=== PATIENT | male | born 1955 ===

== ENCOUNTER → 2020-07-01 13:41 | Outpatient (REF) | payer MEDICAID, SELFPAY ==
--- NOTE | 2020-07-01 14:00 | CA_ITS ---
Transthoracic Echocardiogram Patient (Last, First, Middle): Juan Carlos Garcia, Gender: Male Date of : 1955 Age: 64 Procedure Date: 07/01/2020 Procedure Type: Transthoracic Echocardiogram Location: OP Height: 172.72 cm Weight: 104.33 kg BSA: 2.17 m2 Heart Rate: bpm BP: 98 / 50 mmHg Workforce Planner: Isa MD: Rachid Guardado MD Symptoms: J44.9 COPD J45.909 UN SPEC ASTHMA I10 HTN Study Quality: Fair ECG Rhythm: Sinus Conclusions: - The left ventricular systolic function is normal. The visually estimated ejection fraction is between 55-60%. - Basal to mid inferolateral wall is not well visualized, but no obvious wall motion abnormality elsewhere. - No obvious valvular pathology seen on this study. Findings Left Ventricle Normal left ventricular cavity size. There is normal left ventricular wall thickness. The left ventricular systolic function is normal. The visually estimated ejection fraction is between 55-60%. Diastolic function is normal for age. Basal to mid inferolateral wall is not well visualized but no obvious wall motion abnormality elsewhere. Right Ventricle Normal right ventricular cavity size and systolic function. Atria The left atrium is normal in size. The right atrium is normal in size. Aortic Valve There is a normal trileaflet aortic valve. There is no aortic valve stenosis. There is no aortic valve regurgitation. Mitral Valve The mitral valve appears normal. There is trace mitral valve regurgitation. There is no mitral valve stenosis. Pulmonic Valve The pulmonic valve was not well visualized. Tricuspid Valve Normal tricuspid valve structure. There is trace tricuspid valve regurgitation. The pulmonary artery systolic pressure is normal. Great Vessels The aortic annulus, sinuses of valsalva, asc aorta, and aortic arch are normal in size. Venous The inferior vena cava is normal in size and collapses greater than 50% with inspiration. Pericardium/Pleural There is no evidence of pericardial effusion. Prior Study Comparison No prior study available for comparison. Recommendations, Care & Conclusions No obvious valvular pathology seen on this study. Recommend contrast in the future to improve endocardial definition. Measurements 2D Linear Measurements RVIDd: 2.79 RVIDd Index: 1.29 IVSd: 0.95 0.6-0.9/0.6-1.0 cm LVIDd: 5.05 3.9-5.3/4.2-5.9 cm LVIDd Index: 2.33 2.4-3.2/2.2-3.1 cm/m2 LVIDs: 3.43 2.0-3.6 cm LVPWd: 1.06 0.7-1.1 cm Ao Root: 3.70 2.1-3.5 cm LA Diam: 3.60 2.7-3.8/3.0-4.0 cm LAIDs Index: 1.66 1.5-2.3 cm/m2 LV Mass: 231.57 67-162/88-224 g LV Mass Index: 106.71 43-95/49-115 g/m2 LVOT Diam: 2.10 3.0+(-)1.3 cm 2D Systolic Function EF 4C: 61.10 >55% EF 2C: 65.30 >55% Mitral Valve MV Pk E: 0.58 MV PK A: 0.48 MV Decel Time: 298.00 E/A: 1.20 E'Lateral: 10.30 E/E' Lat: 5.60 Aortic Valve AoV Pk Hi: 0.91 AoV Mn Hi: 0.60 AoV VTI: 0.16 AoV Pk Grad: 3.00 Aov Mn Grad: 2.00 JOEY Cont.VTI: 3.05 LVOT LVOT Pk Hi: 0.78 LVOT Mn Hi: 0.48 LVOT VTI: 0.14 LVOT Pk Grad: 2.00 LVOT Mn Grad: 1.00 LVOT Diam: 2.10 LVOT Area: 3.46 Diastolic Function MV Pk E: 0.58 MV Pk A: 0.48 E/A: 1.20 E' Laterial: 10.30 E/E' Lat: 5.60 Tricuspid Valve TR Pk Hi: 2.27 TR Pk Grad: 21.00 RA Press: 3.00 RVSP: 24.00 Great Vessels Aorta Ao Root-2D: 3.70 2.0-3.7 cm Ao Asc: 3.50 2.1-3.4 cm Ao Arch: 3.10 Updated in Other Vendor System with Status of Final Savage Blancas MD electronically signed on 07/02/2020 11:22:47 AM with status of Final
== END ==
LOC: HO.CARD 13:41
PROVIDERS: PCP Internal Medicine; Visit Provider Internal Medicine
DX: J44.9 Chronic obstructive pulmonary disease, unspecified (principal); R60.0 Localized edema
CPT/HCPCS: 93306

== ENCOUNTER → 2020-07-29 15:20 | Outpatient (BNVA) | payer MEDICAID, SELFPAY | PROVIDERS: PCP Internal Medicine; Visit Provider Urology | DX: N40.1 Benign prostatic hyperplasia with lower urinary tract symptoms (principal); N13.8 Other obstructive and reflux uropathy; R31.0 Gross hematuria; R97.20 Elevated prostate specific antigen [PSA] | CPT/HCPCS: 99202 ==

== ENCOUNTER → 2021-01-06 09:03 | Outpatient (BNVA) | payer MEDICAID, SELFPAY | PROVIDERS: PCP Internal Medicine; Visit Provider Urology | DX: N40.1 Benign prostatic hyperplasia with lower urinary tract symptoms (principal); N13.8 Other obstructive and reflux uropathy; R31.0 Gross hematuria | CPT/HCPCS: 52000; 99212 ==

== ENCOUNTER 2021-01-26 09:22 | Emergency (ER) | payer MEDICAID, SELFPAY ==
[2021-01-26 09:31] VITALS: BP 153/77; PULSE 90; RESP 16; TEMP 35.5; O2SAT 95; BMI 36.9
--- NOTE | 2021-01-26 10:29 | ED_ITS ---
HPI - Skin/Abscess/Foreign Bdy General Chief complaint: Skin/Abscess/Foreign Body Stated complaint: rash Time Seen by Provider: 01/26/21 10:13 Source: patient Mode of arrival: ambulatory History of Present Illness HPI narrative: 65-year-old male with past medical history anxiety, asthma, depression, presenting to the ED complaining of pruritic rash x1 month. Admits rash started after using topical wart cream. Reports rash is spreading, has used multiple OTC medications without relief. Denies other new exposures, new medications, new detergents/soaps, recent travel, known insect bites, SOB, wheezing, intraoral swelling MD complaint: rash Related Data Previous Rx's Medication Instructions Recorded finasteride 5 mg tablet 5 mg PO DAILY 90 Days #90 tab 01/06/21 tamsulosin 0.4 mg capsule 0.4 mg PO BEDTIME 90 Days #90 cap 01/06/21 cetirizine 10 mg capsule (Zyrtec) 10 mg PO DAILY #14 cap 01/26/21 diphenhydramine HCl 25 mg capsule 25 mg PO Q6H PRN #14 cap 01/26/21 (Benadryl) triamcinolone acetonide 0.05 % 1 appl TOPICAL BID #430 g 01/26/21 topical ointment Allergies Allergy/AdvReac Type Severity Reaction Status Date / Time latex [Latex] Allergy Mild RASH Verified 01/06/21 09:10 Review of Systems Review of Systems: Constitutional: No Fever, No Chills ENT/Mouth: No Ear Pain, No Nasal Congestion, No sore throat, No Rhinorrhea, No Swallowing Difficulty Cardiovascular: No Chest Pain, No SOB Respiratory: No Cough, No Sputum, No Wheezing Gastrointestinal: No Nausea, No Vomiting, No Diarrhea, No Constipation, No Abdominal pain Genitourinary:, No Dysuria, No Flank Pain Musculoskeletal: No joint pain, No Myalgias, No Joint Swelling Skin: No Skin Lesions, + rash Neuro: No Weakness, No Numbness, No Paresthesias Yes all other systems are reviewed and are negative FORMERLY [facility], 1928–1983 Past Medical History Attestation statement: The following information was validated with the patient. Medical History Anxiety Asthma Chronic fatigue Depression Primary osteoarthritis of both knees Surgical History History of surgery Social History Social History Advance Directives: No Physical Exam Vital Signs: Vital Signs: Last Vital Signs Temp 96 F L 01/26/21 09:31 Pulse 90 01/26/21 09:31 Resp 16 01/26/21 09:31 BP 153/77 H 01/26/21 09:31 Pulse Ox 95 01/26/21 09:31 Body Mass Index 36.9 Const: General: cooperative and healthy appearing Orientation/consciousness: patient oriented x3 Limitations: no limitations HENMT: Head: Yes normal to inspection Ears: hearing grossly normal bilaterally General nose exam: Normal external nose present Face and sinus: Yes normal facial exam Eyes: General: appearance normal, both eyes and all related structures EOM: EOMs intact bilaterally Neck: Neck: Yes normal visual inspection and Yes no meningeal signs Resp: Effort & Inspection: normal respiratory effort, not labored, no respiratory distress and no stridor Auscultation: clear to auscultation justin aterally Cardio: Rate: regular rate Heart sounds: S1 normal heart sound present and S2 normal heart sound present Skin: Other: + erythema/dermatitis noted to upper anterior chest wall, lower abdomen, and small patch noted to back. No evidence of cellulitis, not warm, no streaking, no fluctuance/induration. No central clearing. No palm/sole involvement Wounds: no wounds Neuro: General: patient oriented x3 and no meningeal signs Gait exam (Neuro): Normal gait present Extrem: General: Yes normal to inspection MDM - Skin/Abscess/Foreign Bdy MDM Narrative Medical decision making narrative: 65-year-old male with past medical history anxiety, asthma, depression, presenting to the ED complaining of pruritic rash x1 month. Admits rash started after using topical wart cream. On exam vital signs stable, NAD/nontoxic. No respiratory distress, talking in complete sentences. Rash appears to be contact dermatitis/Allergic dermatitis. Noted scratching to areas. No evidence of cellulitis. Plan: Topical steroid, Benadryl, Zyrtec, dermatology follow-up Medical Records Attestation: I reviewed the patient's medical records. Lab Data Attestation: I reviewed the patient's lab results. Discharge Plan Discharge Clinical Impression: Dermatitis Patient Disposition: Home, Self-Care Instructions: Dermatitis (ED) Additional Instructions: You have dermatitis/rash, apply topical triamcinolone to rash only. Do not apply to face, genital area, hands, or feet as potentially can discolored skin Benadryl will also help with itching/allergic symptoms, be aware this will make you drowsy Zyrtec you can take during the day which will help with symptoms this will not make you drowsy Please follow-up with dermatology If your symptoms persist or worsen, rashes spreading, developed difficulty breathing, unbearable itching, area begins to look infected please return to the ED Please avoid itching Tiene dermatitis / erupci?n, aplique triamcinolona t?pica solo en la erupci?n. N o lo aplique en la rosalind, el ?kaitlynn genital, las alex o los pies, ya que potencialmente puede decolorar la piel. Benadryl tambi?n lo ayudar? con los s?ntomas de picaz?n / alergia, tenga en cuenta que esto lo adormecer? Puede nanette Zyrtec ilene el d?a, lo que ayudar? con los s?ntomas y no le taylor? rani?o. Por favor, julianne un seguimiento con dermatolog?a. Si lyudmila s?ntomas persisten o empeoran, las erupciones se extienden, tiene dificultad para respirar, picaz?n insoportable, el ?kaitlynn comienza a verse infectada, regrese al servicio de urgencias Por favor, evite la picaz?n Prescriptions: New triamcinolone acetonide 0.05 % ointment 1 appl topical BID Qty: 430 RF: 0 diphenhydramine HCl [Benadryl] 25 mg capsule 25 mg PO Q6H PRN (Reason: itching) Qty: 14 RF: 0 Zyrtec 10 mg capsule 10 mg PO DAILY Qty: 14 RF: 0 No Action tamsulosin 0.4 mg capsule 0.4 mg PO BEDTIME 90 Days Qty: 90 RF: 1 finasteride 5 mg tablet 5 mg PO DAILY 90 Days Qty: 90 RF: 1 Referrals: Rachel Jiang PA [Physician Heat And [employer] Insulator Helper] - 2 days Martín Tran MD [Physician] - 2 days Kian Joseph MD [Physician] - 2 days Cassie Rosas NP [Nurse Practitioner] - 2 days Danna Magallanes PA-C [Physician [employer] And [employer] Insulator Helper] - 2 days Dejah Corona PA [Physician [employer] And Frost Insulator Helper] - 2 days Interventions: ED Discharge Assessment Last Done: 01/26/21 10:56 Discharge Date/Time: 01/26/21 10:57 Print Language: Arabic
== END 2021-01-26 10:57 | disposition home or self-care (01) ==
PROVIDERS: Emergency Provider Emergency Medicine; PCP Internal Medicine
DX: L30.9 Dermatitis, unspecified (principal); J45.909 Unspecified asthma, uncomplicated
CPT/HCPCS: 99283

== ENCOUNTER 2021-07-02 08:53 | Outpatient (REF) | payer MEDICAID, SELFPAY ==
[2021-07-02 10:08] LABS: Blood Urea Nitrogen 11 mg/dL (9-16); Estimated Glomerular Filt Rate > 60
== END 2021-07-02 08:54 | disposition home or self-care (01) ==
LOC: HO.LAB 08:53
PROVIDERS: PCP Internal Medicine; Visit Provider Urology
DX: Z12.5 Encounter for screening for malignant neoplasm of prostate (principal); R97.20 Elevated prostate specific antigen [PSA]; R31.0 Gross hematuria
CPT/HCPCS: 36415; 82565; 84153; 84520

== ENCOUNTER → 2021-07-08 10:30 | Outpatient (BNVA) | payer MEDICAID, SELFPAY | PROVIDERS: PCP Internal Medicine; Visit Provider Urology | DX: Z13.89 Encounter for screening for other disorder (principal) ==

== ENCOUNTER → 2021-08-11 13:43 | Outpatient (REF) | payer MEDICAID, SELFPAY ==
--- NOTE | 2021-08-11 13:47 | CA_ITS ---
Transthoracic Echocardiogram Patient (Last, First, Middle): Juan Carlos Garcia, Gender: Male Date of : 1955 Age: 65 Procedure Date: 08/11/2021 Procedure Type: Transthoracic Echocardiogram Location: OP Height: 172.72 cm Weight: 113.4 kg BSA: 2.25 m2 Heart Rate: bpm BP: 124 / 78 mmHg Senior Instructional Designer: Referring MD: Rachid Guardado MD Stage Driver: Jhony Moyer MD Symptoms: R60.0 LOCALIZED EDEMA Study Quality: Fair ECG Rhythm: Sinus Conclusions: - 1. Normal LV systolic function with LVEF of 55-60% with grade 1 diastolic dysfunction 2. Normal cardiac valvular Doppler 3. Normal RV systolic pressure 4. No pericardial effusion Findings Left Ventricle The visually estimated ejection fraction is between 55-60%. Spectral Doppler is indicative of an impaired relaxation filling pattern. E/E prime ratio is <8, consistent with normal filling pressures. Evidence suggests grade I (mild) diastolic dysfunction. Right Ventricle Normal right ventricular cavity size and systolic function. Atria The left atrium is normal in size. Interatrial shunt cannot be excluded. The right atrium is normal in size. Aortic Valve The aortic valve structure and function is likely normal. There is no aortic valve stenosis. There is no aortic valve regurgitation. Mitral Valve Likely normal mitral valve structure and function. There is trace mitral valve regurgitation. There is no mitral valve stenosis. Pulmonic Valve The pulmonic valve was not well visualized. Tricuspid Valve Likely normal tricuspid valve structure and function. There is trace tricuspid valve regurgitation. The right ventricular systolic pressure is normal. The right ventricular systolic pressure is 24 mmHg. Normal right atrial pressure. There is no evidence of pulmonary hypertension. Great Vessels All visible segments of the aorta are normal in size. The pulmonary artery was not well visualized. Venous The inferior vena cava is normal in size and collapses greater than 50% with inspiration. Pericardium/Pleural There is no evidence of pericardial effusion. Prior Study Comparison No significant change compared to prior study dated: 07/01/2020. Measurements 2D Linear Measurements IVSd: 0.91 0.6-0.9/0.6-1.0 cm LVIDd: 4.35 3.9-5.3/4.2-5.9 cm LVIDd Index: 1.93 2.4-3.2/2.2-3.1 cm/m2 LVIDs: 2.90 2.0-3.6 cm LVPWd: 0.86 0.7-1.1 cm Ao Root: 3.70 2.1-3.5 cm LA Diam: 3.30 2.7-3.8/3.0-4.0 cm LAIDs Index: 1.47 1.5-2.3 cm/m2 LV Mass: 244.30 67-162/88-224 g LV Mass Index: 108.58 43-95/49-115 g/m2 LVOT Diam: 2.40 3.0+(-)1.3 cm 2D Systolic Function EF 4C: 60.70 >55% EF 2C: 55.00 >55% Mitral Valve MV Pk E: 0.54 MV PK A: 0.63 MV Decel Time: 228.00 E/A: 0.90 E'Lateral: 11.90 E'Medial: 6.64 E/E' Med: 8.10 E/E' Lat: 4.50 PHT: 67.00 MVA PHT: 3.28 Decel Clay: 2.37 Aortic Valve AoV Pk Hi: 1.09 AoV Mn Hi: 0.78 AoV VTI: 0.24 AoV Pk Grad: 5.00 Aov Mn Grad: 3.00 LVOT LVOT Diam: 2.40 LVOT Area: 4.52 Diastolic Function MV Pk E: 0.54 MV Pk A: 0.63 E/A: 0.90 E'Medial: 6.64 E/E' Med: 8.10 E' Laterial: 11.90 E/E' Lat: 4.50 Tricuspid Valve TR Pk Hi: 2.27 TR Pk Grad: 21.00 RA Press: 3.00 RVSP: 24.00 Great Vessels Aorta Ao Root-2D: 3.70 2.0-3.7 cm Ao Asc: 3.30 2.1-3.4 cm Pulmonary Valve PV Pk Hi: 1.63 Peak PV Grad: 11.00 Updated in Other Vendor System with Status of Final Jhony Moyer MD electronically signed on 08/12/2021 1:38:27 PM with status of Final
== END ==
LOC: HO.CARD 13:43
PROVIDERS: PCP Internal Medicine; Visit Provider Internal Medicine
DX: R60.0 Localized edema (principal)
CPT/HCPCS: 93306

== ENCOUNTER 2021-08-27 08:26 | Emergency (ER) | payer MEDICAID, SELFPAY ==
[2021-08-27 08:29] VITALS: BP 149/74; PULSE 79; RESP 18; TEMP 36.5; O2SAT 95; BMI 35.9
--- NOTE | 2021-08-27 09:02 | ED_ITS ---
HPI - Skin/Abscess/Foreign Bdy General Chief complaint: Skin/Abscess/Foreign Body Stated complaint: rash on chest and abd Time Seen by Provider: 08/27/21 09:01 Source: patient Mode of arrival: ambulatory Limitations: no limitations History of Present Illness HPI narrative: 65 y/o male presents to the ER with an itchy rash on his chest and abdomen for almost one year. Patient reports he developed a red itchy rash on the upper part of his chest and his left lower abdomen last November 2020 after he was started on medication for his prostate. He cannot recall the medication's name. He reports the rash has waxed and waned but has overall persisted for almost 1 year now. He has seen his primary care doctor for this and [facility] for [facility]. He has tried prednisone and several [id number] topical agents with no relief. He was referred to Dermatology but missed his appointment because his father and he needed to go to [place]. He has another appointment in January. He is desperate to help the itch. He states the rash on his upper chest is now oozing and crusting yellow. He denies any fever or chills. He states aside from the rash on his chest and abdomen there is a area on the right great toe. No other lesions on the body. MD complaint: rash Onset (ago): month(s) Tetanus up to date: yes Location: chest and R foot Severity: severe Severity scale (1-10): 10 Quality: aching, constant and pruritic Pain Consistency: constant Relieving factors: cold therapy Exacerbating factors: none Context: new medication Associated symptoms: denies other symptoms Treatments prior to arrival: OTC topical medication and Benadryl Related Data Home Medications Medication Instructions Recorded Confirmed aripiprazole 5 mg tablet 5 mg PO QPM 07/08/21 budesonide-formoterol HFA 160 2 puff PO 07/08/21 mcg-4.5 mcg/actuation aerosol inhaler (Symbicort) buspirone 10 mg tablet 10 mg PO 07/08/21 cetirizine 10 mg tablet 10 mg PO QPM 07/08/21 clobetasol 0.05 % topical cream g topical BID 07/08/21 paroxetine HCl 20 mg tablet 20 mg PO QAM 07/08/21 quetiapine 25 mg tablet 25 mg PO BEDTIME PRN insomnia 07/08/21 umeclidinium 62.5 mcg/actuation 1 inh inhalation DAILY 07/08/21 blister powder for inhalation (Incruse Ellipta) Previous Rx's Medication Instructions Recorded cetirizine 10 mg capsule (Zyrtec) 10 mg PO DAILY #14 caps 01/26/21 diphenhydramine HCl 25 mg capsule 25 mg PO Q6H PRN itching #14 caps 01/26/21 (Benadryl) triamcinolone acetonide 0.05 % 1 appl topical BID #430 grams 01/26/21 topical ointment dutasteride 0.5 mg capsule 0.5 mg PO DAILY 90 days #90 caps 07/08/21 tamsulosin 0.4 mg capsule 0.4 mg PO BEDTIME 90 days #90 caps 07/08/21 cephalexin 500 mg capsule 500 mg PO Q6H 7 days #28 caps 08/27/21 mupirocin 2 % topical ointment 1 appl topical TID #22 grams 08/27/21 prednisone 50 mg tablet 50 mg PO DAILY #7 tabs 08/27/21 triamcinolone acetonide 0.5 % 1 appl topical BID #15 grams 08/27/21 topical ointment Allergies Allergy/AdvReac Type Severity Reaction Status Date / Time latex [Latex] Allergy Mild RASH Verified 07/08/21 10:39 Review of Systems Review of Systems: Constitutional: No Fever, No Chills ENT/Mouth: no oral lesions Eyes: No Eye Pain, No Swelling, No Redness Cardiovascular: No Chest Pain, No SOB Respiratory: No Cough, No Sputum Gastrointestinal: No Nausea, No Vomiting, No Diarrhea, No abdominal Pain Genitourinary: No Dysuria, No Urinary Frequency, No Hematuria Musculoskeletal: No joint pain, No Myalgias Skin: No Skin Lesions, + rash Neuro: No Weakness, No Numbness, No Dizziness, No Headache Psych: + Anxiety/Panic, + Depression Heme/Lymph: No Bruising, No Lymphadenopathy PMFSH Past Medical History Medical History Anxiety Asthma Chronic fatigue Depression Primary osteoarthritis of both knees Surgical History History of surgery Social History Social History Advance Directives: No Advance Directives Information Provided: Yes Physical Exam 2 Vital Signs: Vital Signs: Last Vital Signs Temp 97.7 F 08/27/21 08:29 Pulse 79 08/27/21 08:29 Resp 18 08/27/21 08:29 BP 149/74 H 08/27/21 08:29 Pulse Ox 95 08/27/21 08:29 O2 Del Method 08/27/21 08:29 BMI result Body Mass Index 35.9 Appearance: Alert. Oriented X3. No acute distress. Eyes: Pupils equal, round and reactive to light. ENT: Pharynx normal. No oral lesions. Neck: Normal inspection. Neck supple. CVS: Normal heart rate and rhythm. Pulses normal. Respiratory: No respiratory distress. Breath sounds normal. Skin: Skin warm and dry. Normal skin color. Large erythematous pruritic rash on the upper chest and left lower abdomen. Upper chest wall with oozing and slight crusting. Extremities: No lower extremity edema. right great toe with mildly erythematous flat rash Neuro: Oriented X 3. No motor deficit. No sensory deficit. Course Course Course Narrative: 65 yo male with history of BPH presents to the ER with acute on chronic rash on his chest and abdomen for the last 9-10 months. It appears to be consistent with psoriasis wtih superimposed bacterial infection on the chest area. Will give topical mupirocin and keflex as well as steroids for the itch and inflammation. Advised to follow back up with his PCP and dermatology as soon as possible. Critical Care Time Critical Care Time Critical Care Time: No Discharge Plan Discharge Clinical Impression: Psoriasis, Cellulitis Patient Disposition: Home, Self-Care Instructions: Cellulitis (ED), Psoriasis (ED) Additional Instructions: Follow up with a special events coordinator as soon as possible Use the prescribed ointments and take the prescribed medications as directed Recommend continuing Benadryl 50 mg every 8 hours as needed for itching If you develop new or worsening symptoms call 911 or come back to the ER for further evaluation. Prescriptions: New mupirocin 2 % ointment 1 appl topical TID Qty: 22 0RF prednisone 50 mg tablet 50 mg PO DAILY Qty: 7 0RF cephalexin 500 mg capsule 500 mg PO Q6H 7 Days Qty: 28 0RF triamcinolone acetonide 0.5 % ointment 1 appl topical BID Qty: 15 0RF No Action triamcinolone acetonide 0.05 % ointment 1 appl topical BID Qty: 430 0RF diphenhydramine HCl [Benadryl] 25 mg capsule 25 mg PO Q6H PRN (Reason: itching) Qty: 14 0RF Zyrtec 10 mg capsule 10 mg PO DAILY Qty: 14 0RF budesonide-formoterol [Symbicort] 160-4.5 mcg/actuation HFA aerosol inhaler 2 puff PO aripiprazole 5 mg tablet 5 mg PO QPM buspirone 10 mg tablet 10 mg PO paroxetine HCl 20 mg tablet 20 mg PO QAM cetirizine 10 mg tablet 10 mg PO QPM quetiapine 25 mg tablet 25 mg PO BEDTIME PRN (Reason: insomnia) Incruse Ellipta 62.5 mcg/actuation blister with device 1 inh inhalation DAILY clobetasol 0.05 % cream topical BID tamsulosin 0.4 mg capsule 0.4 mg PO BEDTIME 90 Days Qty: 90 1RF dutasteride 0.5 mg capsule 0.5 mg PO DAILY 90 Days Qty: 90 1RF Referrals: Danna Magallanes PARolfC [Physician Stunt Woman] - Interventions: ED Discharge Assessment Last Done: 08/27/21 10:00 Discharge Date/Time: 08/27/21 10:01 Print Language: [place] Korean
== END 2021-08-27 10:01 | disposition home or self-care (01) ==
PROVIDERS: Emergency Provider Student in an Organized Health Care Education/Training Program; PCP Internal Medicine
DX: L40.9 Psoriasis, unspecified (principal); L03.313 Cellulitis of chest wall; J45.909 Unspecified asthma, uncomplicated
CPT/HCPCS: 99283

== ENCOUNTER 2021-09-05 07:25 | Emergency (ER) | payer MEDICAID, SELFPAY ==
[2021-09-05 07:30] VITALS: BP 127/71; PULSE 80; RESP 18; TEMP 36.1; O2SAT 95; BMI 39.1
[2021-09-05 08:23] VITALS: BP 148/85; PULSE 75; RESP 14; O2SAT 95
--- NOTE | 2021-09-05 09:39 | ED_ITS ---
HPI - Male Genitourinary General Chief complaint: Skin/Abscess/Foreign Body Stated complaint: Genital swelling from medication reaction Time Seen by Provider: 09/05/21 08:28 Source: patient Mode of arrival: ambulatory Limitations: language barrier ([place] speaking only) History of Present Illness HPI Narrative: 65-year-old male who presents emergency department for evaluation of swelling, redness and pain up on the head of his penis. The patient states that he has had a rash on his chest and abdomen for approximately 1 year and has seen multiple specialists but has not seen a electromechanical technician at. The patient was here in the emergency department on 08/27/2021 and diagnosed with a chronic dermatitis with possible bacterial superinfection. He was started on Keflex and steroids. The patient states that over the past 2 days he has notice redness, pain and swelling over the head of his penis therefore he stopped the antibiotics and the prednisone. He has not noticed any penile discharge. He denied frequency, urgency or dysuria. He states that he has not been sexually active times months. MD Complaint: other (Penile pain) Onset (ago): day(s) (2) Duration: constant Location: penis Severity: moderate Severity scale (1-10): 6 Quality: aching and burning Relieving factors: none Exacerbating factors: none Context: new medication (Keflex and prednisone) Associated symptoms: Reports denies other symptoms Related Data Sexually active: No Home Medications Medication Instructions Recorded Confirmed aripiprazole 5 mg tablet 5 mg PO QPM 07/08/21 budesonide-formoterol HFA 160 2 puff PO 07/08/21 mcg-4.5 mcg/actuation aerosol inhaler (Symbicort) buspirone 10 mg tablet 10 mg PO 07/08/21 cetirizine 10 mg tablet 10 mg PO QPM 07/08/21 clobetasol 0.05 % topical cream g topical BID 07/08/21 paroxetine HCl 20 mg tablet 20 mg PO QAM 07/08/21 quetiapine 25 mg tablet 25 mg PO BEDTIME PRN insomnia 07/08/21 umeclidinium 62.5 mcg/actuation 1 inh inhalation DAILY 07/08/21 blister powder for inhalation (Incruse Ellipta) Previous Rx's Medication Instructions Recorded cetirizine 10 mg capsule (Zyrtec) 10 mg PO DAILY #14 caps 01/26/21 diphenhydramine HCl 25 mg capsule 25 mg PO Q6H PRN itching #14 caps 01/26/21 (Benadryl) triamcinolone acetonide 0.05 % 1 appl topical BID #430 grams 01/26/21 topical ointment dutasteride 0.5 mg capsule 0.5 mg PO DAILY 90 days #90 caps 07/08/21 tamsulosin 0.4 mg capsule 0.4 mg PO BEDTIME 90 days #90 caps 07/08/21 cephalexin 500 mg capsule 500 mg PO Q6H 7 days #28 caps 08/27/21 mupirocin 2 % topical ointment 1 appl topical TID #22 grams 08/27/21 prednisone 50 mg tablet 50 mg PO DAILY #7 tabs 08/27/21 triamcinolone acetonide 0.5 % 1 appl topical BID #15 grams 08/27/21 topical ointment nystatin 100,000 unit/gram topical 1 appl topical BID #30 grams 09/05/21 cream Allergies Allergy/AdvReac Type Severity Reaction Status Date / Time latex [Latex] Allergy Mild RASH Verified 07/08/21 10:39 Review of Systems Review of Systems: Yes all other systems are reviewed and are negative [facility] Past Medical History [facility] Narrative: Social history: Patient is a former cigarette smoker, he stopped 2 years prior, he states he smoked for many years. He occasionally drinks alcohol. He denies drug use. Medical History Anxiety Asthma Chronic fatigue Depression Primary osteoarthritis of both knees Surgical History History of surgery Social History Social History Advance Directives: No Advance Directives Information Provided: No Physical Exam Vital Signs: Vital Signs: Last Vital Signs Temp 97.0 F 09/05/21 07:30 Pulse 75 09/05/21 08:23 Resp 14 09/05/21 08:23 BP 148/85 H 09/05/21 08:23 Pulse Ox 95 09/05/21 08:23 O2 Del Method 09/05/21 08:23 BMI result Body Mass Index 39.1 Const: General: cooperative and no acute distress Orientation/consciousness: oriented to person and oriented to place Limitations: no limitations HEENT: Head: Yes normal to inspection, Yes normocephalic and Yes atraumatic Ears: external ears normal General nose exam: Normal external nose present Face and sinus: Yes normal facial exam Mouth: Normal oral and palatal mucosa present Throat: Yes posterior oropharynx normal Eyes: General: appearance normal, both eyes and all related structures Pupils: Equal, round and reactive pupils present Neck: Neck: Yes normal visual inspection, Yes no lymphadenopathy, Yes trachea midline and Yes supple Chest: Chest palpation & inspection: normal inspection of the chest and normal palpation of entire chest wall Resp: Effort & Inspection: normal respiratory effort and able to speak in co mplete sentences Auscultation: clear to auscultation bilaterally Cardio: Rate: regular rate Rhythm: regular rhythm Heart sounds: S1 normal heart sound present, S2 normal heart sound present and no murmurs GI: Inspection: Yes normal to inspection Palpation (GI): Soft to palpation, nontender and no guarding Auscultation: normal bowel sounds : Other: Uncircumcised male penis, the patient's foreskin is easily retractable, the bulb of the penis is erythematous and swollen, tender to palpation. The patient's testicles are nontender. Skin overlying the scrotum and penis appear to be normal. Skin: Other: The patient has an erythematous rash which does not cristian to his anterior chest into his lower abdomen, this is chronic. Neuro: General: oriented to person and oriented to place Cranial nerves: Yes CN's II-XII intact bilaterally and Yes Equal, round and reactive pupils present Cognition (Neuro): normal cognition Motor exam (neuro): 5/5 motor strength present throughout Extrem: General: Yes normal to inspection Psych: Appearance: grossly normal Speech and movement: Normal speech and movement present Affect: normal affect Attitude: cooperative Thought process: Normal thought process present Thought content: Normal thought content present Course Course Course Narrative: 65-year-old male who presents emergency department for evaluation swelling, redness and pain in the head of his penis which started after he was taking Keflex and prednisone . The patient has no discharge no urinary symptoms. The patient's findings are consistent with balanitis which I believe is probably fungal. Patient was started on nystatin cream twice a day for 2 weeks. He was given printed and verbal instructions and discharged home. Discharge Plan Discharge Clinical Impression: Balanitis Patient Disposition: Home, Self-Care Instructions: Balanitis (ED) Additional Instructions: Stop taking the antibiotics and the prednisone Apply nystatin twice a day to the head of the penis for 2 weeks Follow-up with your doctor in 2 days. Please return to the emergency department if your symptoms get worse or if you develop any symptoms that are concerning to you. Prescriptions: New nystatin 100,000 unit/gram cream 1 appl topical BID Qty: 30 0RF No Action triamcinolone acetonide 0.05 % ointment 1 appl topical BID Qty: 430 0RF diphenhydramine HCl [Benadryl] 25 mg capsule 25 mg PO Q6H PRN (Reason: itching) Qty: 14 0RF Zyrtec 10 mg capsule 10 mg PO DAILY Qty: 14 0RF mupirocin 2 % ointment 1 appl topical TID Qty: 22 0RF prednisone 50 mg tablet 50 mg PO DAILY Qty: 7 0RF cephalexin 500 mg capsule 500 mg PO Q6H 7 Days Qty: 28 0RF triamcinolone acetonide 0.5 % ointment 1 appl topical BID Qty: 15 0RF budesonide-formoterol [Symbicort] 160-4.5 mcg/actuation HFA aerosol inhaler 2 puff PO aripiprazole 5 mg tablet 5 mg PO QPM buspirone 10 mg tablet 10 mg PO paroxetine HCl 20 mg tablet 20 mg PO QAM cetirizine 10 mg tablet 10 mg PO QPM quetiapine 25 mg tablet 25 mg PO BEDTIME PRN (Reason: insomnia) Incruse Ellipta 62.5 mcg/actuation blister with device 1 inh inhalation DAILY clobetasol 0.05 % cream topical BID tamsulosin 0.4 mg capsule 0.4 mg PO BEDTIME 90 Days Qty: 90 1RF dutasteride 0.5 mg capsule 0.5 mg PO DAILY 90 Days Qty: 90 1RF Interventions: ED Discharge Assessment Last Done: 09/05/21 10:14 Discharge Date/Time: 09/05/21 10:15 Print Language: [place]
== END 2021-09-05 10:15 | disposition home or self-care (01) ==
PROVIDERS: Emergency Provider Emergency Medicine Emergency Medical Services; PCP Internal Medicine
DX: N48.1 Balanitis (principal); Z79.899 Other long term (current) drug therapy
CPT/HCPCS: 99283

== ENCOUNTER 2022-01-08 09:12 | Outpatient (REF) | payer MEDICAID, SELFPAY ==
[2022-01-08 11:22] LABS: Prostate Specific Antigen 4.05 ng/mL (<0.05-4.0)
== END 2022-01-08 09:13 | disposition home or self-care (01) ==
LOC: HO.10HDL 09:12
PROVIDERS: Visit Provider Urology
DX: Z12.5 Encounter for screening for malignant neoplasm of prostate (principal); N40.1 Benign prostatic hyperplasia with lower urinary tract symptoms; N13.8 Other obstructive and reflux uropathy
CPT/HCPCS: 36415; 84153

== ENCOUNTER 2022-01-08 13:57 | Outpatient (AMB) | payer MEDICAID, SELFPAY ==
--- NOTE | 2022-01-08 14:21 | A.OFFVIS_ITS ---
Intake Intake Visit Reasons: PSA Follow Up Intake Note: Patient is present for psa follow up Allergies latex [Latex] Allergy (Mild, Verified 04/27/23 11:13) RASH HPI HPI Comments History of Present Illness Details Juan Carlos is a pleasant male. He is a patient of Dr Diez. He seen for the following urologic issues - lower urinary tract symptoms - weak stream - gross hematuria Telemedicine Evaluation 15 min Consultation DoxTasqe Judi Video attempted Swiss translation by qualified medical doctor md Developed a rash with finasteride Switched to dutasteride and restart tamsulosin 6 month follow-up PSA Lower urinary tract symptoms Initial symptoms include weakness of stream, incomplete bladder emptying, urinary hesitancy Medications finasteride and tamsulosin Cystoscopy - oval-shaped prostate PSA 07/02 4.3, 07/03 3.2, 01/02 4.0 Gross hematuria Single episode Smoking history 40 years pack per day 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 Plan for imaging, cytology, cystoscopy [facility] Medical History Somnolence COPD (chronic obstructive pulmonary disease) Obesity Nicotine dependence, cigarettes, uncomplicated Tubulovillous adenoma of colon Family history of ovarian cancer Obstructive sleep apnea Depression Asthma Anxiety Chronic fatigue Primary osteoarthritis of both knees Surgical History History of cystoscopy History of left inguinal hernia repair History of colonoscopy Social History Patient Tobacco Use Status: Former Tobacco user Tobacco use type: Cigarette Years Smoked: (onset 14yo, 1/2-1ppd x 52yrs, 35PYH) Review of Systems Const All systems reviewed & are unremarkable except as noted in HPI and below Reports no additional complaints Resp Reports no additional complaints GI Reports no additional complaints Reports as per HPI Musc Reports no additional complaints Physical Exam Telemedicine evaluation Appropriate responses Regular breathing rate and rhythm HEENT Head: Yes normal to inspection Ears: hearing grossly normal bilaterally Eyes General: appearance normal, both eyes and all related structures Neck Neck: Yes normal visual inspection Chest Chest palpation & inspection: normal inspection of the chest Resp Effort & Inspection: normal respiratory effort and able to speak in complete sentences Assessment & Plan Assessment & Plan (1) BPH w urinary obs/LUTS: Code(s): N40.1 - Benign prostatic hyperplasia with lower urinary tract symptoms; N13.8 - Other obstructive and reflux uropathy (2) Elevated PSA: Code(s): R97.20 - Elevated prostate specific antigen [PSA] Plan Six-month follow-up Patient Instructions: Imaging studies, laboratory and physical exam results were discussed and reviewed in detail. No major barriers to patient understanding were identified. An opportunity to ask questions regarding the treatment plan was provided. All questions were answered. The patient expressed understanding and agreement with the above treatment plan. The patient is aware they should contact our office by phone for worsening of their current condition or the appearance of new urologic symptoms. Compliance is encouraged with any medications and followup testing that is ordered. It is a privilege to participate in the urologic care of your patient. If you have any questions or concerns regarding treatment for the above conditions, or other urologic issues, please do not hesitate to contact me. The office telephone contact is [phone]. This note is constructed using voice recognition software. While every effort has been made to ensure accuracy floor clerk errors may have been included. Yours sincerely, Dr Jose Cherry MD, [facility] - Urology Providers of Expert, Compassionate Care for the Genitourinary System Telehealth Telehealth Location of provider rendering services: practice address Location of patient: address on file Patient Identification confirmed using: Name, : Yes Telehealth method: voice only Patient verbally consented to treatment: Yes Patient verbally consented to billing insurance company: Yes Patient informed of any privacy concerns related to visit: Yes Coding Level of Care Code Tele Est Pt Level 3 (68662) Diagnoses BPH w urinary obs/LUTS N40.1; N13.8 Elevated PSA R97.20
== END 2022-01-08 16:27 | disposition left against medical advice (07) ==
LOC: HO.HUSH 13:57
PROVIDERS: PCP Internal Medicine; Visit Provider Urology
DX: N40.1 Benign prostatic hyperplasia with lower urinary tract symptoms (principal); N13.8 Other obstructive and reflux uropathy; R97.20 Elevated prostate specific antigen [PSA]
CPT/HCPCS: 99213; 99499

== ENCOUNTER → 2022-04-14 09:54 | Outpatient (BNVA) | payer MEDICAID, SELFPAY | PROVIDERS: PCP Internal Medicine; Referring Provider Internal Medicine; Visit Provider Surgery | DX: Z12.11 Encounter for screening for malignant neoplasm of colon (principal); Z80.41 Family history of malignant neoplasm of ovary | CPT/HCPCS: 99202 ==

== ENCOUNTER 2022-06-11 07:54 | Day surgery (SDC) | payer MEDICAID, SELFPAY ==
--- NOTE | 2022-05-10 12:23 | HO.ANESPROP2 ---
HPI - Anesthesia Eval Consult details Narrative: 66yo M for Colonoscopy PMFSH Active Problems Active Problems: All Active Problems (Updated 04/14/22 @ 11:25 by Haresh Contreras MD) Family history of ovarian cancer (Acute) Colon cancer screening (Acute) Obstructive sleep apnea (Acute) BPH w urinary obs/LUTS (Acute) Gross hematuria (Acute) Elevated PSA (Acute) Past Medical History Medical History (Updated 04/14/22 @ 11:25 by Haresh Contreras MD) Anxiety Asthma Chronic fatigue Colon cancer screening Depression Family history of ovarian cancer Obstructive sleep apnea Primary osteoarthritis of both knees Surgical History Surgical History History of surgery Meds Allergies Allergy/AdvReac Type Severity Reaction Status Date / Time latex [Latex] Allergy Mild RASH Verified 04/14/22 10:25 Home Medications Medication Instructions Recorded Confirmed Last Taken Type aripiprazole 5 mg tablet 5 mg PO QPM 07/08/21 04/14/22 Unknown History budesonide-formoterol HFA 160 2 puff PO 07/08/21 04/14/22 Unknown History mcg-4.5 mcg/actuation aerosol inhaler (Symbicort) buspirone 10 mg tablet 10 mg PO 07/08/21 04/14/22 Unknown History cetirizine 10 mg tablet 10 mg PO QPM 07/08/21 04/14/22 Unknown History paroxetine HCl 20 mg tablet 20 mg PO QAM 07/08/21 04/14/22 Unknown History quetiapine 25 mg tablet 25 mg PO BEDTIME PRN insomnia 07/08/21 04/14/22 Unknown History umeclidinium 62.5 mcg/actuation 1 inh inhalation DAILY 07/08/21 04/14/22 Unknown History blister powder for inhalation (Incruse Ellipta) Exam Exam Date and Time: May 10, 2022 1223 Narrative Narrative: ECHO 2021 Conclusions: - 1.? Normal LV systolic function with LVEF of 55-60% with grade 1 diastolic dysfunction? 2.? Normal cardiac valvular Doppler? 3.? Normal RV systolic pressure? 4.? No pericardial effusion? ? Assessment and Plan Assessment Anesthesia Assessment: Chart Reviewed
--- NOTE | 2022-06-10 11:45 | HO.ANESPROP2 ---
Documented by User: Karina Urbano NP 06/10/22 11:46 HPI - Anesthesia Eval Consult details Narrative: 66yo M for Colonoscopy PMFSH Active Problems Active Problems: All Active Problems (Updated 04/14/22 @ 11:25 by Haresh Contreras MD) Family history of ovarian cancer (Acute) Colon cancer screening (Acute) Obstructive sleep apnea (Acute) BPH w urinary obs/LUTS (Acute) Gross hematuria (Acute) Elevated PSA (Acute) Past Medical History Medical History Anxiety Asthma Chronic fatigue Colon cancer screening Depression Family history of ovarian cancer Obstructive sleep apnea Primary osteoarthritis of both knees Surgical History Surgical History History of surgery Social History Social History Patient Tobacco Use Status: Former Tobacco user Meds Allergies Allergy/AdvReac Type Severity Reaction Status Date / Time latex [Latex] Allergy Mild RASH Verified 04/14/22 10:25 Home Medications Medication Instructions Recorded Confirmed Last Taken Type aripiprazole 5 mg tablet 5 mg PO QPM 07/08/21 06/11/22 Unknown History budesonide-formoterol HFA 160 2 puff inhalation BID 07/08/21 06/11/22 Unknown History mcg-4.5 mcg/actuation aerosol inhaler (Symbicort) buspirone 10 mg tablet 10 mg PO DAILY 07/08/21 06/11/22 Unknown History paroxetine HCl 20 mg tablet 20 mg PO QAM 07/08/21 06/11/22 Unknown History quetiapine 25 mg tablet 25 mg PO BEDTIME PRN insomnia 07/08/21 06/11/22 Unknown History budesonide-formoterol HFA 160 2 puff inhalation BID 06/11/22 06/11/22 Unknown History mcg-4.5 mcg/actuation aerosol inhaler (Symbicort) budesonide-formoterol HFA 80 2 puff inhalation BID 06/11/22 06/11/22 Unknown History mcg-4.5 mcg/actuation aerosol inhaler (Symbicort) Exam Exam Date and Time: June 10, 2022 1145 Narrative Narrative: ECHO 2021 Conclusions: - 1.? Normal LV systolic function with LVEF of 55-60% with grade 1 diastolic dysfunction? 2.? Normal cardiac valvular Doppler? 3.? Normal RV systolic pressure? 4.? No pericardial effusion? ? ? Assessment and Plan Assessment Anesthesia Assessment: Chart Reviewed Documented by User: Elizabeth Goddard MD 06/11/22 10:46 PMFSH Active Problems Active Problems: All Active Problems (Updated 04/14/22 @ 11:25 by Haresh Contreras MD) Family history of ovarian cancer (Acute) Colon cancer screening (Acute) Obstructive sleep apnea - not using CPAP machine BPH w urinary obs/LUTS (Acute) Gross hematuria (Acute) Elevated PSA (Acute) COPD Former smoker Past Medical History Medical History Anxiety Asthma Chronic fatigue Colon cancer screening Depression Family history of ovarian cancer Obstructive sleep apnea Primary osteoarthritis of both knees Family History Family history of problems with anesthesia: No Surgical History Surgical History History of surgery History of Problems with Anesthesia: No Social History Social History Patient Tobacco Use Status: Former Tobacco user Meds Allergies Allergy/AdvReac Type Severity Reaction Status Date / Time latex [Latex] Allergy Mild RASH Verified 04/14/22 10:25 Home Medications Medication Instructions Recorded Confirmed Last Taken Type aripiprazole 5 mg tablet 5 mg PO QPM 07/08/21 06/11/22 Unknown History budesonide-formoterol HFA 160 2 puff inhalation BID 07/08/21 06/11/22 Unknown History mcg-4.5 mcg/actuation aerosol inhaler (Symbicort) buspirone 10 mg tablet 10 mg PO DAILY 07/08/21 06/11/22 Unknown History paroxetine HCl 20 mg tablet 20 mg PO QAM 07/08/21 06/11/22 Unknown History quetiapine 25 mg tablet 25 mg PO BEDTIME PRN insomnia 07/08/21 06/11/22 Unknown History budesonide-formoterol HFA 160 2 puff inhalation BID 06/11/22 06/11/22 Unknown History mcg-4.5 mcg/actuation aerosol inhaler (Symbicort) budesonide-formoterol HFA 80 2 puff inhalation BID 06/11/22 06/11/22 Unknown History mcg-4.5 mcg/actuation aerosol inhaler (Symbicort) Exam Height,Weight and Vital Signs: Height 5 ft 9 in Weight 113.398 kg Vital Signs 08:45 T 97 HR 92 RR 20 BP 119/79 Sats 94%(RA) Airway Mallampati Class: III TM Dist: >3cm Neck ROM: Full Loose/Missing/Broken Teeth: No (Denies broken, loose teeth. Molars extracted ) Heart: RRR Lungs: CTAB. Diminished Assessment and Plan Assessment Anesthesia Assessment: Anesthesia Plan Discussed Final Anesthetic Review Family History of Problems with Anesthesia: No History of Problems with Anesthesia: No NPO: Yes ASA Class: III Final Preanesthetic Review: No Changes in Pt Med Stat, Meds/Allgs Chart Reviewed, Consent Obtained/Reviewed and Anes Risks/Benef Reviewed Patient Risk: Intermediate Procedure Risk: Low Assessment/Block/Sedation in SS: Assess/Block/Sedation-SS Anesthetic Plan Anesthetic Plan: MAC: Disposition: Standard PACU
[2022-06-11] MEDS: Albuterol Sulfate (0.083%) 2.5 MG/3 ML VIAL.NEB INHALE (08:10)
[2022-06-11 08:13] VITALS: PULSE 90; RESP 18; O2SAT 93
[2022-06-11 08:19] VITALS: BP 119/79; PULSE 88; RESP 18
[2022-06-11 08:39] VITALS: BMI 36.9
[2022-06-11 08:45] VITALS: BP 119/79; PULSE 92; RESP 20; TEMP 36.1; O2SAT 94
[2022-06-11] MEDS: Lactated Ringers 1,000 ML 100 ML IVCONT (08:52)
--- NOTE | 2022-06-11 09:07 | P.HPSUR_ITS ---
Pre-Procedural Eval Section A Date of Service: 06/11/22 Section B Chief Complaint: screening Details of Present Illness: had a colonoscopy in 2018, with 2 polyps removed, Relevant Social History: None Present Medications: see Short Stay Collaborative assessment Medical History: Significant History ( BPH, sleep apnea) Allergies: Allergies Allergy/AdvReac Type Severity Reaction Status Date / Time latex [Latex] Allergy Mild RASH Verified 04/14/22 10:25 Review of Systems Sugical H&P ROS: Negative: Constitution, Cardiovascular, Respiratory, Neurological, Psychiatric, Hem-Onc, Allergic/Immunologic, Gastrointestinal, Genitourinary, Musculoskeletal, Integumentary, Endocrine and Eyes/ Ears/Nose/Throat Exam Surgical H&P Exam: Normal: HEENT, Normal: Heart, Normal: Lungs, Normal: Extremities, Normal: Abdomen, Normal: Skin and Normal: Neurological Plan Diagnosis/Plan: Unchanged I have reviewed the history and physical and performed a pertinent physical examination on my patient. No changes have occurred unless specified. Time Spent With Patient Time: Total time managing care of this patient today ____ minutes.
--- NOTE | 2022-06-11 09:47 | W.PM.OPN ---
Operative Note Operative Note Date of Service: 06/11/22 Narrative: Preop diagnosis: Colon cancer screening Postop diagnosis: 1. Polyp on a stalk, about 8 mm in size, at level 95 cm, removed with hot polypectomy snare Procedure: Colonoscopy with polypectomy using hot snare surgeon: Haresh Contreras MD The patient is a 66-year-old male here for repeat colonoscopy . He had 2 polyps in 2018 and had a tree commended to have follow-up colonoscopy in 5 years. he understood the technique of the procedure and was aware of the risks, benefits, and alternatives. The patient was brought to the operating room and placed in left lateral decubitus position under monitored anesthesia care. A surgical time-out was done. A full digital rectal exam was done and this did not reveal any significant anal lesions. The tip of the Olympus colonoscope was gently introduced through the anal orifice advanced with insufflation all the way to the cecum. The cecum was intubated. The cecum was identified by visualization of the ileocecal valve as well as the appendiceal orifice. The cecal mucosa was unremarkable. The scope was gradually withdrawn with careful examination of the entire colonic mucosa being done with scope withdrawal. The patient had adequate bowel prep so it was unlikely that any lesion may have been missed. at level 95 cm, there was note of a polyp on a stalk probably about 8 mm in size. This was removed using hot snare. This was retrieved through suctioning. It appeared that the specimen had broken into multiple pieces when suctioned and recovered in the trap. The rectum was reached and there were no lesions seen. The anal canal was unremarkable. The scope was then withdrawn completely with desufflation The patient tolerated procedure well. There were no immediate complications. Depending on the path report, his next colonoscopy may be in the next [10] years.
[2022-06-11 09:53] VITALS: BP 122/77; PULSE 108; RESP 20; TEMP 36.6; O2SAT 97
[2022-06-11 10:14] VITALS: BP 115/77; PULSE 104; RESP 18; TEMP 36.6; O2SAT 95
== END 2022-06-11 10:50 | disposition home or self-care (01) ==
PROVIDERS: PCP Internal Medicine; Visit Provider Surgery
PROC: 0DJD8ZZ Inspection of Lower Intestinal Tract, Via Natural or Artificial Opening Endoscopic (ICD-10-PCS; CPT 45378; principal; 2022-06-11 09:30)
DX: Z12.11 Encounter for screening for malignant neoplasm of colon (principal); Z86.010 Personal history of colon polyps; D12.3 Benign neoplasm of transverse colon; F32.A Depression, unspecified; F41.1 Generalized anxiety disorder; G47.33 Obstructive sleep apnea (adult) (pediatric); J45.909 Unspecified asthma, uncomplicated; R53.83 Other fatigue; M17.0 Bilateral primary osteoarthritis of knee; Z79.51 Long term (current) use of inhaled steroids; Z79.899 Other long term (current) drug therapy; Z91.040 Latex allergy status
CPT/HCPCS: 45385; 88305; 94640; J2250

== ENCOUNTER → 2022-06-24 12:46 | Outpatient (BNVA) | payer MEDICAID, SELFPAY | PROVIDERS: PCP Internal Medicine; Visit Provider Surgery | DX: D12.6 Benign neoplasm of colon, unspecified (principal); Z98.890 Other specified postprocedural states | CPT/HCPCS: 99212 ==

== ENCOUNTER 2022-11-30 09:57 | Outpatient (AMB) | payer MEDICAID, SELFPAY ==
[2022-11-30 10:06] VITALS: BP 120/78; PULSE 78; O2SAT 93; BMI 36.5
--- NOTE | 2022-11-30 10:06 | MHC.OFFVIS ---
Intake Vital Signs 11/30/22 10:06 Height 5 ft 9 in Weight 247 lb BMI 36.5 BP 120/78 Blood Pressure Location Lt brachial Position Sitting Pulse 78 Pulse Source Pulse Oximeter Pulse Oximetry (%) 93 Oxygen Delivery Method Room Air Intake Visit Reasons: asthma/gloria Intake Note: pt is here as a new patient for asthma and GLORIA. He states he is feeling good. Automotive Engineering Technician Required: Yes Automotive Engineering Technician Name: Valeria Allergies latex [Latex] Allergy (Mild, Verified 11/30/22 10:39) RASH Medication List - Last Reconciled 11/30/22 by Lennox Nayak MD albuterol sulfate mg inhalation TID PRN albuterol sulfate 90 mcg/actuation (Proventil HFA) 2 puffs inhalation Q4-6H PRN aripiprazole 5 mg PO QPM budesonide-formoterol 160-4.5 mcg/actuation (Symbicort) 2 puffs inhalation BID buspirone 10 mg PO DAILY cetirizine (Zyrtec) 10 mg PO DAILY paroxetine HCl 20 mg PO QAM quetiapine 25 mg PO BEDTIME PRN triamcinolone acetonide 0.5% 1 appl topical BID Do you need a note to return to daycare/school/sports/work: No HPI asthma/gloria HPI Details 66 YEARS OLD GENTLEMAN MOSTLY SLOVENIAN-SPEAKING, VERY PLEASANT AND FRIENDLY, IS HERE BEING SEEN FOR PULMONARY EVALUATION AND ALSO FOR TREATMENT OF OBSTRUCTIVE SLEEP APNEA. BACK IN 2010, HE HAD A SLEEP STUDY IN THE SLEEP LAB, FOUND TO HAVE VERY SEVERE OBSTRUCTIVE SLEEP APNEA WITH TOTAL SLEEP TIME RDI OF 68. HE WAS STARTED ON CPAP THERAPY WHICH HE USED FOR A FEW YEARS, AND THEN STOPPED IT. HE STATES BECAUSE HE WAS GOING TO [place] AND ALSO SOME DOCTOR IN [place] HAD TOLD HIM THAT USE OF CPAP MAY HURT HIS LUNGS, SO HE STOPPED USING IT. LATELY HE IS COMPLAINING OF,, EXCESSIVE SNORING AT NIGHT FREQUENT AWAKENINGS WITH SHORTNESS OF BREATH, AND EXCESSIVE DAYTIME SLEEPINESS. EPWORTH SLEEPINESS SCALE IS AT LEAST 12/24. HE STATES THAT HE IS TIRED AND SLEEPY DURING THE WHOLE DAY. HE HAS PUT ON SOME WEIGHT. HE HAS A LONGSTANDING HISTORY OF SMOKING HAD QUIT FOR A FEW YEARS, AND THEN RESTARTED SMOKING AT HALF PACK OF CIGARETTES A DAY. HE DOES HAVE MILD. INTERMITTENT COUGH RELATED TO SMOKING HAS ONLY OCCASIONAL WHEEZING. HE DOES GET SHORT OF BREATH IF HE HAS TO WALK UP HILL OR CLIMBS STAIRS. HE FEELS SOME NONSPECIFIC DISCOMFORT IN THE RIGHT MID CHEST, THERE IS NO HISTORY OF ANY INJURY. DENIES HAVING HAD ANY PNEUMONIA. HE DID HAVE COVID LIKE SYMPTOMS COUPLE YEARS AGO BUT DID NOT HAVE TO BE IN THE HOSPITAL. HE IS UP TO DATE WITH COVID VACCINATION. HE HAS BEEN TREATED FOR ASTHMA/CHRONIC OBSTRUCTIVE PULMONARY DISEASE. CURRENTLY USING SYMBICORT 160-4.52 PUFFS B.I.D., AND ALSO. NEEDS ALBUTEROL ONLY ONCE IN A WHILE HE HAS MILD INTERMITTENT NASAL CONGESTION AND USES IS ZYRTEC 10 MG ONCE A DAY P.R.N. HE DOES HAVE HISTORY OF ANXIETY BEING TREATED WITH PAROXETINE 20 MG DAILY, BUSPIRONE 10 MG DAILY,ARIPIPRAZOLE 5 MG DAILY, AND SEROQUEL 25 MG AT BEDTIME P.R.N.. [facility] IS REVIEWED. [facility] Medical History (Updated 11/30/22 @ 11:13 by Lennox Nayak MD) Somnolence COPD (chronic obstructive pulmonary disease) Obesity Nicotine dependence, cigarettes, uncomplicated Tubulovillous adenoma of colon Family history of ovarian cancer Obstructive sleep apnea Depression Asthma Anxiety Chronic fatigue Primary osteoarthritis of both knees Surgical History History of cystoscopy History of left inguinal hernia repair History of colonoscopy Social History Patient Tobacco Use Status: Current everyday Tobacco user Cigarette Packs Per Day: 12 Cigarettes Per Day: 0.5 Review of Systems Const All systems reviewed & are unremarkable except as noted in HPI and below Eyes Reports no additional complaints ENT Reports nasal congestion (Mild off and on) Card Denies chest pain, Denies syncope, Denies irregular heart rhythm and Denies leg edema Resp Reports as per HPI GI Reports no additional complaints Reports no additional complaints Musc Reports no additional complaints Skin/Breast Reports system reviewed and no additional complaints, except as documented Neuro Reports no additional complaints and Denies syncope Psych Reports anxiety, Reports depression and Reports mood swings Endo Reports no additional complaints Lanre/Lymph Reports no additional complaints Aller/Immun Reports seasonal rhinorrhea (Of and on) Physical Exam Vital Signs: Last Vital Signs Pulse 78 11/30/22 10:06 BP 120/78 11/30/22 10:06 Pulse Ox 93 11/30/22 10:06 Oxygen Delivery Method Room Air 11/30/22 10:06 BMI result Body Mass Index 36.5 Const General: healthy appearing (Except for being overweight), comfortable, no acute distress, alert and awake Orientation/consciousness: patient oriented x3 HEENT Head: Yes normal to inspection General nose exam: No nasal polyps present and No nasal discharge present Face and sinus: Yes sinuses nontender Mouth: oropharynx abnormals (Moderately crowded, Mallampati scale 3) Throat: Yes posterior oropharynx normal Eyes General: appearance normal, both eyes and all related structures Neck Neck: Yes normal visual inspection, Yes no lymphadenopathy, Yes trachea midline, Yes no JVD and Yes other (Neck circumference 19 in) Thyroid: Thyroid normal Chest Chest palpation & inspection: normal inspection of the chest, normal palpation of entire chest wall and no tenderness Resp Other: Percussion note is resonant, breath sounds are distant with prolonged expiratory phase. No pleural rub, wheezes or crepitations. Cardio Palpation: normal PMI Rate: regular rate Rhythm: regular rhythm Heart sounds: no gallops and no murmurs Peripheral pulses: Peripheral pulses 2+ throughout GI Palpation (GI): Soft to palpation, nontender, No hepatosplenomegaly present and no masses Auscultation: normal bowel sounds Back/Spine/Pelvis Thoracic/Lumbar Spine: thoracic and lumbar spine normal to inspection Skin General skin exam: no rashes or lesions noted Neuro General: patient oriented x3 and no focal motor deficits Cranial nerves: Yes CN's II-XII intact bilaterally Extrem General: Yes normal to inspection, Yes no clubbing, cyanosis or edema and Yes no calf tenderness Psych Speech and movement: Normal speech and movement present Assessment & Plan Assessment & Plan (1) Nicotine dependence, cigarettes, uncomplicated: Comment: (onset 14yo, 1/2-1ppd x 52yrs, 35PYH) OF NOTE TO PCP: Patient will be turning 67yo this year - The USPTF recommends all men aged 65-75 who have ever smoked have a one time abdominal ultrasound for AAA screening THIS GENTLEMAN HAS TRY TO QUIT OFF AND ON, BUT RESTARTS SMOKING. CURRENTLY SMOKING ABOUT 12-13 CIGARETTES A DAY. I DID HAVE A GOOD CONVERSATION WITH HIM AND STRESSED THAT HE SHOULD QUIT COMPLETELY. AFTER DISCUSSION, HE SEEMS TO BE WELL MOTIVATED QUIT. HE DOES NOT NEED ANY NICOTINE PATCH OR OTHER SUPPORT AT THIS TIME. Code(s): F17.210 - Nicotine dependence, cigarettes, uncomplicated (2) Obstructive sleep apnea: Comment: HIS SLEEP STUDY IN THE SLEEP LAB 06/15/10 showed severe obstructive sleep apnea ,RDI 68.1) HE HAD BEEN STARTED ON CPAP THERAPY WHICH HE USED FOR 3-4 YEARS, AND THEN HE QUIT USING IT. NOW HE COMES BACK FOR EVALUATION BECAUSE HE IS HAVING SIGNIFICANT SYMPTOMS OF SLEEP APNEA. PLAN : HOME-BASED SLEEP STUDY IS ORDERED, PATIENT SEEMS TO BE MOTIVATED TO USE CPAP IF THE DIAGNOSIS IS CONFIRMED. SLEEP HYGIENE MEASURES EXPLAINED TO HIM. HE SAY IS THAT HE CANNOT SLEEP IN LATERAL POSITION , BECAUSE HIS CHEST FEELS TIGHT WHEN HE IS SLEEPING ON THE RIGHT SIDE, SO HE ENDS UP SLEEPING IN SUPINE POSITION MOST OF THE TIME. I THINK HIS STUDY WILL SHOW THAT HE STILL HAS SEVERE OBSTRUCTIVE SLEEP APNEA DISORDER AND HE WOULD NEED TO GO ON CPAP THERAPY. HE UNDERSTANDS AND WOULD BE WILLING TO GO BACK ON CPAP. Code(s): G47.33 - Obstructive sleep apnea (adult) (pediatric) (3) Obesity: Comment: PATIENT IS GROSSLY OBESE, HAS A ROUND FACE, OBESE NECK, THESE PHYSICAL FEATURES ON TYPICAL OF OBSTRUCTIVE SLEEP APNEA. DISCUSSED WITH HIM ABOUT JOINING A WEIGHT MANAGEMENT PROGRAM, OR START CUTTING DOWN THE CALORIES INTAKE AND WALK ON A DAILY BASIS. Code(s): E66.9 - Obesity, unspecified (4) COPD (chronic obstructive pulmonary disease): Comment: HE HAS LONGSTANDING HISTORY OF COUGH SOME WHEEZING AND SHORTNESS OF BREATH ON EXERTION. HAS BEEN TREATED FOR POSSIBLE BRONCHIAL ASTHMA/COPD. CURRENTLY DOING OKAY WITH THE SYMBICORT AND ALBUTEROL. HAS NOT HAD ANY PULMONARY FUNCTION TEST AT LEAST FOR THE LAST MANY YEARS. SO WE WILL SET UP AN APPOINTMENT FOR PFT, BEFORE HIS NEXT VISIT. TX : FOR THE TIME BEING CONTINUE SYMBICORT 160-4.52 PUFFS B.I.D., IN USE ALBUTEROL HFA 2 PUFFS Q 6 HOURS ONLY P.R.N. * CHEST X-RAY ORDERED FOR BASELINE, ALSO DISCUSSED WITH THE PATIENT ABOUT ANNUAL LUNG SCREENING PROGRAM, HE WILL LET US KNOW BY NEXT VISIT. Code(s): J44.9 - Chronic obstructive pulmonary disease, unspecified Orders: Orders PFT pulmonary function test Today E66.9 - Obesity, unspecified, F17.210 - Nicotine dependence, cigarettes, uncomplicated, J44.9 - Chronic obstructive pulmonary disease, unspecified XR chest 2V Today E66.9 - Obesity, unspecified, F17.210 - Nicotine dependence, cigarettes, uncomplicated, G47.33 - Obstructive sleep apnea (adult) (pediatric), J44.9 - Chronic obstructive pulmonary disease, unspecified RT home sleep study Today E66.9 - Obesity, unspecified, G47.33 - Obstructive sleep apnea (adult) (pediatric), R40.0 - Somnolence Coding Level of Care Code New Pt Level 4 (27059) Diagnoses Nicotine dependence, cigarettes, uncomplicated F17.210 Obstructive sleep apnea G47.33 Obesity E66.9 COPD (chronic obstructive pulmonary disease) J44.9
== END 2022-11-30 10:37 | disposition home or self-care (01) ==
PROVIDERS: PCP Internal Medicine; Visit Provider Internal Medicine
DX: F17.210 Nicotine dependence, cigarettes, uncomplicated (principal); G47.33 Obstructive sleep apnea (adult) (pediatric); E66.9 Obesity, unspecified; J44.9 Chronic obstructive pulmonary disease, unspecified
CPT/HCPCS: 99204

== ENCOUNTER 2022-11-30 09:57 | Outpatient (REF) | payer MEDICAID, SELFPAY ==
--- NOTE | ~2022-11-30 | XR_ITS ---
EXAMINATION: XR CHEST CLINICAL INFORMATION: Nicotine dependence, cigarette COMPARISON: Chest and ribs 11/25/2017. Chest 03/05/2017. TECHNIQUE: 2 views of the chest were obtained. FINDINGS: There is no gross pneumothorax. Lung volumes are low. Heart size within normal limits. No pleural effusion. Mild streaky opacities at the right lung base may represent atelectasis and/or pneumonia. Mild S-shaped thoracolumbar scoliosis. Mild degenerative changes in the thoracic spine. XR/XR chest 2V IMPRESSION: Mild streaky opacities at the right lung base may represent atelectasis and/or pneumonia. Recommend follow-up imaging in 4-6 weeks to confirm resolution and exclude underlying pathology. CT scan should also be considered for further evaluation for this patient with nicotine dependence history.
== END 2022-11-30 09:58 | disposition home or self-care (01) ==
LOC: HO.XRAY 09:57
PROVIDERS: PCP Internal Medicine; Visit Provider Internal Medicine
DX: J44.9 Chronic obstructive pulmonary disease, unspecified (principal); G47.33 Obstructive sleep apnea (adult) (pediatric); F17.210 Nicotine dependence, cigarettes, uncomplicated; E66.9 Obesity, unspecified; Z79.899 Other long term (current) drug therapy
CPT/HCPCS: 71046

== ENCOUNTER 2022-12-17 12:17 | Outpatient (AMB) | payer MEDICAID, SELFPAY ==
--- NOTE | 2022-12-17 07:42 | MHC.OFFVIS ---
Intake Intake Visit Reasons: LDCT SD Allergies latex [Latex] Allergy (Mild, Verified 11/30/22 10:39) RASH HPI LDCT SD HPI Details Initial visit for this 67yo smoker with a 35PYH. Patient has been smoking since age 14 for 52 years at 1/2-1ppd. Currently at 1/2ppd. . Denies marijuana use. Denies second hand smoke exposure. Reports exposure to asbestos and diesel fumes. . Reports known family history of lung cancer. Father. Denies personal history of cancers. Denies chest CT in last year. . Denies recent travel outside the [place]. Denies recent respiratory illness or recent hospitalization for respiratory issues. Reports testing positive for COVID, in 2020 Admits receiving COVID Vaccine. x 3. . Denies fever, chills, new/worsening cough, hemoptysis, hoarseness or dysphagia. Denies significant chest pain, significant dyspnea or unintentional weight loss. Patient Lung Cancer Screening Questionnaire reviewed with patient by provider. . Shared Decision Making Completed. Patient meets criteria. Discussed in detail with patient, the risk vs benefit of LDCT screening. Patient consents to proceed with scan. Discussed smoking cessation. [facility] Medical History (Updated 12/17/22 @ 12:09 by Sue Harp PA-C) Somnolence COPD (chronic obstructive pulmonary disease) Obesity Nicotine dependence, cigarettes, uncomplicated Tubulovillous adenoma of colon Family history of ovarian cancer Obstructive sleep apnea Depression Asthma Anxiety Chronic fatigue Primary osteoarthritis of both knees Surgical History History of cystoscopy History of left inguinal hernia repair History of colonoscopy Social History (Updated 12/17/22 @ 13:04 by Sue Harp PA-C) Patient Tobacco Use Status: Current everyday Tobacco user Tobacco use type: Cigarette Cigarette Packs Per Day: 12 Cigarettes Per Day: 0.5 Years Smoked: (onset 14yo, 1/2-1ppd x 52yrs, 35PYH) Assessment & Plan Assessment & Plan (1) Nicotine dependence, cigarettes, uncomplicated: Comment: (onset 14yo, 1/2-1ppd x 52yrs, 35PYH) Code(s): F17.210 - Nicotine dependence, cigarettes, uncomplicated Plan: - SDM visit completed today in office. - Patient meets criteria for LDCT for lung cancer screening purposes and is asymptomatic. - Smoking cessation counseling offered. Patients can always call [phone]. - Will arrange for a LDCT scan of the chest for screening purposes at [facility]. - Risks, benefits, and alternatives were discussed in detail and the patient agrees to proceed. - Risks discussed include but are not limited to: radiation exposure, anxiety during testing and while awaiting results, false negatives, false positives and possibility of additional intervention such as further imaging or surgical procedures for benign disease. - Benefits are obviously detection of lung cancer at an early stage which can lead to improved outcomes. - Discussed the importance of screening program compliance with adherence to yearly LDCT scan as scheduled - or sooner interval scans for personalized screening regimen. - Discussed follow up plan. Our office will send a letter discussing results and if needed set up phone call and office visit based on CT findings. - Patient educated on results categorization and the management decisions for suspicious findings potentially found on the screening LDCT scan. Any patient with a Lung RADS score of 3 or 4 will be reviewed by a multidisciplinary team at [facility] to form a plan of action in regards to scan findings. - If further work up is warranted for a suspicious lung finding this will be followed by the Lung Cancer Screening program in conjunction with the Thoracic Surgery Department at [facility]. - A copy of the office note and LDCT will be sent to the patient's PCP - as well as documentation on any associated further plans of care. - Incidental findings on LDCT are the PCP's responsibility. These findings are indicated with an S finding on the LDCT Assessment. A note discussing the findings will be sent to the PCP who is then responsible for further management. - All questions answered.? Plan OF NOTE TO PCP: Patient recently turned 67yo - The USPTF recommends all men aged 65-75 who have ever smoked have a one time abdominal ultrasound for AAA screening Coding Level of Care Code Lung Cancer Screening G0296 Diagnoses Nicotine dependence, cigarettes, uncomplicated F17.210
== END 2022-12-17 14:19 | disposition home or self-care (01) ==
PROVIDERS: PCP Internal Medicine; Visit Provider Physician Assistant Medical
DX: F17.210 Nicotine dependence, cigarettes, uncomplicated (principal)
CPT/HCPCS: G0296

== ENCOUNTER 2022-12-17 13:06 | Outpatient (REF) | payer MEDICAID, SELFPAY ==
--- NOTE | ~2022-12-17 | CT_ITS ---
EXAMINATION: CT CHEST LOW-DOSE SCREENING WITHOUT CONTRAST HISTORY: Asymptomatic patient meeting criteria for lung screening. PATIENT PACK-YEAR HISTORY: 44 Current Smoker: Yes If former smoker, years since quitting: COMPARISON: None available. TECHNIQUE: Multidetector volumetric non-contrast CT imaging of the chest was performed using low dose screening CT technique. Axial thin section 0.625 mm reformations in soft tissue and lung windows were obtained. Sagittal and coronal reformations were obtained. Axial MIP images were also created and reviewed. RECONSTRUCTED WIDTH: 1.25 mm x 1.25 mm TOTAL EXAM DLP: 69 mGy-cm CTDIvol: 1.90 L mGy FINDINGS: LUNGS: Mild centrilobular emphysema. 4 mm nodule left lower lobe on image 267. 4 mm left lower lobe pulmonary nodule image 295. No focal consolidation. Central airways are patent. PLEURA: No pleural effusion. LYMPH NODES: No bulky mediastinal, hilar or axillary lymphadenopathy. MEDIASTINUM: Great vessels are of normal caliber. Heart size is normal. No pericardial effusion. CORONARY ARTERY CALCIFICATIONS: Mild. CHEST WALL/BREASTS: Gynecomastia. UPPER ABDOMEN: This study was performed without contrast and with lower than standard dose, reducing the sensitivity for detection of small lesions in the upper abdomen. OSSEOUS STRUCTURES: No destructive bone lesions. CT/CT lung screening IMPRESSION: 4 mm left lower lobe pulmonary nodules. LUNG-RADS CATEGORY ASSESSMENT: 2. Benign appearance or behavior. Nodules with a very low likelihood of becoming a clinically active cancer due to size or lack of growth. Continue annual screening with low-dose CT in 12 months. Probability of malignancy less than 1%. INCIDENTAL FINDINGS (S CATEGORY): Finding: No incidental findings. Significance category: Normal or normal variant. RECOMMENDATION: Low dose lung CT. overall in 1 year. Visual estimate of coronary calcified plaque burden: Mild. However, this exam cannot replace a dedicated cardiac CT calcium score for accurate assessment. LUNG-RADS CATEGORY: 2 -- BENIGN
== END 2022-12-17 13:07 | disposition home or self-care (01) ==
LOC: HO.CT 13:06
PROVIDERS: PCP Internal Medicine; Visit Provider Physician Assistant Medical
DX: Z12.2 Encounter for screening for malignant neoplasm of respiratory organs (principal); F17.210 Nicotine dependence, cigarettes, uncomplicated
CPT/HCPCS: 71271; G0296

== ENCOUNTER 2023-01-07 10:22 | Outpatient (REF) | payer MEDICAID, SELFPAY ==
[2023-01-07 12:45] LABS: Cholesterol 175 mg/dL (<200); HDL Cholesterol 33 mg/dL (>40); LDL Cholesterol Calculated 99 mg/dL (<100); Triglycerides 217 mg/dL (<150)
[2023-01-07 12:51] LABS: Alanine Aminotransferase 18 U/L (0-40); Albumin Level 4.2 g/dL (3.5-5.0); Alkaline Phosphatase 97 U/L (39-117); Anion Gap 15 (12-20); Aspartate Amino Transferase 13 U/L (5-37); Bilirubin Direct 0.2 mg/dL (0.0-0.5); Bilirubin Total 0.6 mg/dL (0.0-1.0); Blood Urea Nitrogen 12 mg/dL (9-16); Carbon Dioxide 31 mmol/L (22-29); Chloride 102 mmol/L (96-108); Estimated Glomerular Filt Rate > 60; Glucose Random 148 mg/dL (60-115); Potassium 4.3 mmol/L (3.3-5.1); Sodium 144 mmol/L (135-145)
[2023-01-07 15:52] LABS: Reflex LDLD? No
== END 2023-01-07 10:23 | disposition home or self-care (01) ==
LOC: HO.HHCL 10:22
PROVIDERS: Visit Provider Internal Medicine
DX: E78.1 Pure hyperglyceridemia (principal)
CPT/HCPCS: 36415; 80048; 80061; 80076

== ENCOUNTER 2023-01-11 12:41 | Outpatient (REF) | payer MEDICAID, SELFPAY ==
--- NOTE | 2023-01-13 07:58 | PFT_ITS ---
FLOWS: 1. FEV1 60% of predicted at 1.97 L. 2. FVC 68% of predicted at 2.92 L. 3. FEV1 to FVC ratio of 0.68. 4. No bronchodilator response. LUNG VOLUMES: Patient was unable to perform lung volumes or diffusion capacity maneuvers. IMPRESSION: Spirometry shows moderate obstructive ventilatory defect and suggest underlying restrictive ventilatory defect. MD RUBEN Barnes/AMBAR / [id number]
== END 2023-01-11 12:42 | disposition home or self-care (01) ==
LOC: HO.RESP 12:41
PROVIDERS: PCP Internal Medicine; Visit Provider Internal Medicine
DX: J44.9 Chronic obstructive pulmonary disease, unspecified (principal); F17.210 Nicotine dependence, cigarettes, uncomplicated
CPT/HCPCS: 94010; 94727; 94729

== ENCOUNTER → 2023-01-13 07:58 | Outpatient (BNV) | payer MEDICAID, SELFPAY | PROVIDERS: PCP Internal Medicine; Visit Provider Internal Medicine Pulmonary Disease | DX: J44.9 Chronic obstructive pulmonary disease, unspecified (principal); F17.210 Nicotine dependence, cigarettes, uncomplicated | CPT/HCPCS: 94060; 94729 ==

== ENCOUNTER 2023-02-10 08:59 | Outpatient (AMB) | payer MEDICAID, SELFPAY ==
[2023-02-10 09:28] VITALS: BP 98/60; PULSE 73; O2SAT 94; BMI 36.8
--- NOTE | 2023-02-10 09:28 | A.OFFVIS_ITS ---
Intake Vital Signs 02/10/23 09:28 Height 5 ft 9 in Weight 249 lb BMI 36.8 BP 98/60 Blood Pressure Location Lt brachial Position Sitting Pulse 73 Pulse Source Pulse Oximeter Pulse Oximetry (%) 94 Oxygen Delivery Method Room Air Intake Visit Reasons: asthma/gloria Intake Note: pt is here for follow up and states he is feeling pretty good, Rehabilitation Assistant Required: Yes Rehabilitation Assistant Name: Morenita Allergies latex [Latex] Allergy (Mild, Verified 02/10/23 09:45) RASH Medication List - Last Reconciled 02/10/23 by Lennox Nayak MD albuterol sulfate mg inhalation TID PRN albuterol sulfate 90 mcg/actuation (Proventil HFA) 2 puffs inhalation Q4-6H PRN aripiprazole 5 mg PO QPM budesonide-formoterol 160-4.5 mcg/actuation (Symbicort) 2 puffs inhalation BID buspirone 10 mg PO DAILY cetirizine (Zyrtec) 10 mg PO DAILY paroxetine HCl 20 mg PO QAM quetiapine 25 mg PO BEDTIME PRN triamcinolone acetonide 0.5% 1 appl topical BID Do you need a note to return to daycare/school/sports/work: No HPI asthma/gloria HPI Details 67 years old gentleman grossly obese, wi th past history of smoking, and history of sleep apnea, is here. For follow-up after 2 months Due to misunderstanding he has had no sleep study yet. He claims that he sleeps better, as he is trying to sleep only in lateral position. Breathing has been under control and stable. He has very little cough or wheezing. He does get short of breath if he walks up hill or climbs stairs. HE STATES THAT HE HAS QUIT SMOKING COMPLETELY. [facility] Medical History Somnolence COPD (chronic obstructive pulmonary disease) Obesity Nicotine dependence, cigarettes, uncomplicated Tubulovillous adenoma of colon Family history of ovarian cancer Obstructive sleep apnea Depression Asthma Anxiety Chronic fatigue Primary osteoarthritis of both knees Surgical History History of cystoscopy History of left inguinal hernia repair History of colonoscopy Social History Patient Tobacco Use Status: Former Tobacco user Tobacco use type: Cigarette Cigarette Packs Per Day: 12 Cigarettes Per Day: 0.5 Years Smoked: (onset 14yo, 1/2-1ppd x 52yrs, 35PYH) Review of Systems Const All systems reviewed & are unremarkable except as noted in HPI and below Eyes Reports no additional complaints ENT Reports nasal congestion (Mild off and on) Card Denies chest pain, Denies syncope, Denies irregular heart rhythm and Denies leg edema Resp Reports as per HPI GI Reports no additional complaints Reports no additional complaints Musc Reports no additional complaints Skin/Breast Reports system reviewed and no additional complaints, except as documented Neuro Reports no additional complaints and Denies syncope Psych Reports anxiety, Reports depression and Reports mood swings Endo Reports no additional complaints Lanre/Lymph Reports no additional complaints Aller/Immun Reports seasonal rhinorrhea (Of and on) Physical Exam Vital Signs: Last Vital Signs Pulse 73 02/10/23 09:28 BP 98/60 02/10/23 09:28 Pulse Ox 94 02/10/23 09:28 Oxygen Delivery Method Room Air 02/10/23 09:28 BMI result Body Mass Index 36.8 Const General: healthy appearing (Except for being overweight), comfortable, no acute distress, alert and awake Orientation/consciousness: patient oriented x3 HEENT Head: Yes normal to inspection General nose exam: No nasal polyps present and No nasal discharge present Face and sinus: Yes sinuses nontender Mouth: oropharynx abnormals (Moderately crowded, Mallampati scale 3) Throat: Yes posterior oropharynx normal Eyes General: appearance normal, both eyes and all related structures Neck Neck: Yes normal visual inspection, Yes no lymphadenopathy, Yes trachea midline, Yes no JVD and Yes other (Neck circumference 19 in) Thyroid: Thyroid normal Chest Chest palpation & inspection: normal inspection of the chest, normal palpation of entire chest wall and no tenderness Resp Other: Percussion note is resonant, breath sounds are distant with prolonged expiratory phase. No pleural rub, wheezes or crepitations. Cardio Palpation: normal PMI Rate: regular rate Rhythm: regular rhythm Heart sounds: no gallops and no murmurs Peripheral pulses: Peripheral pulses 2+ throughout GI Palpation (GI): Soft to palpation, nontender, No hepatosplenomegaly present and no masses Auscultation: normal bowel sounds Back/Spine/Pelvis Thoracic/Lumbar Spine: thoracic and lumbar spine normal to inspection Skin General skin exam: no rashes or lesions noted Neuro General: patient oriented x3 and no focal motor deficits Cranial nerves: Yes CN's II-XII intact bilaterally Extrem General: Yes normal to inspection, Yes no clubbing, cyanosis or edema and Yes no calf tenderness Psych Speech and movement: Normal speech and movement present Results Reviewed Results Reviewed: SPIROMETRY ON 01/11/2023. C/W MODERATE RESTRICTIVE PATTERN. MODERATE DEGREE OF OBSTRUCTIVE AIRWAY DISORDER. PATIENT WAS ON ABLE TO PERFORM MANEUVERS FOR LUNG VOLUMES AND DIFFUSION. LDCT SCAN OF THE CHEST, BENIGN SLEEP STUDY AWAITED Assessment & Plan Assessment & Plan (1) Nicotine dependence, cigarettes, uncomplicated: Comment: (onset 14yo, 1/2-1ppd x 52yrs, 35PYH) , CLAIMS THAT HE HAS QUIT COMPLETELY. Code(s): F17.210 - Nicotine dependence, cigarettes, uncomplicated Plan: as above (2) COPD (chronic obstructive pulmonary disease): Comment: (longstanding hx of cough, wheezing, KRAMER,, Doing okay with Symbicort + Abuterol PRN ) Code(s): J44.9 - Chronic obstructive pulmonary disease, unspecified Plan: Continue Symbicort 160-4.5 2 puffs b.i.d. regularly. And albuterol HFA 2 puffs Q 4-6 hours only p.r.n. (3) Obstructive sleep apnea: Comment: (06/15/10 sleep study showed severe GLORIA, RDI 68.1 - did cpap for 4yrs then stopped -will have new sleep study 01/11/23) Code(s): G47.33 - Obstructive sleep apnea (adult) (pediatric) Plan: Home-based sleep study is still awaited. Being rescheduled. Coding Level of Care Code Est Pt Level 3 (87706) Diagnoses Nicotine dependence, cigarettes, uncomplicated F17.210 COPD (chronic obstructive pulmonary disease) J44.9 Obstructive sleep apnea G47.33
== END 2023-02-10 09:58 | disposition home or self-care (01) ==
PROVIDERS: PCP Internal Medicine; Visit Provider Internal Medicine
DX: G47.33 Obstructive sleep apnea (adult) (pediatric) (principal)
CPT/HCPCS: 95806; 99213

== ENCOUNTER → 2023-02-10 08:59 | Outpatient (BNVA) | payer MEDICAID, SELFPAY | PROVIDERS: PCP Internal Medicine; Visit Provider Internal Medicine ==

== ENCOUNTER → 2023-02-10 10:08 | Outpatient (REF) | payer MEDICAID, SELFPAY | LOC: HO.SL 10:08 | PROVIDERS: PCP Internal Medicine; Visit Provider Internal Medicine | DX: G47.33 Obstructive sleep apnea (adult) (pediatric) (principal); R40.0 Somnolence; E66.9 Obesity, unspecified; J44.9 Chronic obstructive pulmonary disease, unspecified; F17.210 Nicotine dependence, cigarettes, uncomplicated | CPT/HCPCS: 95806; 99212 ==

== ENCOUNTER 2023-04-27 10:26 | Outpatient (AMB) | payer MEDICAID, SELFPAY ==
--- NOTE | 2023-04-27 10:49 | A.OFFVIS_ITS ---
Intake Vital Signs 04/27/23 10:50 Height 5 ft 9 in Weight 248 lb BMI 36.6 BP 102/60 Blood Pressure Location Lt brachial Position Sitting Pulse 88 Pulse Source Pulse Oximeter Pulse Oximetry (%) 95 Oxygen Delivery Method Room Air Intake Visit Reasons: asthma: 2 month f/u Intake Note: pt is here for follow up of asthma and sleep study., some wheeze. Health Education Director Required: Yes Health Education Director Name: jacqui Allergies latex [Latex] Allergy (Mild, Verified 04/27/23 11:13) RASH Medication List - Last Reconciled 04/27/23 by Lennox Nayak MD albuterol sulfate mg inhalation TID PRN albuterol sulfate 90 mcg/actuation (Proventil HFA) 2 puffs inhalation Q4-6H PRN aripiprazole 5 mg PO QPM budesonide-formoterol 160-4.5 mcg/actuation (Symbicort) 2 puffs inhalation BID buspirone 10 mg PO DAILY cetirizine (Zyrtec) 10 mg PO DAILY paroxetine HCl 20 mg PO QAM quetiapine 25 mg PO BEDTIME PRN triamcinolone acetonide 0.5% 1 appl topical BID Do you need a note to return to daycare/school/sports/work: No HPI asthma: 2 month f/u HPI Details 67 YEARS OLD GENTLEMAN WHO IS GROSSLY OB WILLIAM, WITH PAST HISTORY OF OBSTRUCTIVE SLEEP APNEA BUT HE GAVE BACK HIS CPAP MACHINE. HE DID HAVE HOME-BASED SLEEP STUDY WHICH WILL BE DESCRIBED BELOW. STILL SMOKING ABOUT HALF PACK OF CIGARETTES A DAY, HE IS PARTICIPATING IN ANNUAL. LUNG SCREENING PROGRAM HIS BREATHING IS FAIR EXCEPT FOR INTERMITTENT COUGH AND ALSO SHORTNESS OF BREATH ON WALKING UP HILL OR A FEW BLOCKS OUTDOORS. HE DOES USE HIS INHALERS REGULARLY. [facility] Medical History Somnolence COPD (chronic obstructive pulmonary disease) Obesity Nicotine dependence, cigarettes, uncomplicated Tubulovillous adenoma of colon Family history of ovarian cancer Obstructive sleep apnea Depression Asthma Anxiety Chronic fatigue Primary osteoarthritis of both knees Surgical History History of cystoscopy History of left inguinal hernia repair History of colonoscopy Social History Patient Tobacco Use Status: Former Tobacco user Tobacco use type: Cigarette Years Smoked: (onset 14yo, 1/2-1ppd x 52yrs, 35PYH) Review of Systems Const All systems reviewed & are unremarkable except as noted in HPI and below Eyes Reports no additional complaints ENT Reports nasal congestion (Mild off and on) Card Denies chest pain, Denies syncope, Denies irregular heart rhythm and Denies leg edema Resp Reports as per HPI GI Reports no additional complaints Reports no additional complaints Musc Reports no additional complaints Skin/Breast Reports system reviewed and no additional complaints, except as documented Neuro Reports no additional complaints and Denies syncope Psych Reports anxiety, Reports depression and Reports mood swings Endo Reports no additional complaints Lanre/Lymph Reports no additional complaints Aller/Immun Reports seasonal rhinorrhea (Of and on) Physical Exam Vital Signs: Last Vital Signs Pulse 88 04/27/23 10:50 BP 102/60 04/27/23 10:50 Pulse Ox 95 04/27/23 10:50 Oxygen Delivery Method Room Air 04/27/23 10:50 BMI result Body Mass Index 36.6 Const General: healthy appearing (Except for being overweight), comfortable, no acute distress, alert and awake Orientation/consciousness: patient oriented x3 HEENT Head: Yes normal to inspection General nose exam: No nasal polyps present and No nasal discharge present Face and sinus: Yes sinuses nontender Mouth: oropharynx abnormals (Moderately crowded, Mallampati scale 3) Throat: Yes posterior oropharynx normal Eyes General: appearance normal, both eyes and all related structures Neck Neck: Yes normal visual inspection, Yes no lymphadenopathy, Yes trachea midline, Yes no JVD and Yes other (Neck circumference 19 in) Thyroid: Thyroid normal Chest Chest palpation & inspection: normal inspection of the chest, normal palpation of entire chest wall and no tenderness Resp Other: Percussion note is resonant, breath sounds are distant with prolonged expiratory phase. No pleural rub, wheezes or crepitations. Cardio Palpation: normal PMI Rate: regular rate Rhythm: regular rhythm Heart sounds: no gallops and no murmurs Peripheral pulses: Peripheral pulses 2+ throughout GI Palpation (GI): Soft to palpation, nontender, No hepatosplenomegaly present and no masses Auscultation: normal bowel sounds Back/Spine/Pelvis Thoracic/Lumbar Spine: thoracic and lumbar spine normal to inspection Skin General skin exam: no rashes or lesions noted Neuro General: patient oriented x3 and no focal motor deficits Cranial nerves: Yes CN's II-XII intact bilaterally Extrem General: Yes normal to inspection, Yes no clubbing, cyanosis or edema and Yes no calf tenderness Psych Speech and movement: Normal speech and movement present Results Reviewed Results Reviewed: HOME-BASED SLEEP STUDY IS GROSSLY POSITIVE OBSTRUCTIVE SLEEP APNEA. TOTAL SLEEP TIME AHI 49 . SNORING FOR 4% OF THE SLEEP TIME. NOCTURNAL HYPOXEMIA WITH AVERAGE O2 SAT 92% LOWEST O2 SAT 76% AND O2 SAT BELOW 88% FOR 58 MINUTES. Assessment & Plan Assessment & Plan (1) COPD (chronic obstructive pulmonary disease): Comment: COPD sec. to SMOKING .(longstanding hx of cough, wheezing, KRAMER,, Code(s): J44.9 - Chronic obstructive pulmonary disease, unspecified Plan: Continue Symbicort 160-4.5 2 puffs bid and Abuterol PRN ) (2) Nicotine dependence, cigarettes, uncomplicated: Comment: (onset 14yo, 1/2-1ppd x 52yrs, 35PYH) , CLAIMS THAT HE HAS QUIT COMPLETELY. Code(s): F17.210 - Nicotine dependence, cigarettes, uncomplicated Plan: Counseled to quit smoking. He wants. To do on his own I told him that he needs to cut down the number of cigarettes on a gradual basis. (3) Obesity: Comment: He remains grossly obese BMI= 36.6 Code(s): E66.9 - Obesity, unspecified Plan: Given instructions to reduce the calories intake and start walking about 2 miles every day. (4) Obstructive sleep apnea: Comment: (06/15/10 sleep study showed severe GLORIA, RDI 68.1 - did cpap for 4yrs then stopped - The current sleep study shows that he still has rather severe obstructive sleep apnea with total sleep time AHI 49. Also has associated nocturnal hypoxemia with O2 sat below 88% for 58 minutes. Code(s): G47.33 - Obstructive sleep apnea (adult) (pediatric) Plan: Discussed the results of sleep study with him. Advise that he has to go back on using CPAP. Orders are sent to the DME supplier. Once he starts using the CPAP regularly he would need an overnight oximetry recording to check about his nocturnal hypoxemia. Coding Level of Care Code Est Pt Level 4 (27595) Diagnoses COPD (chronic obstructive pulmonary disease) J44.9 Nicotine dependence, cigarettes, uncomplicated F17.210 Obesity E66.9 Obstructive sleep apnea G47.33
[2023-04-27 10:50] VITALS: BP 102/60; PULSE 88; O2SAT 95; BMI 36.6
== END 2023-04-27 11:15 | disposition home or self-care (01) ==
PROVIDERS: PCP Internal Medicine; Visit Provider Internal Medicine
DX: J44.9 Chronic obstructive pulmonary disease, unspecified (principal); F17.210 Nicotine dependence, cigarettes, uncomplicated; E66.9 Obesity, unspecified; G47.33 Obstructive sleep apnea (adult) (pediatric)
CPT/HCPCS: 99214

== ENCOUNTER → 2023-04-27 10:26 | Outpatient (BNVA) | payer MEDICAID, SELFPAY | PROVIDERS: PCP Internal Medicine; Visit Provider Internal Medicine | DX: J44.9 Chronic obstructive pulmonary disease, unspecified (principal); G47.33 Obstructive sleep apnea (adult) (pediatric); E66.9 Obesity, unspecified; F17.210 Nicotine dependence, cigarettes, uncomplicated; Z68.36 Body mass index [BMI] 36.0-36.9, adult | CPT/HCPCS: 99212 ==

== ENCOUNTER 2023-08-25 10:19 | Outpatient (AMB) | payer MEDICAID, SELFPAY ==
[2023-08-25 11:16] VITALS: BP 102/58; PULSE 70; O2SAT 95; BMI 36.3
--- NOTE | 2023-08-25 11:16 | A.OFFVIS_ITS ---
Vital Signs 08/25/23 11:16 Height 5 ft 9 in Weight 246 lb BMI 36.3 BP 102/58 L Blood Pressure Location Lt brachial Position Sitting Pulse 70 Pulse Source Pulse Oximeter Pulse Oximetry (%) 95 Oxygen Delivery Method Room Air Intake Visit Reasons: Obstructive sleep apnea Intake Note: pt is here for follow up and doing well, doing pretty good cpap Centrifugal Chiller Technician Required: Yes Centrifugal Chiller Technician Name: [email or web address] Allergies latex [Latex] Allergy (Mild, Verified 08/25/23 15:25) RASH Medication List - Last Reconciled 08/25/23 by Lennox Nayak MD albuterol sulfate mg inhalation TID PRN albuterol sulfate 90 mcg/actuation (Proventil HFA) 2 puffs inhalation Q4-6H PRN aripiprazole 5 mg PO QPM budesonide-formoterol 160-4.5 mcg/actuation (Symbicort) 2 puffs inhalation BID buspirone 10 mg PO DAILY cetirizine (Zyrtec) 10 mg PO DAILY paroxetine HCl 20 mg PO QAM quetiapine 25 mg PO BEDTIME PRN triamcinolone acetonide 0.5% 1 appl topical BID HPI HPI Obstructive sleep apnea: Details: This 67 years old gentleman is here for follow-up, for his sleep apnea. He uses his CPAP very regularly every night, and sleeps very well. He has no issues with the CPAP device. Breathing is good and he uses his inhalers regularly. Weight has not changed much . [facility] Medical History Somnolence COPD (chronic obstructive pulmonary disease) Obesity Nicotine dependence, cigarettes, uncomplicated Tubulovillous adenoma of colon Family history of ovarian cancer Obstructive sleep apnea Depression Asthma Anxiety Chronic fatigue Primary osteoarthritis of both knees Surgical History History of cystoscopy History of left inguinal hernia repair History of colonoscopy Social History Patient Tobacco Use Status: Former Tobacco user Tobacco use type: Cigarette Cigarette Packs Per Day: 0.5 Cigarettes Per Day: 10 Years Smoked: (onset 14yo, 1/2-1ppd x 52yrs, 35PYH) Review of Systems Const All systems reviewed & are unremarkable except as noted in HPI and below Eyes Reports no additional complaints ENT Reports nasal congestion (Mild off and on) Card Denies chest pain, Denies syncope, Denies irregular heart rhythm and Denies leg edema Resp Reports as per HPI GI Reports no additional complaints Reports no additional complaints Musc Reports no additional complaints Skin/Breast Reports system reviewed and no additional complaints, except as documented Neuro Reports no additional complaints and Denies syncope Psych Reports anxiety, Reports depression and Reports mood swings Endo Reports no additional complaints Lanre/Lymph Reports no additional complaints Aller/Immun Reports seasonal rhinorrhea (Of and on) Physical Exam Vital Signs: Last Vital Signs Pulse 70 08/25/23 11:16 BP 102/58 L 08/25/23 11:16 Pulse Ox 95 08/25/23 11:16 Oxygen Delivery Method Room Air 08/25/23 11:16 BMI result Body Mass Index 36.3 Const General: healthy appearing (Except for being overweight), comfortable, no acute distress, alert and awake Orientation/consciousness: patient oriented x3 HEENT Head: Yes normal to inspection General nose exam: No nasal polyps present and No nasal discharge present Face and sinus: Yes sinuses nontender Mouth: oropharynx abnormals (Moderately crowded, Mallampati scale 3) Throat: Yes posterior oropharynx normal Eyes General: appearance normal, both eyes and all related structures Neck Neck: Yes normal visual inspection, Yes no lymphadenopathy, Yes trachea midline, Yes no JVD and Yes other (Neck circumference 19 in) Thyroid: Thyroid normal Chest Chest palpation & inspection: normal inspection of the chest, normal palpation of entire chest wall and no tenderness Resp Other: Percussion note is resonant, breath sounds are distant with prolonged expiratory phase. No pleural rub, wheezes or crepitations. Cardio Palpation: normal PMI Rate: regular rate Rhythm: regular rhythm Heart sounds: no gallops and no murmurs Peripheral pulses: Peripheral pulses 2+ throughout GI Palpation (GI): Soft to palpation, nontender, No hepatosplenomegaly present and no masses Auscultation: normal bowel sounds Back/Spine/Pelvis Thoracic/Lumbar Spine: thoracic and lumbar spine normal to inspection Skin General skin exam: no rashes or lesions noted Neuro General: patient oriented x3 and no focal motor deficits Cranial nerves: Yes CN's II-XII intact bilaterally Extrem General: Yes normal to inspection, Yes no clubbing, cyanosis or edema and Yes no calf tenderness Psych Speech and movement: Normal speech and movement present Results Reviewed Results Reviewed: Compliance report for the last 30 nights is reviewed. He has used 27/30 nights. Average usage per night is 8 hours 4 minutes. Pressure used mostly 12-14 cm. No significant air leak. Residual AHI 0.7 Assessment & Plan Assessment & Plan (1) COPD (chronic obstructive pulmonary disease): Comment: COPD sec. to SMOKING .(longstanding hx of cough, wheezing, KRAMER,, Currently doing very well with his current meds, except for mild shortness of breath on exertion. Code(s): J44.9 - Chronic obstructive pulmonary disease, unspecified Category: Medical Plan: Continue budesonide 160-4.52 puffs b.i.d. Albuterol HFA 2 puffs Q 6 hours p.r.n., Alternatively may use albuterol solution in the nebulizer t.i.d. p.r.n. (2) Obstructive sleep apnea: Comment: (06/15/10 sleep study showed severe GLORIA, RDI 68.1 - did cpap for 4yrs then stopped - The current sleep study shows that he still has rather severe obstructive sleep apnea with total sleep time AHI 49. Also has associated nocturnal hypoxemia with O2 sat below 88% for 58 minutes. Has been started on CPAP and he is using it very regularly. Sleep is okay, and he does not have daytime sleepiness . Compliance is good. Code(s): G47.33 - Obstructive sleep apnea (adult) (pediatric) Category: Medical Plan: He is advised to continue using CPAP regularly. As he had nocturnal hypoxemia, will get overnight oximetry recording to make sure that hypoxemia has resolved (3) Nicotine dependence, cigarettes, uncomplicated: Comment: (onset 14yo, 1/2-1ppd x 52yrs, 35PYH) , CLAIMS THAT HE HAS QUIT COMPLETELY. Code(s): F17.210 - Nicotine dependence, cigarettes, uncomplicated Category: Medical Plan: Commended for not smoking, stressed that he should not go back to smoking at all. Coding Level of Care Code Est Pt Level 3 (88503) Diagnoses COPD (chronic obstructive pulmonary disease) J44.9 Obstructive sleep apnea G47.33 Nicotine dependence, cigarettes, uncomplicated F17.210
== END 2023-08-25 11:36 | disposition home or self-care (01) ==
PROVIDERS: PCP Internal Medicine; Visit Provider Internal Medicine
DX: J44.9 Chronic obstructive pulmonary disease, unspecified (principal); G47.33 Obstructive sleep apnea (adult) (pediatric); F17.210 Nicotine dependence, cigarettes, uncomplicated
CPT/HCPCS: 99213

== ENCOUNTER → 2023-08-25 10:19 | Outpatient (BNVA) | payer MEDICAID, SELFPAY | PROVIDERS: PCP Internal Medicine; Visit Provider Internal Medicine | DX: G47.33 Obstructive sleep apnea (adult) (pediatric) (principal); J44.9 Chronic obstructive pulmonary disease, unspecified; F17.210 Nicotine dependence, cigarettes, uncomplicated | CPT/HCPCS: 99212 ==

== ENCOUNTER 2023-08-27 02:03 | Emergency (ER) | payer MEDICAID, SELFPAY ==
--- NOTE | 2023-08-27 | ECG_ITS ---
Test Reason : CHEST PAIN Blood Pressure : / mmHG Vent. Rate : 069 BPM Atrial Rate : 069 BPM P-R Int : 150 ms QRS Dur : 088 ms QT Int : 406 ms P-R-T Axes : 052 059 064 degrees QTc Int : 435 ms Normal sinus rhythm with sinus arrhythmia Normal ECG When compared with ECG of 18-APR-2014 13:42, No significant change was found Referred By: Generic ED Physician Electronically Signed By:TRAVIS KOEHLER
--- NOTE | ~2023-08-27 | XR_ITS ---
EXAMINATION: XR CHEST CLINICAL INFORMATION: Cough. Pain. COMPARISON: 11/30/2022 TECHNIQUE: Frontal view of the chest was obtained. FINDINGS: The lung volumes are low. The cardiomediastinal silhouette is stable. There is a faint lateral left lung base opacity. There is also a questionable right lung base opacity. The upper lung boucher are clear. The bony structures and soft tissues are unremarkable. XR/XR chest 1V IMPRESSION: Low lung volumes limits evaluation. There appears to be bibasilar lung opacities. Consider atelectasis and/or infiltrates.
[2023-08-27 02:06] VITALS: BP 134/68; PULSE 64; RESP 18; TEMP 36.8; O2SAT 99; BMI 37.4
[2023-08-27 02:25] VITALS: PULSE 72
[2023-08-27 02:26] LABS: MANUAL DIFF FLAG NO
[2023-08-27 02:28] LABS: Basophils Absolute Auto 0.1 X10*3/uL (0.0-0.2); Basophils Percent Auto 0.5 % (0-2); Eosinophils Absolute Auto 0.1 X10*3/uL (0.0-0.4); Hematocrit 45.2 % (42.0-52.0); Hemoglobin 15.8 g/dl (14.0-18.0); Imm Gran Abs Auto 0.03 X10*3/uL (0.00-0.03); Imm Gran Pct Auto 0.2 % (0.0-0.4); Lymphocytes Absolute Auto 3.3 X10*3/uL (1.2-4.9); Lymphocytes Percent Auto 26.7 % (20-40); Mean Corpuscular Hemoglobin 33.5 pg (27.0-33.0); Mean Corpuscular Volume 95.8 fL (80.0-98.0); Mean Platelet Volume 9.1 fL (9.4-12.4); Monocytes Percent Auto 8.3 % (2-11); Neutrophils Absolute Auto 7.7 x10*3/uL (2.0-8.3); Neutrophils Percent Auto 63.3 % (45-73); Platelet Count 226 X10*3/uL (160-400); Red Blood Count 4.72 X10*6/uL (4.60-5.80); White Blood Count 12.2 X10*3/uL (4.8-10.8)
[2023-08-27 02:42] LABS: Alanine Aminotransferase 18 U/L (0-40); Alkaline Phosphatase 85 U/L (39-117); Anion Gap 14 (12-20); Aspartate Amino Transferase 13 U/L (5-37); Bilirubin Total 0.6 mg/dL (0.0-1.0); Blood Urea Nitrogen 15 mg/dL (9-16); Calcium 8.9 mg/dL (8.4-10.2); Carbon Dioxide 25 mmol/L (22-29); Chloride 106 mmol/L (96-108); Creatinine Clr Calc Pharmacy 80.3; Estimated Glomerular Filt Rate > 60; Glucose Random 172 mg/dL (60-115); Sodium 141 mmol/L (135-145); Total Protein 7.4 g/dL (6.5-8.0)
[2023-08-27 02:49] LABS: Troponin-I High Sensitivity 3.1 ng/L (<3.5-35.0)
[2023-08-27 04:00] VITALS: BP 136/74; PULSE 76; RESP 16; TEMP 36.8; O2SAT 96
--- NOTE | 2023-08-27 04:13 | ED_ITS ---
HPI - Chest Pain General Chief Complaint: Chest Pain Stated Complaint: chest pain/sob Time Seen by Provider: 08/27/23 03:35 Source: patient Mode of arrival: ambulatory Limitations: no limitations History of Present Illness ED Provider: Dr. Vandana Rm HPI narrative: Patient comes to the emergency room complaining of chest pain with deep inspirations started 30 minutes prior to arrival. Patient states that every time head he takes a big breath, the middle of the chest , feels like burning. Patient has significant chest pain, states that as long as he does not 50 breath he feels well. Denies any coughing. Related Data Home Medications ?Medication ?Instructions ?Recorded ?Confirmed aripiprazole 5 mg tablet 5 mg PO QPM 07/08/21 06/11/22 budesonide-formoterol HFA 160 2 puff inhalation BID 07/08/21 06/11/22 mcg-4.5 mcg/actuation aerosol inhaler (Symbicort) buspirone 10 mg tablet 10 mg PO DAILY 07/08/21 06/11/22 paroxetine HCl 20 mg tablet 20 mg PO QAM 07/08/21 06/11/22 quetiapine 25 mg tablet 25 mg PO BEDTIME PRN insomnia 07/08/21 06/11/22 albuterol sulfate 2.5 mg/3 mL mg inhalation TID PRN 11/30/22 (0.083 %) solution for nebulization albuterol sulfate 90 mcg/actuation 2 puff inhalation Q4-6H PRN 11/30/22 aerosol inhaler (Proventil HFA) Previous Rx's ?Medication ?Instructions ?Recorded cetirizine 10 mg capsule (Zyrtec) 10 mg PO DAILY #14 caps 01/26/21 triamcinolone acetonide 0.5 % 1 appl topical BID #15 grams 08/27/21 topical ointment azithromycin 250 mg tablet 250 mg PO DAILY 4 days #4 tabs 08/27/23 doxycycline hyclate 100 mg capsule 100 mg PO BID #14 caps 08/27/23 ibuprofen 600 mg tablet 600 mg PO TID PRN fever or pain 08/27/23 #14 tabs Allergies Allergy/AdvReac Type Severity Reaction Status Date / Time latex [Latex] Allergy Mild RASH Verified 08/27/23 02:07 Review of Systems 2 Review of Systems: Constitutional : No Weight loss, No Fever, No Chills, No Night Sweats, No Fatigue, No Malaise ENT/Mouth : No Hearing loss, No Ear Pain, No Nasal Congestion, No Sinus Pain, No Hoarseness, No sore throat, No Rhinorrhea, No Swallowing Difficulty Eyes: No Eye Pain, No Swelling, No Redness, No Foreign Body, No Discharge, No Vision Changes Cardiovascular : Complaining of chest pain in the middle with deep inspirations, No SOB, No Dyspnea on Exertion, No Orthopnea, No Edema, No Palpitations Respiratory : No Cough, No Sputum, No Wheezing, No Smoke Exposure, No Dyspnea Gastrointestinal : No Nausea, No Vomiting, No Diarrhea, No Constipation, No abdominal Pain, No Hematochezia, No Melena Genitourinary : no irregular bleeding, No Dysuria, No Urinary Frequency, No Hematuria, No Urinary Incontinence, No Urgency, No Flank Pain, No Urinary Flow Changes, No Hesitancy Musculoskeletal : No joint pain, No Myalgias, No Joint Swelling Skin : No Skin Lesions, No rash Neuro : No Weakness, No Numbness, No Paresthesias, No Loss of Consciousness, No Dizziness, No Headache Psych : No Anxiety/Panic, No Depression, No SI/HI/AH/VH, No Social Issues, Heme/Lymph: No Bruising, No Bleeding,No Lymphadenopathy Endocrine : No Polyuria, No Polydipsia, No Temperature Intolerance [facility] Past Medical History Medical History Somnolence COPD (chronic obstructive pulmonary disease) Obesity Nicotine dependence, cigarettes, uncomplicated Tubulovillous adenoma of colon Family history of ovarian cancer Obstructive sleep apnea Depression Asthma Anxiety Chronic fatigue Primary osteoarthritis of both knees Surgical History History of cystoscopy History of left inguinal hernia repair History of colonoscopy Social History Social History Alcohol intake: former Patient Tobacco Use Status: Former Tobacco user Tobacco use type: Cigarette Cigarette Packs Per Day: 0.5 Cigarettes Per Day: 10 Years Smoked: (onset 14yo, 1/2-1ppd x 52yrs, 35PYH) Smoked in Last 30 Days: Yes Use of substances other than those prescribed or required for medical reasons: No Advance Directives: No Advance Directives Information Provided: Yes Do you have a plan to hurt others: No Plan Physical Exam 2 Vital Signs: Vital Signs: Last Vital Signs Temp 97.9 F 08/27/23 06:00 Pulse 90 08/27/23 06:00 Resp 24 H 08/27/23 06:00 BP 120/68 08/27/23 06:00 Pulse Ox 96 08/27/23 06:00 O2 Del Method Room Air 08/27/23 06:00 BMI result Body Mass Index 37.4 Const: Other: Appearance: Alert. Oriented X3. No acute distress. Eyes: Pupils equal, round and reactive to light. ENT: Pharynx normal. Neck: Normal inspection. Neck supple. No lymph nodes noted. No crepitus CVS: Normal heart rate and rhythm. Pulses normal. Normal S1 and S2. Reproducible pain on the chest with palpation Respiratory: No respiratory distress. Breath sounds normal. No Wheezing. No rales Abdomen: Soft and nontender. No rigidity. No distention. Skin: Skin warm and dry. Normal skin color. Normal skin turgor. Extremities: No lower extremity edema. No Lacerations. No Rash Neuro: Oriented X 3. No motor deficit. No sensory deficit. Moving all extremities. No slurred speech. CN 2 through 12 grossly intact Psych: calm, cooperative, normal affect Course Course Course Narrative: -at rest, patient had a chest pain. Palpation, patient has reproducible chest pain, patient likely having musculoskeletal chest pain. Medications Administered Discontinued Medications Generic Name Dose Route Start Last Admin Trade Name Freq PRN Reason Stop Dose Admin Aspirin 325 mg 08/27/23 03:34 08/27/23 04:14 Aspirin Enteric Coated 325 Mg Tablet.Dr PO 08/27/23 03:35 325 mg ONCE ONE Administration Ibuprofen 600 mg 08/27/23 03:34 08/27/23 04:14 Ibuprofen 600 Mg Tablet PO 08/27/23 03:35 600 mg ONCE ONE Administration Medical Decision Making Medical Decision Making MDM Narrative: -my interpretation of EKG: Normal sinus rhythm, heart rate 69, no ST segment depression or elevation, no T-wave inversion, QTC 435 -my interpretation of labs: Normal hematology, normal chemistry, troponin negative -troponin x2 negative -my interpretation of chest x-ray: No infiltrates, no fracture ribs -patient has reproducible chest pain, worse with inspiration, patient likely has pleurisy. -radiology report: Atelectasis versus infiltrate. Patient has no oxygen desaturations, no fever, no tachycardia normal blood pressure no hypotension episodes. -I discussed the above-mentioned with the patient, given the patient's symptoms and elevated white blood cell count we will go ahead and treat the patient as pneumonia, patient agrees with plan. At this time, there is no need for inpatient treatment Differential Diagnosis Differential Diagnoses: The differential diagnosis associated with the presentation includes (ACS, pleurisy, costochondritis, musculoskeletal) Admission/Observation Consideration of admission/observation: Escalation of care including admission/observation considered (Given patient's presentation, observation was considered) Lab Data MDM Lab Attestation statement: I reviewed the patient's lab results. 08/27/23 02:19 08/27/23 02:19 Labs: Lab Results 08/27/23 08/27/23 Range/Units 02:19 04:22 WBC 12.2 H (4.8-10.8) X10*3/uL RBC 4.72 (4.60-5.80) X10*6/uL Hgb 15.8 (14.0-18.0) g/dl Hct 45.2 (42.0-52.0) % MCV 95.8 (80.0-98.0) fL MCH 33.5 H (27.0-33.0) pg MCHC 35.0 (31.0-36.0) g/dl RDW 13.0 (11.0-16.0) % Plt Count 226 (160-400) X10*3/uL MPV 9.1 L (9.4-12.4) fL Immature Gran % (Auto) 0.2 (0.0-0.4) % Neut % (Auto) 63.3 (45-73) % Lymph % (Auto) 26.7 (20-40) % Grand % (Auto) 8.3 (2-11) % Eos % (Auto) 1.0 (0-4) % Baso % (Auto) 0.5 (0-2) % Lymph # (Auto) 3.3 (1.2-4.9) X10*3/uL Grand # (Auto) 1.0 (0.1-1.2) X10*3/uL Eos # (Auto) 0.1 (0.0-0.4) X10*3/uL Baso # (Auto) 0.1 (0.0-0.2) X10*3/uL Abs Immat Gran (auto) 0.03 (0.00-0.03) X10*3/uL Absolute Neuts (auto) 7.7 (2.0-8.3) x10*3/uL Absolute Nucleated RBC 0.000 (0.0-0.012) X10*3/uL Nucleated RBC % (auto) 0.0 (0.0-0.2) /100WBC Sodium 141 (135-145) mmol/L Potassium 4.0 (3.3-5.1) mmol/L Chloride 106 (96-108) mmol/L Carbon Dioxide 25 (22-29) mmol/L Anion Gap 14 (12-20) BUN 15 (9-16) mg/dL Creatinine 1.11 (0.5-1.4) mg/dL Estim Creat Clear Calc 80.3 Estimated GFR > 60 Random Glucose 172 H (60-115) mg/dL Calcium 8.9 D (8.4-10.2) mg/dL Total Bilirubin 0.6 (0.0-1.0) mg/dL AST 13 (5-37) U/L ALT 18 (0-40) U/L Alkaline Phosphatase 85 (39-117) U/L Troponin I High Sens 3.1 2.9 (<3.5-35.0) ng/L Total Protein 7.4 (6.5-8.0) g/dL Albumin 4.0 (3.5-5.0) g/dL Independent Interpretation I performed an independent interpretation of an: Plain X-Ray Radiology Impression Discussion of test interpretation with radiology: I have reviewed the radiologist's reading. Radiologist Impression: FINDINGS: The lung volumes are low. The cardiomediastinal silhouette is stable. There is a faint lateral left lung base opacity. There is also a questionable right lung base opacity. The upper lung boucher are clear. The bony structures and soft tissues are unremarkable. XR/XR chest 1V IMPRESSION: Low lung volumes limits evaluation. There appears to be bibasilar lung opacities. Consider atelectasis and/or infiltrates. Critical Care Time Critical Care Time Critical Care Time: Yes Total Critical Care Time: 45 Attestation: I have personally provided critical care time. Time includes review of lab data, radiology results, discussion with consultants, and monitoring for potential decompensation. Intervention performed as documented. Discharge Plan Discharge Clinical Impression: Pneumonia Patient Disposition: Home, Self-Care Instructions: Community Acquired Pneumonia (ED) Additional Instructions: Please follow-up with your primary care physician tomorrow. If you have any worsening or new symptoms, please return to the emergency room or call 911 Prescriptions: New ibuprofen 600 mg tablet 600 mg PO TID PRN (Reason: fever or pain) Qty: 14 0RF azithromycin 250 mg tablet 250 mg PO DAILY 4 Days Qty: 4 0RF Rx Instructions: start on day 2 of therapy doxycycline hyclate 100 mg capsule 100 mg PO BID Qty: 14 0RF No Action Zyrtec 10 mg capsule 10 mg PO DAILY Qty: 14 0RF triamcinolone acetonide 0.5 % ointment 1 appl topical BID Qty: 15 0RF budesonide-formoterol [Symbicort] 160-4.5 mcg/actuation HFA aerosol inhaler 2 puff inhalation BID aripiprazole 5 mg tablet 5 mg PO QPM buspirone 10 mg tablet 10 mg PO DAILY paroxetine HCl 20 mg tablet 20 mg PO QAM quetiapine 25 mg tablet 25 mg PO BEDTIME PRN (Reason: insomnia) albuterol sulfate 2.5 mg /3 mL (0.083 %) solution for nebulization inhalation TID PRN albuterol sulfate [Proventil HFA] 90 mcg/actuation HFA aerosol inhaler 2 puff inhalation Q4-6H PRN Print Language: [place]
[2023-08-27] MEDS: Aspirin Enteric Coated 325 MG TABLET.DR PO (04:14)
[2023-08-27] MEDS: Ibuprofen 600 MG TABLET PO (04:14)
[2023-08-27 04:46] LABS: Troponin-I High Sensitivity 2.9 ng/L (<3.5-35.0)
[2023-08-27 06:00] VITALS: BP 120/68; PULSE 90; RESP 24; TEMP 36.6; O2SAT 96
[2023-08-27 07:18] VITALS: BP 105/57; PULSE 75; RESP 12; TEMP 36.4; O2SAT 95
[2023-08-27] MEDS: Doxycycline Monohydrate 100 MG CAPSULE PO (07:19)
[2023-08-27] MEDS: Azithromycin 500 MG TABLET PO (07:19)
[2023-08-27 07:23] VITALS: BP 105/57; PULSE 75; RESP 12; TEMP 36.4; O2SAT 95
== END 2023-08-27 07:23 | disposition home or self-care (01) ==
PROVIDERS: Emergency Provider Emergency Medicine; PCP Internal Medicine
DX: J18.9 Pneumonia, unspecified organism (principal); R06.02 Shortness of breath; Z87.891 Personal history of nicotine dependence; Z79.899 Other long term (current) drug therapy
CPT/HCPCS: 36415; 71045; 80053; 84484; 85025; 93005; 99283; 99285

== ENCOUNTER → 2023-08-27 02:03 | Outpatient (BNV) | payer MEDICAID, SELFPAY | PROVIDERS: Emergency Provider Emergency Medicine; PCP Internal Medicine; Visit Provider Internal Medicine | DX: R07.9 Chest pain, unspecified (principal); R06.02 Shortness of breath | CPT/HCPCS: 93010 ==

== ENCOUNTER 2023-09-26 09:02 | Outpatient (REF) | payer MEDICAID, SELFPAY ==
[2023-09-26 11:54] LABS: Cholesterol 144 mg/dL (<200); HDL Cholesterol 33 mg/dL (>40); LDL Cholesterol Calculated 89 mg/dL (<100); Triglycerides 110 mg/dL (<150)
[2023-09-26 12:20] LABS: PSA,Total (Free>4and<10) 7.28 ng/mL (0.00-4.00)
[2023-09-27 10:48] LABS: Free Prostate Spec Ag 0.9 ng/mL; Percent Free Prostate Spec Ag 13 % (calc) (>25)
== END 2023-09-26 09:03 | disposition home or self-care (01) ==
LOC: HO.HHCL 09:02
PROVIDERS: Visit Provider Internal Medicine
DX: R97.20 Elevated prostate specific antigen [PSA] (principal); E78.1 Pure hyperglyceridemia
CPT/HCPCS: 36415; 80061; 84153; 84154

== ENCOUNTER 2023-11-17 10:55 | Outpatient (AMB) | payer MEDICAID, SELFPAY ==
--- NOTE | 2023-11-17 11:55 | A.OFFVIS_ITS ---
Intake Visit Reasons: PSA Follow Up(Elevated PSA)last seen 2021 Intake Note: Patient is Present for Follow Up Elevated PSA Urology Medication: None Antibiotic Allergies:None Blood Thinners:None Last seen in office 2021 PSA-Completed 09/26/23 7.28 Last PSA- 3.20 2021 Special Agent Required: Yes Special Agent Language: Convenience Store Manager Services: Special Agent Present Information Interpreted: clinical only Accompanied by: Self / Same As Patient Allergies latex [Latex] Allergy (Mild, Verified 11/17/23 11:57) RASH HPI Comments Details: Juan Carlos is a pleasant male. He is a patient of Dr Diez. He seen for the following urologic issues - lower urinary tract symptoms - weak stream - gross hematuria Colombian translation by qualified medical geneticist PSA continuing to rise - PCPT over 10% high risk Recommend prostate biopsy He would prefer to double check PSA in 6 months Understands if still elevated we will proceed with biopsy Lower urinary tract symptoms Initial symptoms include weakness of stream, incomplete bladder emptying, urinary hesitancy Medications finasteride and tamsulosin Cystoscopy - oval-shaped prostate PSA 07/02 4.3, 07/03 3.2, 01/02 4.0. 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 Plan for imaging, cytology, cystoscopy [facility] Medical History Somnolence COPD (chronic obstructive pulmonary disease) Obesity Nicotine dependence, cigarettes, uncomplicated Tubulovillous adenoma of colon Family history of ovarian cancer Obstructive sleep apnea Depression Asthma Anxiety Chronic fatigue Primary osteoarthritis of both knees Surgical History History of cystoscopy History of left inguinal hernia repair History of colonoscopy Social History Alcohol intake: former Patient Tobacco Use Status: Former Tobacco user Tobacco use type: Cigarette Cigarette Packs Per Day: 0.5 Cigarettes Per Day: 10 Years Smoked: (onset 14yo, 1/2-1ppd x 52yrs, 35PYH) Review of Systems Const Denies chills and Denies fever(s) Card Reports no additional complaints and Denies syncope Resp Denies cough GI Denies abdominal pain and Denies heartburn Reports as per HPI and Denies change in libido Neuro Denies syncope Psych Denies change in libido Endo Denies change in libido Physical Exam Const General: cooperative, healthy appearing, comfortable and no acute distress Orientation/consciousness: patient oriented x3 HEENT Face and sinus: Yes normal facial exam Mouth: moist mucous membranes Neck Neck: Yes normal visual inspection, Yes full ROM and Yes trachea midline Chest Chest palpation & inspection: normal inspection of the chest Resp Effort & Inspection: normal respiratory effort, able to speak in complete sentences and no respiratory distress GI Inspection: Yes normal to inspection Back/Spine/Pelvis Cervical Spine: normal cervical lordosis Thoracic/Lumbar Spine: thoracic and lumbar spine normal to inspection Skin General skin exam: no rashes or lesions noted Neuro General: patient oriented x3, gait normal, tone normal and moves all extremities Extrem General: Yes normal to inspection and Yes capillary refill normal Assessment & Plan Assessment & Plan (1) BPH w urinary obs/LUTS: Code(s): N40.1 - Benign prostatic hyperplasia with lower urinary tract symptoms; N13.8 - Other obstructive and reflux uropathy Category: Medical (2) Elevated PSA: Code(s): R97.20 - Elevated prostate specific antigen [PSA] Category: Medical Plan Six-month follow-up PSA tele Orders: Orders PSA,Total (Free>4and<10) 6 Months R97.20 - Elevated prostate specific antigen [PSA] Patient Instructions: Imaging studies, laboratory and physical exam results were discussed and reviewed in detail. No major barriers to patient understanding were identified. An opportunity to ask questions regarding the treatment plan was provided. All questions were answered. The patient expressed understanding and agreement with the above treatment plan. The patient is aware they should contact our office by phone for worsening of their current condition or the appearance of new urologic symptoms. Compliance is encouraged with any medications and followup testing that is ordered. It is a privilege to participate in the urologic care of your patient. If you have any questions or concerns regarding treatment for the above conditions, or other urologic issues, please do not hesitate to contact me. The office telephone contact is [phone]. This note is constructed using voice recognition software. While every effort has been made to ensure accuracy butcher or smallgoods maker errors may have been included. Yours sincerely, Dr Jose Cherry MD, [facility] - Urology Providers of Expert, Compassionate Care for the Genitourinary System Coding Level of Care Code Est Pt Level 4 (91762) Diagnoses BPH w urinary obs/LUTS N40.1; N13.8 Elevated PSA R97.20
== END 2023-11-17 12:25 | disposition home or self-care (01) ==
PROVIDERS: PCP Internal Medicine; Visit Provider Urology
DX: N40.1 Benign prostatic hyperplasia with lower urinary tract symptoms (principal); N13.8 Other obstructive and reflux uropathy; R97.20 Elevated prostate specific antigen [PSA]
CPT/HCPCS: 99214

== ENCOUNTER → 2023-11-17 10:55 | Outpatient (BNVA) | payer MEDICAID, SELFPAY | PROVIDERS: PCP Internal Medicine; Visit Provider Urology | DX: N40.1 Benign prostatic hyperplasia with lower urinary tract symptoms (principal); N13.8 Other obstructive and reflux uropathy; R39.12 Poor urinary stream; R97.20 Elevated prostate specific antigen [PSA]; F17.210 Nicotine dependence, cigarettes, uncomplicated | CPT/HCPCS: 99212 ==

== ENCOUNTER 2024-01-03 15:00 | Outpatient (REF) | payer MEDICAID, SELFPAY ==
--- NOTE | ~2024-01-03 | CT_ITS ---
EXAMINATION: CT LOW-DOSE SCREENING CHEST WITHOUT CONTRAST CLINICAL INFORMATION: Nicotine dependence, cigarettes, uncomplicated. The patient is a current smoker with a 53 pack-year history of smoking. COMPARISON: CT chest 12/17/2022. TECHNIQUE: Multidetector volumetric CT imaging of the chest is performed on a Siemens SOMATOM Definition scanner without contrast using low dose technique. Additional 2D coronal and sagittal reformatted images and axial 3D maximum intensity projection (MIP) images are generated on the CT workstation. This CT examination was performed using dose optimization techniques as appropriate, variously including the following: *Automated exposure control *Adjustment of mA and/or kV according to patient size (this includes techniques or standardized protocols for targeted exams where dose is matched to indication/reason for exam; i.e. extremities or head) *Use of iterative reconstruction technique TOTAL EXAM DLP: 111 mGy-cm. CTDIvol: 3.43 mGy. FINDINGS: PULMONARY NODULES: Calcified pleural-based granuloma in the right lower lobe is unchanged (4:250)qq. There are two 4 mm left lower lobe subpleural nodules which are unchanged (4:270 and 4:294 compare prior 5:268 and 295). There are no new, increasing sized or suspicious nodules LUNGS: Lungs bilaterally symmetrically expanded. There is minimal emphysema and bronchial thickening without bronchiectasis.. No effusion or pneumothorax. Central airways patent. MEDIASTINUM: No mediastinal, hilar or axillary adenopathy or free fluid collection. CORONARY ARTERY CALCIFICATION: Present THYROID GLAND: Unremarkable to the extent seen. CARDIOVASCULAR STRUCTURES: Aortic and heart size normal. No pericardial effusion. CHEST WALL/AXILLA: Unremarkable. UPPER ABDOMEN: Included portions of the solid organs in the upper abdomen unremarkable on noncontrast imaging. OSSEOUS STRUCTURES: Degenerative changes are present in the spine. CT/CT lung screening IMPRESSION: Stable pulmonary nodules. No concerning evidence to suggest malignancy ASSESSMENT: 1. Lung-RADS Category 2: Benign appearance or behavior of nodules. N/A 2. Lung-RADS Category S: Negative. There are no clinically significant or potentially clinically significant findings not related to the lungs requiring urgent additional evaluation. RECOMMENDATION: Continued routine annual low-dose CT lung screening in 1 year is recommended. An order for CT CHEST LOW DOSE CANCER SCREENING ([id number]) can be placed. Electronically signed by: Brian Almendarez MD 02/22/2024 09:23 AM APRIL ABURTO
== END 2024-01-03 15:01 | disposition home or self-care (01) ==
LOC: HO.CT 15:00
PROVIDERS: PCP Internal Medicine; Visit Provider Physician Assistant Medical
DX: Z12.2 Encounter for screening for malignant neoplasm of respiratory organs (principal); F17.210 Nicotine dependence, cigarettes, uncomplicated
CPT/HCPCS: 71271

== ENCOUNTER 2024-01-10 14:01 | Outpatient (AMB) | payer MEDICAID, SELFPAY ==
[2024-01-10 14:10] VITALS: BP 108/52; PULSE 61; O2SAT 94; BMI 37.4
--- NOTE | 2024-01-10 14:10 | MHC.OFFVIS ---
Vital Signs 01/10/24 14:10 Height 5 ft 8 in Weight 246 lb BMI 37.4 BP 108/52 L Blood Pressure Location Lt brachial Position Sitting Pulse 61 Pulse Source Pulse Oximeter Pulse Oximetry (%) 94 Oxygen Delivery Method Room Air Intake Visit Reasons: Obstructive sleep apnea Intake Note: pt is here for margie follow up, and using cpap every night, he states he is having back pain right flank x 3 weeks, when he breaths it does not cause pain, only when lying down on the side there is pain. Rf Test Engineer Required: Yes Rf Test Engineer Services: Rf Test Engineer Present Rf Test Engineer Name: Yadirra Allergies latex [Latex] Allergy (Mild, Verified 01/10/24 14:29) RASH Medication List - Last Reconciled 01/10/24 by Lennox Nayak MD albuterol sulfate mg inhalation TID PRN albuterol sulfate 90 mcg/actuation (Proventil HFA) 2 puffs inhalation Q4-6H PRN aripiprazole 5 mg PO QPM budesonide-formoterol 160-4.5 mcg/actuation (Symbicort) 2 puffs inhalation BID buspirone 10 mg PO DAILY cetirizine (Zyrtec) 10 mg PO DAILY ibuprofen 600 mg PO TID PRN paroxetine HCl 20 mg PO QAM quetiapine 25 mg PO BEDTIME PRN triamcinolone acetonide 0.5% 1 appl topical BID Do you need a note to return to daycare/school/sports/work: No HPI HPI Obstructive sleep apnea: Details: This 68 years old very pleasant gentleman who is grossly obese and has history of obstructive sleep apnea, uses CPAP every night otherwise he just can not sleep. He has no issue with the CPAP. Breathing has been stable except for mild intermittent cough. He has some pain in the right thoracic area at night, and wonders if this is due to lungs are the CPAP. Smokes half pack of cigarettes a day . [facility] Medical History Somnolence COPD (chronic obstructive pulmonary disease) Obesity Nicotine dependence, cigarettes, uncomplicated Tubulovillous adenoma of colon Family history of ovarian cancer Obstructive sleep apnea Depression Asthma Anxiety Chronic fatigue Primary osteoarthritis of both knees Surgical History History of cystoscopy History of left inguinal hernia repair History of colonoscopy Social History Alcohol intake: former Patient Tobacco Use Status: Former Tobacco user Tobacco use type: Cigarette Cigarette Packs Per Day: 0.5 Cigarettes Per Day: 10 Years Smoked: (onset 14yo, 1/2-1ppd x 52yrs, 35PYH) Review of Systems Const All systems reviewed & are unremarkable except as noted in HPI and below Eyes Reports no additional complaints ENT Reports nasal congestion (Mild off and on) Card Denies chest pain, Denies syncope, Denies irregular heart rhythm and Denies leg edema Resp Reports as per HPI GI Reports no additional complaints Reports no additional complaints Musc Reports no additional complaints Skin/Breast Reports system reviewed and no additional complaints, except as documented Neuro Reports no additional complaints and Denies syncope Psych Reports anxiety, Reports depression and Reports mood swings Endo Reports no additional complaints Lanre/Lymph Reports no additional complaints Aller/Immun Reports seasonal rhinorrhea (Of and on) Physical Exam Const General: healthy appearing (Except for being overweight), comfortable, no acute distress, alert and awake Orientation/consciousness: patient oriented x3 HEENT Head: Yes normal to inspection General nose exam: No nasal polyps present and No nasal discharge present Face and sinus: Yes sinuses nontender Mouth: oropharynx abnormals (Moderately crowded, Mallampati scale 3) Throat: Yes posterior oropharynx normal Eyes General: appearance normal, both eyes and all related structures Neck Neck: Yes normal visual inspection, Yes no lymphadenopathy, Yes trachea midline, Yes no JVD and Yes other (Neck circumference 19 in) Thyroid: Thyroid normal Chest Chest palpation & inspection: normal inspection of the chest, normal palpation of entire chest wall and no tenderness Resp Other: Percussion note is resonant, breath sounds are distant with prolonged expiratory phase. No pleural rub, wheezes or crepitations. Cardio Palpation: normal PMI Rate: regular rate Rhythm: regular rhythm Heart sounds: no gallops and no murmurs Peripheral pulses: Peripheral pulses 2+ throughout GI Palpation (GI): Soft to palpation, nontender, No hepatosplenomegaly present and no masses Auscultation: normal bowel sounds Back/Spine/Pelvis Thoracic/Lumbar Spine: thoracic and lumbar spine normal to inspection Skin General skin exam: no rashes or lesions noted Neuro General: patient oriented x3 and no focal motor deficits Cranial nerves: Yes CN's II-XII intact bilaterally Extrem General: Yes normal to inspection, Yes no clubbing, cyanosis or edema and Yes no calf tenderness Psych Speech and movement: Normal speech and movement present Results Reviewed Results Reviewed: Compliance report for the last 30 nights is reviewed. He has used 30/30 nights, 100%. Average use per night 7 hours 49 minutes. Pressure used mainly 14-15 cm. No significant air leak. Residual AHI only 0.7 Assessment & Plan Assessment & Plan (1) COPD (chronic obstructive pulmonary disease): Comment: COPD sec. to SMOKING .(longstanding hx of cough, wheezing, KRAMER,, Currently doing very well with his current meds, except for mild shortness of breath on exertion. His back pain is mainly muscular pain has and has nothing to do his COPD or CPAP. Code(s): J44.9 - Chronic obstructive pulmonary disease, unspecified Category: Medical Plan: Continue using Symbicort 160-4.52 puffs b.i.d.. Albuterol HFA 2 puffs Q 6 hours p.r.n. (2) Nicotine dependence, cigarettes, uncomplicated: Comment: (onset 14yo, 1/2-1ppd x 52yrs, 35PYH) , still smoking about half pack of cigarettes a day. Code(s): F17.210 - Nicotine dependence, cigarettes, uncomplicated Category: Medical Plan: Had a good talk with him and I to tell him that he needs to quit smoking. He is going to try to cut it down slowly . As much as possible He is active in the annual lung screening program . (3) Obstructive sleep apnea: Comment: (06/15/10 sleep study showed severe MARGIE, RDI 68.1 - did cpap for 4yrs then stopped - The current sleep study shows that he still has rather severe obstructive sleep apnea with total sleep time AHI 49. Also has associated nocturnal hypoxemia with O2 sat below 88% for 58 minutes. Has been started on CPAP and he is using it very regularly. Sleep is okay, and he does not have daytime sleepiness . In fact he can not sleep without the CPAP mask. Compliance is good. Code(s): G47.33 - Obstructive sleep apnea (adult) (pediatric) Category: Medical Plan: Advised to continue using the CPAP every night at least for 7 hours per night Advised to try to lose weight. (4) Obesity: Comment: He remains grossly obese BMI= 37.4 Needs to lose weight, but it is kind of difficult for. Code(s): E66.9 - Obesity, unspecified Category: Medical Plan: Talked about diet and walking daily but he is not able to walk much due to arthritis. He is going to try to cut down the calories intake. Coding Level of Care Code Est Pt Level 3 (33602) Diagnoses COPD (chronic obstructive pulmonary disease) J44.9 Nicotine dependence, cigarettes, uncomplicated F17.210 Obstructive sleep apnea G47.33 Obesity E66.9
== END 2024-01-10 14:29 | disposition home or self-care (01) ==
LOC: HO.HPS 14:01
PROVIDERS: PCP Internal Medicine; Visit Provider Internal Medicine
DX: J44.9 Chronic obstructive pulmonary disease, unspecified (principal); F17.210 Nicotine dependence, cigarettes, uncomplicated; G47.33 Obstructive sleep apnea (adult) (pediatric); E66.9 Obesity, unspecified
CPT/HCPCS: 99213

== ENCOUNTER → 2024-01-10 14:01 | Outpatient (BNVA) | payer MEDICAID, SELFPAY | PROVIDERS: PCP Internal Medicine; Visit Provider Internal Medicine | DX: J44.9 Chronic obstructive pulmonary disease, unspecified (principal); G47.33 Obstructive sleep apnea (adult) (pediatric); E66.9 Obesity, unspecified; F17.210 Nicotine dependence, cigarettes, uncomplicated; Z68.37 Body mass index [BMI] 37.0-37.9, adult; Z99.89 Dependence on other enabling machines and devices | CPT/HCPCS: 99212 ==

== ENCOUNTER 2024-05-02 09:16 | Outpatient (REF) | payer MEDICAID, SELFPAY ==
[2024-05-02 10:42] LABS: PSA,Total (Free>4and<10) 11.33 ng/mL (0.00-4.00)
== END 2024-05-02 09:17 | disposition home or self-care (01) ==
LOC: HO.LAB 09:16
PROVIDERS: PCP Internal Medicine; Visit Provider Urology
DX: R97.20 Elevated prostate specific antigen [PSA] (principal)
CPT/HCPCS: 36415; 84153

== ENCOUNTER 2024-06-05 09:41 | Outpatient (AMB) | payer MEDICAID, SELFPAY ==
--- NOTE | 2024-06-05 09:41 | A.OFFVIS_ITS ---
Intake Visit Reasons: 6 month/ PSA Intake Note: Patient is present for 6M/PSA Urology Medication:NONE Antibiotic Allergy:NONE Blood Thinner:NONE Vice President Supply Chain Required: Yes Allergies latex [Latex] Allergy (Mild, Verified 06/05/24 09:42) RASH HPI Comments Details: Juan Carlos is a pleasant male. He is a patient of Dr Diez. He seen for the following urologic issues - lower urinary tract symptoms - weak stream - gross hematuria Turkish translation by qualified medical record transcriber PSA continuing to rise - PCPT over 10% high risk Previously Recommend prostate biopsy He had elected to defer for six-month to review PSA Discussion regarding biopsy Will be planned Lower urinary tract symptoms Initial symptoms include weakness of stream, incomplete bladder emptying, urinary hesitancy Medications finasteride and tamsulosin Cystoscopy - oval-shaped prostate PSA 07/02 4.3, 07/03 3.2, 01/02 4.0. 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, cytology, cystoscopy [facility] Medical History Somnolence COPD (chronic obstructive pulmonary disease) Obesity Nicotine dependence, cigarettes, uncomplicated Tubulovillous adenoma of colon Family history of ovarian cancer Obstructive sleep apnea Depression Asthma Anxiety Chronic fatigue Primary osteoarthritis of both knees Surgical History History of cystoscopy History of left inguinal hernia repair History of colonoscopy Social History Alcohol intake: former Patient Tobacco Use Status: Former Tobacco user Tobacco use type: Cigarette Cigarette Packs Per Day: 0.5 Cigarettes Per Day: 10 Years Smoked: (onset 14yo, 1/2-1ppd x 52yrs, 35PYH) Review of Systems Const All systems reviewed & are unremarkable except as noted in HPI and below Reports no additional complaints Resp Reports no additional complaints GI Reports no additional complaints Reports as per HPI Musc Reports no additional complaints Physical Exam Telemedicine evaluation Appropriate responses Regular breathing rate and rhythm HEENT Head: Yes normal to inspection Ears: hearing grossly normal bilaterally Eyes General: appearance normal, both eyes and all related structures Neck Neck: Yes normal visual inspection Chest Chest palpation & inspection: normal inspection of the chest Resp Effort & Inspection: normal respiratory effort and able to speak in complete sentences Telehealth Telehealth Telehealth Platform: [employer] [place] Location of provider rendering services: practice address Location of patient: address on file Patient Identification confirmed using: Name, : Yes Telehealth method: video Patient verbally consented to treatment: Yes Patient verbally consented to billing insurance company: Yes Patient informed of any privacy concerns related to visit: Yes Minutes spent on Phone/Video with Pt.: 15 Assessment & Plan Assessment & Plan (1) Elevated PSA: Code(s): R97.20 - Elevated prostate specific antigen [PSA] Category: Medical (2) BPH w urinary obs/LUTS: Code(s): N40.1 - Benign prostatic hyperplasia with lower urinary tract symptoms; N13.8 - Other obstructive and reflux uropathy Category: Medical Plan Risks and benefits regarding trans rectal ultrasound with prostate biopsy were discussed. Options of continued surveillance, no treatment and biopsy were offered. The risks include but are not limited to, urinary tract infection, sepsis, difficulty urinating, bleeding into the rectum or bladder that requires intervention and transfusion,and failure to diagnose prostate cancer. The patient understands the options and the risks involved. They wish to proceed. Printed information was provided to ensure he remains off anticoagulation for the appropriate length of time. He may require cardiology or PCP clearance. An antibiotic will be administered prior to, and following the procedure Medications: New levofloxacin take 1 tablet day before procedure, 1 tablet day of procedure and 1 tablet day after procedure 500 mg PO daily 3 days 3 tabs 0RF R97.20 - Elevated prostate specific antigen [PSA] Patient Instructions: This note is constructed using voice recognition software. While every effort has been made to ensure accuracy medical transcription radiology errors may have been included. Imaging studies, laboratory and physical exam results were discussed and reviewed in detail. No major barriers to patient understanding were identified. An opportunity to ask questions regarding the treatment plan was provided. All questions were answered. The patient expressed understanding and agreement with the above treatment plan. The patient is aware they should contact our office by phone for worsening of their current condition or the appearance of new urologic symptoms. Compliance is encouraged with any medications and followup testing that is ordered. It is a privilege to participate in the urologic care of your patient. If you have any questions or concerns regarding treatment for the above conditions, or other urologic issues, please do not hesitate to contact me. The office t damon contact is [phone]. Sincerely, Dr Jose Cherry MD, [facility] - Urology Compassionate Specialist Care for the Genitourinary System Coding Level of Care Code Tele Est Pt Level 4 (88935) Diagnoses Elevated PSA R97.20 BPH w urinary obs/LUTS N40.1; N13.8
--- OUTSIDE RECORDS SUMMARY | 2024-06-05 10:57 | XMS_ITS | Clinical Summary ---
Author Organization [facility] Address [address] [place] [address] Care Team Providers Care Experimental Psychologist Name Role Phone Rachid Lee MD Primary Care Provide r Jose Cherry MD Unavailable [phone] Allergies Active Allergy Reactions Criticality Noted Date Comments Latex 12/11/2021 Zoster Vaccine Recombinant, Adjuvanted Swelling,Other 04/30/2021 Medications Proventil HFA 108 (90 Base) MCG/ACT inhaler 2 puffs every 4 (four) hours if needed. 05/22/19 23 Active ARIPiprazole (Abilify) 5 MG tablet Take 5 mg by mouth at bedtime. 09/08/19 23 Active busPIRone (Buspar) 10 MG tablet TAKE 1 TABLET BY MOUTH TWICE DAILY IN THE MORNING AND IN THE EVENING 09/08/19 23 Active PARoxetine (Paxil) 20 MG tablet Take 20 mg by mouth in the morning. 09/08/19 23 Active QUEtiapine (SEROquel) 25 MG tablet TAKE 1 TABLET BY MOUTH AT BEDTIME NEEDED FOR SLEEP AND AGITATION 09/08/19 23 Active albuterol (2.5 MG/3ML) 0.083% nebulizer solution INHALE 1 AMPULE USING A NEBULIZER THREE TIMES DAILY NEEDED 180 mL 3 05/10/19 24 Active cetirizine (ZyrTEC) 10 MG tabletIndicatio ns:Seasonal allergies TAKE 1 TABLET BY MOUTH EVERY EVENING 90 tablet 1 11/17/19 24 Active hydrocortisone (Proctosol HC) 2.5 % rectal creamIndication s:Grade I hemorrhoids Insert into the rectum 2 times daily. 28 g 1 01/26/20 24 Active budesonide-form oterol (Symbicort) 160-4.5 MCG/ACT inhalerIndicati ons:Moderate persistent asthma without complication INHALE 2 PUFFS BY MOUTH TWICE DAILY IN THE MORNING AND IN THE EVENING RINSE MOUTH AFTER USING. 10.2 g 6 04/17/19 25 Active ibuprofen 800 MG tabletIndicatio ns:Acute left-sided low back pain without sciatica Take 1 tablet (800 mg) by mouth every 12 (twelve) hours if needed for mild pain. 30 tablet 05/30/19 25 Active tiZANidine (Zanaflex) 2 MG tabletIndicatio ns:Acute left-sided low back pain without sciatica Take 1 tablet (2 mg) by mouth every 8 (eight) hours if needed for muscle spasms. 30 tablet 05/30/19 25 Active ibuprofen 800 MG tabletIndicatio ns:Acute left-sided low back pain without sciatica Take 1 tablet (800 mg) by mouth every 12 (twelve) hours if needed for mild pain. 30 tablet 01/21/20 23 025 Discontinued(Re order (will not trigger notification to Pharmacy)) tiZANidine (Zanaflex) 2 MG tabletIndicatio ns:Acute left-sided low back pain without sciatica Take 1 tablet (2 mg) by mouth every 8 (eight) hours if needed for muscle spasms. 30 tablet 01/21/20 23 025 Discontinued(Re order (will not trigger notification to Pharmacy)) Active Problems Problem Noted Date Diagnosed Date Grade I hemorrhoids 01/26/2024 Assessment & Plan (01/26/2024 1:34 PM EST): Intermittent Sit baths, proctosol cream PRN Acute left-sided low back pain without sciatica 01/20/2023 Assessment & Plan (05/29/2024 12:01 PM EDT): Pt with intermittent low back pain On exam evidence of muscle spasm Plan: NSAIDS, Muscle relaxant No red flags Follow up if no improvement Assessment & Plan (01/20/2023 11:37 AM EST): Pt with c/o new onset of left sided low back pain s/p fall from a chair landed on his back intensity 08/21 On exam evidence of muscle spasm Plan: NSAIDS, Muscle relaxant No red flags Follow up if no improvement Squamous cell skin cancer 01/20/2023 Assessment & Plan (01/26/2024 1:21 PM EST): Evaluated by Dr. Guzman for lesion of skin on shoulder Pathology showed: Squamous Cell Skin CA left shoulder Pt was referred to Dr. Joseph. Last seen 09/2023 Assessment & Plan (09/22/2023 1:09 PM EDT): Evaluated by Dr. Guzman for lesion of skin on shoulder Pathology showed: Squamous Cell Skin CA left shoulder Pt was referred to Dr. Joseph. Pt tells me he was seen today records requested Assessment & Plan (07/21/2023 11:18 AM EDT): Evaluated by Dr. Guzman for lesion of skin on shoulder Pathology showed: Squamous Cell Skin CA left shoulder Pt was referred to Dr. Joseph. Pt tells me he was called by someone in thai so he did not understand. Today we contacted the office of Dr. Joseph, they give him an appointment for August 18 9; 15 AM. He is walking out of the office with the appointment in his hands . He promised not to miss it. Assessment & Plan (01/20/2023 11:47 AM EST): Will refer to Dr Hernandez Hx of hematuria 10/05/2022 Assessment & Plan (10/05/2022 9:27 AM EDT): Pt here for a f/u Pt reported an incident in which his pajamas were stained with blood, he did not noticed until the day after, he is convinced it came thorough his penis although cant confirm Exam was unremarkable Urine dipstick showed trace blood only will send for U/A Initial work up included a U/A, Urine Cytology: negative PSA was elevated Pt was seen by Urology 01/06/2021 Cystoscopy was negative they recommended 6 month f/u with repeat PSA he was last seen by Urology 07/07/2021 Elevated PSA 10/05/2022 Assessment & Plan (05/29/2024 11:56 AM EDT): Hx of PSA elevated 4.3 Repeat PSA 05/02/2024 higher at 11.33 from 7 Pt evaluated by Urology , last seen 11/17/2023. He recommended Biopsy. Pt opted for 6 month follow up with repeat PSA at that time. Contacted [facility] reporting that pt is aware and has an appt 06/05/[address] Cherry to discuss next steps and that they are aware of PSA increasing. Assessment & Plan (01/26/2024 1:19 PM EST): Hx of PSA elevated 4.3 Repeat PSA 09/2023 elevated at 7 Pt evaluated by Urology , last seen 11/17/2023. He recommended Biopsy. Pt opted for 6 month follow up with repeat PSA at that time. 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 Dr Navneet reno/josefa 3 to 5 years Assessment & Plan (01/26/2024 1:22 PM EST): PSA 09/2023 elevated 7 under the care of Urology Colonoscopy: 06/11/2022 showed tubulovillous adenoma negative for high-grade dysplasia Dr Navneet valerio 3 to 5 years Assessment & Plan (09/22/2023 1:03 PM EDT): PSA ordered Colonoscopy: 06/11/2022 showed tubulovillous adenoma negative for high-grade dysplasia Dr Navneet valerio 3 to 5 years Assessment & Plan (10/05/2022 9:59 AM EDT): Colonoscopy: 06/11/2022 showed tubulovillous adenoma negative for high-grade dysplasia Dr Navneet valerio 3 to 5 years Smoker 10/05/2022 Assessment & Plan (09/22/2023 1:09 PM EDT): > 30 pack years Low dose cancer screen CT 12/17/2022 IMPRESSION: 4 mm left lower lobe pulmonary nodules. Assessment & Plan (01/20/2023 11:31 AM EST): > 30 pack years Low dose cancer screen CT 12/17/2022 IMPRESSION: 4 mm left lower lobe pulmonary nodules. Assessment & Plan (10/05/2022 10:16 AM EDT): > 30 pack years Needs Low dose cancer screen CT Severe obesity 09/16/2022 Assessment & Plan (05/29/2024 12:03 PM EDT): pt continues to decline to see our hairspring cutter or go to the comprehensive weight management program Patient has been counseled and educated about diet and exercise. Personal goal of weight loss discussed Assessment & Plan (09/22/2023 1:06 PM EDT): Managed to loose weight since our last visit pt continues to decline to see our hairspring cutter or go to the comprehensive weight management program Patient has been counseled and educated about diet and exercise. Personal goal of weight loss discussed Assessment & Plan (10/05/2022 10:04 AM EDT): Discussed need to loose weight , information about the comprehensive weight management program given to patient in the past. pt declines to see our hairspring cutter or go to the comprehensive weight management program Patient has been counseled and educated about diet and exercise. 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 02/26/2021 Chronic anxiety 02/26/2021 Moderate persistent asthma with acute exacerbati on 12/26/2014 Assessment & Plan (05/29/2024 11:59 AM EDT): Patient here for a f/u Currently on Symbicort 160 mg/4.5 2 puffs BID and Pro-Air and Incruse Ellipta added once a day Under the care of Dr Nayak last seen 01/10/2024. Short prednisone taper, continue inhalers F/u if worsening or no improvement or productive cough or fever presents Assessment & Plan (01/26/2024 1:36 PM EST): Patient here for a f/u c/o wheezing Exam indicative of mild exaerbation Currently on Symbicort 160 mg/4.5 2 puffs BID and Pro-Air and Incruse Ellipta added once a day Under the care of Dr Nayak last seen 01/10/2024. Short prednisone taper, continue inhalers F/u if worsening or no improvement or productive cough or fever presents Assessment & Plan (09/22/2023 9:36 AM EDT): Patient here for a f/u No recent exacerbations Being followed by our [facility] Asthma Pharmacy Team Currently on Symbicort 160 mg/4.5 2 puffs BID and Pro-Air and Incruse Ellipta added once a day Under the care of Dr Nayak last seen 08/2023 Pt up to date on his Covid-19 vaccines Today he tells me he is using his Cpap machine. Assessment & Plan (07/21/2023 11:10 AM EDT): Patient here for a f/u No recent exacerbations Being followed by our [facility] Asthma Pharmacy Team Currently on Symbicort 160 mg/4.5 2 puffs BID and Pro-Air and Incruse Ellipta added once a day Under the care of Dr Nayak last seen 04/27/2023 Pt up to date on his Covid-19 vaccines He was seen by Dr Nayak 11/30/2022 He ordered a home based sleep study Today he tells me he is trying to get the Cpap machine. Assessment & Plan (01/20/2023 11:29 AM EST): Patient here for a f/u No recent exacerbations Being followed by our [facility] Asthma Pharmacy Team Currently on Symbicort 160 mg/4.5 2 puffs BID and Pro-Air and Incruse Ellipta added once a day Under the care of Dr Nayak last seen 11/2022 Pt up to date on his Covid-19 vaccines Previous visit he was referred back to Pulmonology. He was seen by Dr Nayak 11/30/2022 He ordered a home based sleep study Assessment & Plan (10/05/2022 9:26 AM EDT): Patient here for a f/u No recent exacerbations Being followed by our [facility] Asthma Pharmacy Team Currently on Symbicort 160 mg/4.5 2 puffs BID and Pro-Air and Incruse Ellipta added once a day Used to be under the care of Dr Nayak last seen in February 2016 Pt up to date on his Covid-19 vaccines Primary hypertriglyceridemia 10/18/2011 Assessment & Plan (01/26/2024 1:20 PM EST): Pt here for a f/u Most recent lipid profile from: Lab Results Component Value Date TRIG 110 09/26/2023 TRIG 217 (H) 01/07/2023 CHOL 144 09/26/2023 CHOL 175 01/07/2023 LDLCHOLCAL 89 09/26/2023 LDLCHOLCAL 99 01/07/2023 HDL 33 (L) 09/26/2023 HDL 33 (L) 01/07/2023 currently controlled with diet alone advised to try to adhere to a low cholesterol diet, counseled and educated about diet and exercise Repeat Lipid profile Assessment & Plan (09/22/2023 1:04 PM EDT): Pt here for a f/u Most recent lipid profile from: 01/07/2023 Component Ref Range & Units Triglycerides <150 mg/dL 217 High Comment: Desirable Triglyceride: less than 150 mg/dLBorderline High Triglyceride 150-199 mg/dLHigh Triglyceride: 200-499 mg/dLVery High Triglyceride: greater than or equal to 5OO mg/dL Cholesterol <200 mg/dL 175 Comment: Desirable Cholesterol: less than 200 mg/dLBorderline High Cholesterol: 200-239 mg/dLHigh Cholesterol: greater than 239 mg/dL LDL Cholesterol Calculated <100 mg/dL 99 Comment: Desirable LDL: less than 100 mg/dLNear Optimal/Above Optimal LDL: 110- 129 mg/dLBorderline High LDL: 130-159 mg/dLHigh LDL: 160-189 mg/dLVery High LDL: greater than or equal to 190 mg/dL HDL Cholesterol >40 mg/dL 33 Low Comment: Desirable HDL: greater than 40 mg/dL Note: This HDL assay may give artificially low results in patients with liver disease. [facility] Specimen Collected: 01/07/23 10:27 Last Resulted: 01/07/23 15:52 currently controlled with diet alone advised to try to adhere to a low cholesterol diet, counseled and educated about diet and exercise Repeat Lipid profile Assessment & Plan (01/20/2023 11:30 AM EST): Pt here for a f/u Most recent lipid profile from: Component Ref Range & Units 13 d ago Triglycerides <150 mg/dL 217??High?? Comment: Desirable Triglyceride: ? less than 150 mg/dLBorderline High Triglyceride ??150-199 mg/dLHigh Triglyceride: ?200-499 mg/dLVery High Triglyceride: ? greater than or equal to ?5OO mg/dL Cholesterol <200 mg/dL 175 Comment: Desirable Cholesterol: ?less than 200 mg/dLBorderline High Cholesterol: ??200-239 mg/dLHigh Cholesterol: ? greater than 239 mg/dL LDL Cholesterol Calculated <100 mg/dL 99 Comment: Desirable LDL: ? less than 100 mg/dLNear Optimal/Above Optimal LDL: ??110-129 mg/dLBorderline High LDL: ? 130-159 mg/dLHigh LDL: ?160-189 mg/dLVery High LDL: ? greater than or equal to ? 190 mg/dL HDL Cholesterol >40 mg/dL 33??Low?? Comment: Desirable HDL: ??greater than 40 mg/dL ?Note: This HDL assay may give artificially ?low results in patients with liver disease. [facility] Specimen Collected: 01/07/23 10:27 Last Resulted: 01/07/23 15:52 currently controlled with diet alone advised to try to adhere to a low cholesterol diet, counseled and educated about diet and exercise Assessment & Plan (10/05/2022 9:26 AM EDT): Pt here for a f/u Most recent lipid profile from: 04/17/2019 shows a total cholesterol of: 168 triglycerides of: 147 HDL of: 39 and LDL of: 100 Lipid profile ordered currently controlled with diet alone advised to try to adhere to a low cholesterol diet, counseled and educated about diet and exercise Obstructive sleep apnea syndrome 10/18/2011 Assessment & Plan (09/22/2023 9:36 AM EDT): Most recent Sleep stydy done by Pulmonology showed: sleep study shows that he still has rather severe obstructive sleep apnea with total sleep time AHI 49. Also has associated nocturnal hypoxemia with O2 sat below 88% for [address] Nayak recommended to go back to use his Cpap machine, reports using it regularly Last seen 08/25/2023 Assessment & Plan (07/21/2023 11:19 AM EDT): Most recent Sleep stydy done by Pulmonology showed: sleep study shows that he still has rather severe obstructive sleep apnea with total sleep time AHI 49. Also has associated nocturnal hypoxemia with O2 sat below 88% for [address] Nayak recommended to go back to use his Cpap machine and is going to repeat a nocturnal oxymetry after to ensure his nocturnal hypoxemia resolves He has yet to obtain his Cpap Machine, I contacted the office of Dr. Nayak who asked that pt go to his office so they can help him to obtain his Cpap machine, Pt promised to go later today Assessment & Plan (10/05/2022 9:29 AM EDT): He stopped using his Cpap because a [place] in [place] told him to stop using it because it was damaging his lungs Last visit I tried to reassured him that this is not the case unsuccessfully. Encounters Date Type Department Care Team Description 05/29/2024 11:30 AM EDT Office Visit [address] [id number] Rachid Lee MD Elevated PSA (Primary Dx); Moderate persistent asthma with acute exacerbation; Acute left-sided low back pain without sciatica; Preventative health care; Severe obesity (CMS/[facility]); Dietary counseling; Exercise counseling 05/29/2024 Travel 05/23/[address] [address] Rachid Lee MD Chart Prep 05/22/2024 Patient Outreach [address] [address] Rachid Lee MD Care Coordination (CH[facility] outreach for SDOH PT-1 and food needs-referral completed /) 05/22/2024 Patient Outreach [address] [address] Rachid Lee MD Pre-visit Planning (SDOH Screening positive and Tobacco screening positive) 05/15/[address] [address] Anne Noonan, RN Results 05/02/2024 Orders Only GENERIC EXTERNAL DATA DEPARTMENT Provider, Generic External Data 04/14/[address] [address] Rachid Lee MD Moderate persistent asthma without complication from Last 3 Months Immunizations Name Administration Dates Next Due Influenza High-dose Quadrivalent Preservative Fr ee 01/20/2023 Influenza injectable quadriv alent IIV4 with preservative 02/22/2017,12/26/2014 Influenza injectable quadrivalent preservative f ree 12/11/2021,02/19/2021 Influenza, High Dose Seasonal, Preservative Free 01/26/2024 Influenza, IIV3, injectable 03/01/2006 Influenza, Split (incl. purified surface antigen ) 12/13/2011 Pneumococcal Polysaccharide PPSV23 04/28/2021 Tdap 10/02/2015 Zoster, Recombinant 04/28/2021 Social History Tobacco Use Types Packs/Day Years Used Date Smoking Tobacco: Some Days Cigarettes Passive Smoke Exposure: Current Smokeless Tobacco: Never Tobacco Cessation:Ready to Q uit: Not Asked; Counseling Given: Not Answered Depression Answer Date Recorded Patient Health Questionnaire-9 Score 0 09/22/2023 Patient Health Questionnaire-9 Score 0 09/22/2023 Last PHQ-9: Questionnaire Data Not on file 0 09/22/2023 Housing Stability Answer Date Recorded What is your housing situation today? I have negra martinez 05/22/[address] you li ve. Do you have problems with any of the following? Mold;I am not sure 05/22/2024 Food Insecurity Answer Date Recorded Within the past 12 months, y ou worried that your food would run out before you got money to buy more: Sometimes True 2023 Within the past 12 months,th e food you bought just didn't last and you didn't have enough money to get more: Sometimes True 01/17/2024 Transportation Answer Date Recorded In the past 12 months, has l ack of transportation kept you from medical appts, meetings, work or from getting things needed for daily living? Yes, it has kept me from medical appointments or getting medications. 01/17/2024 Utilities Answer Date Recorded In the past 12 months, has t he electric, gas, oil or water company threatened to shut off services in your home? No 01/17/2024 Depression Answer Date Recorded Patient Health Questionnaire-2 Score 0 09/22/2023 Internet Access Answer Date Recorded Internet Access Q1 Yes 01/17/2024 Internet Access Q2 Not on file 01/17/2024 Sex and Gender Information Value Date Recorded Sex Assigned at Male 01/11/2022 10:18 AM EDT Legal Sex Male 10:18 AM EDT Gender Identity Male 01/11/2022 10:18 AM EDT Sexual Orientation Choose not to disclose 2021 10:18 AM EDT Last Filed Vital Signs Vital Sign Reading Time Taken Comments Blood Pressure 121/68 05/29/2024 11:03 AM EDT Pulse 70 05/29/2024 11:03 AM EDT Temperature 36.1 ??C (96.9 ??F) 05/29/2024 11:03 AM E DT Respiratory Rate 20 05/29/2024 11:03 AM EDT Oxygen Saturation 98% 05/29/2024 11:03 AM EDT Inhaled Oxygen Concentration - - Weight 116 kg (255 lb 12.8 oz) 05/29/2024 11:03 AM EDT Height 175.3 cm (5' 9 ) 05/29/2024 11:03 AM EDT Body Mass Index 37.78 05/29/2024 11:03 AM EDT Plan of Treatment Upcoming Encounters Date Type Department Care Team (Late st Contact Info) Description 09/04/2024 11:30 AM EDT Office Visit [facility] MEDICINE [address], [place] [phone] Rachid Lee MD [address] [place] [address] Health Maintenance Due Date Last Done Comments CT Colonography 1957 FIT DNA/Cologuard 1957 FIT 1957 FOBT 1957 Sigmoidoscopy 1957 Derm Melanoma Skin Check 06/09/1958 RSV Patients and Patients Aged 60 years or older (1 - Risk 60-74 years 1-dose series) 2017 Zoster Vaccines (2 of 2) 06/23/2021 04/28/2021 Pneumococcal Vaccine: 50+ Years (2 of 2 - PCV) 04/28/2022 04/28/2021 COVID-19 Vaccine ( season) 2023 12/18/2021, 03/19/2021, 08/18/2020, Additional history exists Depression Screening 09/21/2024 09/22/2023, 09/22/19 Alcohol/Substance Use Screening 01/25/2025 01/26/2024 SDOH Screening 05/22/2025 05/22/2024 Tobacco Screening 05/29/2025 05/29/2024 Colonoscopy 06/11/2025 06/11/2022 Colorectal Cancer Screening 06/11/2025 DTaP/Tdap/Td Vaccines (2 - Td or Tdap) 10/01/2025 10/02/2015 Lipid Panel 09/25/2028 09/26/2023, 01/07/2023 Hepatitis C Screening Completed 04/28/2021 Influenza Vaccine Completed 01/26/2024, , 12/11/2021, Additional history exists HIB Vaccines Aged Out No longer eligi ble based on patient's age to complete this topic HPV Vaccines Aged Out No longer eligi ble based on patient's age to complete this topic Hepatitis A Vaccines Aged Out No long er eligible based on patient's age to complete this topic Hepatitis B Vaccines Aged Out No long er eligible based on patient's age to complete this topic IPV Vaccines Aged Out No longer eligi ble based on patient's age to complete this topic Meningococcal Vaccine Aged Out No samir jose francisco eligible based on patient's age to complete this topic RSV under 20 months Aged Out No longe r eligible based on patient's age to complete this topic Rotavirus Vaccines Aged Out No longer eligible based on patient's age to complete this topic Procedures Procedure Name Priority Date/Time Associated Diagnosis Comments PSA, TOTAL WITH REFLEX TO PSA, FREE Routine 05/02/2024 9:26 AM EST LIPID PANEL, STANDARD Routine 09/26/2023 9:03 AM EDT Primary hypertriglyceridemia HM COLONOSCOPY Routine 06/11/2022 ZZZ HISTORICAL HEPATITIS C AB W/REFL TO HCV RNA, QN, PCR Routine 04/28/2021 11:13 AM EST from Last 3 Months or Most Recently Relevant to Health Maintenance Results * (ABNORMAL) PSA, Total With Reflex to PSA, Free (05/02/2024 9:26 AM EST) PSA,Total (Free>4and<10) 11.33(H ) 0.00 - 4.00 ng/mL [facility] Comment:A Free PSA was not p erformed: The percentage of Free PSA can be used to enhance the differentiation of prostate cancer from benign prostatic disease in subjects whose PSA levels are between 4.0 and 10.0 ng/mL. For subjects whose PSA levels are below 4.0 or above 10.0 ng/mL, the risk of prostate cancer is determined on the basis of the PSA alone. Therefore the % Free PSA is recommended only for those subjects whose PSA levels are between 4.0 and 10.0 ng/mL.PSA methodology: Jamison Alinity i ChemiluminescentMicroparticle Immunoassay (CMIA) 05/02/2024 9:26 AM EST 05/02/2024 9:26 AM EST us Generic External Data Provider LAB BLOOD ORDERAB LES Final Result [facility] [address] [place] [phone] * (ABNORMAL) Lipid Panel, Standard (09/26/2023 9:03 AM EDT) Triglycerides 110 <150 mg/dL [facility] Comment:Desirable Triglyceri de: less than 150 mg/dLBorderline High Triglyceride 150-199 mg/dLHigh Triglyceride: 200-499 mg/dLVery High Triglyceride: greater than or equal to 5OO mg/dL Cholesterol 144 <200 mg/dL [facility] Comment:Desirable Cholestero l: less than 200 mg/dLBorderline High Cholesterol: 200-239 mg/dLHigh Cholesterol: greater than 239 mg/dL LDL Cholesterol Calculated 89 <100 mg/dL [facility] Comment:Desirable LDL: less than 100 mg/dLNear Optimal/Above Optimal LDL: 110- 129 mg/dLBorderline High LDL: 130-159 mg/dLHigh LDL: 160-189 mg/dLVery High LDL: greater than or equal to 190 mg/dL HDL Cholesterol 33(L) >40 mg/dL [facility] Comment:Desirable HDL: great er than 40 mg/dL Note: This HDL assay may give artificially low results in patients with liver disease. Blood Venous blood specimen / Unknown 09/26/2023 9:03 AM EDT 09/26/2023 11:04 AM EDT Rachid Eli MD LAB BLOOD ORDERABLES Final Result Performing Organization Address [facility]/ZIP Co de Phone Number [facility] [address] [place] [phone] * Hm Colonoscopy (06/11/2022) Colonoscopy Normal Normal 06/11/2022 Narrative Mandy Christina - 06/11/2022 11:20 AM EDT Recommended 3 year follow up ( see scanned notes) Historical Provider HEALTH MAINTENANCE Edited Result - Final * HEPATITIS C AB W/REFL TO HCV RNA, QN, PCR (04/28/2021 11:13 AM EST) HEPATITIS C ANTIBODY NON-REACT FITO NON-REACT FITO [facility] INDEX 0.10 <1.00 [facility] Comment: ?? HCV antibody was non-reactive. There is no laboratory ?? evidence of HCV infection. ?? In most cases, no further action is required. However, if recent HCV exposure is suspected, a test for HCV RNA (test code 89864) is suggested. ?? For additional information please refer to http://education.[employer]/faq/UYL08g2 (This link is being provided for informational/ educational purposes only.) ?? 04/28/2021 11:1 3 AM EST us Rachid Eli MD HISTORICAL/NON ORDERA BLE LABS Final Result Performing Organization Address City/[facility]/ZIP Co de Phone Number [facility] [address] from Last 3 Months or Most Recently Relevant to Health Maintenance Insurance [facility] STANDARD Care Teams Experimental Psychologist Relationship Specialty Start Date End Date Rachid Lee MD [address] [place] [address] PCP - General Internal Medicine 10/29/13 Jose Cherry MD [address] [place] [address] Urology 05/15/24
--- OUTSIDE RECORDS SUMMARY | 2024-06-05 10:57 | XMS_ITS | Encounter Summary ---
Author Organization [employer] [facility] Address [address] [place] [address] 7t [place] [address] Care Team Providers Care Dairy Laboratory Technician Name Role Phone Rachid Lee MD Primary Care Provide r Jose Cherry MD Unavailable [phone] Encounter Details Date Type Department Care Team (Late st Contact Info) Description 03/24/2022 Orders Only [facility] [address] [place] [address] Kate Jacobo LPN Social History Tobacco Use Types Packs/Day Years Used Date Smoking Tobacco: Never Assessed Sex and Gender Information Value Date Recorded Sex Assigned at Male 01/11/2022 10:18 AM EDT Legal Sex Male 10:18 AM EDT Gender Identity Male 01/11/2022 10:18 AM EDT Sexual Orientation Choose not to disclose 2021 10:18 AM EDT documented as of this encounter Plan of Treatment Upcoming Encounters Date Type Department Care Team (Late st Contact Info) Description 09/04/2024 11:30 AM EDT Office Visit [facility] [address] [place] [address] Rachid Lee MD [address] [place] [address] documented as of this encounter Visit Diagnoses Not on filedocumented in this encounter Care Teams Dairy Laboratory Technician Relationship Specialty Start Date End Date Rachid Lee MD [address] [place] [address] PCP - General Internal Medicine 10/29/13 Jose Cherry MD [address] [place] [address] Urology 05/15/24 documented as of this encounter
--- OUTSIDE RECORDS SUMMARY | 2024-06-05 10:57 | XMS_ITS | Encounter Summary ---
Author Organization [employer] Address [address] [facility] 7t [place] [address] Care Team Providers Care Bundling Machine Operator Name Role Phone Rachid Lee MD Primary Care Provide r Jose Cherry MD Unavailable [phone] Reason for Visit * Reason Comments Pre-visit Planning SDOH Screening posit jhonatan and Tobacco screening positive Encounter Details Date Type Department Care Team ([facility] st Contact Info) Description 05/22/2024 Patient Outreach [facility] [address] [place] [address] Rachid Lee MD [address] [place] [address] Pre-visit Planning (SDOH Screening positive and Tobacco screening positive) Social History Tobacco Use Types Packs/Day Years Used Date Smoking Tobacco: Former Cigarettes Passive Smoke Exposure: Past Smokeless Tobacco: Never Depression Answer Date Recorded Patient Health Questionnaire-9 [...] AM EDT documented as of this encounter Progress Notes * Sue Escalona - 05/22/2024 10:10 AM EDT CC Sue Stuart placed successful outbound call to patient for pre-visit planning. Patient name and confirmed. Patient confirms appt date and time, and has transportation arrangements. Biggest concern for appointment at this time is no concerns at the moment. Patient advised to bring to appointment a photo id and insurance card. Appropriate screenings completed in anticipation of appointment. Tobacco screening positive. Will need counseling. SDOH positive. Patient looking for assistance with pest control: ( patient is not sure if there's Mold), Food insecurities: Sometimes and Transportation. Referral will be placed. documented in this encounter Plan of Treatment Upcoming Encounters Date Type Department Care Team (Late st Contact Info) Description 09/04/2024 11:30 AM EDT Office Visit [facility] [address] [place], [place] [phone] Rachid Lee MD [address] [place] [address] documented as of this encounter Visit Diagnoses Not on filedocumented in this encounter Additional Health Concerns Assessment Noted Time PHQ-9 Depression Total Score: 0 09/22/19 24 1:01 PM EDT documented as of this encounter Care Teams Bundling Machine Operator Relationship Specialty Start Date End Date Rachid Lee MD [address] [place] [address] PCP - General Internal Medicine 10/29/13 Jose Cherry MD [address] [place] [address] Drive [address] [place] [address] Urology 05/15/24 documented as of this encounter
--- OUTSIDE RECORDS SUMMARY | 2024-06-05 10:57 | XMS_ITS | Encounter Summary ---
Author Organization [employer] Address [address] 7t [place] [address] Care Team Providers Care Hearing Aid Repair Technician Name Role Phone Rachid Lee MD Primary Care Provide r Jose Cherry MD Unavailable [phone] Encounter Details Date Type Department Care Team (Late st Contact Info) Description 04/30/2023 Orders Only [facility] [address] [place] [address] Melchor Jim MD [address] [place] [address] Social History Tobacco Use Types Packs/Day Years Used Date Smoking Tobacco: Every Day Cigarettes Passive Smoke Exposure: Current Smokeless Tobacco: Never Depression Answer Date Recorded Patient Health Questionnaire-9 Score 14 10/05/2022 Housing Stability Answer Date Recorded What is your housing situation today? I have housing today, but I am worried about losing housing in the future 12/29/[address] you li ve. Do you have problems with any of the following? None of the above 12/29/2022 Food Insecurity Answer Date Recorded Within the past 12 months, y ou worried that your food would run out before you got money to buy more: Never True 12/29/2022 Within the past 12 months,th e food you bought just didn't last and you didn't have enough money to get more: Never True Transportation Answer Date Recorded In the past 12 months, has l ack of transportation kept you from medical appts, meetings, work or from getting things needed for daily living? No 12/29/2022 Utilities Answer Date Recorded In the past 12 months, has t he electric, gas, oil or water company threatened to shut off services in your home? No 12/29/2022 Depression Answer Date Recorded Patient Health Questionnaire-2 Score 4 10/05/2022 Sex and Gender Information Value Date Recorded [...] 09/04/2024 11:30 AM EDT Office Visit [facility] [address] [place] [address] Rachid Lee MD [address] [place] [address] documented as of this encounter Visit Diagnoses Not on filedocumented in this encounter Additional Health Concerns Assessment Noted Time PHQ-9 Depression Total Score: 14 023 10:11 AM EDT documented as of this encounter Care Teams Hearing Aid Repair Technician Relationship Specialty Start Date End Date Rachid Lee MD [address] [place] [address] PCP - General Internal Medicine 10/29/13 Jose Cherry MD [address] [place] [address] Urology 05/15/24 documented as of this encounter
--- OUTSIDE RECORDS SUMMARY | 2024-06-05 10:57 | XMS_ITS | Encounter Summary ---
Author Organization [employer] Address [address] [facility] 7t [place] [address] Care Team Providers Care Annual Giving Director Name Role Phone Rachid Lee MD Primary Care Provide r Jose Cherry MD Unavailable [phone] Encounter Details Date Type Department Care Team (Latest Contact Info) Description 05/29/2024 Travel Social History Tobacco Use Types Packs/Day Years [...] Description 09/04/2024 11:30 AM EDT Office Visit [facility] [address] [place] [address] Rachid Lee MD [address] [place] [address] documented as of this encounter Visit Diagnoses Not on filedocumented in this encounter Additional Health Concerns Assessment Noted Time PHQ-9 Depression Total Score: 0 09/22/19 24 1:01 PM EDT documented as of this encounter Care Teams Annual Giving Director Relationship Specialty Start Date End Date Rachid Lee MD [address] [place] [address] PCP - General Internal Medicine 10/29/13 Jose Cherry MD [address] [place] [address] Urology 05/15/24 documented as of this encounter
--- OUTSIDE RECORDS SUMMARY | 2024-06-05 10:57 | XMS_ITS | Encounter Summary ---
Author Organization [employer] Address [address] [facility] 7t [place] [address] Care Team Providers Care Terrapin Fisher Name Role Phone Rachid Lee MD Primary Care Provide r Jose Cherry MD Unavailable [phone] Reason for Visit * Reason Onset Date Comments Chart Prep 05/23/2024 Encounter Details Date Type Department Care Team (Late st Contact Info) Description 05/23/2024 Telephone [facility] [address] [place] [address] Rachid Lee MD [address] [place] [address] Chart Prep Social History Tobacco Use Types Packs/Day Years [...] AM EDT documented as of this encounter Miscellaneous Notes * Telephone Encounter - Maryanne Faust [place] - 05/23/2024 10:21 AM EDT Chart Prep Labs: not applicable Images: not applicable Vaccines due: Covid Due, PCV20 Due, RSV in Pharmacy Due, and Shingles in pharmacy Due Referrals: Not Applicable Screenings: Not Applicable Overdue care gaps: None Chart prep for upcoming appt with Dr.Esparza majano. LB documented in this encounter Plan of Treatment Upcoming Encounters Date Type Department Care Team (Late st Contact Info) Description 09/04/2024 11:30 AM EDT Office Visit [facility] [address] [place] [address] Rachid Lee MD [address] [place] [address] documented as of this encounter Visit Diagnoses Not on filedocumented in this encounter Additional Health Concerns Assessment Noted Time PHQ-9 Depression Total Score: 0 09/22/19 24 1:01 PM EDT documented as of this encounter Care Teams Terrapin Fisher Relationship Specialty Start Date End Date Rachid Lee MD [address] [place] [address] PCP - General Internal Medicine 10/29/13 Jose Cherry MD [address] [place] [address] Drive [address] [place] [address] Urology 05/15/24 documented as of this encounter
--- OUTSIDE RECORDS SUMMARY | 2024-06-05 10:57 | XMS_ITS | Encounter Summary ---
Author Organization [employer] Address [address] [facility] 7t [place] [address] Care Team Providers Care Pier Master Name Role Phone Rachid Lee MD Primary Care Provide r Jose Cherry MD Unavailable [phone] Reason for Visit * Reason Onset Date Comments Results 05/15/2024 Encounter Details Date Type Department Care Team ([facility] st Contact Info) Description 05/15/2024 Telephone [facility] [address] [place] [address] Anne Noonan RN [address] [place] [address] Results Social History Tobacco Use Types Packs/Day Years Used Date Smoking Tobacco: Former Cigarettes Passive Smoke Exposure: Past Smokeless Tobacco: Never Depression Answer Date Recorded Patient Health Questionnaire-9 Score 0 09/22/2023 Patient Health Questionnaire-9 Score 0 09/22/2023 Last PHQ-9: Questionnaire Data Not on file 0 09/22/2023 Housing Stability Answer Date Recorded What is your housing situation today? I have negra martinez 01/17/[address] you li ve. Do you have problems with any of the following? Pests such as bugs, ants, or mice 01/17/2024 Food Insecurity Answer Date Recorded Within the [...] encounter Miscellaneous Notes * Telephone Encounter - Anne Noonan RN - 05/16/2024 10:42 AM EST Incoming call from Prashanth practice professional from [facility] reporting that pt is aware and has an appt 06/05/[address] Cherry to discuss next steps and that they are aware of PSA increasing. * Telephone Encounter - Landy Church RN - 05/16/2024 9:36 AM EST Second telephone call placed to [facility] human resources officer line and left a detailed VM asking to call back the office regarding pt PSA results and plan of care going forward. * Telephone Encounter - Anne Noonan RN - 05/15/2024 8:52 AM EST Telephone call placed to [facility] RNs. No answer, left detailed v/m regardingbelow message requesting a call back at my direct ext. Will retask to call again tomorrow if no call back Back in 11/16/2024 Urologist stated that if PSA continued to rise he would need a prostate biopsy. Please contact Urology office. PSA 05/02/2024 was 11.33 from 7.28. to find out their plan and ensure patient is aware of results documented in this encounter Plan of Treatment Upcoming Encounters Date Type Department Care Team (Late st Contact Info) Description 09/04/2024 11:30 AM EDT Office Visit [facility] [address] [facility] [place] [address] Rachid Lee MD [address] [place] [address] documented as of this encounter Visit Diagnoses Not on filedocumented in this encounter Additional Health Concerns Assessment Noted Time PHQ-9 Depression Total Score: 0 09/22/19 24 1:01 PM EDT documented as of this encounter Care Teams Pier Master Relationship Specialty Start Date End Date Rachid Lee MD [address] [place] [address] PCP - General Internal Medicine 10/29/13 Jose Cherry MD [address] [place] [address] Urology 05/15/24 documented as of this encounter
--- OUTSIDE RECORDS SUMMARY | 2024-06-05 10:57 | XMS_ITS | Encounter Summary ---
Author Organization [employer] Address [address] [facility] 7t [place] [address] Care Team Providers Care Wastewater Plant Operator Name Role Phone Rachid Lee MD Primary Care Provide r Jose Cherry MD Unavailable [phone] Reason for Visit * Reason Comments Care Coordination CHW outreach for SDO H PT-1 and food needs-referral completed Encounter Details Date Type Department Care Team (Latest Contact Info) Description 05/22/2024 Patient Outreach [facility] [address] [place] [address] Rachid Lee MD [address] [place] [address] Care Coordination (CH[facility] outreach for SDOH PT-1 and food needs-referral completed /) Social History Tobacco Use Types Packs/Day Years [...] as of this encounter Progress Notes * Blayne Badillo - 05/22/2024 10:40 AM EDT CHW Blayne Badillo, placed outbound call to patient for assistance with SDOH as a referral was received by the provider. Patient's name and were confirmed. Patient screened positive for the following SDOH food insecurities. CHW referral patient to the local list of pantries in the area for help. PT-1 requested was send out in behalf of patient for futures appt. Patient verbalizes understandin g, and able to agree with plan to follow up. Patient educated on extended clinic hours on Mondays through Wednesdays, and Walk-In Urgent Care Located in [facility]. Patient provided with after-hours line for [facility], , which offer night time triage service and option to transfer to customer consulting manager provider if needed. documented in this encounter Plan of Treatment Upcoming Encounters Date Type Department Care Team (Late st Contact Info) Description 09/04/2024 11:30 AM EDT Office Visit [facility] [address] [place] [address] Rachid Lee MD [address] [place] [address] documented as of this encounter Visit Diagnoses Not on filedocumented in this encounter Additional Health Concerns Assessment Noted Time PHQ-9 Depression Total Score: 0 09/22/19 24 1:01 PM EDT documented as of this encounter Care Teams Wastewater Plant Operator Relationship Specialty Start Date End Date Rachid Lee MD [address] [place] [address] PCP - General Internal Medicine 10/29/13 Jose Cherry MD [address] [place] [address] Urology 05/15/24 documented as of this encounter
--- OUTSIDE RECORDS SUMMARY | 2024-06-05 10:57 | XMS_ITS | Encounter Summary ---
Author Organization [employer] [facility] Address [address] [facility] 7t [place] [address] Care Team Providers Care Local Government Legislator Name Role Phone Rachid Lee MD Primary Care Provide r Jose Cherry MD Unavailable [phone] Encounter Details Date Type Department Care Team (Late st Contact Info) Description 07/15/2022 Abstract [facility] [address] [place] [address] Rachid Lee MD [address] [place] [address] Social History Tobacco Use Types Packs/Day Years [...] Encounters Date Type Department Care Team (Late Contact Info) Description 09/04/2024 11:30 AM EDT Office Visit [facility] [address] [place] [phone] Rachid Lee MD [address] [place] [phone] documented as of this encounter Procedures Procedure Name Priority Date/Time Associated Diagnosis Comments COLONOSCOPY Routine 06/11/2022 documented in this encounter Results * Colonoscopy (06/11/2022) Colonoscopy Normal Normal 06/11/2022 Mandy Crowley - 06/11/2022 11:20 AM EDT Recommended 3 year follow up ( see scanned notes) us Historical Provider HEALTH MAINTENANCE Edited Result - Final documented in this encounter Visit Diagnoses Not on filedocumented in this encounter Care Teams Local Government Legislator Relationship Specialty Start Date End Date Rachid Lee MD [address] [place] [address] PCP - General Internal Medicine 10/29/13 Jose Cherry MD [address] [place] [address] Urology 05/15/24 documented as of this encounter
--- OUTSIDE RECORDS SUMMARY | 2024-06-05 10:57 | XMS_ITS | Encounter Summary ---
Author Organization [employer] Address [address] [facility] 7t [place] [address] Care Team Providers Care College Counselor Name Role Phone Rachid Lee MD Primary Care Provide r Jose Cherry MD Unavailable [phone] Reason for Visit * Reason Comments Asthma PT reports smoking c igarettes again, and intermittent back pain around his kidneys Encounter Details Date Type Department Care Team (Late st Contact Info) Description 05/29/2024 11:30 AM EDT Office Visit [facility] [address] [place] [address] Rachid Lee MD [address] [place] [address] Elevated PSA (Primary Dx); Moderate persistent asthma with acute exacerbation; Acute left-sided low back pain without sciatica; Preventative health care; Severe obesity (CMS/HCC); Dietary counseling; Exercise counseling Social History Tobacco Use Types Packs/Day Years [...] AM EDT documented as of this encounter Last Filed Vital Signs Vital Sign Reading [...] Mass Index 37.78 05/29/2024 11:03 AM EDT documented in this encounter Progress Notes * Rachid Eli MD - 05/29/2024 11:30 AM EDT SUBJECTIVE Juan Carlos Barrientos is a 68 y.o. male who presents for Asthma (PT reports smoking cigarettes again, and intermittent back pain around his kidneys). Asthma There is no cough or shortness of breath. Pertinent negatives include no chest pain, fever, headaches or sore throat. His past medical history is significant for asthma. Review of Systems Constitutional: Negative for fever. HENT: Negative for sore throat. Respiratory: Negative for cough and shortness of breath. Cardiovascular: Negative for chest pain. Gastrointestinal: Negative for abdominal pain. Neurological: Negative for headaches. Allergies Allergen Reactions Latex Zoster Vaccine Recombinant, Adjuvanted Swelling and Other OBJECTIVE Vitals: 05/29/24 1103 BP: 121/68 BP Location: Right arm Patient Position: Sitting BP Cuff Size: Large adult Pulse: 70 Resp: 20 Temp: 96.9 ??F (36.1 ??C) TempSrc: Temporal SpO2: 98% Weight: 255 lb 12.8 oz (116 kg) Height: 5' 9 (1.753 m) Physical Exam Vitals reviewed. Constitutional: Appearance: Normal appearance. HENT: Head: Normocephalic and atraumatic. Right Ear: External ear normal. Left Ear: External ear normal. Nose: Nose normal. Mouth/Throat: Mouth: Mucous membranes are moist. Eyes: Conjunctiva/sclera: Conjunctivae normal. Cardiovascular: Rate and Rhythm: Normal rate and regular rhythm. Pulmonary: Effort: Pulmonary effort is normal. Breath sounds: Normal breath sounds. Skin: General: Skin is warm. Neurological: Mental Status: He is alert. Mental status is at baseline. Assessment/Plan Problem List Items Addressed This Visit Elevated PSA - Primary Hx of PSA elevated 4.3 Repeat PSA 05/02/2024 higher at 11.33 from 7 Pt evaluated by Urology , last seen 11/17/2023. He recommended Biopsy. Pt opted for 6 month follow upwith repeat PSA at that time. Contacted [facility] Urology reporting that pt is aware and has an appt 06/05/24 with Giorgio to discuss next steps and that they are aware of PSA increasing. Moderate persistent asthma with acute exacerbation Patient here for a f/u Currently on Symbicort 160 mg/4.5 2 puffs BID and Pro-Air and Incruse Ellipta added once a day Under the care of Dr Nayak last seen 01/10/2024. 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 Personal goal of weight loss discussed Other Visit Diagnoses Dietary counseling Exercise counseling documented in this encounter Miscellaneous Notes * Assessment & Plan Note - Rachid Eli MD - 05/29/2024 12:03 PM EDT Associated Problem(s): Severe obesity (CMS/HCC) pt continues to decline to see our gas manager or go to the comprehensive weight management program Patient has been counseled and educated about diet and exercise. 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 Dr Toth f/josefa 3 to 5 years * Assessment & Plan Note - Rachid Eli MD - 05/29/2024 12:01 PM EDT Associated Problem(s): Acute left-sided low back pain without sciatica Pt with intermittent low back pain On exam evidence of muscle spasm Plan: NSAIDS, Muscle relaxant No red flags Follow up if no improvement * Assessment & Plan Note - Rachid Eli MD - 05/29/2024 11:59 AM EDT Associated Problem(s): Moderate persistent asthma with acute exacerbation Patient here for a f/u Currently on Symbicort 160 mg/4.5 2 puffs BID and Pro-Air and Incruse Ellipta added once a day Under the care of Dr Nayak last seen 01/10/2024. Short prednisone taper, continue inhalers F/u if worsening or no improvement or productive cough or fever presents * Assessment & Plan Note - Rachid Eli MD - 05/29/2024 11:56 AM EDT Associated Problem(s): Elevated PSA Hx of PSA elevated 4.3 Repeat PSA 05/02/2024 higher at 11.33 from 7 Pt evaluated by Urology , last seen 11/17/2023. He recommended Biopsy. Pt opted for 6 month follow upwith repeat PSA at that time. Contacted [facility] Urology reporting that pt is aware and has an appt 06/05/24 with Giorgio to discuss next steps and that they are aware of PSA increasing. documented in this encounter Plan of Treatment Upcoming Encounters Date Type Department Care Team (Late st Contact Info) Description 09/04/2024 11:30 AM EDT Office Visit [facility] [address] [place], [place] [phone] Rachid Lee MD [address] [place] [address] documented as of this encounter Visit Diagnoses Diagnosis Elevated PSA- Primary Elevated prostate specific antigen (PSA) Moderate persistent asthma with acute exacerbation Acute left-sided low back pain without sciatica Preventative health care Routine general medical examination at a health care facility Severe obesity ([facility]) Morbid obesity Dietary counseling Dietary surveillance and counseling Exercise counseling documented in this encounter Additional Health Concerns Assessment Noted Time PHQ-9 Depression Total Score: 0 09/22/19 24 1:01 PM EDT documented as of this encounter Care Teams College Counselor Relationship Specialty Start Date End Date Rachid Lee MD [address] [place] [phone] PCP - General Internal Medicine 10/29/13 Jose Cherry MD [address] [place] [address] Urology 05/15/24 documented as of this encounter
--- OUTSIDE RECORDS SUMMARY | 2024-06-05 10:57 | XMS_ITS | Encounter Summary ---
Author Organization [employer] Address [address] [facility] 7t [place] [address] Care Team Providers Care Bone Tender Name Role Phone Rachid Lee MD Primary Care Provide r Jose Cherry MD Unavailable [phone] Encounter Details Date Type Department Care Team (Late st Contact Info) Description 06/10/2022 Orders Only [facility] [address] [place], [place] [phone] Arlyn Vigil LPN Social History Tobacco Use Types Packs/Day [...] EDT Office Visit [facility] [address] [place] [address] Rachid Lee MD [address] [place] [address] documented as of this encounter Visit Diagnoses Not on filedocumented in this encounter Care Teams Bone Tender Relationship Specialty Start Date End Date Rachid Lee MD [address] [place] [address] PCP - General Internal Medicine 10/29/13 Jose Cherry MD [address] [place] [address] Urology 05/15/24 documented as of this encounter
--- OUTSIDE RECORDS SUMMARY | 2024-06-05 10:57 | XMS_ITS | Encounter Summary ---
Author Organization [employer] [facility] Address [address] [place] [address] 7t [place] [address] Care Team Providers Care Chief Technician Name Role Phone Rachid Lee MD Primary Care Provide r Jose Cherry MD Unavailable [phone] Reason for Visit * Reason Comments Med Refill Encounter Details Date Type Department Care Team (Late st Contact Info) Description 05/21/2022 Refill [facility] [address] [place] [phone] Rachid Lee MD [address] [place] [address] [phone] Seasonal allergies Social History Tobacco Use Types Packs/Day Years [...] Description 09/04/2024 11:30 AM EDT Office Visit [facility] [address] [place] [address] [phone] Rachid Lee MD [address] [place], [place] [phone] documented as of this encounter Visit Diagnoses Diagnosis Seasonal allergies Allergic rhinitis, cause unspecified documented in this encounter Care Teams Chief Technician Relationship Specialty Start Date End Date Rachid Lee MD [address] [place] [address] PCP - General Internal Medicine 10/29/13 Jose Cherry MD [address] [place] [address] Urology 05/15/24 documented as of this encounter
== END 2024-06-05 10:06 | disposition home or self-care (01) ==
LOC: HO.HUSH 09:41
PROVIDERS: PCP Internal Medicine; Visit Provider Urology
DX: R97.20 Elevated prostate specific antigen [PSA] (principal); N40.1 Benign prostatic hyperplasia with lower urinary tract symptoms; N13.8 Other obstructive and reflux uropathy
CPT/HCPCS: 99214

== ENCOUNTER 2024-06-26 07:38 | Outpatient (REF) | payer MEDICAID, SELFPAY ==
--- OUTSIDE RECORDS SUMMARY | 2024-06-26 07:41 | XMS_ITS | Encounter Summary ---
Author Organization [employer] [facility] Address [address] [place] [address] 7t [place] [address] Care Team Providers Care Lead Trainer Name Role Phone Rachid Lee MD Primary Care Provide r Jose Cherry MD Unavailable [phone] Encounter Details Date Type Department Care Team (Late st Contact Info) Description 03/24/2022 Orders Only [facility] [address] [place] [phone] Kate Jacobo LPN Social History Tobacco Use [...] Description 09/04/2024 11:30 AM EDT Office Visit [facility] [address] [place] [address] Rachid Lee MD [address] [place] [address] documented as of this encounter Visit Diagnoses Not on filedocumented in this encounter Care Teams Lead Trainer Relationship Specialty Start Date End Date Rachid Lee MD [address] [place] [address] PCP - General Internal Medicine 10/29/13 Jose Cherry MD [address] [place] [address] Urology 05/15/24 documented as of this encounter
--- OUTSIDE RECORDS SUMMARY | 2024-06-26 07:41 | XMS_ITS | Encounter Summary ---
Author Organization [employer] Address [address] [facility] 7t [place] [address] Care Team Providers Care Oil Fire Specialist Name Role Phone Rachid Lee MD Primary Care Provide r Jose Cherry MD Unavailable Encounter Details Date Type Department Care Team (Late st Contact Info) Description 06/10/2022 Orders Only [facility] [address] [place], [place] [phone] Arlyn Viigl LPN Social History Tobacco Use Types Packs/Day [...] Description 09/04/2024 11:30 AM EDT Office Visit [facility] [address] [place] [address] Rachid Lee MD [address] [place] [address] documented as of this encounter Visit Diagnoses Not on filedocumented in this encounter Care Teams Oil Fire Specialist Relationship Specialty Start Date End Date Rachid Lee MD [address] [place] [address] PCP - General Internal Medicine 10/29/13 Jose Cherry MD [address] [place] [address] Urology 05/15/24 documented as of this encounter
--- OUTSIDE RECORDS SUMMARY | 2024-06-26 07:41 | XMS_ITS | Encounter Summary ---
Author Organization [employer] [facility] Address [address] [place] [address] 7t [place] [address] Care Team Providers Care Wilderness Guide Name Role Phone Rachid Lee MD Primary Care Provide r Jose Cherry MD Unavailable [phone] Reason for Visit * Reason Comments Med Refill Encounter Details Date Type Department Care Team (Late st Contact Info) Description 05/21/2022 Refill [facility] [address] [place] [address] Rachid Lee MD [address] [place] [address] [phone] Seasonal allergies Social History Tobacco Use Types [...] Description 09/04/2024 11:30 AM EDT Office Visit [facility] [address] [place] [address] [phone] Rachid Lee MD [address] [place], [place] [phone] documented as of this encounter Visit Diagnoses Diagnosis Seasonal allergies Allergic rhinitis, cause unspecified documented in this encounter Care Teams Wilderness Guide Relationship Specialty Start Date End Date Rachid Lee MD [address] [place] [address] PCP - General Internal Medicine 10/29/13 Jose Cherry MD [address] [place] [address] Urology 05/15/24 documented as of this encounter
--- OUTSIDE RECORDS SUMMARY | 2024-06-26 07:41 | XMS_ITS | Encounter Summary ---
Author Organization [employer] Address [address] 7t [place] [address] Care Team Providers Care Boot And Shoe Repairman Name Role Phone Rachid Lee MD Primary Care Provide r Jose Cherry MD Unavailable [phone] Encounter Details Date Type Department Care Team (Late st Contact Info) Description 04/30/[address] [facility] [address] [place] [address] Melchor Jim MD [address] [place] [address] Social History Tobacco Use Types Packs/Day Years [...] Description 09/04/2024 11:30 AM EDT Office Visit [facility] [address] [place] [address] Rachid Lee MD [address] [place] [address] documented as of this encounter Visit Diagnoses Not on filedocumented in this encounter Additional Health Concerns Assessment Noted Time PHQ-9 Depression Total Score: 14 023 10:11 AM EDT documented as of this encounter Care Teams Boot And Shoe Repairman Relationship Specialty Start Date End Date Rachid Lee MD [address] [place] [address] PCP - General Internal Medicine 10/29/13 Jose Cherry MD [address] [place] [address] Urology 05/15/24 documented as of this encounter
--- OUTSIDE RECORDS SUMMARY | 2024-06-26 07:41 | XMS_ITS | Encounter Summary ---
Author Organization [employer] [facility] Address [address] [facility] 7t [place] [address] Care Team Providers Care Mender Hand Name Role Phone Rachid Lee MD Primary Care Provide r Jose Cherry MD Unavailable Encounter Details Date Type Department Care Team (Late st Contact Info) Description 07/15/2022 Abstract [facility] MEDICINE [address] [place] [phone] Rachid Lee MD [address] [place] [address] Social History Tobacco Use Types Packs/Day Years [...] Description 09/04/2024 11:30 AM EDT Office Visit [facility] [address] [place] [address] [phone] Rachid Lee MD [address] [place] [address] [phone] documented as of this encounter Procedures Procedure [...] on filedocumented in this encounter Care Teams Mender Hand Relationship Specialty Start Date End Date Rachid Lee MD 230 [place] [address] PCP - General Internal Medicine 10/29/13 Jose Cherry MD [address] [place] [address] Urology 05/15/24 documented as of this encounter
--- OUTSIDE RECORDS SUMMARY | 2024-06-26 07:41 | XMS_ITS | Clinical Summary ---
Author Organization [employer] Address [address] [facility] 7t [place] [address] Care Team Providers Care Workforce Investment Act Career Manager Name Role Phone Rachid Lee MD Primary Care Provide r Jose Cherry MD Unavailable [phone] Allergies Active Allergy Reactions Criticality Noted [...] NEEDED 180 mL 3 05/10/19 24 Active hydrocortisone (Proctosol HC) 2.5 % [...] muscle spasms. 30 tablet 05/30/19 25 Active cetirizine (ZyrTEC) 10 MG tabletIndicatio ns:Seasonal allergies TAKE 1 TABLET BY MOUTH EVERY EVENING 90 tablet 1 06/15/19 25 Active ibuprofen 800 MG tabletIndicatio ns:Acute [...] order (will not trigger notification to Pharmacy)) cetirizine (ZyrTEC) 10 MG tabletIndicatio ns:Seasonal allergies TAKE 1 TABLET BY MOUTH EVERY EVENING 90 tablet 1 11/17/19 24 025 Discontinued Active Problems Problem Noted Date Diagnosed Date [...] a chair landed on his back intensity 6/10 On exam evidence of muscle spasm Plan: [...] me he was called by someone in [place] so he did not understand. Today we [...] with repeat PSA at that time. Contacted [facility] Urology reporting that pt is aware [...] adenoma negative for high-grade dysplasia Dr Toth f/u 3 to 5 years Assessment & Plan [...] pt continues to decline to see our aircraft maintenance director or go to the comprehensive weight management program Patient has been counseled and educated about diet and exercise. Personal goal of weight loss discussed Assessment & Plan (09/22/2023 1:06 PM EDT): Managed to loose weight since our last visit pt continues to decline to see our aircraft maintenance director or go to the comprehensive weight management program Patient has been counseled and educated about diet and exercise. Personal goal of weight loss discussed Assessment & Plan (10/05/2022 10:04 AM EDT): Discussed need to loose weight , information about the comprehensive weight management program given to patient in the past. pt declines to see our aircraft maintenance director or go to the comprehensive weight management [...] No recent exacerbations Being followed by our [facility] Asthma Pharmacy Team Currently on Symbicort 160 [...] No recent exacerbations Being followed by our [facility] Asthma Pharmacy Team Currently on Symbicort 160 [...] No recent exacerbations Being followed by our [facility] Asthma Pharmacy Team Currently on Symbicort 160 [...] No recent exacerbations Being followed by our [facility] Asthma Pharmacy Team Currently on Symbicort 160 [...] low results in patients with liver disease. Resulting Agency [facility] Specimen Collected: 01/07/23 10:27 Last Resulted: [...] ?low results in patients with liver disease. Resulting Agency [facility] Specimen Collected: 01/07/23 10:27 Last Resulted: [...] He stopped using his Cpap because a in [place] told him to stop using it because it was damaging his lungs Last visit I tried to reassured him that this is not the case unsuccessfully. Encounters Date Type Department Care Team Description 06/14/[address] [address] Rachid Lee MD Seasonal allergies 05/29/2024 11:30 AM EDT Office Visit [address] [address] Rachid Lee MD Elevated PSA (Primary Dx); Moderate persistent asthma with acute exacerbation; Acute left-sided low back pain without sciatica; Preventative health care; Severe obesity (CMS/[facility]); Dietary counseling; Exercise counseling 05/29/2024 Travel 05/23/[address] [address] Rachid Lee MD Chart Prep 05/22/2024 Patient Outreach [address] [address] Rachid Lee MD Care Coordination (CH[facility] outreach for SDOH PT-1 and food needs-referral completed /) 05/22/2024 Patient Outreach [address] [address] Rachid Lee MD Pre-visit Planning (SDOH Screening positive and Tobacco screening positive) 05/15/[address] [place] [address] Anne Noonan, RN Results 05/02/2024 Orders Only GENERIC EXTERNAL DATA DEPARTMENT Provider, Generic External Data 04/14/2024 Refill [facility] [address] [place] [address] Rachid Lee MD Moderate persistent asthma without [...] 09/04/2024 11:30 AM EDT Office Visit [facility] [address] [place] [address] Rachid Lee MD [address] [place] [address] Health Maintenance Due Date Last Done Comments CT Colonography 1957 FIT DNA/Cologuard 1957 FIT 1957 FOBT 1957 Sigmoidoscopy 1957 Derm Melanoma Skin Check 06/09/1958 RSV Patients and Patients Aged 60 years or older (1 - Risk 60-74 years 1-dose series) 2017 Zoster Vaccines (2 of 2) 06/23/2021 04/28/2021 Pneumococcal Vaccine: 50+ Years (2 of 2 - PCV) 04/28/2022 04/28/2021 COVID-19 Vaccine (5 - season) 2023 12/18/2021, 03/19/2021, 08/18/2020, Additional history [...] (Free>4and<10) 11.33(H ) 0.00 - 4.00 ng/mL [facility] Comment:A Free PSA was not p [...] Provider LAB BLOOD ORDERAB LES Final Result [facility] [address] [place], [place] [phone] * (ABNORMAL) Lipid Panel, Standard (09/26/2023 9:03 AM EDT) Triglycerides 110 <150 mg/dL [facility] Comment:Desirable Triglyceri de: less than 150 mg/dLBorderline High Triglyceride 150-199 mg/dLHigh Triglyceride: 200-499 mg/dLVery High Triglyceride: greater than or equal to 5OO mg/dL Cholesterol 144 <200 mg/dL [facility] Comment:Desirable Cholestero l: less than 200 mg/dLBorderline High Cholesterol: 200-239 mg/dLHigh Cholesterol: greater than 239 mg/dL LDL Cholesterol Calculated 89 <100 mg/dL [facility] Comment:Desirable LDL: less than 100 mg/dLNear Optimal/Above Optimal LDL: 110- 129 mg/dLBorderline High LDL: 130-159 mg/dLHigh LDL: 160-189 mg/dLVery High LDL: greater than or equal to 190 mg/dL HDL Cholesterol 33(L) >40 mg/dL [facility] Comment:Desirable HDL: great er than 40 mg/dL Note: This HDL assay may give artificially low results in patients with liver disease. Blood Venous blood specimen / Unknown 09/26/2023 9:03 AM EDT 09/26/2023 11:04 AM EDT Rachid Eli MD LAB BLOOD ORDERABLES Final Result [facility] [address] [place] [phone] * Hm Colonoscopy (06/11/2022) Colonoscopy Normal Normal 06/11/2022 Narrative Mandy Christnia - 06/11/2022 11:20 AM EDT Recommended 3 year follow up ( see scanned notes) Historical Provider HEALTH MAINTENANCE Edited Result - Final * HEPATITIS C AB W/REFL TO HCV RNA, QN, PCR (04/28/2021 11:13 AM EST) HEPATITIS C ANTIBODY NON-REACT FITO NON-REACT [facility] INDEX 0.10 <1.00 [facility] Comment: ?? HCV antibody was non-reactive. There is no laboratory ?? evidence of HCV infection. ?? In most cases, no further action is required. However, if recent HCV exposure is suspected, a test for HCV RNA (test code 11128) is suggested. ?? For additional information please refer to http://education.Digital Message Display/faq/KZZ32o6 (This link is being provided for informational/ educational purposes only.) ?? 04/28/2021 11:1 3 AM EST Rachid Eli MD HISTORICAL/NON ORDERA BLE LABS Final Result [facility] [address] from Last 3 Months or Most Recently Relevant to Health Maintenance Insurance [facility] STANDARD Care Teams Workforce Investment Act Career Manager Relationship Specialty Start Date End Date Rachid Lee MD [address] [place] [address] PCP - General Internal Medicine 10/29/13 Jose Cherry MD [address] [place] [address] Urology 05/15/24
--- NOTE | 2024-06-26 08:54 | P.OP_ITS ---
Operative Note Operative Note Date of Service: 06/26/24 Narrative: Preoperative diagnosis: Elevated PSA Postoperative diagnosis: Elevated PSA Procedure: 1. transrectal ultrasound measurement of prostate 2. transrectal ultrasound-guided pudendal nerve block 3. transrectal ultrasound-guided prostate biopsy 12 core Surgeon: Dr. Jose Cherry Anesthetic: 10cc 1% lidocaine Indications for procedure: Elevated PSA 11.3 Counselling: Technical aspects, risks and benefits of proposed procedure were discussed in full. All questions have been answered, written consent has been obtained and patient agrees to proceed. Procedure: The patient was brought into the procedure area and placed in a left lateral decubitus position. Patient identity confirmed. Perioperative antibiotics confirmed. Safety pause time out performed. YAMILET was performed to dilate rectal sphincter Iodine 10cc with 60 cc gel was placed per rectum to reduce infection risk using a catheter tip syringe. 8 Hz Kika rectal end-fire ultrasound probe was placed transrectally without difficulty. The prostate was visualized. Seminal vesicles were normal. Prostate margins were clearly demarcated. Bladder was seen superiorly. No cystic structures were noted No calcifications were noted at the surgical margin The prostate was otherwise homogeneous in nature - no significant whilst indicative of BPH or lesions suspicious for prostate cancer. The prostate was measured in 3 dimensions Prostatic Width: 5.45 cm Prostatic Height: 4.5 cm Urethral Length: 4.8 cm Total volume equals : 60 ml An ultrasound-guided pudendal nerve block was performed using a 22 gauge spinal needle in the sagittal plane. 4 cc of 1% lidocaine placed at the junction of each seminal vesicle and 2 cc placed at the apex of the prostate. A 12 core biopsy was performed with 6 cores each side using an 18 gauge prostate biopsy gun. Two cores each were taken at the prostate apex, mid and base on each side. Cores were spaced between lateral and medial aspects. Each core was examined as placed on specimen foam as part of software quality assurance analyst to ensure a minimum 1 cm of length and minimal discontinuity. He tolerated the procedure well with minimal rectal bleeding. Blood pressure remained stable following procedure. He was able to ambulate to bathroom after 5 minutes. Printed instructions regarding antibiotic use and common adverse events from the procedure such as low-grade temperature, potential infection and bleeding were given. He understands to call the office or go to an emergency room should any of these events arise. Pathology: 12 core prostate biopsy. CPT code 58685: Transrectal ultrasound; this is a diagnostic test for evaluation of the prostate and surrounding structures, looking for abnormalities or suspicious areas worrisome for cancer CPT code 41665: Biopsy, prostate; needle or punch, single or multiple, any approach CPT code 60650: Ultrasonic guidance for needle placement (eg, biopsy, aspiration, injection, localization device), imaging supervision and interpretation
== END 2024-06-26 07:39 | disposition home or self-care (01) ==
LOC: HO.US 07:38
PROVIDERS: PCP Internal Medicine; Visit Provider Urology
DX: C61 Malignant neoplasm of prostate (principal); R97.20 Elevated prostate specific antigen [PSA]
CPT/HCPCS: 55700; 76942; 88305

== ENCOUNTER → 2024-06-26 07:38 | Outpatient (BNV) | payer MEDICAID, SELFPAY | PROVIDERS: PCP Internal Medicine; Visit Provider Urology | DX: R97.20 Elevated prostate specific antigen [PSA] (principal) | CPT/HCPCS: 55700; 76872; 76942 ==

== ENCOUNTER 2024-07-11 13:05 | Outpatient (AMB) | payer MEDICAID, SELFPAY ==
[2024-07-11 13:19] VITALS: BP 110/60; PULSE 64; O2SAT 96
--- NOTE | 2024-07-11 13:19 | A.OFFVIS_ITS ---
Vital Signs 07/11/24 13:19 Height 5 ft 8 in Weight 25 lb BMI 3.8 BP 110/60 Blood Pressure Location Lt brachial Position Sitting Pulse 64 Pulse Source Pulse Oximeter Pulse Oximetry (%) 96 Oxygen Delivery Method Room Air Intake Visit Reasons: Obstructive sleep apnea Intake Note: pt is here for follow up of GLORIA ,and feeling very well, using cpap every night Barrel Bridge Assembler Required: Yes Barrel Bridge Assembler Services: Barrel Bridge Assembler Present Barrel Bridge Assembler Name: [id number] Allergies latex [Latex] Allergy (Mild, Verified 07/11/24 13:25) RASH HPI HPI Obstructive sleep apnea: Details: ANGLE IS A VERY PLEASANT 68-YEAR-OLD HERE FOR FOLLOW-UP FOR HIS COPD AND OBSTRUCTIVE SLEEP APNEA. HE HAS BEEN FEELING WELL AND HAS NOT HAD ANY RECENT RESPIRATORY ILLNESSES. DOES CONTINUE TO SMOKE ABOUT 4 CIGARETTES DAILY, BUT CONTINUES TO TRY TO QUIT SMOKING HE HAS BEEN SLEEPING WELL, DENIES DAYTIME SLEEPINESS AND SAYS THE CPAP HELPS HIM TO GET A GOOD NIGHT'S SLEEP. USES SYMBICORT 160-4.5 MCG 2 PUFFS DAILY ALONG WITH ALBUTEROL SULFATE 90 MCG P.R.N. NEEDED AND HAS NOT NEEDED TO USE THE RESCUE INHALER RECENTLY. [facility] Medical History Somnolence COPD (chronic obstructive pulmonary disease) Obesity Nicotine dependence, cigarettes, uncomplicated Tubulovillous adenoma of colon Family history of ovarian cancer Obstructive sleep apnea Depression Asthma Anxiety Chronic fatigue Primary osteoarthritis of both knees Surgical History History of cystoscopy History of left inguinal hernia repair History of colonoscopy Social History Alcohol intake: former Patient Tobacco Use Status: Current someday Tobacco user Tobacco use type: Cigarette Cigarette Packs Per Day: 0.5 Cigarettes Per Day: 2 Years Smoked: (onset 14yo, 1/2-1ppd x 52yrs, 35PYH) Review of Systems Const All systems reviewed & are unremarkable except as noted in HPI and below Eyes Reports no additional complaints ENT Reports nasal congestion (Mild off and on) Card Denies chest pain, Denies syncope, Denies irregular heart rhythm and Denies leg edema Resp Reports as per HPI GI Reports no additional complaints Reports no additional complaints Musc Reports no additional complaints Skin/Breast Reports system reviewed and no additional complaints, except as documented Neuro Reports no additional complaints and Denies syncope Psych Reports anxiety, Reports depression and Reports mood swings Endo Reports no additional complaints Lanre/Lymph Reports no additional complaints Aller/Immun Reports seasonal rhinorrhea (Of and on) Physical Exam Vital Signs: Last Vital Signs Pulse 64 07/11/24 13:19 BP 110/60 07/11/24 13:19 Pulse Ox 96 07/11/24 13:19 Oxygen Delivery Method Room Air 07/11/24 13:19 BMI result Body Mass Index 3.8 Const General: healthy appearing (Except for being overweight), comfortable, no acute distress, alert and awake Orientation/consciousness: patient oriented x3 HEENT Head: Yes normal to inspection General nose exam: No nasal polyps present and No nasal discharge present Face and sinus: Yes sinuses nontender Mouth: oropharynx abnormals (Moderately crowded, Mallampati scale 3) Throat: Yes posterior oropharynx normal Eyes General: appearance normal, both eyes and all related structures Neck Neck: Yes normal visual inspection, Yes no lymphadenopathy, Yes trachea midline, Yes no JVD and Yes other (Neck circumference 19 in) Thyroid: Thyroid normal Chest Chest palpation & inspection: normal inspection of the chest, normal palpation of entire chest wall and no tenderness Resp Other: Percussion note is resonant, breath sounds are distant with prolonged expiratory phase. No pleural rub, wheezes or crepitations. Cardio Palpation: normal PMI Rate: regular rate Rhythm: regular rhythm Heart sounds: no gallops and no murmurs Peripheral pulses: Peripheral pulses 2+ throughout GI Palpation (GI): Soft to palpation, nontender, No hepatosplenomegaly present and no masses Auscultation: normal bowel sounds Back/Spine/Pelvis Thoracic/Lumbar Spine: thoracic and lumbar spine normal to inspection Skin General skin exam: no rashes or lesions noted Neuro General: patient oriented x3 and no focal motor deficits Cranial nerves: Yes CN's II-XII intact bilaterally Extrem General: Yes normal to inspection, Yes no clubbing, cyanosis or edema and Yes no calf tenderness Psych Speech and movement: Normal speech and movement present Results Reviewed Results Reviewed: CPAP COMPLIANCE REPORT REVIEWED AHI 0.7, AVERAGE USE 7 HOURS AND 37 MINUTES FOR LAST 30/30 DAYS Assessment & Plan Assessment & Plan (1) Obstructive sleep apnea: Comment: (06/15/10 sleep study showed severe GLORIA, RDI 68.1 - did cpap for 4yrs then stopped - The current sleep study shows that he still has rather severe obstructive sleep apnea with total sleep time AHI 49. Also has associated nocturnal hypoxemia with O2 sat below 88% for 58 minutes. Has been started on CPAP and he is using it very regularly. Sleep is okay, and he does not have daytime sleepiness . In fact he can not sleep without the CPAP mask. Compliance is good. Code(s): G47.33 - Obstructive sleep apnea (adult) (pediatric) Category: Medical Plan: COMMENDED FOR HIS GOOD COMPLIANCE AND ENCOURAGED TO CONTINUE USE OF CPAP (2) Nicotine dependence, cigarettes, uncomplicated: Comment: (onset 14yo, 1/2-1ppd x 52yrs, 35PYH) , still smoking about 4 cigarettes daily Code(s): F17.210 - Nicotine dependence, cigarettes, uncomplicated Category: Medical Plan: SPOKE WITH PATIENT ABOUT SMOKING CESSATION, HE CONTINUES TO TRY AND CUT BACK THE AMOUNT OF CIGARETTES HE IS SMOKING. (3) COPD (chronic obstructive pulmonary disease): Comment: COPD sec. to SMOKING .(longstanding hx of cough, wheezing, KRAMER,, Currently doing very well with his current meds, except for mild shortness of breath on exertion. Code(s): J44.9 - Chronic obstructive pulmonary disease, unspecified Category: Medical Plan: CONTINUE SYMBICORT 160-4.5 MCG 2 PUFFS B.I.D. CONTINUE ALBUTEROL SULFATE 90 MCG 2 PUFFS EVERY 4-6 HOURS NEEDED FOR SHORTNESS OF BREATH Coding Level of Care Code Est Pt Level 3 (88377) Diagnoses Obstructive sleep apnea G47.33 Nicotine dependence, cigarettes, uncomplicated F17.210 COPD (chronic obstructive pulmonary disease) J44.9
--- OUTSIDE RECORDS SUMMARY | 2024-07-11 14:25 | XMS_ITS | Encounter Summary ---
Author Organization [employer] [facility] Address [address] [place] [address] [address] [place] [address] Care Team Providers Care Alliance Manager Name Role Phone Rachid Lee MD Primary Care Provide r Jose Cherry MD Unavailable Encounter Details Date Type Department Care Team (Late st Contact Info) Description 03/24/2022 Orders Only [facility] [address] [place] [phone] Kate Jacobo LPN Social History Tobacco Use [...] 09/04/2024 11:30 AM EDT Office Visit [facility] [address] [place] [address] Rachid Lee MD [address] [place] [address] documented as of this encounter Visit Diagnoses Not on filedocumented in this encounter Care Teams Alliance Manager Relationship Specialty Start Date End Date Rachid Lee MD [address] [place] [phone] PCP - General Internal Medicine 10/29/13 Jose Cherry MD [address] [place] [address] Urology 05/15/24 documented as of this encounter
--- OUTSIDE RECORDS SUMMARY | 2024-07-11 14:25 | XMS_ITS | Encounter Summary ---
Author Organization [employer] [facility] Address [address] [place] [address] [address] [place] [address] Care Team Providers Care Ethylene Oxide Panelboard Operator Name Role Phone Rachid Lee MD Primary Care Provide r Jose Cherry MD Unavailable Reason for Visit * Reason Comments Med Refill Encounter Details Date Type Department Care Team (Late st Contact Info) Description 05/21/2022 Refill [facility] [address] [place] [phone] Rachid Lee MD [address] [place] [address] [phone] Seasonal allergies Social History Tobacco Use Types [...] Description 09/04/2024 11:30 AM EDT Office Visit [facility] [address] [place] [address] [phone] Rachid Lee MD [address] [place], [place] [phone] documented as of this encounter Visit Diagnoses Diagnosis Seasonal allergies Allergic rhinitis, cause unspecified documented in this encounter Care Teams Ethylene Oxide Panelboard Operator Relationship Specialty Start Date End Date Rachid Lee MD [address] [place] [address] PCP - General Internal Medicine 10/29/13 Jose Cherry MD [address] [place] [address] Urology 05/15/24 documented as of this encounter
--- OUTSIDE RECORDS SUMMARY | 2024-07-11 14:25 | XMS_ITS | Encounter Summary ---
Author Organization [employer] [facility] Address [address] 7t [place] [address] Care Team Providers Care Translator Deaf Name Role Phone Rachid Lee MD Primary Care Provide r Jose Cherry MD Unavailable Encounter Details Date Type Department Care Team (Late st Contact Info) Description 07/15/2022 Abstract [facility] [address] [place] [phone] Rachid Lee MD [address] [place] [phone] Social History Tobacco Use Types Packs/Day Years [...] Description 09/04/2024 11:30 AM EDT Office Visit [facility] [address] [place] [address] [phone] Rachid Lee MD [address] [place] [address] [phone] documented as of this encounter Procedures Procedure [...] on filedocumented in this encounter Care Teams Translator Deaf Relationship Specialty Start Date End Date Rachid Lee MD [address] [place] [address] PCP - General Internal Medicine 10/29/13 Jose Cherry MD [address] [place] [address] Urology 05/15/24 documented as of this encounter
--- OUTSIDE RECORDS SUMMARY | 2024-07-11 14:25 | XMS_ITS | Encounter Summary ---
Author Organization [employer] Address [address] [facility] [place] [address] Care Team Providers Care Media Promoter Name Role Phone Rachid Lee MD Primary Care Provide r Jose Cherry MD Unavailable [phone] Encounter Details Date Type Department Care Team (Late st Contact Info) Description 06/10/2022 Orders Only [facility] [address] [place], [place] [phone] Arlyn Vigil LPN Social History Tobacco Use [...] Description 09/04/2024 11:30 AM EDT Office Visit [facility] [address] [place] [address] Rachid Lee MD [address] [place] [address] documented as of this encounter Visit Diagnoses Not on filedocumented in this encounter Care Teams Media Promoter Relationship Specialty Start Date End Date Rachid Lee MD [address] [place] [phone] PCP - General Internal Medicine 10/29/13 Jose Cherry MD [address] [place] [address] Urology 05/15/24 documented as of this encounter
--- OUTSIDE RECORDS SUMMARY | 2024-07-11 14:25 | XMS_ITS | Encounter Summary ---
Author Organization [employer] Address [address] [place] [address] Care Team Providers Care Media Aid Name Role Phone Rachid Lee MD Primary Care Provide r Jose Cehrry MD Unavailable [phone] Encounter Details Date Type Department Care Team (Late st Contact Info) Description 04/30/2023 Orders Only [facility] [address] [place] [address] Melchor Jim MD [address] [place] [address] Social History Tobacco Use Types Packs/Day Years [...] Description 09/04/2024 11:30 AM EDT Office Visit [facility] [address] [place] [address] Rachid Lee MD [address] [place] [address] documented as of this encounter Visit Diagnoses Not on filedocumented in this encounter Additional Health Concerns Assessment Noted Time PHQ-9 Depression Total Score: 14 023 10:11 AM EDT documented as of this encounter Care Teams Media Aid Relationship Specialty Start Date End Date Rachid Lee MD [address] [place] [address] PCP - General Internal Medicine 10/29/13 Jose Cherry MD [address] [place] [address] Urology 05/15/24 documented as of this encounter
--- OUTSIDE RECORDS SUMMARY | 2024-07-11 14:25 | XMS_ITS | Clinical Summary ---
Author Organization [employer] Address [address] [facility] [address] [place] [address] Care Team Providers Care Inspector Structural Bonding Name Role Phone Rachid Lee MD Primary Care Provide r Jose Cherry MD Unavailable [phone] Allergies Active Allergy Reactions Criticality Noted [...] Active hydrocortisone (Proctosol HC) 2.5 % rectal creamIndications :Grade I hemorrhoids Insert into the rectum 2 times daily. 28 g 1 01/26/20 24 Active budesonide-formo terol (Symbicort) 160-4.5 MCG/ACT inhalerIndicatio ns:Moderate persistent asthma without complication INHALE 2 PUFFS BY MOUTH TWICE DAILY IN THE MORNING AND IN THE EVENING RINSE MOUTH AFTER USING. 10.2 g 6 04/17/19 25 Active ibuprofen 800 MG tabletIndication s:Acute left-sided low back pain without sciatica Take 1 tablet (800 mg) by mouth every 12 (twelve) hours if needed for mild pain. 30 tablet 05/30/19 25 Active tiZANidine (Zanaflex) 2 MG tabletIndication s:Acute left-sided low back pain without sciatica Take 1 tablet (2 mg) by mouth every 8 (eight) hours if needed for muscle spasms. 30 tablet 05/30/19 25 Active cetirizine (ZyrTEC) 10 MG tabletIndication s:Seasonal allergies TAKE 1 TABLET BY MOUTH EVERY EVENING 90 tablet 1 06/15/19 25 Active cetirizine (ZyrTEC) 10 MG tabletIndication s:Seasonal allergies TAKE 1 TABLET BY MOUTH EVERY EVENING 90 tablet 1 11/17/19 24 025 Discontinued Active Problems Problem Noted Date Diagnosed Date Adenocarcinoma of prostate 06/29/202406/26 Grade I hemorrhoids 01/26/2024 Assessment & Plan [...] me he was called by someone in danish so he did not understand. Today we [...] with repeat PSA at that time. Contacted [facility] reporting that pt is aware [...] Dr Toth f/u 3 to 5 years Smoker 10/05/2022 Assessment [...] pt continues to decline to see our collar baster jumpbasting or go to the comprehensive weight management program Patient has been counseled and educated about diet and exercise. Personal goal of weight loss discussed Assessment & Plan (09/22/2023 1:06 PM EDT): Managed to loose weight since our last visit pt continues to decline to see our collar baster jumpbasting or go to the comprehensive weight management program Patient has been counseled and educated about diet and exercise. Personal goal of weight loss discussed Assessment & Plan (10/05/2022 10:04 AM EDT): Discussed need to loose weight , information about the comprehensive weight management program given to patient in the past. pt declines to see our collar baster jumpbasting or go to the comprehensive weight management [...] No recent exacerbations Being followed by our [facility] Pharm[facility] Team Currently on Symbicort [...] No recent exacerbations Being followed by our [facility] Team Currently on Symbicort [...] No recent exacerbations Being followed by our [facility] Pharm[facility] Team Currently on Symbicort [...] No recent exacerbations Being followed by our [facility] Pharm[facility] Team Currently on Symbicort [...] in patients with liver disease. Resulting Agency [facility] Specimen Collected: 01/07/23 10:27 Last [...] in patients with liver disease. Resulting Agency [facility] Specimen Collected: 01/07/23 10:27 Last [...] Machine, I contacted the office of Dr. Nayka who asked that pt go to his office so they can help him to obtain his Cpap machine, Pt promised to go later today Assessment & Plan (10/05/2022 9:29 AM EDT): He stopped using his Cpap because [place] told him to stop using it because it was damaging his lungs Last visit I tried to reassured him that this is not the case unsuccessfully. Encounters Date Type Department Care Team Description 06/26/2024 Orders Only GENERIC EXTERNAL DATA DEPARTMENT Provider, Generic External Data 06/14/2024 Refill [facility] [place] [address] Rachid Lee MD Seasonal allergies 05/29/2024 11:30 AM EDT Office Visit [facility] [place] [address] Rachid Lee MD Elevated PSA (Primary Dx); Moderate persistent asthma with acute exacerbation; Acute left-sided low back pain without sciatica; Preventative health care; Severe obesity (CMS/[facility]); Dietary counseling; Exercise counseling 05/29/2024 Travel 05/23/2024 Telephone [facility] [place] [address] Rachid Lee MD Chart Prep 05/22/2024 Patient Outreach [facility] [place] [address] Rachid Lee MD Care Coordination (CHW outreach for SDOH PT-1 and food needs-referral completed /) 05/22/2024 Patient Outreach [facility] [address] Rachid Lee MD Pre-visit Planning (SDOH Screening positive and Tobacco screening positive) 05/15/2024 Telephone [facility] [place] [address] Anne Noonan, RN Results 05/02/2024 Orders Only GENERIC EXTERNAL DATA DEPARTMENT Provider, Generic External Data 04/14/2024 Refill [facility] [place] [address] Rachid Lee MD Moderate persistent asthma without [...] Description 09/04/2024 11:30 AM EDT Office Visit [facility] [address] [place] [address] Rachid Lee MD [address] [place] [address] Health Maintenance Due Date Last Done Comments CT Colonography 1955 FIT DNA/Cologuard 1955 FIT 1955 FOBT 1955 Sigmoidoscopy 1955 Derm Melanoma Skin Check 06/09/1958 RSV Patients and Patients Aged 60 years or older (1 - Risk 60-74 years 1-dose series) 2017 Zoster Vaccines (2 of 2) 06/23/2021 04/28/2021 Pneumococcal Vaccine: 50+ Years (2 of 2 - PCV) 04/28/2022 04/28/2021 COVID-19 Vaccine ( - season) 2023 12/18/2021, 03/19/2021, 08/18/2020, Additional history exists Depression Screening 09/21/2024 09/22/2023, 09/22/19 24 Alcohol/Substance Use Screening 01/25/2025 01/26/2024 SDOH Screening [...] Procedure Name Priority Date/Time Associated Diagnosis Comments PROSTATE BIOPSY 1- Routine 06/26/2024 8:30 AM EDT PSA, TOTAL WITH REFLEX TO PSA, FREE Routine 05/02/2024 9:26 AM EST LIPID PANEL, STANDARD Routine 09/26/2023 9:03 AM EDT Primary hypertriglyceridemia HM COLONOSCOPY Routine 06/11/2022 ZZZ HISTORICAL HEPATITIS C AB W/REFL TO HCV RNA, QN, PCR Routine 04/28/2021 11:13 AM EST from Last 3 Months or Most Recently Relevant to Health Maintenance Results * Prostate biopsy 1-20 (06/26/2024 8:30 AM EDT) 06/26/2024 8:30 AM EDT 06/26/2024 9:16 AM EDT [facility] - 06/27/2024 5:57 PM EDT ----- ------- Name: Juan Carlos Garcia ?Age/Sex: 68/M ? : 1955 Unit#: [id number] ?? Attend Dr: Jose Cherry MD ?Re06/26/24 ?Status: DEP REF ? Location: HO.US ? Disch: ? ----- ------- SPEC : [id number] ? RECD: 06/26/24-915 ? STATUS: ??SOUT ? REQ NUM: [id number] ? DARWIN: 06/26/24-829 ? SUBM DR: Jose Cherry MD ? ENTERED: ??06/26/24-39 ?SP TYPE: Surgical ? OTHR DR: Rachid Guardado MD ?? ORDERED: ??Prostate biopsy/ ? Diagnosis ?? Prostate, needle core biopsies: ? A. ??Left base lateral: ??Prostatic adenocarcinoma, Fountain score 6 (3+3), grade group 1, ?? 0.5 mm, 5% of core. ? B. ??Left base medial: ??Prostatic adenocarcinoma, Fountain score 7 (3+4), grade group 2, ?? 45% pattern 4, 1 mm, 1 of 2 cores, 10% of tissue. ? C. ??Left mid lateral: ??Benign prostatic tissue ? D. ??Left mid medial: ??Benign prostatic tissue ? E. ??Left apex lateral: ??Benign prostatic tissue ? F. ??Left apex medial: ??Benign prostatic tissue ? G. ??Right base lateral: ??Prostatic adenocarcinoma, Fountain score 7 (3+4), grade group 2, ?? 40% pattern 4, 11 mm, 92% of core, perineural invasion, and high-grade prostatic ?? intraepithelial neoplasia. ? H. ??Right base medial: ??Prostatic adenocarcinoma, Windy score 7 (3+4), grade group 2, ?? 45% pattern 4, 11 mm, 73% of core, and high-grade prostatic intraepithelial neoplasia. ? I. ??Right mid lateral: ??Prostatic adenocarcinoma, Fountain score 7 (4+3), grade group 3, ?? 90% pattern 4, 3 mm, 30% of core, perineural invasion, and high-grade prostatic ?? intraepithelial neoplasia. ? J. ??Right mid medial: ??Prostatic adenocarcinoma, Fountain score 7 (4+3), grade group 3, ?? 60% pattern 4, 3 mm, 30% of core, perineural invasion, and high-grade prostatic ?? intraepithelial neoplasia. ? K. ??Right apex lateral: ??Prostatic adenocarcinoma, Fountain score 7 (3+4), grade group 2, ?? 30% pattern 4, 6 mm discontinuous, 60% of core, perineural invasion, and high-grade ?? prostatic intraepithelial neoplasia. ? L. ??Right apex medial: ??Benign prostatic tissue. ? Data synopsis - Prostate needle biopsy ? Histologic type: ?? Prostatic adenocarcinoma, acinar type ?? Histologic grade: ? Windy score: ?7 (4+3) (right mid lateral and medial) ? CONTINUED ON NEXT PAGE ----- ------- Name: Juan Carlos Garcia ?Age/Sex: 68/M ? : 1955 Unit#: [id number] ?? Attend Dr: Jose Cherry MD ?Re06/26/24 ?Status: DEP REF ? Location: HO.US ? Disch: ? ----- ------- SPEC : [id number] ? RECD: 06/26/24 ? STATUS: ??SOUT ? REQ NUM: [id number] ? DARWIN: 06/26/24 ? SUBM DR: Jose Cherry MD ? ENTERED: ??06/26/24 ?SP TYPE: Surgical ? OTHR DR: Rachid Guardado MD ?? ORDERED: ??Prostate biopsy/12 ? Diagnosis ?(Continued) ?7 (3+4) (right base lateral and medial, ? left base medial, and right apex lateral) ?6 (3+3) (left base lateral) ? % of pattern 4: ?? 45% ? % of pattern 5: ?? 0% ? Grade group: ?? 3, 2 and 1 ?? Tumor quantitation: ? Number cores positive: ?? 7 ? Total number of cores: ?? 13 ? % of tissue involved: ?? 26% ?? Periprostatic fat inv.: ?? Not identified ?? Seminal vesicle inv.: ?? Not identified ?? Perineural inv.: ?? Present ?? Lymphatic and/or vascular invasion: ??Not identified ?Clinical History Elevated PSA ?Microscopic Description Sections show multiple needle cores of prostate gland parenchyma which are variably involved by prostatic adenocarcinoma ranging from 5-92% of the cores. ??The tumor is predominantly well-formed glands (pattern 3) with a lesser amount of poorly-formed and fused glands with focal cribriform structures (pattern 4). The malignant cells have mildly pleomorphic nuclei and relatively distinct nucleoli. There are foci of perineural invasion and high-grade prostatic intraepithelial neoplasia. ??There is no lymphovascular invasion or extraprostatic extension seen. ? Material Received ?? A: Left base lateral ?? B: Left base medial ?? C: Left mid lateral ?? D: Left mid medial ?? E: Left apex lateral ?? F: Left apex medial ?? G: Right base lateral ?? H: Right base medial ?? I: Right mid lateral ?? J: Right mid medial ?? K: Right apex lateral ?? L: Right apex medial ? CONTINUED ON NEXT PAGE ----- ------- Name: Juan Carlos Garcia ?Age/Sex: 68/M ? : 1955 Unit#: [id number] ?? Attend Dr: Jose Cherry MD ?Re06/26/24 ?Status: DEP REF ? Location: [facility] ? Disch: ? ----- ------- SPEC : [id number] ? RECD: 06/26/24 ? STATUS: ??SOUT ? REQ NUM: [id number] ? DARWIN: 06/26/24 ? SUBM DR: Jose Cherry MD ? ENTERED: ??06/26/24 ?SP TYPE: Surgical ? OTHR DR: Rachid Guardado MD ?? ORDERED: ??Prostate biopsy/ ? Gross Description Received in twelve parts. Part A: ??Received in formalin labeled ?left base lateral is a 1.1 cm in length thin and delicate tavarez-white cylindrical thread of tissue, submitted in toto in a cassette labeled A. Part B: ??Received in formalin labeled left base medial are 2 thin and delicate tavarez-white cylindrical threads of tissue measuring 0.4 and 0.6 cm in length, submitted in toto in a cassette labeled B. Part C: ??Received in formalin labeled ?left mid lateral is a 1.3 cm in length thin and delicate tavarez-white cylindrical thread of tissue, submitted in toto in a cassette labeled C. Part D: ??Received in formalin labeled left mid medial? is a 1.2 cm in length thin and delicate tavarez-white cylindrical thread of tissue, submitted in toto in a cassette labeled D. Part E: ??Received in formalin labeled ?left apex lateral? is a 1.4 cm in length thin and delicate tavarez-white cylindrical thread of tissue, submitted in toto in a cassette labeled E. Part F: ??Received in formalin labeled ?left apex medial? is a 1.1 cm in length thin and delicate tavarez-white cylindrical thread of tissue, submitted in toto in a cassette labeled F. Part G: ??Received in formalin labeled right base lateral is a 1.2 cm in length thin and delicate tavarez-white cylindrical thread of tissue, submitted in toto in a cassette labeled G. Part H: ??Received in formalin labeled ?right base medial? is a 1.5 cm in length thin and delicate tavarez-white cylindrical thread of tissue, submitted in toto in a cassette labeled H. Part I: ??Received in formalin labeled ?right mid lateral? is a 1.0 cm in length thin and delicate tavarez-white cylindrical thread of tissue, submitted in toto in a cassette labeled I. Part J: ??Received in formalin labeled ?right mid medial? is a 1.0 cm in length thin and delicate tavarez-schneider cylindrical thread of tissue, submitted in toto in a cassette labeled J. Part K: ??Received in formalin labeled ?right apex lateral? is a 1.0 cm in length thin and delicate tavarez-schneider cylindrical thread of tissue, submitted in toto in a cassette labeled K. ? CONTINUED ON NEXT PAGE ----- ------- Name: Juan Carlos Garcia ?Age/Sex: 68/M ? : 1955 Unit#: [id number] ?? Attend Dr: Jose Cherry MD ?Re06/26/24 ?Status: DEP REF ? Location: HO.US ? Disch: ? ----- ------- SPEC : [id number] ? RECD: 06/26/24 ? STATUS: ??SOUT ? REQ NUM: [id number] ? DARWIN: 06/26/24 ? SUBM DR: Jose Cherry MD ? ENTERED: ??06/26/24 ?SP TYPE: Surgical ? OTHR DR: Rachid Guardado MD ?? ORDERED: ??Prostate biopsy/12 ? Gross Description ?(Continued) Part L: ??Received in formalin labeled ?right apex medial? is a 1.1 cm in length thin and delicate tavarez-white cylindrical thread of tissue, submitted in toto in a cassette labeled Sade BEATTY This case was reviewed intradepartmentally. ??Results given to Dr. Cherry by secure text by Dr. Maher on 06/27/2024 at 5:56 pm. Copies To: ?? Jose Cherry MD ?? [facility] ?? [address] ?? [place] [address] ?? [phone] ?? Rachid Guardado MD ?? [facility] ?? [address] [facility] ?? [place] [address] ?? [phone] ----- ------- Signed (signature on file) Sarah Maher 06/27/241756 ? ----- ------- ? END OF REPORT ? us Generic External Data Provider LAB PATHOLOGY ORD ERABLES Final Result [facility] [address] [place], [place] [phone] * (ABNORMAL) PSA, Total With Reflex to PSA, Free (05/02/2024 9:26 AM EST) PSA,Total (Free>4and<10) 11.33(H ) 0.00 - 4.00 ng/mL [facility] Comment:A Free PSA was not [...] are between 4.0 and 10.0 ng/mL.PSA methodology: Second Wind Alinity i ChemiluminescentMicroparticle Immunoassay (CMIA) 05/02/2024 9:26 AM EST 05/02/2024 9:26 AM EST us Generic External Data Provider LAB BLOOD ORDERAB LES Final Result [facility] [address] [place] [phone] * (ABNORMAL) Lipid Panel, Standard (09/26/2023 9:03 AM EDT) Triglycerides 110 <150 mg/dL [facility] Comment:Desirable Triglyceri de: less than 150 mg/dLBorderline High Triglyceride 150-199 mg/dLHigh Triglyceride: 200-499 mg/dLVery High Triglyceride: greater than or equal to 5OO mg/dL Cholesterol 144 <200 mg/dL [facility] Comment:Desirable Cholestero l: less than 200 mg/dLBorderline High Cholesterol: 200-239 mg/dLHigh Cholesterol: greater than 239 mg/dL LDL Cholesterol Calculated 89 <100 mg/dL [facility] Comment:Desirable LDL: less than 100 mg/dLNear Optimal/Above Optimal LDL: 110- 129 mg/dLBorderline High LDL: 130-159 mg/dLHigh LDL: 160-189 mg/dLVery High LDL: greater than or equal to 190 mg/dL HDL Cholesterol 33(L) >40 mg/dL [facility] Comment:Desirable HDL: great er than 40 mg/dL Note: This HDL assay may give artificially low results in patients with liver disease. Blood Venous blood specimen / Unknown 09/26/2023 9:03 AM EDT 09/26/2023 11:04 AM EDT Rachid Eli MD LAB BLOOD ORDERABLES Final Result Performing Organization Address City/[facility] Co de Phone Number [facility] [address] [place] [address] [phone] * Hm Colonoscopy (06/11/2022) Colonoscopy Normal Normal 06/11/2022 Narrative Mandy Christina - 06/11/2022 11:20 AM EDT Recommended 3 year follow up ( see scanned notes) Result [facility] Historical Provider HEALTH MAINTENANCE Edited Result - [...] a test for HCV RNA (test code 82434) is suggested. ?? For additional information please refer to http://education.TableGrabber/faq/SBF64l0 (This link is being provided for informational/ educational purposes only.) ?? 04/28/2021 11:1 3 AM EST us Rachid Eli MD HISTORICAL/NON ORDERA BLE LABS Final Result [facility] [address] from Last 3 Months or Most Recently Relevant to Health Maintenance Insurance [facility] STANDARD Care Teams Inspector Structural Bonding Relationship Specialty Start Date End Date Rachid Lee MD [address] [place] [address] PCP - General Internal Medicine 10/29/13 Jose Cherry MD [address] [place], [place] Urology 05/15/24
== END 2024-07-11 13:43 | disposition home or self-care (01) ==
LOC: HO.HPS 13:06
PROVIDERS: PCP Internal Medicine; Visit Provider Internal Medicine
DX: G47.33 Obstructive sleep apnea (adult) (pediatric) (principal); F17.210 Nicotine dependence, cigarettes, uncomplicated; J44.9 Chronic obstructive pulmonary disease, unspecified
CPT/HCPCS: 99213

== ENCOUNTER → 2024-07-11 13:05 | Outpatient (BNVA) | payer MEDICAID, SELFPAY | PROVIDERS: PCP Internal Medicine; Visit Provider Internal Medicine | DX: C61 Malignant neoplasm of prostate (principal); Z19.1 Hormone sensitive malignancy status | CPT/HCPCS: 99212 ==

== ENCOUNTER 2024-07-11 15:14 | Outpatient (AMB) | payer MEDICAID, SELFPAY ==
--- NOTE | 2024-07-11 15:10 | A.OFFVIS_ITS ---
Intake Visit Reasons: Prostate biopsy results Intake Note: Patient is present for PROSTATE BIOPSY RESULTS Urology Medication:NONE Antibiotic Allergy:NONE Blood Thinner:NONE Lacquer Coater Required: No Allergies latex [Latex] Allergy (Mild, Verified 07/11/24 15:12) RASH HPI Comments Details: Juan Carlos is a pleasant male. He is a patient of Dr Diez. He seen for the following urologic issues - lower urinary tract symptoms - weak stream - gross hematuria Maldivian translation by qualified medical or surgical instrument maker Discussed prostate cancer biopsy results Grade group 3, moderate volume, Needs to complete staging Organize MRI and PSMA PET Prostate Cancer - Grade Group 3 7 (3+4) (right base lateral and medial, left base medial, and right apex lateral) 6 (3+3) (left base lateral) % of pattern 4: 45% - Grade group: 3, 2 and 1 Tumor quantitation: - Number cores positive: 7 Total number of cores: 13 % of tissue involved: 26% Periprostatic fat inv.: Not identified Seminal vesicle inv.: Not identified Perineural inv.: Present Lymphatic and/or vascular invasion: Not identified Family cancers include - mother - uterus cancer Lower urinary tract symptoms Initial symptoms include weakness of stream, incomplete bladder emptying, urinary hesitancy Medications finasteride and tamsulosin Cystoscopy - oval-shaped prostate PSA 07/02 4.3, 07/03 3.2, 01/02 4.0. 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 Plan for imaging, cytology, cystoscopy [facility] Medical History Somnolence COPD (chronic obstructive pulmonary disease) Obesity Nicotine dependence, cigarettes, uncomplicated Tubulovillous adenoma of colon Family history of ovarian cancer Obstructive sleep apnea Depression Asthma Anxiety Chronic fatigue Primary osteoarthritis of both knees Surgical History History of cystoscopy History of left inguinal hernia repair History of colonoscopy Social History Alcohol intake: former Patient Tobacco Use Status: Current someday Tobacco user Tobacco use type: Cigarette Cigarette Packs Per Day: 0.5 Cigarettes Per Day: 2 Years Smoked: (onset 14yo, 1/2-1ppd x 52yrs, 35PYH) Review of Systems Const All systems reviewed & are unremarkable except as noted in HPI and below Reports no additional complaints Resp Reports no additional complaints GI Reports no additional complaints Reports as per HPI Musc Reports no additional complaints Physical Exam Telemedicine evaluation Appropriate responses Regular breathing rate and rhythm HEENT Head: Yes normal to inspection Ears: hearing grossly normal bilaterally Eyes General: appearance normal, both eyes and all related structures Neck Neck: Yes normal visual inspection Chest Chest palpation & inspection: normal inspection of the chest Resp Effort & Inspection: normal respiratory effort and able to speak in complete sentences Telehealth Telehealth Location of provider rendering services: practice address Location of patient: address on file Patient Identification confirmed using: Name, : Yes Telehealth method: voice only Patient verbally consented to treatment: Yes Patient verbally consented to billing insurance company: Yes Patient informed of any privacy concerns related to visit: Yes Assessment & Plan Assessment & Plan (1) 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 While every effort has been made to ensure accuracy scourer errors may have been included. Imaging studies, laboratory and physical exam results were discussed and reviewed in detail. No major barriers to patient understanding were identified. An opportunity to ask questions regarding the treatment plan was provided. All questions were answered. The patient expressed understanding and agreement with the above treatment plan. The patient is aware they should contact our office by phone for worsening of their current condition or the appearance of new urologic symptoms. Compliance is encouraged with any medications and followup testing that is ordered. It is a privilege to participate in the urologic care of your patient. If you have any questions or concerns regarding treatment for the above conditions, or other urologic issues, please do not hesitate to contact me. The office telephone contact is [phone]. Sincerely, Dr Jose Cherry MD, [facility] - Urology Compassionate Specialist Care for the Genitourinary System Coding Level of Care Code Tele Est Pt Level 4 (64570) Complex EM visit Add On G2211 Diagnoses Hormone sensitive prostate cancer C61; Z19.1
--- OUTSIDE RECORDS SUMMARY | 2024-07-11 16:16 | XMS_ITS | Encounter Summary ---
Author Organization [facility] Address [address] [place] [address] Care Team Providers Care Product Scientist Name Role Phone Rachid Lee MD Primary Care Provide r Jose Cherry MD Unavailable [phone] Encounter Details Date Type Department Care Team (Late st Contact Info) Description 07/15/2022 Abstract [facility] [address] [place] [phone] Rachid Lee MD [address] [place] [phone] Social History Tobacco Use Types Packs/Day Years [...] 11:30 AM EDT Office Visit [facility] [address] [place] [address] [phone] Rachid Lee MD [address] [place] [address] [phone] documented as of this encounter Procedures Procedure [...] on filedocumented in this encounter Care Teams Product Scientist Relationship Specialty Start Date End Date Rachid Lee MD [address] [place] [address] PCP - General Internal Medicine 10/29/13 Jose Cherry MD [address] [place] [address] Urology 05/15/24 documented as of this encounter
--- OUTSIDE RECORDS SUMMARY | 2024-07-11 16:16 | XMS_ITS | Encounter Summary ---
Author Organization [employer] [facility] Address [address] [place] [address] 7t [place] [address] Care Team Providers Care Casting Associate Name Role Phone Rachid Lee MD Primary Care Provide r Jose Cherry MD Unavailable [phone] Encounter Details Date Type Department Care Team (Late st Contact Info) Description 03/24/2022 Orders Only [facility] [address] [place] [phone] Kate Jacobo LPN Social History Tobacco Use [...] Description 09/04/2024 11:30 AM EDT Office Visit [facility] [address] [place] [address] Rachid Lee MD [address] [place] [address] documented as of this encounter Visit Diagnoses Not on filedocumented in this encounter Care Teams Casting Associate Relationship Specialty Start Date End Date Rachid Lee MD [address] [place] [phone] PCP - General Internal Medicine 10/29/13 Jose Cherry MD [address] [place] [address] Urology 05/15/24 documented as of this encounter
--- OUTSIDE RECORDS SUMMARY | 2024-07-11 16:16 | XMS_ITS | Encounter Summary ---
Author Organization [employer] Address [address] 7t [place] [address] Care Team Providers Care Supervisor [employer] Nut Farming Name Role Phone Rachid Lee MD Primary Care Provide r Jose Cherry MD Unavailable [phone] Encounter Details Date Type Department Care Team (Late st Contact Info) Description 04/30/2023 Orders Only [facility] [address] [place] [address] Melchor Jim MD [address] [place] [address] Social History Tobacco Use Types Packs/Day Years [...] Description 09/04/2024 11:30 AM EDT Office Visit [facility] [address] [place] [address] Rachid Lee MD [address] [place] [address] documented as of this encounter Visit Diagnoses Not on filedocumented in this encounter Additional Health Concerns Assessment Noted Time PHQ-9 Depression Total Score: 14 023 10:11 AM EDT documented as of this encounter Care Teams Supervisor [employer] Relationship Specialty Start Date End Date Rachid Lee MD [address] [place] [address] PCP - General Internal Medicine 10/29/13 Jose Cherry MD [address] [place] [address] Urology 05/15/24 documented as of this encounter
--- OUTSIDE RECORDS SUMMARY | 2024-07-11 16:16 | XMS_ITS | Encounter Summary ---
Author Organization [employer] Address [address] [facility] 7t [place] [address] Care Team Providers Care Metal Furniture Polisher Name Role Phone Rachid Lee MD Primary Care Provide r Jose Cherry MD Unavailable [phone] Encounter Details Date Type Department Care Team (Late st Contact Info) Description 06/10/2022 Orders Only [facility] [address] [place], [place] [phone] Arlyn Vigil LPN Social History Tobacco Use [...] Description 09/04/2024 11:30 AM EDT Office Visit [facility] [address] [place] [address] Rachid Lee MD [address] [place] [address] documented as of this encounter Visit Diagnoses Not on filedocumented in this encounter Care Teams Metal Furniture Polisher Relationship Specialty Start Date End Date Rachid Lee MD [address] [place] [address] PCP - General Internal Medicine 10/29/13 Jose Cherry MD [address] [place] [address] Urology 05/15/24 documented as of this encounter
--- OUTSIDE RECORDS SUMMARY | 2024-07-11 16:16 | XMS_ITS | Clinical Summary ---
Author Organization [employer] Address [address] [facility] 7t [place] [address] Care Team Providers Care Time Lock Expert Name Role Phone Rachid Lee MD Primary Care Provide r Jose Cherry MD Unavailable [phone] Allergies Active Allergy Reactions Criticality Noted [...] me he was called by someone in monegasque so he did not understand. Today we [...] with repeat PSA at that time. Contacted [facility] reporting that pt is aware and [...] pt continues to decline to see our potato chip fryer or go to the comprehensive weight management program Patient has been counseled and educated about diet and exercise. Personal goal of weight loss discussed Assessment & Plan (09/22/2023 1:06 PM EDT): Managed to loose weight since our last visit pt continues to decline to see our potato chip fryer or go to the comprehensive weight management program Patient has been counseled and educated about diet and exercise. Personal goal of weight loss discussed Assessment & Plan (10/05/2022 10:04 AM EDT): Discussed need to loose weight , information about the comprehensive weight management program given to patient in the past. pt declines to see our potato chip fryer or go to the comprehensive weight management [...] No recent exacerbations Being followed by our [facility] Asthma Pharmacy Team Currently on Symbicort [...] No recent exacerbations Being followed by our [facility] Asthma Pharmacy Team Currently on Symbicort [...] No recent exacerbations Being followed by our [facility] Asthma Pharmacy Team Currently on Symbicort [...] No recent exacerbations Being followed by our [facility] Asthma Pharmacy Team Currently on Symbicort [...] in patients with liver disease. Resulting Agency [facility] Specimen Collected: 01/07/23 10:27 Last [...] in patients with liver disease. Resulting Agency [facility] Specimen Collected: 01/07/23 10:27 Last [...] DEPARTMENT Provider, Generic External Data 06/14/2024 Refill [facility] [place] [address] Rachid Lee MD Seasonal allergies 05/29/2024 11:30 AM EDT Office Visit [facility] [place] [address] Rachid Lee MD Elevated PSA (Primary Dx); Moderate persistent asthma with acute exacerbation; Acute left-sided low back pain without sciatica; Preventative health care; Severe obesity (CMS/[facility]); Dietary counseling; Exercise counseling 05/29/2024 Travel 05/23/2024 Telephone [facility] [place] [address] Rachid Lee MD Chart Prep 05/22/2024 Patient Outreach [facility] [place] [address] Rachid Lee MD Care Coordination (CHW outreach for SDOH PT-1 and food needs-referral completed /) 05/22/2024 Patient Outreach [facility] [place] [address] Rachid Lee MD Pre-visit Planning (SDOH Screening positive and Tobacco screening positive) 05/15/2024 Telephone [facility] [place] [address] Anne Noonan, RN Results 05/02/2024 Orders Only GENERIC EXTERNAL DATA DEPARTMENT Provider, Generic External Data 04/14/2024 Refill [facility] [place] [address] Rachid Lee MD Moderate persistent asthma without [...] Description 09/04/2024 11:30 AM EDT Office Visit [facility] [address] [place] [address] Rachid Lee MD [address] [place] [address] Health Maintenance Due Date Last Done Comments [...] 8:30 AM EDT 06/26/2024 9:16 AM EDT [facility] - 06/27/2024 5:57 PM EDT ----- ------- Name: Juan Carlos Garcia ?Age/Sex: 68/M ? : 1955 Unit#: [id number] ?? Attend Dr: Jose Cherry MD ?Re06/26/24 ?Status: DEP REF ? Location: [facility] ? Disch: ? ----- ------- SPEC : [id number] ? RECD: 06/26/24-915 ? STATUS: ??SOUT ? REQ NUM: [id number] ? DARWIN: 06/26/24-829 ? SUBM DR: Jose Cherry MD ? ENTERED: ??06/26/24-39 ?SP TYPE: Surgical ? OTHR DR: Rachid Guardado MD ?? ORDERED: ??Prostate biopsy/ ? Diagnosis ?? Prostate, needle core biopsies: ? A. ??Left base lateral: ??Prostatic adenocarcinoma, Austin score 6 (3+3), grade group 1, ?? 0.5 mm, 5% of core. ? B. ??Left base medial: ??Prostatic adenocarcinoma, Austin score 7 (3+4), grade group 2, ?? 45% pattern 4, 1 mm, 1 of 2 cores, 10% of tissue. ? C. ??Left mid lateral: ??Benign prostatic tissue ? D. ??Left mid medial: ??Benign prostatic tissue ? E. ??Left apex lateral: ??Benign prostatic tissue ? F. ??Left apex medial: ??Benign prostatic tissue ? G. ??Right base lateral: ??Prostatic adenocarcinoma, Austin score 7 (3+4), grade group 2, ?? 40% pattern 4, 11 mm, 92% of core, perineural invasion, and high-grade prostatic ?? intraepithelial neoplasia. ? H. ??Right base medial: ??Prostatic adenocarcinoma, Windy score 7 (3+4), grade group 2, ?? 45% pattern 4, 11 mm, 73% of core, and high-grade prostatic intraepithelial neoplasia. ? I. ??Right mid lateral: ??Prostatic adenocarcinoma, Austin score 7 (4+3), grade group 3, ?? 90% pattern 4, 3 mm, 30% of core, perineural invasion, and high-grade prostatic ?? intraepithelial neoplasia. ? J. ??Right mid medial: ??Prostatic adenocarcinoma, Austin score 7 (4+3), grade group 3, ?? 60% pattern 4, 3 mm, 30% of core, perineural invasion, and high-grade prostatic ?? intraepithelial neoplasia. ? K. ??Right apex lateral: ??Prostatic adenocarcinoma, Austin score 7 (3+4), grade group 2, ?? [...] Garcia ?Age/Sex: 68/M ? : 1955 Unit#: [id number] ?? Attend Dr: Jose Cherry MD ?Re06/26/24 ?Status: DEP REF ? Location: [facility].US ? Disch: ? ----- ------- SPEC : [id number] ? RECD: 06/26/24 ? STATUS: ??SOUT ? REQ NUM: [id number] ? DARWIN: 06/26/24 ? SUBM DR: Jose [...] Garcia ?Age/Sex: 68/M ? : 1955 Unit#: [id number] ?? Attend Dr: Jose Cherry MD ?Re06/26/24 ?Status: DEP REF ? Location: [facility] ? Disch: ? ----- ------- SPEC : [id number] ? RECD: 06/26/24 ? STATUS: ??SOUT ? REQ NUM: [id number] ? DARWIN: 06/26/24 ? SUBM DR: Jose [...] Garcia ?Age/Sex: 68/M ? : 1955 Unit#: [id number] ?? Attend Dr: Jose Cherry MD ?Re06/26/24 ?Status: DEP REF ? Location: [facility] ? Disch: ? ----- ------- SPEC : [id number] ? RECD: 06/26/24 ? STATUS: ??SOUT ? REQ NUM: [id number] ? DARWIN: 06/26/24 ? SUBM DR: Jose [...] Copies To: ?? Jose Cherry MD ?? [facility] ?? [address] ?? [place] [address] ?? [phone] ?? Rachid Guardado MD ?? [facility] ?? [address] [facility] ?? [place] [address] ?? [phone] ----- ------- Signed (signature on file) Sarah Maher 06/27/241756 ? ----- ------- ? END OF REPORT ? us Generic External Data Provider LAB PATHOLOGY ORD ERABLES Final Result [facility] [address] [place], [place] [phone] * (ABNORMAL) PSA, Total With Reflex to PSA, Free (05/02/2024 9:26 AM EST) PSA,Total (Free>4and<10) 11.33(H ) 0.00 - 4.00 ng/mL [facility] Comment:A Free PSA was not [...] are between 4.0 and 10.0 ng/mL.PSA methodology: [employer] Al[employer] i ChemiluminescentMicroparticle Immunoassay (CMIA) 05/02/2024 9:26 AM EST 05/02/2024 9:26 AM EST us Generic External Data Provider LAB BLOOD ORDERAB LES Final Result [facility] [address] [place] [phone] * (ABNORMAL) Lipid Panel, Standard (09/26/2023 9:03 AM EDT) Triglycerides 110 <150 mg/dL [facility] Comment:Desirable Triglyceri de: less than 150 mg/dLBorderline High Triglyceride 150-199 mg/dLHigh Triglyceride: 200-499 mg/dLVery High Triglyceride: greater than or equal to 5OO mg/dL Cholesterol 144 <200 mg/dL [facility] Comment:Desirable Cholestero l: less than 200 mg/dLBorderline High Cholesterol: 200-239 mg/dLHigh Cholesterol: greater than 239 mg/dL LDL Cholesterol Calculated 89 <100 mg/dL [facility] Comment:Desirable LDL: less than 100 mg/dLNear Optimal/Above Optimal LDL: 110- 129 mg/dLBorderline High LDL: 130-159 mg/dLHigh LDL: 160-189 mg/dLVery High LDL: greater than or equal to 190 mg/dL HDL Cholesterol 33(L) >40 mg/dL [facility] Comment:Desirable HDL: great er than 40 mg/dL Note: This HDL assay may give artificially low results in patients with liver disease. Blood Venous blood specimen / Unknown 09/26/2023 9:03 AM EDT 09/26/2023 11:04 AM EDT Rachid Eli MD LAB BLOOD ORDERABLES Final Result Performing Organization Address City/[facility] Co de Phone Number [facility] [address] [place] [address] [phone] * Hm Colonoscopy (06/11/2022) Colonoscopy Normal Normal 06/11/2022 Narrative Mandy Christina - 06/11/2022 11:20 AM EDT Recommended 3 year follow up ( see scanned notes) Result [facility] Historical Provider HEALTH MAINTENANCE Edited Result - [...] a test for HCV RNA (test code 11569) is suggested. ?? For additional information please refer to http://education.I Read Books/faq/TNM37e7 (This link is being provided for informational/ educational purposes only.) ?? 04/28/2021 11:1 3 AM EST us Rachid Eli MD HISTORICAL/NON ORDERA BLE LABS Final Result [facility] [address] from Last 3 Months or Most Recently Relevant to Health Maintenance Insurance [facility] ST[facility] Care Teams Time Lock Expert Relationship Specialty Start Date End Date Rachid Lee MD [address] [place] [address] PCP - General Internal Medicine 10/29/13 Jose Cherry MD [address] [place], [place] Urology 05/15/24
--- OUTSIDE RECORDS SUMMARY | 2024-07-11 16:16 | XMS_ITS | Encounter Summary ---
Author Organization [employer] [facility] Address [address] [place] [address] 7t [place] [address] Care Team Providers Care Svp Operations Name Role Phone Rachid Lee MD Primary Care Provide r Jose Cherry MD Unavailable Reason for Visit * Reason Comments Med Refill Encounter Details Date Type Department Care Team (Late st Contact Info) Description 05/21/2022 Refill [facility] [address] [place] [phone] Rachid Lee MD [address] [place] [address] [phone] Seasonal allergies Social History Tobacco Use Types [...] Description 09/04/2024 11:30 AM EDT Office Visit [facility] [address] [place] [address] [phone] Rachid Lee MD [address] [place], [place] [phone] documented as of this encounter Visit Diagnoses Diagnosis Seasonal allergies Allergic rhinitis, cause unspecified documented in this encounter Care Teams Svp Operations Relationship Specialty Start Date End Date Rachid Lee MD [address] [place] [address] PCP - General Internal Medicine 10/29/13 Jose Cherry MD [address] [place] [address] Urology 05/15/24 documented as of this encounter
== END 2024-07-11 15:50 | disposition home or self-care (01) ==
LOC: HO.HUSH 15:14
PROVIDERS: PCP Internal Medicine; Visit Provider Urology
DX: C61 Malignant neoplasm of prostate (principal); Z19.1 Hormone sensitive malignancy status
CPT/HCPCS: 99214

== ENCOUNTER → 2024-07-23 08:14 | Outpatient (BNV) | payer MEDICAID, SELFPAY | PROVIDERS: PCP Internal Medicine; Visit Provider Radiology Diagnostic Radiology | DX: R97.20 Elevated prostate specific antigen [PSA] (principal) | CPT/HCPCS: 72197 ==

== ENCOUNTER 2024-07-23 08:19 | Outpatient (REF) | payer MEDICAID, SELFPAY ==
--- NOTE | ~2024-07-23 | MR_ITS ---
EXAMINATION: MRI prostate without and with contrast. HISTORY: Elevated PSA. Biopsy in June 2024. TECHNIQUE: 1.5T body coil survey of the pelvis was performed. Phase array coil imaging of the prostate was performed in multiplanar high resolution axial, coronal, sagittal fast spin echo T2 and axial T1 weighted imaging sequences. Axial diffusion imaging at intermediate and high field performed with ADC mapping. Next, 10 mL Gadavist was given by intravenous infusion, and dynamic axial imaging performed. COMPARISON: There are no prior studies for comparison. CLINICAL DATA: Most recent PSA: 11.33 ng/mL PSA Density: 0.30 ng/mL squared Prostate Biopsy: required FINDINGS: Prostate size: 3.95 x 3.2 x 5.7 cm. Calculated prostate volume is 37 mL. Hemorrhage: There is moderate hemorrhage in left peripheral zone in base and mid segment making it inconclusive on the left side.. Transitional Zone: Heterogeneous but no focal increased T2 signal. Peripheral Zone: T2: Increase bilateral peripheral : T2 signal In the Mid Segment to [place]. PI RADS: 5 Diffusion: Increased Bilateral Diffusion Peripheral Zone from Base to [place]. PI RADS: 5 DEI: Early Bilateral Enhancement Peripheral Zone More Prominent at the Left mid segment. PI-RADS: 5. Seminal Vesicles/Ejaculatory Ducts: Symmetric and normal in signal and caliber. Pelvic Lymph Nodes: No obturator or internal iliac lymph nodes meeting size criteria for adenopathy. Marrow Signal: Normal marrow signal and enhancement without focal lesion identified. MR/MR Prostate wo/w con IMPRESSION: Bilateral peripheral zone mid segment to apex most prominent in right mid segment. On the left peripheral zone from mid segment to apex there is evidence of hemorrhage from recent biopsy making this side inconclusive. PI-RADS 5: Very high (clinically significant cancer is highly likely to be present) PI-RADS Assessment Categories PI-RADS 1: Very low (clinically significant cancer is highly unlikely to be present) PI-RADS 2: Low (clinically significant cancer is unlikely to be present) PI-RADS 3: Intermediate (the presence of clinically significant cancer is equivocal) PI-RADS 4: High (clinically significant cancer is likely to be present) PI-RADS 5: Very high (clinically significant cancer is highly likely to be present) [employer]. MR Prostate Imaging Reporting and Data System version 2.1. [email or web address].org/Quality-Safety/[email or web address]/ Electronically signed by: Aristeo Herron MD 07/23/2024 12:10 PM EDT RP
--- OUTSIDE RECORDS SUMMARY | 2024-07-23 08:22 | XMS_ITS | Encounter Summary ---
Author Organization [employer] Address [address] [facility] 7t [place] [address] Care Team Providers Care Child Welfare Consultant Name Role Phone Rachid Lee MD Primary Care Provide r Jose Cherry MD Unavailable [phone] Reason for Visit * Reason Comments Med Refill Encounter Details Date Type Department Care Team ([facility] st Contact Info) Description 05/21/2022 Refill [facility] [address] [place] [phone] Rachid Lee MD [address] [place] [phone] Seasonal allergies Social History Tobacco Use Types [...] Description 09/04/2024 11:30 AM EDT Office Visit [facility] [address] [place] [address] [phone] Rachid Lee MD [address] [place] [address] [phone] documented as of this encounter Visit Diagnoses Diagnosis Seasonal allergies Allergic rhinitis, cause unspecified documented in this encounter Care Teams Child Welfare Consultant Relationship Specialty Start Date End Date Rachid Lee MD [address] [place] [address] PCP - General Internal Medicine 10/29/13 Jose Cherry MD [address] [place] [address] Urology 05/15/24 documented as of this encounter
--- OUTSIDE RECORDS SUMMARY | 2024-07-23 08:22 | XMS_ITS | Encounter Summary ---
Author Organization [employer] Address [address] [facility] 7t [place] [address] Care Team Providers Care Sap Abap Developer Name Role Phone Rachid Lee MD Primary Care Provide r Jose Cherry MD Unavailable [phone] Encounter Details Date Type Department Care Team (Late st Contact Info) Description 06/10/2022 Orders Only [facility] [address] [place], [place] [phone] Arlyn Vigil LPN Social History Tobacco Use [...] Description 09/04/2024 11:30 AM EDT Office Visit [facility] [address] [place] [address] Rachid Lee MD [address] [place] [address] documented as of this encounter Visit Diagnoses Not on filedocumented in this encounter Care Teams Sap Abap Developer Relationship Specialty Start Date End Date Rachid Lee MD [address] [place] [address] [phone] PCP - General Internal Medicine 10/29/13 Jose Cherry MD [address] [place] [address] Urology 05/15/24 documented as of this encounter
--- OUTSIDE RECORDS SUMMARY | 2024-07-23 08:22 | XMS_ITS | Clinical Summary ---
Author Organization [employer] Address [address] [place] [address] Care Team Providers Care Concrete Pipe Machine Operator Name Role Phone Rachid Lee MD Primary Care Provide r Jose Cherry MD Unavailable [phone] Allergies Active Allergy Reactions Criticality Noted Date Comments Latex 12/11/2021 Zoster Vaccine Recombinant, Adjuvanted Swelling,Other 04/30/2021 Medications Proventil HFA 108 (90 Base) MCG/ACT inhaler 2 puffs every 4 (four) hours if needed. 3 Active ARIPiprazole (Abilify) 5 MG tablet Take 5 mg by mouth at bedtime. 3 Active busPIRone (Buspar) 10 MG tablet TAKE 1 TABLET BY MOUTH TWICE DAILY IN THE MORNING AND IN THE EVENING 3 Active PARoxetine (Paxil) 20 MG tablet Take 20 mg by mouth in the morning. 3 Active QUEtiapine (SEROquel) 25 MG tablet TAKE 1 TABLET BY MOUTH AT BEDTIME NEEDED FOR SLEEP AND AGITATION 3 Active albuterol (2.5 MG/3ML) 0.083% nebulizer solution INHALE 1 AMPULE USING A NEBULIZER THREE TIMES DAILY NEEDED 180 mL 3 4 Active hydrocortisone (Proctosol HC) 2.5 % rectal creamIndications: Grade I hemorrhoids Insert into the rectum 2 times daily. 28 g 1 4 Active budesonide-formot carlos (Symbicort) 160-4.5 MCG/ACT inhalerIndication s:Moderate persistent asthma without complication INHALE 2 PUFFS BY MOUTH TWICE DAILY IN THE MORNING AND IN THE EVENING RINSE MOUTH AFTER USING. 10.2 g 6 5 Active ibuprofen 800 MG tabletIndications :Acute left-sided low back pain without sciatica Take 1 tablet (800 mg) by mouth every 12 (twelve) hours if needed for mild pain. 30 tablet 5 Active tiZANidine (Zanaflex) 2 MG tabletIndications :Acute left-sided low back pain without sciatica Take 1 tablet (2 mg) by mouth every 8 (eight) hours if needed for muscle spasms. 30 tablet 5 Active cetirizine (ZyrTEC) 10 MG tabletIndications :Seasonal allergies TAKE 1 TABLET BY MOUTH EVERY EVENING 90 tablet 1 5 Active Active Problems Problem Noted Date Diagnosed Date [...] me he was called by someone in [place] so he did not understand. Today we [...] with repeat PSA at that time. Contacted [facility] reporting that pt is [...] pt continues to decline to see our paving block cutter or go to the comprehensive weight management program Patient has been counseled and educated about diet and exercise. Personal goal of weight loss discussed Assessment & Plan (09/22/2023 1:06 PM EDT): Managed to loose weight since our last visit pt continues to decline to see our paving block cutter or go to the comprehensive weight management program Patient has been counseled and educated about diet and exercise. Personal goal of weight loss discussed Assessment & Plan (10/05/2022 10:04 AM EDT): Discussed need to loose weight , information about the comprehensive weight management program given to patient in the past. pt declines to see our paving block cutter or go to the comprehensive weight [...] No recent exacerbations Being followed by our [facility] Ast[facility] Pharmacy Team Currently on Symbicort [...] No recent exacerbations Being followed by our [facility] Ast[facility] Pharmacy Team Currently on Symbicort [...] No recent exacerbations Being followed by our [facility] Ast[facility] Pharm[facility] Team Currently on Symbicort [...] No recent exacerbations Being followed by our [facility] Ast[facility] Pharmacy Team Currently on Symbicort [...] in patients with liver disease. Resulting Agency [facility] Specimen Collected: 01/07/23 10:27 [...] in patients with liver disease. Resulting Agency [facility] Specimen Collected: 01/07/23 10:27 [...] stopped using his Cpap because a in [place] told him to stop using it because it was damaging his lungs Last visit I tried to reassured him that this is not the case unsuccessfully. Encounters Date Type Department Care Team Description 06/26/2024 Orders Only GENERIC EXTERNAL DATA DEPARTMENT Provider, Generic External Data 06/14/2024 [address] [place] [place] [address] Rachid Lee MD Seasonal allergies 05/29/2024 11:30 AM EDT Office Visit [address] [address] Rachid Lee MD Elevated PSA (Primary Dx); Moderate persistent asthma with acute exacerbation; Acute left-sided low back pain without sciatica; Preventative health care; Severe obesity (CMS/[facility]); Dietary counseling; Exercise counseling 05/29/2024 Travel 05/23/[address] [address] Rachid Lee MD Chart Prep 05/22/2024 Patient Outreach [address] [address] Rachid Lee MD Care Coordination ([facility] outreach for SDOH PT-1 and food needs-referral completed /) 05/22/2024 Patient Outreach [address] [address] Rachid Lee MD Pre-visit Planning (SDOH Screening positive and Tobacco screening positive) 05/15/[address] [address] Anne Noonan, RN Results 05/02/2024 Orders Only GENERIC EXTERNAL DATA DEPARTMENT Provider, Generic External Data from Last 3 Months Immunizations Name Administration [...] Description 09/04/2024 11:30 AM EDT Office Visit [facility] [address], [place] [phone] Rachid Lee MD [address] [place] [address] Health Maintenance Due Date Last Done Comments [...] Priority Date/Time Associated Diagnosis Comments PROSTATE BIOPSY - Routine 06/26/2024 8:30 AM EDT PSA, TOTAL [...] 8:30 AM EDT 06/26/2024 9:16 AM EDT [facility] - 06/27/2024 5:57 PM EDT ----- ------- Name: Juan Carlos Garcia ?Age/Sex: 68/M ? : 1955 Unit#: [id number] ?? Attend Dr: Jose Cherry MD ?Re06/26/24 ?Status: DEP REF ? Location: HO.US ? Disch: ? ----- ------- SPEC : [id number] ? RECD: 06/26/24 ? STATUS: ??SOUT ? REQ NUM: [id number] ? DARWIN: 06/26/24 ? SUBM DR: Jose Cherry MD ? ENTERED: ??06/26/24 ?SP TYPE: Surgical ? OTHR DR: Rachid Guardado MD ?? ORDERED: ??Prostate biopsy/12 ? Diagnosis ?? Prostate, needle core biopsies: ? A. ??Left base lateral: ??Prostatic adenocarcinoma, [place]y score 6 (3+3), grade group 1, ?? 0.5 mm, 5% of core. ? B. ??Left base medial: ??Prostatic adenocarcinoma, Windy score 7 (3+4), grade group 2, ?? 45% pattern 4, 1 mm, 1 of 2 cores, 10% of tissue. ? C. ??Left mid lateral: ??Benign prostatic tissue ? D. ??Left mid medial: ??Benign prostatic tissue ? E. ??Left apex lateral: ??Benign prostatic tissue ? F. ??Left apex medial: ??Benign prostatic tissue ? G. ??Right base lateral: ??Prostatic adenocarcinoma, Windy score 7 (3+4), grade group 2, ?? 40% pattern 4, 11 mm, 92% of core, perineural invasion, and high-grade prostatic ?? intraepithelial neoplasia. ? H. ??Right base medial: ??Prostatic adenocarcinoma, [place] score 7 (3+4), grade group 2, ?? 45% pattern 4, 11 mm, 73% of core, and high-grade prostatic intraepithelial neoplasia. ? I. ??Right mid lateral: ??Prostatic adenocarcinoma, [place] score 7 (4+3), grade group 3, ?? 90% pattern 4, 3 mm, 30% of core, perineural invasion, and high-grade prostatic ?? intraepithelial neoplasia. ? J. ??Right mid medial: ??Prostatic adenocarcinoma, [place] score 7 (4+3), grade group 3, ?? 60% pattern 4, 3 mm, 30% of core, perineural invasion, and high-grade prostatic ?? intraepithelial neoplasia. ? K. ??Right apex lateral: ??Prostatic adenocarcinoma, [place] score 7 (3+4), grade group 2, ?? 30% pattern 4, 6 mm discontinuous, 60% of core, perineural invasion, and high-grade ?? prostatic intraepithelial neoplasia. ? L. ??Right apex medial: ??Benign prostatic tissue. ? Data synopsis - Prostate needle biopsy ? Histologic type: ?? Prostatic adenocarcinoma, acinar type ?? Histologic grade: ? [place] score: ?7 (4+3) (right mid lateral and medial) ? CONTINUED ON NEXT PAGE ----- ------- Name: Juan Carlos Garcia ?Age/Sex: 68/M ? : 1955 Unit#: [id number] ?? Attend Dr: Jose Cherry MD ?Re06/26/24 ?Status: DEP REF ? Location: . ? Disch: ? ----- ------- SPEC : [id number] ? RECD: 06/26/24-915 ? STATUS: ??SOUT ? REQ NUM: [id number] ? DARWIN: 06/26/24 ? SUBM DR: Jose [...] Garcia ?Age/Sex: 68/M ? : 1955 Unit#: [id number] ?? Attend Dr: Jose Cherry MD ?Re06/26/24 ?Status: DEP REF ? Location: . ? Disch: ? ----- ------- SPEC : [id number] ? RECD: 06/26/24 ? STATUS: ??SOUT ? REQ NUM: [id number] ? DARWIN: 06/26/24 ? SUBM DR: Jose [...] Garcia ?Age/Sex: 68/M ? : 1955 Unit#: [id number] ?? Attend Dr: Jose Cherry MD ?Re06/26/24 ?Status: DEP REF ? Location: HO.US ? Disch: ? ----- ------- SPEC : [id number] ? RECD: 06/26/24 ? STATUS: ??SOUT ? REQ NUM: [id number] ? DARWIN: 06/26/24 ? SUBM DR: Jose Cherry MD ? ENTERED: ??06/26/24 ?SP TYPE: Surgical ? OTHR DR: Rachid Guardado MD ?? ORDERED: ??Prostate biopsy/12 ? Gross Description ?(Continued) Part L: ??Received in formalin labeled ?right apex medial? is a 1.1 cm in length thin and delicate tavarez-white cylindrical thread of tissue, submitted in toto in a cassette labeled L. CEDS This case was reviewed intradepartmentally. ??Results given to Dr. Cherry by secure text by Dr. Maher on 06/27/2024 at 5:56 pm. Copies To: ?? Jose Cherry MD ?? [facility] ?? [address] ?? [place] [address] ?? [phone] ?? Rachid Guardado MD ?? [facility] ?? [address] ?? [place] [address] ?? [phone] ----- ------- Signed (signature on file) Sarah Rush 06/27/241756 ? ----- ------- ? END OF REPORT ? us Generic External Data Provider LAB PATHOLOGY ORD ERABLES Final Result [facility] [address] [place] [address] [phone] * (ABNORMAL) PSA, Total With Reflex to PSA, Free (05/02/2024 9:26 AM EST) PSA,Total (Free>4and<10) 11.33(H ) 0.00 - 4.00 ng/mL [facility] Comment:A Free PSA was [...] Provider LAB BLOOD ORDERAB LES Final Result [facility] [address] [place] [address] [phone] * (ABNORMAL) Lipid Panel, Standard (09/26/2023 9:03 AM EDT) Triglycerides 110 <150 mg/dL [facility] Comment:Desirable Triglyceri de: less than 150 mg/dLBorderline High Triglyceride 150-199 mg/dLHigh Triglyceride: 200-499 mg/dLVery High Triglyceride: greater than or equal to 5OO mg/dL Cholesterol 144 <200 mg/dL [facility] Comment:Desirable Cholestero l: less than 200 mg/dLBorderline High Cholesterol: 200-239 mg/dLHigh Cholesterol: greater than 239 mg/dL LDL Cholesterol Calculated 89 <100 mg/dL [facility] Comment:Desirable LDL: less than 100 mg/dLNear Optimal/Above Optimal LDL: 110- 129 mg/dLBorderline High LDL: 130-159 mg/dLHigh LDL: 160-189 mg/dLVery High LDL: greater than or equal to 190 mg/dL HDL Cholesterol 33(L) >40 mg/dL [facility] Comment:Desirable HDL: great er than 40 mg/dL Note: This HDL assay may give artificially low results in patients with liver disease. Blood Venous blood specimen / Unknown 09/26/2023 9:03 AM EDT 09/26/2023 11:04 AM EDT Rachid Eli MD LAB BLOOD ORDERABLES Final Result Performing Organization Address City/[facility]/ZIP Co de Phone Number [facility] [address] [place] [address] [phone] * Hm Colonoscopy (06/11/2022) Colonoscopy Normal [...] a test for HCV RNA (test code 35658) is suggested. ?? For additional information please refer to http://education.[employer] JV/faq/QPY39a5 (This link is being provided for informational/ educational purposes only.) ?? 04/28/2021 11:1 3 AM EST Rachid Eli MD HISTORICAL/NON ORDERA BLE LABS Final Result [facility] [address] [place] [address], from Last 3 Months or Most Recently Relevant to Health Maintenance Insurance [facility] Care Teams Concrete Pipe Machine Operator Relationship Specialty Start Date End Date Rachid Lee MD [address] [place] [id number] PCP - General Internal Medicine 10/29/13 Jose Cherry MD [address] [place] [address] Urology 05/15/24
--- OUTSIDE RECORDS SUMMARY | 2024-07-23 08:23 | XMS_ITS | Encounter Summary ---
Author Organization [employer] Address [address] [place] [address] Care Team Providers Care Manager House Name Role Phone Rachid Lee MD Primary Care Provide r Jose Cherry MD Unavailable [phone] Encounter Details Date Type Department Care Team (Late st Contact Info) Description 04/30/2023 Orders Only [facility] [address] [place] [address] Melchor Jim MD [address] [place] [address] Social History Tobacco Use Types Packs/Day Years [...] Description 09/04/2024 11:30 AM EDT Office Visit [facility] [address] [place] [address] Rachid Lee MD [address] [place] [address] documented as of this encounter Visit Diagnoses Not on filedocumented in this encounter Additional Health Concerns Assessment Noted Time PHQ-9 Depression Total Score: 14 023 10:11 AM EDT documented as of this encounter Care Teams Manager House Relationship Specialty Start Date End Date Rachid Lee MD [address] [place] [address] PCP - General Internal Medicine 10/29/13 Jose Cherry MD [address] [place] [address] Urology 05/15/24 documented as of this encounter
--- OUTSIDE RECORDS SUMMARY | 2024-07-23 08:23 | XMS_ITS | Encounter Summary ---
Author Organization [employer] Address [address] [facility] [address] [place] [address] Care Team Providers Care Cardiology Specialist Name Role Phone Rachid Lee MD Primary Care Provide r Jose Cherry MD Unavailable Encounter Details Date Type Department Care Team (Late Contact Info) Description 07/15/2022 Abstract [facility] [address] [place] [id number] Rachid Lee MD [address] [place] [phone] Social History Tobacco Use Types Packs/Day Years [...] Office Visit [facility] [address] [place] [phone] Rachid Lee MD [address] [place] [phone] documented as of this encounter Procedures Procedure [...] on filedocumented in this encounter Care Teams Cardiology Specialist Relationship Specialty Start Date End Date Rachid Lee MD [address] [place] [address] PCP - General Internal Medicine 10/29/13 Jose Cherry MD [address] [place] [address] Urology 05/15/24 documented as of this encounter
--- OUTSIDE RECORDS SUMMARY | 2024-07-23 08:23 | XMS_ITS | Encounter Summary ---
Author Organization [employer] Address [address] [facility] [address] [place] [address] Care Team Providers Care Bindery Manager Name Role Phone Rachid Lee MD Primary Care Provide r Jose Cherry MD Unavailable [phone] Encounter Details Date Type Department Care Team (Late st Contact Info) Description 03/24/2022 Orders Only [facility] [address] [place] [phone] Kate Jacobo LPN Social History Tobacco Use [...] 11:30 AM EDT Office Visit [facility] [address] [place] [phone] Rachid Lee MD [address] [place] [address] documented as of this encounter Visit Diagnoses Not on filedocumented in this encounter Care Teams Bindery Manager Relationship Specialty Start Date End Date Rachid Lee MD [address] [place] [phone] PCP - General Internal Medicine 10/29/13 Jose Cherry MD [address] [place] [address] Urology 05/15/24 documented as of this encounter
[2024-07-23] MEDS: gadobutroL 10 ML VIAL IVPUSH (09:49)
== END 2024-07-23 08:20 | disposition home or self-care (01) ==
LOC: HO.MRI 08:19
PROVIDERS: PCP Internal Medicine; Visit Provider Urology
DX: R97.20 Elevated prostate specific antigen [PSA] (principal); C61 Malignant neoplasm of prostate; Z19.1 Hormone sensitive malignancy status
CPT/HCPCS: 72197; A9585

== ENCOUNTER 2024-10-14 19:27 | Inpatient (IN) | payer MEDICAID, SELFPAY ==
--- NOTE | ~2024-10-14 | XR_ITS ---
CLINICAL HISTORY: new onset afib and chest pain Chest X-ray, 1 View COMPARISON: CR/SR - XR CHEST 2 VIEWS - 08/27/23 04:24 EDT FINDINGS: Bibasilar atelectasis or infiltrates. Possible left pleural effusion. No pneumothorax. Stable mild cardiomegaly. No acute fracture. Degenerative changes in the spine. IMPRESSION: Bibasilar atelectasis or infiltrates. Possible left pleural effusion. Nonemergent/incidental findings above. This document has been electronically signed by: Leif Woods MD on 10/14/2024 20:32:30
[2024-10-14 19:41] VITALS: BP 125/69; PULSE 130; O2SAT 95; BMI 40.7
--- NOTE | 2024-10-14 19:50 | ED.CHESTPAIN ---
HPI - Chest Pain General Chief Complaint: Chest Pain Stated Complaint: L-sided chest pain a-fib at 110-150 Time Seen by Provider: 10/14/24 19:50 History of Present Illness ED Provider: Tucker JOSHI narrative: The patient is a 68-year-old male with a history of COPD and obstructive sleep apnea who says that he was at home this evening when he had abrupt onset left-sided chest pain in the sense of his heart racing. He was eating at the time that his symptoms began. He has pain in the left side of his chest that does not radiate. He says it was fairly severe, 9 or 10/10. He felt that his heart was racing and he felt somewhat short of breath. An ambulance was called and he was brought to the hospital. At 1st the patient said he has never had a syndrome like this before. Later he said he might have had an episode that was brief and for which he did not seek care. No fever, sweats, chills. No cough or sputum. No pain or swelling in his legs. No abdominal pain, nausea, vomiting. The patient has regular medications include quetiapine, paroxetine, buspirone, aripiprazole, budesonide-formoterol, and albuterol Related Data Home Medications ?Medication ?Instructions ?Recorded ?Confirmed aripiprazole 5 mg tablet 5 mg PO QPM 07/08/21 06/11/22 budesonide-formoterol HFA 160 2 puff inhalation BID 07/08/21 06/11/22 mcg-4.5 mcg/actuation aerosol inhaler (Symbicort) buspirone 10 mg tablet 10 mg PO DAILY 07/08/21 06/11/22 paroxetine HCl 20 mg tablet 20 mg PO QAM 07/08/21 06/11/22 quetiapine 25 mg tablet 25 mg PO BEDTIME PRN insomnia 07/08/21 06/11/22 albuterol sulfate 2.5 mg/3 mL mg inhalation TID PRN 11/30/22 (0.083 %) solution for nebulization albuterol sulfate 90 mcg/actuation 2 puff inhalation Q4-6H PRN 11/30/22 aerosol inhaler (Proventil HFA) Previous Rx's ?Medication ?Instructions ?Recorded cetirizine 10 mg capsule (Zyrtec) 10 mg PO DAILY #14 caps 01/26/21 triamcinolone acetonide 0.5 % 1 appl topical BID #15 grams 08/27/21 topical ointment ibuprofen 600 mg tablet 600 mg PO TID PRN fever or pain 08/27/23 #14 tabs levofloxacin 500 mg tablet 500 mg PO daily 3 days #3 tabs 06/05/24 Allergies Allergy/AdvReac Type Severity Reaction Status Date / Time latex (Latex) Allergy Mild RASH Verified 10/14/24 19:44 Review of Systems Review of Systems: Yes all other systems are reviewed and are negative FORMERLY [facility] Past Medical History Medical History Somnolence COPD (chronic obstructive pulmonary disease) Obesity Nicotine dependence, cigarettes, uncomplicated Tubulovillous adenoma of colon Family history of ovarian cancer Obstructive sleep apnea Depression Asthma Anxiety Chronic fatigue Primary osteoarthritis of both knees Surgical History History of cystoscopy History of left inguinal hernia repair History of colonoscopy Social History Social History Alcohol intake: former Patient Tobacco Use Status: Current someday Tobacco user Tobacco use type: Cigarette Cigarette Packs Per Day: 0.5 Cigarettes Per Day: 2 Years Smoked: (onset 14yo, 1/2-1ppd x 52yrs, 35PYH) Advance Directives: No Advance Directives Information Provided: No Do you have a plan to hurt others: No Plan Physical Exam Vital Signs: Vital Signs: Last Vital Signs Pulse 138 H 10/14/24 23:33 Resp 15 10/14/24 19:55 BP 118/71 10/14/24 23:33 Pulse Ox 95 10/14/24 19:55 O2 Del Method Room Air 10/14/24 19:55 BMI result Body Mass Index 40.7 Const: Other: The patient is awake and alert. He was tachycardic on the monitor but he was pleasant and cooperative in seemed cheerful. He did not seem in overt distress. He does not appear uncomfortable or short of breath. Orientation/consciousness: patient oriented x3 HEENT: Other: Face is symmetrical, mucous membranes moist. Eyes: Other: Pupils are round equal, conjunctivae are clear, extraocular movements intact General: appearance normal, both eyes and all related structures Neck: Neck: Yes normal visual inspection, Yes full ROM, Yes no lymphadenopathy and Yes no JVD Resp: Effort & Inspection: normal respiratory effort Auscultation: clear to auscultation bilaterally Cardio: Other: The patient is tachycardic with a an irregular rate and rhythm. No murmur. GI: Other: Abdomen is soft and nontender Skin: Other: The skin is dry and unremarkable Neuro: General: patient oriented x3, tone normal, moves all extremities, no focal motor deficits and CN's II-XI intact bilaterally Extrem: Other: There is no calf swelling or tenderness. No asymmetry. No peripheral edema. Medications Administered Generic Name Dose Route Start Last Admin Trade Name Freq PRN Reason Stop Dose Admin Diltiazem HCl 125 mg/ Sodium 125 mls @ 0 mls/hr 10/14/24 22:30 10/14/24 23:33 Chloride IVCONT 15 mg/hr .Q0M IRIS 15 mls/hr Protocol Titration Per Protocol Sodium Chloride 1,000 mls @ 999 mls/hr 10/14/24 23:15 10/14/24 23:33 Ns IV 10/15/24 00:15 999 mls/hr .Q1H1M IRIS Administration Discontinued Medications Generic Name Dose Route Start Last Admin Trade Name Freq PRN Reason Stop Dose Admin Diltiazem HCl 20 mg 10/14/24 19:59 10/14/24 20:15 Diltiazem Hcl 50 Mg/10 Ml Vial IVPUSH 10/14/24 20:00 20 mg ONCE STA Administration Diltiazem HCl 120 mg 10/14/24 20:45 10/14/24 20:55 Diltiazem Hcl 60 Mg Tablet PO 10/14/24 20:46 120 mg ONCE ONE Administration Protocol Diltiazem HCl 25 mg 10/14/24 21:33 10/14/24 21:25 Diltiazem Hcl 50 Mg/10 Ml Vial IVPUSH 10/14/24 21:34 25 mg ONCE ONE Administration Sodium Chloride 1,000 mls @ 999 mls/hr 10/14/24 21:15 10/14/24 23:00 Ns IV 10/14/24 22:15 Infused .Q1H1M IRIS Infusion Medical Decision Making Medical Decision Making MDM Narrative: The patient is a 68-year-old male who presents with atrial fibrillation with a rapid ventricular response. This started abruptly at home not long before coming to the hospital by ambulance. He was eating at the time. He complained of nonpleuritic left-sided chest pain but my impression was that this was not an acute coronary syndrome but new atrial fibrillation. He has a history of alcohol use although he says he currently does not drink very heavily. Testing revealed an unremarkable CBC. His basic metabolic panel showed some mild worsening of his renal function. His creatinine is 1.51. His baseline creatinine is closer to 1.1. EKG showed atrial fibrillation with a rapid ventricular response at 134 beats per minute. Nonspecific ST changes. TSH is normal. Chest x-ray showed bibasilar atelectasis or infiltrates, possible left pleural effusion. I do not think he has pneumonia. The patient was treated with IV diltiazem. In his response was not very remarkable. He was also given oral diltiazem and additional IV diltiazem. Ultimately was started on a diltiazem drip because of persistent tachycardia. Because of persistent tachycardia the patient will be admitted to the hospitalist service on a diltiazem drip for further care. Lab Data 10/14/24 20:24 10/14/24 20:24 Labs: Lab Results 10/14/24 10/14/24 Range/Units 20:24 22:15 WBC 13.6 H (4.8-10.8) X10*3/uL RBC 4.78 (4.60-5.80) X10*6/uL Hgb 16.2 (14.0-18.0) g/dl Hct 45.9 (42.0-52.0) % MCV 96.0 (80.0-98.0) fL MCH 33.9 H (27.0-33.0) pg MCHC 35.3 (31.0-36.0) g/dl RDW 12.8 (11.0-16.0) % Plt Count 231 (160-400) X10*3/uL MPV 9.1 L (9.4-12.4) fL Immature Gran % (Auto) 0.3 (0.0-0.4) % Neut % (Auto) 62.1 (45-73) % Lymph % (Auto) 27.1 (20-40) % [place] % (Auto) 9.5 (2-11) % Eos % (Auto) 0.6 (0-4) % Baso % (Auto) 0.4 (0-2) % Lymph # (Auto) 3.7 (1.2-4.9) X10*3/uL [place] # (Auto) 1.3 H (0.1-1.2) X10*3/uL Eos # (Auto) 0.1 (0.0-0.4) X10*3/uL Baso # (Auto) 0.1 (0.0-0.2) X10*3/uL Abs Immat Gran (auto) 0.04 H (0.00-0.03) X10*3/uL Absolute Neuts (auto) 8.4 H (2.0-8.3) x10*3/uL Absolute Nucleated RBC 0.000 (0.0-0.012) X10*3/uL Nucleated RBC % (auto) 0.0 (0.0-0.2) /100WBC PT 11.6 (10.9-12.4) SEC INR 1.0 (0.9-1.1) D-Dimer High Sensitivty < 150 NG/ML Sodium 144 (135-145) mmol/L Potassium 3.8 (3.3-5.1) mmol/L Chloride 104 (96-108) mmol/L Carbon Dioxide 29 (22-29) mmol/L Anion Gap 15 (12-20) BUN 17 H (9-16) mg/dL Creatinine 1.51 H (0.5-1.4) mg/dL Estim Creat Clear Calc 59.0 Estimated GFR 46 Random Glucose 205 H (60-115) mg/dL Calcium 9.1 (8.4-10.2) mg/dL Magnesium 1.7 (1.6-2.6) mg/dL Total Bilirubin 0.4 (0.0-1.0) mg/dL Direct Bilirubin 0.2 (0.0-0.5) mg/dL AST 26 (5-37) U/L ALT 30 (0-40) U/L Alkaline Phosphatase 93 (39-117) U/L Troponin I High Sens 8.9 D 19.1 D (<3.5-35.0) ng/L Total Protein 7.4 (6.5-8.0) g/dL Albumin 4.1 (3.5-5.0) g/dL TSH 1.99 (0.32-4.0) uIU/mL Ethyl Alcohol < 10 mg/dL Influenza Type A (PCR) NEGATIVE (Negative) Influenza Type B (PCR) NEGATIVE (Negative) RSV RNA Qual (PCR) NEGATIVE (Negative) SARS-CoV-2 RNA (RT-PCR) NEGATIVE (Negative) Critical Care Time Critical Care Time Critical Care Time: Yes Total Critical Care Time: 35 Attestation: The patient was critically ill with a high probability of imminent or life-threatening deterioration. ?I spent greater than 30 minutes of discontinuous time evaluating the patient, delivering critical care at the bedside, discussing evaluating data with consultants. ?Critical care time does not include time spent performing separately billable procedures or teaching. ?Time spent performing critical care with 35 minutes. Discharge Plan Discharge Clinical Impression: Atrial fibrillation with rapid ventricular response Patient Disposition: Admitted As Inpatient
[2024-10-14 19:55] VITALS: BP 136/65; PULSE 134; RESP 15; O2SAT 95
--- NOTE | 2024-10-14 19:56 | ECG_ITS ---
Test Reason : cp Blood Pressure : */* mmHG Vent. Rate : 134 BPM Atrial Rate : * BPM P-R Int : * ms QRS Dur : 80 ms QT Int : 346 ms P-R-T Axes : * 58 11 degrees QTcB Int : 516 ms Atrial fibrillation with rapid ventricular response Nonspecific ST abnormality Abnormal ECG When compared with ECG of 27-Aug-2023 02:03, Atrial fibrillation has replaced Sinus rhythm Vent. rate has increased by [address] no longer elevated in Inferior leads Non-specific change in ST segment in Anterolateral leads Referred By: Augustin Ceballos Electronically Signed By: TRAVIS KOEHLER
[2024-10-14 20:15] VITALS: BP 130/75; PULSE 142
[2024-10-14 20:28] LABS: MANUAL DIFF FLAG NO
[2024-10-14 20:29] LABS: Hematocrit 45.9 % (42.0-52.0); Hemoglobin 16.2 g/dl (14.0-18.0); Imm Gran Abs Auto 0.04 X10*3/uL (0.00-0.03); Imm Gran Pct Auto 0.3 % (0.0-0.4); Lymphocytes Absolute Auto 3.7 X10*3/uL (1.2-4.9); Mean Corpuscular HGB Conc 35.3 g/dl (31.0-36.0); Mean Corpuscular Hemoglobin 33.9 pg (27.0-33.0); Mean Corpuscular Volume 96.0 fL (80.0-98.0); NRBC Abs Auto 0.000 X10*3/uL (0.0-0.012); NRBC Pct Auto 0.0 /100WBC (0.0-0.2); Platelet Count 231 X10*3/uL (160-400); Red Blood Count 4.78 X10*6/uL (4.60-5.80); White Blood Count 13.6 X10*3/uL (4.8-10.8)
[2024-10-14 20:34] LABS: INTERNATIONAL NORM RATIO 1.0 (0.9-1.1); Prothrombin Time 11.6 SEC (10.9-12.4)
[2024-10-14 20:49] LABS: Troponin-I High Sensitivity 8.9 ng/L (<3.5-35.0)
[2024-10-14 20:50] LABS: Alanine Aminotransferase 30 U/L (0-40); Albumin Level 4.1 g/dL (3.5-5.0); Alkaline Phosphatase 93 U/L (39-117); Anion Gap 15 (12-20); Aspartate Amino Transferase 26 U/L (5-37); Blood Urea Nitrogen 17 mg/dL (9-16); Calcium 9.1 mg/dL (8.4-10.2); Carbon Dioxide 29 mmol/L (22-29); Chloride 104 mmol/L (96-108); Creatinine Clr Calc Pharmacy 59.0; Estimated Glomerular Filt Rate 46; Magnesium 1.7 mg/dL (1.6-2.6); Potassium 3.8 mmol/L (3.3-5.1); Sodium 144 mmol/L (135-145); Total Protein 7.4 g/dL (6.5-8.0)
[2024-10-14 20:55] VITALS: BP 126/60; PULSE 116
[2024-10-14 21:03] LABS: Thyroid Stimulating Hormone 1.99 uIU/mL (0.32-4.0)
[2024-10-14 21:08] LABS: Resp Syncy Virus RNA Qual PCR NEGATIVE (Negative); SARS COV2 PCR INHOUSE NEGATIVE (Negative)
[2024-10-14 21:53] LABS: D Dimer High Sensitivity < 150 NG/ML
[2024-10-14 22:39] LABS: Troponin-I High Sensitivity 19.1 ng/L (<3.5-35.0)
--- NOTE | 2024-10-14 22:51 | PM.IMHP ---
History of Present Illness Date of Service: 10/14/24 Chief Complaint: chest pain 68-year-old male with a past medical history of COPD, GLORIA, BPH, prostate cancer; presented to the hospital today with a chief complaint of chest pain. Patient mentioned that to rest at home he developed chest pain associated palpitations. Denies any associated diaphoresis nausea vomiting. Subsequently called EMS and came to the hospital for further evaluation. Denies any chest pain at the time of my interview. Patient denies any fever chills cough or sputum production. Denies any GI or symptoms. Review of all other systems is negative except mentioned above ER course: Per ER team patient was chest pain-free. EKG was nonischemic but noted to be in AFib with rapid ventricular response. Given diltiazem push with no significant improvement subsequently started on diltiazem drip. Troponins were negative. D-dimer was negative. Chest x-ray showed bibasilar infiltrates concerning for pneumonia. [facility] Medical History Somnolence COPD (chronic obstructive pulmonary disease) Obesity Nicotine dependence, cigarettes, uncomplicated Tubulovillous adenoma of colon Family history of ovarian cancer Obstructive sleep apnea Depression Asthma Anxiety Chronic fatigue Primary osteoarthritis of both knees Surgical History History of cystoscopy History of left inguinal hernia repair History of colonoscopy Social History Alcohol intake: former Patient Tobacco Use Status: Current someday Tobacco user Tobacco use type: Cigarette Cigarette Packs Per Day: 0.5 Cigarettes Per Day: 2 Years Smoked: (onset 14yo, 1/2-1ppd x 52yrs, 35PYH) Advance Directives: No Advance Directives Information Provided: No Do you have a plan to hurt others: No Plan Meds Allergies Allergy/AdvReac Type Severity Reaction Status Date / Time latex (Latex) Allergy Mild RASH Verified 10/14/24 19:44 Active Medications: Current Medications Diltiazem HCl 125 mg/ Sodium (Chloride) 125 mls @ 0 mls/hr IVCONT .Q0M IRIS; Protocol Home Medications ?Medication ?Instructions ?Recorded ?Confirmed ?Last Taken ?Type aripiprazole 5 mg tablet 5 mg PO QPM 04/27/22 03/31/23 Unknown History budesonide-formoterol HFA 160 2 puff inhalation BID 07/08/21 06/11/22 Unknown History mcg-4.5 mcg/actuation aerosol inhaler (Symbicort) buspirone 10 mg tablet 10 mg PO DAILY 07/08/21 06/11/22 Unknown History paroxetine HCl 20 mg tablet 20 mg PO QAM 07/08/21 06/11/22 Unknown History quetiapine 25 mg tablet 25 mg PO BEDTIME PRN insomnia 07/08/21 06/11/22 Unknown History albuterol sulfate 2.5 mg/3 mL mg inhalation TID PRN 11/30/22 Unknown History (0.083 %) solution for nebulization albuterol sulfate 90 mcg/actuation 2 puff inhalation Q4-6H PRN 11/30/22 Unknown History aerosol inhaler (Proventil HFA) Physical Exam Vital Signs and Narrative: Vital Signs: Last Vital Signs Pulse 116 H 10/14/24 20:55 Resp 15 10/14/24 19:55 BP 126/60 10/14/24 20:55 Pulse Ox 95 10/14/24 19:55 O2 Del Method Room Air 10/14/24 19:55 BMI result Body Mass Index 40.7 Gen: Appears be in no acute distress HEENT: NCAT, Moist mucosa. Pulmonary: Coarse breath sounds CVS: Normal S1-S2 Abdomen: BS+, Soft, Nontender Extremities: Warm well perfused Neuro: Alert and awake. Results Labs 10/14/24 20:24 10/14/24 20:24 Labs: Laboratory Results - last 24 hr 10/14/24 20:24 MCV 96.0 MCH 33.9 H MCHC 35.3 RDW 12.8 Plt Count 231 MPV 9.1 L Immature Gran % (Auto) 0.3 Neut % (Auto) 62.1 Lymph % (Auto) 27.1 [place] % (Auto) 9.5 Eos % (Auto) 0.6 Baso % (Auto) 0.4 Lymph # (Auto) 3.7 [place] # (Auto) 1.3 H Eos # (Auto) 0.1 Baso # (Auto) 0.1 Abs Immat Gran (auto) 0.04 H Absolute Neuts (auto) 8.4 H Absolute Nucleated RBC 0.000 Nucleated RBC % (auto) 0.0 PT 11.6 INR 1.0 D-Dimer High Sensitivty < 150 Anion Gap 15 Estim Creat Clear Calc 59.0 Estimated GFR 46 Random Glucose 205 H Calcium 9.1 Magnesium 1.7 Total Bilirubin 0.4 Direct Bilirubin 0.2 AST 26 ALT 30 Alkaline Phosphatase 93 Total Protein 7.4 Albumin 4.1 TSH 1.99 Ethyl Alcohol < 10 Influenza Type A (PCR) NEGATIVE Influenza Type B (PCR) NEGATIVE RSV RNA Qual (PCR) NEGATIVE SARS-CoV-2 RNA (RT-PCR) NEGATIVE Assessment and Plan (1) Atrial fibrillation with rapid ventricular response: Status: Acute Plan 68-year-old male with a past medical history of COPD, GLORIA, BPH, prostate cancer; presented to the hospital today with a chief complaint of chest pain/palpitations. Noted to be new onset AFib with RVR. New onset AFib with RVR: Chest pain: Patient currently chest pain-free. Troponins negative. Started on diltiazem drip-will titrate down as tolerated Echocardiogram TSH Cardiology consult Telemetry Will defer to Cardiology in regards to anticoagulation. ? Pneumonia: Chest x-ray showed bibasilar atelectasis versus pneumonia. Empiric guarded doxycycline. Follow up procalcitonin. COPD: Stable. DuoNebs p.r.n. Anxiety/depression: Continue home medications once med rec is completed with arms in a.m.. DVT prophylaxis: Lovenox Code status: Full code Quality Stroke Does the patient have a stroke diagnosis?: No VTE Prior VTE?: No VTE Risk Level:: Medical - moderate - high VTE Device Contraindication: Treatment Not Indicated VTE Drug Contraindication: N/A - Med Ordered
--- NOTE | 2024-10-14 23:00 | PC.NURSE ---
states left CP has decreased from 10/10 to a 4/10 at this time. states his appreciation, smiling. remains alert and oriented, appears less anxious at this time. has stood at bedside independently with urinal with approx 700 mL continent output of urine
[2024-10-14 23:01] VITALS: BP 105/51; PULSE 159
[2024-10-14 23:33] VITALS: BP 118/71; PULSE 138
[2024-10-15] VITALS (9 sets, daily range): BP systolic 96–121; BP diastolic 54–64; PULSE 51–115; RESP 16–20; TEMP 36.4–36.8; O2SAT 94–98
[2024-10-15] MEDS: Lactated Ringers 1,000 ML 100 ML IVCONT ×2 (01:24→10:11)
[2024-10-15] MEDS: 0.9 % Sodium Chloride Flush 3 ML SYRINGE IVFLUSH (01:28)
[2024-10-15 02:45] LABS: Procalcitonin 0.03 ng/mL
[2024-10-15 04:49] LABS: MANUAL DIFF FLAG NO
[2024-10-15 04:57] LABS: Hematocrit 41.4 % (42.0-52.0); Hemoglobin 14.2 g/dl (14.0-18.0); Imm Gran Abs Auto 0.04 X10*3/uL (0.00-0.03); Imm Gran Pct Auto 0.4 % (0.0-0.4); Lymphocytes Absolute Auto 3.4 X10*3/uL (1.2-4.9); Mean Corpuscular HGB Conc 34.3 g/dl (31.0-36.0); Mean Corpuscular Hemoglobin 33.3 pg (27.0-33.0); Mean Corpuscular Volume 97.2 fL (80.0-98.0); NRBC Abs Auto 0.000 X10*3/uL (0.0-0.012); NRBC Pct Auto 0.0 /100WBC (0.0-0.2); Platelet Count 217 X10*3/uL (160-400); Red Blood Count 4.26 X10*6/uL (4.60-5.80); White Blood Count 10.7 X10*3/uL (4.8-10.8)
[2024-10-15 05:17] LABS: Alanine Aminotransferase 20 U/L (0-40); Albumin Level 3.3 g/dL (3.5-5.0); Alkaline Phosphatase 74 U/L (39-117); Anion Gap 12 (12-20); Aspartate Amino Transferase 18 U/L (5-37); Blood Urea Nitrogen 19 mg/dL (9-16); Calcium 7.7 mg/dL (8.4-10.2); Carbon Dioxide 21 mmol/L (22-29); Chloride 110 mmol/L (96-108); Creatinine Clr Calc Pharmacy 81.1; Estimated Glomerular Filt Rate > 60; Potassium 3.8 mmol/L (3.3-5.1); Sodium 139 mmol/L (135-145); Total Protein 6.0 g/dL (6.5-8.0)
[2024-10-15 05:34] LABS: Thyroid Stimulating Hormone 1.80 uIU/mL (0.32-4.0)
--- NOTE | 2024-10-15 05:41 | ECG_ITS ---
Test Reason : BRADYCrdia Blood Pressure : */* mmHG Vent. Rate : 50 BPM Atrial Rate : 50 BPM P-R Int : 160 ms QRS Dur : 82 ms QT Int : 472 ms P-R-T Axes : 47 57 74 degrees QTcB Int : 430 ms Sinus bradycardia Nonspecific T wave abnormality Abnormal ECG When compared with ECG of 14-Oct-2024 19:51, Sinus rhythm has replaced Atrial fibrillation Vent. rate has decreased by 84 bpm Non-specific change in ST segment in Anterior leads Nonspecific T wave abnormality now evident in Lateral leads Referred By: Silviano Aguirre Electronically Signed By: TRAVIS KOEHLER
--- NOTE | 2024-10-15 05:50 | PC.NURSE ---
t/w stopped cardizem drip per may approx 0200 as HR sustaining 80s and bp slightly low, upon stopping bp improved. approx 0305 noted pt HR to be 49BPM sinus gabriel on monitor. pt awakens to name and bp remains wnl. MD Aguirre notified and at 0506 MD got back to this RN to obtain an ekg. ekg done and picture sent to , no new orders at this time. pt remains on his nighttime cpap and denies pain. currently using urinal. call brice within reach.
[2024-10-15 06:24] LABS: Cannabinoid Screen Urine Not Detected (Not Detect)
--- NOTE | 2024-10-15 07:00 | CA_ITS ---
Transthoracic Echocardiogram Patient (Last, First, Middle): Juan Carlos Garcia, Gender: Male Date of : 1955 Age: 68 Procedure Date: 10/15/2024 Procedure Type: Transthoracic Echocardiogram Location: ER Height: 170.18 cm Weight: 117.48 kg BSA: 2.26 m2 Heart Rate: bpm BP: 104 / 63 mmHg Bottom Painter: SB Referring MD: Silviano Aguirre MD Symptoms: afib Study Quality: Adequate with contrast ECG Rhythm: Sinus Conclusions: - The left ventricular systolic function is normal. The calculated ejection fraction is 67% by biplane method. - No obvious valvular pathology seen on this study. Findings Procedure Information Contrast agent, definity, is being given per protocol without apparent complications. Left Ventricle Normal left ventricular cavity size. There is normal left ventricular wall thickness. The left ventricular systolic function is normal. The calculated ejection fraction is 67% by biplane method. There is no evidence of regional wall motion abnormalities. Diastolic function is normal for age. Right Ventricle Normal right ventricular cavity size and systolic function. Atria Both atria are normal in size. Aortic Valve There is a normal trileaflet aortic valve. There is no aortic valve stenosis. Trace to mild aortic regurgitation. Mitral Valve The mitral valve appears normal. There is trace mitral valve regurgitation. There is no mitral valve stenosis. Pulmonic Valve The pulmonic valve is likely normal. Tricuspid Valve Normal tricuspid valve structure. There is trace tricuspid valve regurgitation. Borderline RVSP. Great Vessels The asc aorta is normal in size. Venous The inferior vena cava is mildly dilated and collapses less than 50% with inspiration. Pericardium/Pleural There is no evidence of pericardial effusion. Prior Study Comparison No significant change compared to prior study dated: 08/11/2021. Recommendations, Care & Conclusions No obvious valvular pathology seen on this study. Measurements 2D Linear Measurements IVSd: 0.85 0.6-0.9/0.6-1.0 cm LVIDd: 4.61 3.9-5.3/4.2-5.9 cm LVIDd Index: 2.04 2.4-3.2/2.2-3.1 cm/m2 LVIDs: 3.07 2.0-3.6 cm LVPWd: 0.78 0.7-1.1 cm LA Diam: 3.30 2.7-3.8/3.0-4.0 cm LAIDs Index: 1.46 1.5-2.3 cm/m2 LV Mass: 150.92 67-162/88-224 g LV Mass Index: 66.78 43-95/49-115 g/m2 LVOT Diam: 2.30 3.0+(-)1.3 cm 2D Systolic Function EF 4C: 58.70 >55% EF 2C: 71.20 >55% EF BiP: 66.80 >55% Mitral Valve MV Pk E: 0.67 MV PK A: 0.54 MV Decel Time: 230.00 E/A: 1.20 E'Lateral: 10.10 E'Medial: 6.74 E/E' Med: 9.90 E/E' Lat: 6.60 PHT: 67.00 MVA PHT: 3.28 Decel [place]: 2.91 Aortic Valve AoV Pk Hi: 1.21 AoV Mn Hi: 0.85 AoV VTI: 0.29 AoV Pk Grad: 6.00 Aov Mn Grad: 3.00 JOEY Cont.VTI: 3.14 AI Pk Hi: 3.84 AI [place]: 1.40 LVOT LVOT Pk Hi: 0.83 LVOT Mn Hi: 0.62 LVOT VTI: 0.22 LVOT Pk Grad: 3.00 LVOT Mn Grad: 2.00 LVOT Diam: 2.30 LVOT Area: 4.15 Diastolic Function MV Pk E: 0.67 MV Pk A: 0.54 E/A: 1.20 E'Medial: 6.74 E/E' Med: 9.90 E' Laterial: 10.10 E/E' Lat: 6.60 Right Ventricle TAPSE (mm): 18.30 TVS' Hi: 11.40 Tricuspid Valve TR Pk Hi: 2.38 TR Pk Grad: 23.00 RA Press: 15.00 RVSP: 38.00 Great Vessels Aorta Sinus of Valsalva: 4.00 2.0-3.5 cm Ao Asc: 3.70 2.1-3.4 cm Ao Arch: 3.10 Pulmonary Valve PV Pk Hi: 0.61 Peak PV Grad: 1.00 Updated in Other Vendor System with Status of Final Savage Blancas MD electronically signed on 10/15/2024 11:07:54 AM with status of Final
--- NOTE | 2024-10-15 09:44 | PM.DS ---
DS: Providers Provider Date of Service: 10/15/24 Date of admission: 10/14/24 22:48 Date of discharge: 10/15/24 Primary care physician: Unknown Physician Consults: 10/14/24 22:48 Consult to Cardiology Routine Consulting Provider: [facility] Reason for consultation: new afib DS: Diagnosis Discharge Diagnosis (1) Atrial fibrillation with rapid ventricular response: Status: Acute DS: Summary Hospital Course Hospital Course: admission HPI: 68-year-old male with a past medical history of COPD, GLORIA, BPH, prostate cancer; presented to the hospital today with a chief complaint of chest pain. Patient mentioned that to rest at home he developed chest pain associated palpitations. Denies any associated diaphoresis nausea vomiting. Subsequently called EMS and came to the hospital for further evaluation. Denies any chest pain at the time of my interview. Patient denies any fever chills cough or sputum production. Denies any GI or symptoms. ER course: Per ER team patient was chest pain-free. EKG was nonischemic but noted to be in AFib with rapid ventricular response. Given diltiazem push with no significant improvement subsequently started on diltiazem drip. Troponins were negative. D-dimer was negative. Chest x-ray showed bibasilar infiltrates concerning for pneumonia. Hospital course: 68 yo male admitted with new onset Atrial fibrilation with rapid ventricular response of unknown etiology, presenting with left sided chest pain and palpitations. Initial vital signs: HR 116, RR 15, BP 126/60, 02 sat 95% on RA. He has a history of alcohol use- states however currently does not drink very heavily. Unremarkable CBC, TSH is normal. BMP showed some mild worsening renal function: creatinine 1.51, baseline creatinine is closer to 1.1. EKG showed atrial fibrillation with a rapid ventricular response at 134 beats per minute. Nonspecific ST changes. Chest x-ray showed bibasilar atelectasis or infiltrates, possible left pleural effusion. The patient was treated ultimately with IV diltiazem, as his oral response was not very remarkable. Afib with RVR resolved, HR 51. Asymptomatic at this time. Discharged home with metoprolol xl 25 mg daily and eliquis 5 mg bid and outpatient follow up with Dr. Blancas. Echocardiogrma show - The left ventricular systolic function is normal. The calculated ejection fraction is 67% by biplane method. - No obvious valvular pathology seen on this study. Status at Discharge Functional status at discharge: independent ambulation Overall status at discharge: patient is back to baseline Time Attestation Discharge Coordination Time (in mins): 35 Quality: Safe Use of Opioids Does Pt have an Active Cancer Diagnosis on the Problem List?: No Quality: Stroke Does the patient have a stroke diagnosis?: No Physical Exam Exam: Exam: Gen: Appears be in no acute distress HEENT: NCAT, Moist mucosa. Pulmonary: CTA CVS: Normal S1-S2 Abdomen: BS+, Soft, Nontender Extremities: Warm well perfused Neuro: Alert and awake. Vital Signs: Vital Signs: 60 hr 121/60 18 RR 96% RA Discharge Plan Discharge Anticipated Discharge Date/Time: 10/15/24 10:24 Patient Disposition: Home, Self-Care Discharge Diagnosis: Atrial fibrillation with rapid ventricular response Referrals: Physician,Unknown J [Primary Care Provider, Medical] - 1 Week Discharge Medications: New Eliquis 5 mg Tablet 5 mg PO BID Qty: 180 0RF metoprolol succinate [Toprol XL] 25 mg tablet extended release 24 hr 25 mg PO DAILY Qty: 90 0RF Continued Zyrtec 10 mg capsule 10 mg PO DAILY Qty: 14 0RF budesonide-formoterol [Symbicort] 160-4.5 mcg/actuation HFA aerosol inhaler 2 puff inhalation BID aripiprazole 5 mg tablet 5 mg PO BEDTIME buspirone 10 mg tablet 10 mg PO DAILY paroxetine HCl 20 mg tablet 20 mg PO DAILY quetiapine 25 mg tablet 25 - 50 mg PO BEDTIME PRN (Reason: insomnia) albuterol sulfate 2.5 mg /3 mL (0.083 %) solution for nebulization 2.5 mg inhalation TID PRN (Reason: Wheezing) albuterol sulfate [Proventil HFA] 90 mcg/actuation HFA aerosol inhaler 2 puff inhalation Q4H PRN (Reason: Wheezing) Discharge Orders: Discharge Order (Routine); Ordered 10/15/24 Ordered By: Te Chapman Diet: Advance to usual diet Activity on Discharge: As tolerated Stand Alone Forms: Patient Portal Discharge page Print Language: Syriac Care Plan Goals: heart rate control refrain from alcohol use Health Concerns: Afib w/ RVR Plan of Treatment: Follow up with cardiology outpatient Monitor heart rate and blood pressure Take metoprolol to control heart rate and eliquis to thin your blood and prevent stroke Assessment: see above
--- NOTE | 2024-10-15 09:50 | MHC.CM.PN ---
PATIENT IS IPTA. USES CPAP AT NIGHT PCP DR MCKEON. CM OFFICE NOTIFIED. HCP REPORTEDLY ON FILE. CM FOLLOWING FOR DC NEEDS.
--- NOTE | 2024-10-15 09:51 | PM.CNCAR ---
History of Present Illness History of Present Illness Date of Service: 10/15/24 Chief complaint: new afib Narrative: This is a cardiology consultation regarding atrial fibrillation. Patient with a history of COPD, prostate cancer and other comorbidities. He essentially presents with complaints of chest pain associated with palpitations. He was resting at home and these symptoms started. Per patient, there is no prior history of coronary disease or myocardial infarction or cardiomyopathy or in fact anything else of concern. He denies any exertional angina but apparently gets very tired and with some shortness of breath with activity. Upon evaluation in the ER, noted to be in atrial fibrillation rapid rate. He got diltiazem and then improved. Subsequently put on diltiazem drip. It seems that he then converted to sinus rhythm. Currently, he states he feels okay. [facility] Past Medical History Medical History Somnolence COPD (chronic obstructive pulmonary disease) Obesity Nicotine dependence, cigarettes, uncomplicated Tubulovillous adenoma of colon Family history of ovarian cancer Obstructive sleep apnea Depression Asthma Anxiety Chronic fatigue Primary osteoarthritis of both knees Family History Pertinent family history: Per patient, mother and father had some cancer but he is very vague about it. Surgical History Surgical History History of cystoscopy History of left inguinal hernia repair History of colonoscopy Social History Social History Alcohol intake: former Patient Tobacco Use Status: Current someday Tobacco user Tobacco use type: Cigarette Cigarette Packs Per Day: 0.5 Cigarettes Per Day: 2 Years Smoked: (onset 14yo, 1/2-1ppd x 52yrs, 35PYH) Smoked in Last 30 Days: No Use of substances other than those prescribed or required for medical reasons: No Advance Directives: No Advance Directives Information Provided: No Do you have a plan to hurt others: No Plan Meds Allergies Allergy/AdvReac Type Severity Reaction Status Date / Time latex (Latex) Allergy Mild RASH Verified 10/14/24 19:44 Active Medications: Current Medications Acetaminophen (Acetaminophen 325 Mg Tablet) 650 mg PO Q6H PRN PRN Reason: Pain, Mild 1-3,fever,headache Albuterol/Ipratropium (Albuterol/Iprat 2.5/0.5mg 3 Ml Ampul.Neb) 3 ml INHALE Q4H PRN PRN Reason: Shortness of Breath/Wheezing Benzonatate (Benzonatate 100 Mg Capsule) 100 mg PO TID PRN PRN Reason: Cough Calcium Carbonate (Calcium Carbonate 750 Mg Tab.Chew) 750 mg PO Q4H PRN PRN Reason: Heartburn Doxycycline Monohydrate (Doxycycline Monohydrate 100 Mg Capsule) 100 mg PO Q12H [facility] Last Admin: 10/15/24 01:12 Dose: 100 mg Enoxaparin Sodium (Enoxaparin Sodium 40 Mg/0.4 Ml Syringe) 40 mg SUBCUT Q24H [facility] Last Admin: 10/15/24 01:12 Dose: 40 mg Diltiazem HCl 125 mg/ Sodium (Chloride) 125 mls @ 0 mls/hr IVCONT .Q0M [facility]; Protocol Last Titration: 10/15/24 02:05 Dose: 0 mg/hr, 0 mls/hr Lactated Ringer's (Lr) 1,000 mls @ 100 mls/hr IVCONT .Q10H [facility] Last Admin: 10/15/24 01:24 Dose: 100 mls/hr Magnesium Hydroxide (Milk Of Magnesia 30 Ml Oral.Susp) 30 ml PO DAILY PRN PRN Reason: Constipation Melatonin (Melatonin 3 Mg Tablet) 6 mg PO BEDTIME PRN PRN Reason: Insomnia Sodium Chloride (0.9 % Sodium Chloride Flush 3 Ml Syringe) 3 ml IVFLUSH QSHIFT [facility] Last Admin: 10/15/24 08:09 Dose: Not Given Home Medications ?Medication ?Instructions ?Recorded ?Confirmed ?Last Taken ?Type aripiprazole 5 mg tablet 5 mg PO QPM 07/08/21 06/11/22 Unknown History budesonide-formoterol HFA 160 2 puff inhalation BID 07/08/21 06/11/22 Unknown History mcg-4.5 mcg/actuation aerosol inhaler (Symbicort) buspirone 10 mg tablet 10 mg PO DAILY 07/08/21 06/11/22 Unknown History paroxetine HCl 20 mg tablet 20 mg PO QAM 07/08/21 06/11/22 Unknown History quetiapine 25 mg tablet 25 mg PO BEDTIME PRN insomnia 07/08/21 06/11/22 Unknown History albuterol sulfate 2.5 mg/3 mL mg inhalation TID PRN 11/30/22 Unknown History (0.083 %) solution for nebulization albuterol sulfate 90 mcg/actuation 2 puff inhalation Q4-6H PRN 11/30/22 Unknown History aerosol inhaler (Proventil HFA) Physical Exam Vital Signs: Vital Signs: Last Vital Signs Temp 98.0 F 10/15/24 01:32 Pulse 51 10/15/24 05:49 Resp 16 10/15/24 05:49 BP 104/63 10/15/24 05:49 Pulse Ox 98 10/15/24 05:49 O2 Del Method CPAP 10/15/24 05:49 BMI result Body Mass Index 40.7 Const: General: comfortable and no acute distress Orientation/consciousness: patient oriented x3 HEENT: Other: Unremarkable Head: Yes normal to inspection Neck: Neck: Yes normal visual inspection Chest: Chest palpation & inspection: normal inspection of the chest Resp: Auscultation: clear to auscultation bilaterally Cardio: Palpation: normal PMI Heart sounds: S1 normal heart sound present, S2 normal heart sound present, no gallops, no murmurs and no rubs GI: Palpation (GI): Soft to palpation Back/Spine/Pelvis: Other: unremarkable Skin: General skin exam: no rashes or lesions noted Neuro: General: patient oriented x3 Extrem: General: Yes normal to inspection Psych: Mental Status: mental status grossly normal Objective Labs and Meds 10/15/24 03:47 10/15/24 03:47 Lab results: Laboratory Results - last 24 hr 10/14/24 10/14/24 10/15/24 20:24 22:15 00:14 WBC 13.6 H RBC 4.78 Hgb 16.2 Hct 45.9 MCV 96.0 MCH 33.9 H MCHC 35.3 RDW 12.8 Plt Count 231 MPV 9.1 L Immature Gran % (Auto) 0.3 Neut % (Auto) 62.1 Lymph % (Auto) 27.1 Mineral % (Auto) 9.5 Eos % (Auto) 0.6 Baso % (Auto) 0.4 Lymph # (Auto) 3.7 Mineral # (Auto) 1.3 H Eos # (Auto) 0.1 Baso # (Auto) 0.1 Abs Immat Gran (auto) 0.04 H Absolute Neuts (auto) 8.4 H Absolute Nucleated RBC 0.000 Nucleated RBC % (auto) 0.0 PT 11.6 INR 1.0 D-Dimer High Sensitivty < 150 Sodium 144 Potassium 3.8 Chloride 104 Carbon Dioxide 29 Anion Gap 15 BUN 17 H Creatinine 1.51 H Estim Creat Clear Calc 59.0 Estimated GFR 46 Random Glucose 205 H Calcium 9.1 Magnesium 1.7 Total Bilirubin 0.4 Direct Bilirubin 0.2 AST 26 ALT 30 Alkaline Phosphatase 93 Troponin I High Sens 8.9 D 19.1 D Total Protein 7.4 Albumin 4.1 Procalcitonin 0.03 TSH 1.99 Urine Opiates Screen Ur Buprenorphine Scrn Ur Oxycodone Screen Urine Methadone Screen Urine Fentanyl Screen Ur Barbiturates Screen Ur Phencyclidine Scrn Ur Amphetamines Screen U Benzodiazepines Scrn Urine Cocaine Screen U Marijuana (THC) Screen Ethyl Alcohol < 10 Influenza Type A (PCR) NEGATIVE Influenza Type B (PCR) NEGATIVE RSV RNA Qual (PCR) NEGATIVE SARS-CoV-2 RNA (RT-PCR) NEGATIVE 10/15/24 10/15/24 03:47 06:06 WBC 10.7 RBC 4.26 L Hgb 14.2 Hct 41.4 L MCV 97.2 MCH 33.3 H MCHC 34.3 RDW 13.1 Plt Count 217 MPV 9.6 Immature Gran % (Auto) 0.4 Neut % (Auto) 57.6 Lymph % (Auto) 31.5 Mineral % (Auto) 9.5 Eos % (Auto) 0.5 Baso % (Auto) 0.5 Lymph # (Auto) 3.4 Mineral # (Auto) 1.0 Eos # (Auto) 0.1 Baso # (Auto) 0.1 Abs Immat Gran (auto) 0.04 H Absolute Neuts (auto) 6.2 Absolute Nucleated RBC 0.000 Nucleated RBC % (auto) 0.0 PT INR D-Dimer High Sensitivty Sodium 139 Potassium 3.8 Chloride 110 H Carbon Dioxide 21 L Anion Gap 12 BUN 19 H Creatinine 1.10 Estim Creat Clear Calc 81.1 Estimated GFR > 60 Random Glucose 213 H Calcium 7.7 L D Magnesium Total Bilirubin 0.4 Direct Bilirubin AST 18 ALT 20 Alkaline Phosphatase 74 Troponin I High Sens Total Protein 6.0 L Albumin 3.3 L Procalcitonin TSH 1.80 Urine Opiates Screen Not Detected Ur Buprenorphine Scrn Not Detected Ur Oxycodone Screen Not Detected Urine Methadone Screen Not Detected Urine Fentanyl Screen Not Detected Ur Barbiturates Screen Not Detected Ur Phencyclidine Scrn Not Detected Ur Amphetamines Screen Not Detected U Benzodiazepines Scrn Not Detected Urine Cocaine Screen Not Detected U Marijuana (THC) Screen Not Detected Ethyl Alcohol Influenza Type A (PCR) Influenza Type B (PCR) RSV RNA Qual (PCR) SARS-CoV-2 RNA (RT-PCR) ECG Interpretation: Initial EKG showed atrial fibrillation at a rate of 134/Min. Repeat EKGs shows sinus bradycardia at 50/Min. Assessment and Plan (1) Atrial fibrillation with rapid ventricular response: Status: Acute Currently in sinus bradycardia. In prior EKG from 2023, his sinus rhythm rate was 69/Min which may be his baseline. He does have bradycardia now could be related to IV diltiazem use. Once that improves, we can use oral diltiazem. Anticoagulation with Eliquis. Complete his echocardiogram. (2) Precordial chest pain: Status: Acute Could be related to atrial fibrillation but he could also have underlying coronary disease. Can pursue ischemic workup as an outpatient. 2nd troponins higher than the 1st but still within range. Procedures Date of Service Date of Service: 10/15/24
--- NOTE | 2024-10-15 10:50 | PHA.MEDREC ---
Pharmacy Consult ? Medication Reconciliation Pharmacy has completed the medication reconciliation. Pt told me he fills at [facility]. Spoke with them to confirm medication list.
--- NOTE | 2024-10-15 13:09 | MHC.CM.PN ---
PATIENT IS DC HOME WITH NO SERVICE NEEDS
== END 2024-10-15 15:11 | disposition home or self-care (01) | DRG 201 ==
LOC: HO.ED 22:49 → HO.EDOVER 22:53
PROVIDERS: Admitting Provider Hospitalist; Emergency Provider Emergency Medicine; Visit Provider Internal Medicine
DX: I48.91 Unspecified atrial fibrillation (principal); J18.9 Pneumonia, unspecified organism; J98.11 Atelectasis; F41.9 Anxiety disorder, unspecified; F32.A Depression, unspecified; J44.0 Chronic obstructive pulmonary disease with (acute) lower respiratory infection; F17.210 Nicotine dependence, cigarettes, uncomplicated; G47.33 Obstructive sleep apnea (adult) (pediatric); Z71.6 Tobacco abuse counseling; Z20.822 Contact with and (suspected) exposure to COVID-19; Z79.899 Other long term (current) drug therapy
CPT/HCPCS: 36415; 71045; 80048; 80053; 80076; 80307; 83735; 84145; 84443; 84484; 85025; 85379; 85610; 87637; 93005; 93306; 94660; 99285; J1163; J1650; J7120; Q9957

== ENCOUNTER → 2024-10-14 19:59 | Outpatient (BNV) | payer MEDICAID, SELFPAY | PROVIDERS: Emergency Provider Emergency Medicine; Visit Provider Radiology Diagnostic Radiology | DX: J98.11 Atelectasis (principal) | CPT/HCPCS: 71045 ==

== ENCOUNTER 2024-10-14 22:48 | Outpatient (BNV) | payer MEDICAID, SELFPAY | END 2024-10-15 07:00 | PROVIDERS: Admitting Provider Hospitalist; Emergency Provider Emergency Medicine; Visit Provider Internal Medicine | DX: I35.1 Nonrheumatic aortic (valve) insufficiency (principal); I48.91 Unspecified atrial fibrillation; R00.1 Bradycardia, unspecified | CPT/HCPCS: 93010; 93306 ==

== ENCOUNTER → 2024-10-14 22:48 | Outpatient (BNV) | payer MEDICAID, SELFPAY | PROVIDERS: Admitting Provider Hospitalist; Emergency Provider Emergency Medicine; Visit Provider Internal Medicine | DX: I48.91 Unspecified atrial fibrillation (principal); R07.2 Precordial pain | CPT/HCPCS: 93010; 99223 ==

== ENCOUNTER → 2024-10-14 22:48 | Outpatient (BNV) | payer MEDICAID, SELFPAY | PROVIDERS: Admitting Provider Hospitalist; Emergency Provider Emergency Medicine; Visit Provider Internal Medicine | DX: I48.91 Unspecified atrial fibrillation (principal) | CPT/HCPCS: 99239 ==

== ENCOUNTER 2024-10-19 14:55 | Outpatient (AMB) | payer MEDICAID, SELFPAY ==
--- NOTE | 2024-10-19 15:07 | A.OFFVIS_ITS ---
Intake Visit Reasons: follow up/PETCT Intake Note: Patient is present for follow up Urology Medication:NONE Antibiotic Allergy:NONE Blood Thinner:NONE Imaging done : PETCT 09/10/2024 , MRI 07/23/2024 Grinding Room Inspector Required: No Accompanied by: Other Relationship Allergies latex (Latex) Allergy (Mild, Verified 10/19/24 15:11) RASH HPI Comments Details: Juan Carlos is a pleasant male. He is a patient of Dr Diez. He seen for the following urologic issues - lower urinary tract symptoms - weak stream - gross hematuria Bol[place]ian translation by qualified medical cost consultant Accompanied by his daughter Discussion regarding prostate MRI and PSMA PET finding No evidence of extension of disease outside prostate No evidence of bony or boris disease Moderate volume, unfavorable intermediate, organ confined disease Based on comorbidities and significant volume of disease at base of prostate recommendation for external beam radiation with short term hormone therapy Would be candidate for SpaceOAR Risks and benefits discussed Plan GnRH within next 2 weeks Referral to radiation oncology for assessment, would plan on SpaceOAR placement 4-6 weeks after GnRH Poor response to tamsulosin. Switch alfuzosin. Add finasteride. Prostate Cancer - Grade Group 3 7 (4+3) (right mid lateral 30% and medial 30%), 7 (3+4) (right base lateral 90% and medial 70%, left base medial, and right apex lateral 60%) 6 (3+3) (left base lateral) % of pattern 4: 45% - Grade group: 3, 2 and 1 Tumor quantitation: - Number cores positive: 7 Total number of cores: 13 % of tissue involved: 26% Periprostatic fat inv.: Not identified Seminal vesicle inv.: Not identified Perineural inv.: Present Lymphatic and/or vascular invasion: Not identified Family cancers include - mother - uterus cancer Prostate MRI 10/05 Bilateral peripheral zone mid segment to apex most prominent in right mid segment PSMA PET - 1.5 x 1.5 cm right mid enhancement Lower urinary tract symptoms Initial symptoms include weakness of stream, incomplete bladder emptying, urinary hesitancy Medications finasteride and tamsulosin Cystoscopy - oval-shaped prostate PSA 07/02 4.3, 07/03 3.2, 01/02 4.0. 10/04 7.0 13%, 04/07 11.3 Gross hematuria Single episode Smoking history 40 years pack per day Work place exposure [employer] [facility] Medical History Somnolence COPD (chronic obstructive pulmonary disease) Obesity Nicotine dependence, cigarettes, uncomplicated Tubulovillous adenoma of colon Family history of ovarian cancer Obstructive sleep apnea Depression Asthma Anxiety Chronic fatigue Primary osteoarthritis of both knees Surgical History History of cystoscopy History of left inguinal hernia repair History of colonoscopy Social History Alcohol intake: former Patient Tobacco Use Status: Current someday Tobacco user Tobacco use type: Cigarette Cigarette Packs Per Day: 0.5 Cigarettes Per Day: 2 Years Smoked: (onset 14yo, 1/2-1ppd x 52yrs, 35PYH) Review of Systems Const Denies chills and Denies fever(s) Card Reports no additional complaints and Denies syncope Resp Denies cough GI Denies abdominal pain and Denies heartburn Reports as per HPI and Denies change in libido Neuro Denies syncope Psych Denies change in libido Endo Denies change in libido Physical Exam Const General: cooperative, healthy appearing, comfortable and no acute distress Orientation/consciousness: patient oriented x3 HEENT Face and sinus: Yes normal facial exam Mouth: moist mucous membranes Neck Neck: Yes normal visual inspection, Yes full ROM and Yes trachea midline Chest Chest palpation & inspection: normal inspection of the chest Resp Effort & Inspection: normal respiratory effort, able to speak in complete sentences and no respiratory distress GI Inspection: Yes normal to inspection Back/Spine/Pelvis Cervical Spine: normal cervical lordosis Thoracic/Lumbar Spine: thoracic and lumbar spine normal to inspection Skin General skin exam: no rashes or lesions noted Neuro General: patient oriented x3, gait normal, tone normal and moves all extremities Extrem General: Yes normal to inspection and Yes capillary refill normal Assessment & Plan Assessment & Plan (1) Hormone sensitive prostate cancer: Comment: Grade group 3, PSA 11 Code(s): C61 - Malignant neoplasm of prostate; Z19.1 - Hormone sensitive malignancy status Category: Medical Plan Referral radiation oncology [facility] 2 weeks Orders: Referrals Radiation Oncology Referral C61 - Malignant neoplasm of prostate, Z19.1 - Hormone sensitive malignancy status Medications: New alfuzosin ER 10 mg PO DAILY 30 tabs 1RF 30 days N13.8 - Other obstructive and reflux uropathy, N40.1 - Benign prostatic hyperplasia with lower urinary tract symptoms finasteride 5 mg PO DAILY 90 tabs 1RF 90 days N13.8 - Other obstructive and reflux uropathy, N40.1 - Benign prostatic hyperplasia with lower urinary tract symptoms Patient Instructions: This note is constructed using voice recognition software. While every effort has been made to ensure accuracy ship manager errors may have been included. Imaging studies, laboratory and physical exam results were discussed and reviewed in detail. No major barriers to patient understanding were identified. An opportunity to ask questions regarding the treatment plan was provided. All questions were answered. The patient expressed understanding and agreement with the above treatment plan. The patient is aware they should contact our office by phone for worsening of their current condition or the appearance of new urologic symptoms. Compliance is encouraged with any medications and followup testing that is ordered. It is a privilege to participate in the urologic care of your patient. If you have any questions or concerns regarding treatment for the above conditions, or other urologic issues, please do not hesitate to contact me. The office telephone contact is [phone]. Sincerely, Dr Jose Cherry MD, [facility] - Urology Compassionate Specialist Care for the Genitourinary System Coding Level of Care Code Est Pt Level 4 (87537) Complex EM visit Add On G2211 Diagnoses Hormone sensitive prostate cancer C61; Z19.1
== END 2024-10-19 16:00 | disposition home or self-care (01) ==
LOC: HO.HUSH 14:55
PROVIDERS: PCP Internal Medicine; Visit Provider Urology
DX: C61 Malignant neoplasm of prostate (principal); Z19.1 Hormone sensitive malignancy status
CPT/HCPCS: 99214

== ENCOUNTER → 2024-10-19 14:55 | Outpatient (BNVA) | payer MEDICAID, SELFPAY | PROVIDERS: PCP Internal Medicine; Visit Provider Urology | DX: C61 Malignant neoplasm of prostate (principal); Z19.1 Hormone sensitive malignancy status; N40.1 Benign prostatic hyperplasia with lower urinary tract symptoms; N13.8 Other obstructive and reflux uropathy; R31.29 Other microscopic hematuria | CPT/HCPCS: 99212 ==

== ENCOUNTER 2024-11-02 13:05 | Outpatient (AMB) | payer MEDICAID, SELFPAY ==
--- OUTSIDE RECORDS SUMMARY | 2024-11-02 13:08 | XMS_ITS | Clinical Summary ---
Author Organization [employer] Address [address] [facility] 7t [place] [address] Care Team Providers Care Piecer Name Role Phone Rachid Lee MD Primary Care Provide r Jose Cherry MD Unavailable Allergies Active Allergy Reactions Criticality Noted Date [...] AFTER USING. 10.2 g 6 5 Active cetirizine (ZyrTEC) 10 MG tabletIndications :Seasonal allergies TAKE 1 TABLET BY MOUTH EVERY EVENING 90 tablet 1 5 Active acetaminophen (Tylenol Extra Strength) 500 MG tabletIndications :Acute left-sided low back pain without sciatica Take 1 tablet (500 mg) by mouth every 6 (six) hours if needed for mild pain. 60 tablet 5 Active tiZANidine (Zanaflex) 2 MG tabletIndications :Acute left-sided low back pain without sciatica Take 1 tablet (2 mg) by mouth every 8 (eight) hours if needed for muscle spasms. 30 tablet 5 Active ibuprofen 800 MG tabletIndications :Acute left-sided low back pain without sciatica TAKE 1 TABLET BY MOUTH EVERY TWELVE HOURS NEEDED FOR MILD PAIN 30 tablet 5 Active Active Problems Problem Noted Date Diagnosed Date Forgetfulness 09/04/2024 Assessment & Plan (09/04/2024 11:55 AM EDT): Patient c/o worsening forgetfulness Plan: Obtain B12, Folate, RPR, TSH Neurology referral Adenocarcinoma of prostate 06/29/202406/26 Assessment & Plan (09/04/2024 11:49 AM EDT): Patient recently diagnosed with Prostate CA PSA 05/02/2024 higher at 11.33 from 7 Under the care of Dr. Cherry. Pt last saw Dr Cherry 07/11/24. Follow up with Dr Cherry booked for 10/19/24. Plan was MRI of prostate and PET scan at most recent appt. MRI prostate completed 07/23/24. Scheduled for PET CT Grade I hemorrhoids 01/26/2024 Assessment & Plan [...] me he was called by someone in mauritanian so he did not understand. Today we [...] he was last seen by Urology 07/07/2021 [facility] health care 10/05/2022 Assessment & Plan (09/04/2024 11:50 AM EDT): Recently diagnosed with Prostate CA under the care of Dr. Cherry Colonoscopy: 06/11/2022 showed tubulovillous adenoma negative for high-grade dysplasia Dr Navneet valerio 3 to 5 years Assessment & Plan (05/29/2024 12:02 PM EDT): [...] pt continues to decline to see our peoplesoft hcm developer or go to the comprehensive weight management program Patient has been counseled and educated about diet and exercise. Personal goal of weight loss discussed Assessment & Plan (09/22/2023 1:06 PM EDT): Managed to loose weight since our last visit pt continues to decline to see our peoplesoft hcm developer or go to the comprehensive weight management program Patient has been counseled and educated about diet and exercise. Personal goal of weight loss discussed Assessment & Plan (10/05/2022 10:04 AM EDT): Discussed need to loose weight , information about the comprehensive weight management program given to patient in the past. pt declines to see our peoplesoft hcm developer or go to the comprehensive weight management program Patient has been counseled and educated about diet and exercise. 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 02/26/2021 Assessment & Plan (09/04/2024 11:54 AM EDT): Under the care of Braden Scott at [facility] Seeing a psychiatrist Chronic anxiety 02/26/2021 Moderate persistent asthma with [...] No recent exacerbations Being followed by our [facility] Asthma Pharmacy Team Currently on Symbicort [...] No recent exacerbations Being followed by our [facility] Pharm[facility] Team Currently on Symbicort [...] No recent exacerbations Being followed by our [facility] Ast[facility] Pharmacy Team Currently on Symbicort [...] No recent exacerbations Being followed by our [facility] Pharmacy Team Currently on Symbicort [...] results in patients with liver disease. Resulting [facility] Specimen Collected: 01/07/23 10:27 Last Resulted: 01/07/23 15:52 currently controlled with diet alone advised to try to adhere to a low cholesterol diet, counseled and educated about diet and exercise Repeat Lipid profile Assessment & Plan (01/20/2023 11:30 AM EST): Pt here for a f/u Most recent lipid profile from: Component Ref Range & Units 13 d ago Triglycerides <150 mg/dL 217 High Comment: Desirable [...] less than 100 mg/dLNear Optimal/Above Optimal LDL: 110-129 mg/dLBorderline High LDL: 130-159 mg/dLHigh LDL: 160-189 mg/dLVery High LDL: greater than or equal to 190 mg/dL HDL Cholesterol >40 mg/dL 33 Low Comment: Desirable HDL: greater than 40 mg/dL Note: This HDL assay may give artificially low results in patients with liver disease. Resulting [facility] Specimen Collected: 01/07/23 10: Last Resulted: 01/07/23 15:52 currently controlled with [...] using his Cpap because a Dr[place] in [place] told him to stop using it because it was damaging his lungs Last visit I tried to reassured him that this is not the case unsuccessfully. Resolved Problems Problem Noted Date Diagnosed Date Resolved Date Prostate cancer 10/05/2022 09/04/2024 Assessment & Plan (05/29/2024 11:56 AM EDT): Hx of PSA elevated 4.3 Repeat PSA 05/02/2024 higher at 11.33 from 7 Pt evaluated by Urology , last seen 11/17/2023. He recommended Biopsy. Pt opted for 6 month follow up with repeat PSA at that time. Contacted [facility] Urology reporting that pt is aware [...] last seen 07/08/2021 Last PSA 01/08/2022 4.05 Encounters Date Type Department Care Team Description 09/12/2024 Refill [facility] [address] [place] [phone] Rachid Lee MD Acute left-sided low back pain without sciatica 09/04/2024 11:30 AM EDT Office Visit [facility] [address] [place] [address] Rachid Lee MD Adenocarcinoma of prostate (CMS/HCC) (Primary Dx); Recurrent moderate major depressive disorder with anxiety (CMS/HCC); Forgetfulness; Acute left-sided low back pain without sciatica; Preventative health care 09/04/2024 Travel 09/03/2024 Results Follow-Up [address] [address] Rachid Lee MD Prostate biopsy [id number]/03/[address] [address] Rachid Lee MD chartprep from Last 3 Months Immunizations Immunization Administration Dates Next Due Influenza High-dose Quadrivalent [...] Answer Date Recorded Patient Health Questionnaire-9 Score 18 09/04/2024 Patient Health Questionnaire-9 Score 18 09/04/2024 Last PHQ-9: Questionnaire Data Not on file 0 09/04/2024 Housing Stability Answer Date Recorded What is [...] Answer Date Recorded Patient Health Questionnaire-2 Score 3 09/04/2024 Internet Access Answer Date Recorded Internet Access [...] Sign Reading Time Taken Comments Blood Pressure 140/80 09/04/2024 11:46 AM EDT Pulse 75 09/04/2024 11:46 AM EDT Temperature 36.4 C (97.6 F) 09/04/2024 11:46 AM EDT Respiratory Rate 20 09/04/2024 11:46 AM EDT Oxygen Saturation 98% 09/04/2024 11:46 AM EDT Inhaled Oxygen Concentration - - Weight 116 kg (254 lb 12.8 oz) 09/04/2024 11:46 AM EDT Height 170.2 cm (5' 7 ) 09/04/2024 11:46 AM EDT Body Mass Index 39.91 09/04/2024 11:46 AM EDT Plan of Treatment Upcoming Encounters Date Type Department Care Team (Late st Contact Info) Description 12/06/2024 11:30 AM EDT Office Visit [facility] [address] [place] [address] Rachid Lee MD [address] [place] [address] 02/22/2025 11:00 AM EST Office Visit [facility] OPTOMETRY [address] [place] [address] Carol Cantu, OD [address] [place] [address] Health Maintenance Due Date Last Done Comments [...] 2023 12/18/2021, 03/19/2021, 08/18/2020, Additional history exists Influenza Vaccine (#1) 2024 , 01/20/2023, 12/11/2021, Additional history exists Alcohol/Substance Use Screening 01/25/2025 01/26/2024 Depression Monitoring 03/06/2025 09/04/2024, 025 SDOH Screening 05/22/2025 05/22/2024 Tobacco Screening 05/29/2025 05/29/2024 Colonoscopy 06/11/2025 06/11/2022 Colorectal Cancer Screening 06/11/2025 DTaP/Tdap/Td Vaccines (2 - Td or Tdap) 10/01/2025 10/02/2015 Lipid Panel 09/25/2028 09/26/2023, 01/07/2023 Hepatitis C Screening Completed 04/28/2021 HIB Vaccines Aged Out No longer eligi [...] patient's age to complete this topic Meningococcal B Vaccine Aged Out No l onger eligible based on patient's age to complete [...] Procedure Name Priority Date/Time Associated Diagnosis Comments LIPID PANEL, STANDARD Routine 09/26/2023 9:03 AM EDT Primary hypertriglyceridemia HM COLONOSCOPY Routine 06/11/2022 ZZZ HISTORICAL HEPATITIS C AB W/REFL TO HCV RNA, QN, PCR Routine 04/28/2021 11:13 AM EST from Last 3 Months or Most Recently Relevant to Health Maintenance Results * (ABNORMAL) Lipid Panel, Standard (09/26/2023 9:03 AM EDT) Triglycerides 110 <150 mg/dL [facility] Comment:Desirable Triglyceri de: less than 150 mg/dLBorderline High Triglyceride 150-199 mg/dLHigh Triglyceride: 200-499 mg/dLVery High Triglyceride: greater than or equal to 5OO mg/dL Cholesterol 144 <200 mg/dL [facility] Comment:Desirable Cholestero l: less than 200 mg/dLBorderline High Cholesterol: 200-239 mg/dLHigh Cholesterol: greater than 239 mg/dL LDL Cholesterol Calculated 89 <100 mg/dL [facility] Comment:Desirable LDL: less than 100 mg/dLNear Optimal/Above Optimal LDL: 110- 129 mg/dLBorderline High LDL: 130-159 mg/dLHigh LDL: 160-189 mg/dLVery High LDL: greater than or equal to 190 mg/dL HDL Cholesterol 33(L) >40 mg/dL [facility] Comment:Desirable HDL: great er than 40 mg/dL Note: This HDL assay may give artificially low results in patients with liver disease. Blood Venous blood specimen / Unknown 09/26/2023 9:03 AM EDT 09/26/2023 11:04 AM EDT Rachid Eli MD LAB BLOOD ORDERABLES Final Result [facility] [address] [place] [address] [phone] * Hm Colonoscopy (06/11/2022) Colonoscopy Normal [...] INDEX 0.10 <1.00 [facility] Comment: HCV antibody was non-reactive. There is no laboratory evidence of HCV infection. In most cases, no further action is required. However, if recent HCV exposure is suspected, a test for HCV RNA (test code 69023) is suggested. For additional information please refer to http://[employer]/faq/WTY24u4 (This link is being provided for informational/ educational purposes only.) 04/28/2021 11:1 3 AM EST us Rachid Eli MD HISTORICAL/NON ORDERA BLE LABS Final Result [facility] [address] from Last 3 Months or Most Recently Relevant to Health Maintenance Insurance [facility] STANDARD Care Teams Piecer Relationship Specialty Start Date End Date Rachid Lee MD [address] [place] [phone] PCP - General Internal Medicine 10/29/13 Jose Cherry MD [address] [place] [address] [address] [place] [phone] Urology 05/15/24
--- NOTE | 2024-11-02 13:23 | AM.OFFVISNUR ---
Intake Visit Reasons: GnRH Allergies latex (Latex) Allergy (Mild, Verified 10/19/24 15:11) RASH Office Meds Eligard (6 month) 45 mg (6 month) subcutaneous syringe Performing Provider: Jose Cherry MD [facility] Administered by: Geovanna Aguiar RN on 11/02/24 13:23 Dose Route Admin Location Dispensed Lot Number Expiration Date [facility] Special Educator 45 mg subcut right upper arm 45 mg [id number] 12/01/25 02489-287-27 vufind. Total Dispensed Waste 45 mg 0 % Assessment & Plan Assessment & Plan Orders: Orders AMB Leuprolide Injection - Practice Supplied Today R97.20 - Elevated prostate specific antigen [PSA] Coding
== END 2024-11-02 13:30 | disposition home or self-care (01) ==
LOC: HO.HUSH 13:05
PROVIDERS: PCP Internal Medicine; Visit Provider Urology
DX: R97.20 Elevated prostate specific antigen [PSA] (principal)

== ENCOUNTER → 2024-11-02 13:05 | Outpatient (BNVA) | payer MEDICAID, SELFPAY | PROVIDERS: PCP Internal Medicine; Visit Provider Urology | DX: G47.33 Obstructive sleep apnea (adult) (pediatric) (principal); Z99.89 Dependence on other enabling machines and devices; I48.91 Unspecified atrial fibrillation; R07.2 Precordial pain; R97.20 Elevated prostate specific antigen [PSA] | CPT/HCPCS: 96402; 99212; J9217 ==

== ENCOUNTER 2024-11-02 13:27 | Outpatient (AMB) | payer MEDICAID, SELFPAY ==
--- NOTE | 2024-11-02 13:34 | A.OFFVIS_ITS ---
Vital Signs 11/02/24 13:35 Height 5 ft 8 in Weight 251 lb 5.231 oz BMI 38.2 BP 110/62 Blood Pressure Location Lt brachial Position Sitting Pulse 76 Pulse Source Pulse Oximeter Intake Visit Reasons: 2 week f/up Forging Press Operator Required: Yes Forging Press Operator Services: Forging Press Operator Offered & Declined Accompanied by: Daughter Allergies latex (Latex) Allergy (Mild, Verified 10/19/24 15:11) RASH Medication List - Last Reconciled 11/02/24 by Harris Lomeli NP albuterol sulfate 2.5 mg inhalation TID PRN albuterol sulfate 90 mcg/actuation (Proventil HFA) 2 puffs inhalation Q4H PRN alfuzosin ER 10 mg PO DAILY 30 days apixaban (Eliquis) 5 mg PO BID aripiprazole 5 mg PO BEDTIME budesonide-formoterol 160-4.5 mcg/actuation (Symbicort) 2 puffs inhalation BID buspirone 10 mg PO DAILY finasteride 5 mg PO DAILY 90 days metoprolol succinate ER (Toprol XL) 25 mg PO DAILY paroxetine HCl 20 mg PO DAILY quetiapine 25 - 50 mg PO BEDTIME PRN HPI Comments Details: This is a 68-year-old male patient coming in for a hospital discharge follow-up regarding new AFib as chest pain. Patient is accompanied by his daughter who helped with interpretation throughout the visit. Patient with a history of COPD, prostate cancer, smoker, obesity, and sleep apnea on CPAP therapy. Patient was recently in the hospital for chest pain with palpitations where he was noted to be in AFib with a RVR. Patient was treated with diltiazem drip and patient converted to sinus rhythm. Patient was discharged on Eliquis and metoprolol therapy. Today, patient reports ongoing intermittent left-sided chest discomfort that he describes as spasming which can occur randomly. Patient is denying any associated symptoms of shortness of breath, palpitations, dizziness, orthopnea, PND, leg edema, presyncope or syncope. Patient is reporting compliance with all his medications. [facility] Medical History Hormone sensitive prostate cancer (~06/2024) Somnolence COPD (chronic obstructive pulmonary disease) Obesity Nicotine dependence, cigarettes, uncomplicated Tubulovillous adenoma of colon Family history of ovarian cancer Obstructive sleep apnea Depression Asthma Anxiety Chronic fatigue Primary osteoarthritis of both knees Surgical History History of prostate biopsy History of cystoscopy History of left inguinal hernia repair History of colonoscopy Social History Alcohol intake: former Patient Tobacco Use Status: Current someday Tobacco user Tobacco use type: Cigarette Cigarette Packs Per Day: 0.5 Cigarettes Per Day: 2 Years Smoked: (onset 14yo, 1/2-1ppd x 52yrs, 35PYH) Review of Systems Const Denies weakness ENT Denies dizziness Card Denies chest pain, Denies chest pain with activity, Denies syncope, Denies rapid heart rate, Denies pedal edema, Denies edema, Denies leg edema, Denies lightheadedness, Denies palpitations, Denies dyspnea, Denies dyspnea on exertion and Denies orthopnea Resp Denies cough, Denies dyspnea and Denies dyspnea on exertion GI Denies hematochezia and Denies change in stool character Musc Denies abnormal gait, Denies muscle cramps, Denies muscle weakness, Denies numbness, Denies radiating pain into limb and Denies tingling Neuro Denies abnormal gait, Denies dizziness, Denies syncope, Denies numbness, Denies tingling and Denies weakness Endo Denies palpitations Physical Exam Vital Signs: Last Vital Signs Pulse 76 11/02/24 13:35 BP 110/62 11/02/24 13:35 BMI result Body Mass Index 38.2 Const General: cooperative, healthy appearing, comfortable and no acute distress Orientation/consciousness: patient oriented x3 HEENT Head: Yes normal to inspection Neck Neck: Yes normal visual inspection, Yes trachea midline and Yes supple Chest Chest palpation & inspection: normal inspection of the chest Resp Effort & Inspection: normal respiratory effort Auscultation: clear to auscultation bilaterally, no crackles, no rales, no rhonchi and no wheezes Cardio Jugular venous distension: no JVD Palpation: normal PMI Rate: regular rate Rhythm: regular rhythm Heart sounds: S1 normal heart sound present, S2 normal heart sound present, no click, no gallops, no murmurs and no rubs Peripheral pulses: Peripheral pulses 2+ throughout GI Inspection: Yes normal to inspection Palpation (GI): Soft to palpation Auscultation: normal bowel sounds Skin General skin exam: no rashes or lesions noted Neuro General: patient oriented x3 Extrem General: Yes normal to inspection, No no pedal edema and No calf tenderness Psych Appearance: grossly normal Mental Status: mental status grossly normal Speech and movement: Normal speech and movement present Assessment & Plan Assessment & Plan (1) Afib: Code(s): I48.91 - Unspecified atrial fibrillation Category: Medical Plan: 10/15/2024-echo study showed a normal LV systolic function with an ejection fraction at 67% with no wall motion abnormalities or valvular pathology. Newly diagnosed with the AFib at the hospital. Was treated with IV diltiazem and converted into sinus rhythm. Was started on Eliquis and metoprolol therapy. Continue Eliquis for full anticoagulation and metoprolol for rate control. No reported signs of bleeding. Today, patient's HR is regular. We will monitor his labs periodically. However, patient continues to report ongoing symptoms of intermittent spasming sensation to his left upper chest. Given his multiple risk factors, we will proceed with a myocardial perfusion study to look for any ischemic changes. We will also get it Holter study to check for any recurrence of AFib as well as other potential arrhythmias. (2) Precordial chest pain: Code(s): R07.2 - Precordial pain Category: Medical Plan: As above. (3) Obstructive sleep apnea: Comment: (06/15/10 sleep study showed severe GLORIA, RDI 68.1 - did cpap for 4yrs then stopped - The current sleep study shows that he still has rather severe obstructive sleep apnea with total sleep time AHI 49. Also has associated nocturnal hypoxemia with O2 sat below 88% for 58 minutes. Has been started on CPAP and he is using it very regularly. Sleep is okay, and he does not have daytime sleepiness . In fact he can not sleep without the CPAP mask. Compliance is good. Code(s): G47.33 - Obstructive sleep apnea (adult) (pediatric) Category: Medical Plan: Patient was recently fitted again for CPAP about less than a year ago. Continue CPAP therapy. (4) Hospital discharge follow-up: Code(s): Z09 - Encounter for follow-up examination after completed treatment for conditions other than malignant neoplasm Plan: As above. Advised on heart healthy diet, regular exercise, losing weight, smoking cessation, med compliance, avoiding caffeinated beverages or other stimulants like alcohol, and aggressive management of vascular risk factors. Follow up after completion of the test. In the interim, patient will call the office with any concerns or change in symptoms. Advised to seek ER care in case of exertional chest pain not resolved with rest. This note was generated using voice recognition software. While every effort has been made to ensure accuracy and proper customer security clerk, there may be occasional errors that could affect the content or meaning of the described symptoms. Orders: Orders CA stress test Today R07.2 - Precordial pain ECG 3 day holter monitor Today I48.91 - Unspecified atrial fibrillation NM cardiolite stress test Today I48.91 - Unspecified atrial fibrillation, R07.2 - Precordial pain Medications: Refilled apixaban (Eliquis) 5 mg PO BID 180 tabs 3RF metoprolol succinate ER (Toprol XL) 25 mg PO DAILY 90 tabs 3RF Coding Level of Care Code Est Pt Level 4 (55768) Complex EM visit Add On G2211 Diagnoses Afib I48.91 Precordial chest pain R07.2 Obstructive sleep apnea G47.33 Hospital discharge follow-up Z09 Time Spent (min) 33 Comment Time spent in reviewing the chart, test results, assessment, counseling and documentation.
[2024-11-02 13:35] VITALS: BP 110/62; PULSE 76; BMI 38.2
== END 2024-11-02 14:08 | disposition home or self-care (01) ==
LOC: HO.HCS 13:28
DX: I48.91 Unspecified atrial fibrillation (principal); R07.2 Precordial pain; G47.33 Obstructive sleep apnea (adult) (pediatric); Z09 Encounter for follow-up examination after completed treatment for conditions other than malignant neoplasm
CPT/HCPCS: 99214

== ENCOUNTER → 2024-11-22 09:48 | Outpatient (REF) | payer MEDICAID, SELFPAY ==
--- NOTE | ~2024-11-22 | NM_ITS ---
Lexiscan Myocardial perfusion study Indication: Precordial chest pain to evaluate for myocardial ischemia Technique: The patient was brought in for a Lexiscan perfusion study on 11/22/2024 and was injected 0.4 mg of Lexiscan intravenously. Within a minute of this injection 40 mCi of sestamibi was given intravenously. Images were obtained using the SPECT gamma camera interlaced with the gating device. Images were obtained in supine position. Resting perfusion study was performed on 11/23/2024. Patient was administered 40 mCi of sestamibi intravenously at rest. Images were then obtained in supine position. Images obtained without without CT attenuation. Total DLP 86 mGy-cm Images were processed with the software and compared side to side in short axis, horizontal long axis and vertical long axis views. Findings: The stress perfusion study showed nonattenuated images show mildly reduced uptake in the basal inferior as well as mid inferior wall of the LV myocardium. There is also minimally reduced uptake and thinning of the inferolateral wall of the LV myocardium. Remainder of the LV myocardium is normally perfused. Attenuation corrected images show mildly reduced uptake in the apex of the LV myocardium. The gated study shows normal LV systolic function with calculated LVEF of 64%. LV cavity is mildly dilated in size. The gated study shows normal wall thickening and contraction of segments. Resting study shows nontender images show improved uptake in the inferolateral wall of the LV myocardium. There was persistently mildly reduced uptake in the basal inferior wall of the LV myocardium. Attenuation corrected images show mildly reduced uptake in the apex of the LV myocardium. Gating at rest reveals normal systolic wall motion with ejection fraction at 66%. The findings are consistent with likely normal myocardial perfusion based. Attenuated corrected images.. NM/NM cardiolite stress test Impression: 1. Myocardial perfusion imaging study shows likely normal myocardial perfusion 2. Gated LVEF is 64% 3. Transient ischemic dilatation not present but LV cavity is dilated Nondiagnostic changes on EKG on EKG. Electronically signed by: Jhony Moyer MD 11/24/2024 11:56 AM EDT
--- NOTE | 2024-11-22 09:50 | CA_ITS ---
Acquisition Time: 2024-11-22 10:02:41 Total Exercise Time: 00:03:03 Test Indications: CP,Abnormal ECG AFIB Medications: Protocol: JONATHAN Max HR: 121 BPM 78% of Pred: 154 BPM Max BP: 128/58 mmHG Max Work Load: 4.6 METS Exercise stress test with exercise 3 mins 3 secs of Jonathan Protocol, requesting to stop due to SOB and fatigue, achieving 75% MPHR, without any chest pain or arrythmias, with normotensive response to exercise. No EKG changes at achieved workload. Test switched to Lexiscan. Pharmacological stress test with Lexiscan, with reports of SOB and dizziness, with isolated PVCs, with normotensive response to injection. Nondiagnostic EKG for ischemia. In recovery, pt treated with IVP Aminophylline 75 mg to reverse Lexiscan after which pt feeling back to baseline. Nuclear images pending. Test reviewed with Dr. Moyer. Referred By: Harris Lomeli Electronically Signed By: Harris Lomeli
--- OUTSIDE RECORDS SUMMARY | 2024-11-22 11:37 | XMS_ITS | Encounter Summary ---
Author Organization [employer] Address 75 [facility] 7t [place] [address] Care Team Providers Care Community Integration Specialist Name Role Phone Rachid Lee MD Primary Care Provide r Jose Cherry MD Unavailable Encounter Details Date Type Department Care Team (Late Contact Info) Description 07/15/2022 Abstract [facility] [address] [place] [address] [phone] Rachid Lee MD [address] [place] [address] [phone] Social History Tobacco Use Types Packs/Day Years [...] Description 12/06/2024 11:30 AM EDT Office Visit [facility] [address] [place] [address] [phone] Rachid Lee MD [address] [place] [address] [phone] 02/22/2025 11:00 AM EST Office Visit [facility] 267 [place], [place] [phone] Carol Cantu, OD 267 [place], [place] [phone] documented as of this encounter Procedures Procedure Name Priority Date/Time Associated Diagnosis Comments COLONOSCOPY Routine 06/11/2022 documented in this encounter Results * Colonoscopy (06/11/2022) Colonoscopy Normal Normal 06/11/2022 Narrative Mandy Christina - 06/11/2022 11:20 AM EDT Recommended 3 year follow up ( see scanned notes) us Historical Provider [employer] [facility] Edited Result - Final documented in this encounter Visit Diagnoses Not on filedocumented in this encounter Care Teams Community Integration Specialist Relationship Specialty Start Date End Date Rachid Lee MD [address] [place] [address] [place] [address] PCP - General Internal Medicine 10/29/13 Jose Cherry MD [address] [place] [address] Urology 05/15/24 documented as of this encounter
--- OUTSIDE RECORDS SUMMARY | 2024-11-22 11:37 | XMS_ITS | Encounter Summary ---
Author Organization [employer] Address 75 [facility] 7t [place] [address] Care Team Providers Care Inspector Tubes Name Role Phone Rachid Lee MD Primary Care Provide r Jose Cherry MD Unavailable Encounter Details Date Type Department Care Team (Late st Contact Info) Description 06/10/2022 Orders Only [facility] [address] [place] [address] Arlyn Vigil LPN Social History Tobacco Use [...] Visit [facility] 230 [place] [address] Rachid Lee MD 230 [place] [address] 02/22/2025 11:00 AM EST Office Visit [facility] [address] [place] [address] Carol Cantu, OD 267 [place] [address] documented as of this encounter Visit Diagnoses Not on filedocumented in this encounter Care Teams Inspector Tubes Relationship Specialty Start Date End Date Rachid Lee MD 230 [place] [address] PCP - General Internal Medicine 10/29/13 Jose Cherry MD [address] [place] [address] Urology 05/15/24 documented as of this encounter
--- OUTSIDE RECORDS SUMMARY | 2024-11-22 11:37 | XMS_ITS | Clinical Summary ---
Author Organization [employer] Address 75 [facility] 7t [place] [address] Care Team Providers Care Sales Expert Home Theater Name Role Phone Rachid Lee MD Primary Care Provide r Jose Cherry MD Unavailable [phone] Allergies Active Allergy Reactions Criticality Noted [...] me he was called by someone in [place]aj[place] so he did not understand. Today we [...] he was last seen by Urology 07/07/[address] [facility] health care 10/05/2022 Assessment & Plan (09/04/2024 [...] pt continues to decline to see our magazine keeper or go to the comprehensive weight management program Patient has been counseled and educated about diet and exercise. Personal goal of weight loss discussed Assessment & Plan (09/22/2023 1:06 PM EDT): Managed to loose weight since our last visit pt continues to decline to see our magazine keeper or go to the comprehensive weight management program Patient has been counseled and educated about diet and exercise. Personal goal of weight loss discussed Assessment & Plan (10/05/2022 10:04 AM EDT): Discussed need to loose weight , information about the comprehensive weight management program given to patient in the past. pt declines to see our magazine keeper or go to the comprehensive weight management program Patient has been counseled and educated about diet and exercise. 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 02/26/2021 Assessment & Plan (09/04/2024 11:54 AM EDT): Under the care of rBaden Scott at [facility] Seeing a psychiatrist Chronic anxiety [...] No recent exacerbations Being followed by our [facility] Asthma Pharmacy Team Currently on Symbicort 160 [...] No recent exacerbations Being followed by our [facility] Asthma Pharmacy Team Currently on Symbicort 160 [...] No recent exacerbations Being followed by our [facility] Asthma Pharmacy Team Currently on Symbicort 160 [...] No recent exacerbations Being followed by our [facility] Asthma Pharmacy Team Currently on Symbicort 160 [...] results in patients with liver disease. Resulting [facility] LABS Specimen Collected: 01/07/23 10:27 Last [...] results in patients with liver disease. Resulting [facility] LABS Specimen Collected: 01/07/23 10: Last [...] using his Cpap because a DrMary in [place] told him to stop using it because [...] with repeat PSA at that time. Contacted [facility] Urology reporting that pt is aware [...] Encounters Date Type Department Care Team Description 11/22/2024 Refill [facility] [address] [place] [address] Rachid Lee MD Moderate persistent asthma without complication 09/12/2024 Refill [facility] [address] [place] [place] [address] Rachid Lee MD Acute left-sided low back pain without sciatica 09/04/2024 11:30 AM EDT Office Visit [facility] [address] [address] Rachid Lee MD Adenocarcinoma of prostate (CMS/HCC) (Primary Dx); Recurrent moderate major depressive disorder with anxiety (CMS/HCC); Forgetfulness; Acute left-sided low back pain without sciatica; Preventative health care 09/04/2024 Travel 09/03/2024 Results Follow-Up [facility] [place] [address] Rachid Lee MD Prostate biopsy -20 09/03/2024 Telephone [facility] [address] [place] [address] Rachid Lee MD chartprep from Last 3 [...] the past 12 months, has t he [employer] gas, oil or water company threatened to [...] EDT Sexual Orientation Choose not to disclose 10/31/ 2022 10:18 AM EDT Last Filed Vital Signs [...] Description 12/06/2024 11:30 AM EDT Office Visit [facility] 230 [place] [address] Rachid Lee MD 230 [place] [address] 02/22/2025 11:00 AM EST Office Visit [facility] [address] [place] [address] Carol Cantu, OD 267 [place] [address] Health Maintenance Due Date Last Done Comments CT Colonography 1957 FIT DNA/Cologuard 1957 FIT 1957 FOBT 1957 Sigmoidoscopy 1957 Derm Melanoma Skin Check 06/09/1958 RSV Patients and Patients Aged 60 years or older (1 - Risk 60-74 years 1-dose series) 2017 Zoster Vaccines (2 of 2) 06/23/2021 04/28/2021 Pneumococcal Vaccine: 50+ Years (2 of 2 - PCV) 04/28/2022 04/28/2021 COVID-19 Vaccine ( season) 2024 12/18/2021, 03/19/2021, 08/18/2020, Additional history [...] 9:03 AM EDT) Triglycerides 110 <150 mg/dL [facility] Comment:Desirable Triglyceri de: less than 150 mg/dLBorderline High Triglyceride 150-199 mg/dLHigh Triglyceride: 200-499 mg/dLVery High Triglyceride: greater than or equal to 5OO mg/dL Cholesterol 144 <200 mg/dL [facility] Comment:Desirable Cholestero l: less than 200 mg/dLBorderline High Cholesterol: 200-239 mg/dLHigh Cholesterol: greater than 239 mg/dL LDL Cholesterol Calculated 89 <100 mg/dL [facility] Comment:Desirable LDL: less than 100 mg/dLNear Optimal/Above Optimal LDL: 110- 129 mg/dLBorderline High LDL: 130-159 mg/dLHigh LDL: 160-189 mg/dLVery High LDL: greater than or equal to 190 mg/dL HDL Cholesterol 33(L) >40 mg/dL [facility] Comment:Desirable HDL: great er than 40 mg/dL Note: This HDL assay may give artificially low results in patients with liver disease. Blood Venous blood specimen / Unknown 09/26/2023 9:03 AM EDT 09/26/2023 11:04 AM EDT Rachid Eli MD LAB BLOOD ORDERABLES Final Result [facility] [address] [place] [address] [phone] * Hm Colonoscopy (06/11/2022) Colonoscopy Normal Normal 06/11/2022 Narrative Mandy Christina - 06/11/2022 11:20 AM EDT Recommended 3 year follow up ( see scanned notes) Historical Provider HEALTH MAINTENANCE Edited Result - Final * HEPATITIS C AB W/REFL TO HCV RNA, QN, PCR (04/28/2021 11:13 AM EST) HEPATITIS C ANTIBODY NON-REACT [facility] NON-REACT [facility] INDEX 0.10 <1.00 [facility] Comment: HCV antibody was non-reactive. There is no laboratory evidence of HCV infection. In most cases, no further action is required. However, if recent HCV exposure is suspected, a test for HCV RNA (test code 84816) is suggested. For additional information please refer to http://[employer].skedge.me/faq/EWE65u6 (This link is being provided for informational/ educational purposes only.) 04/28/2021 11:1 3 AM EST us Rachid Eli MD HISTORICAL/NON ORDERA BLE LABS Final Result [facility] [address] from Last 3 Months or Most Recently Relevant to Health Maintenance Insurance [facility] STANDARD Care Teams Sales Expert Home Theater Relationship Specialty Start Date End Date Rachid Lee MD 230 [facility] [place] [address] PCP - General Internal Medicine 10/29/13 Jose Cherry MD [address] [place] [address] Urology 05/15/24
--- OUTSIDE RECORDS SUMMARY | 2024-11-22 11:37 | XMS_ITS | Encounter Summary ---
Author Organization [employer] Address [address] [place] [address] 7[place] [address] Care Team Providers Care Drafter Landscape Name Role Phone Rachid Lee MD Primary Care Provide r Jose Cherry MD Unavailable [phone] Reason for Visit * Reason Comments Med Refill Encounter Details Date Type Department Care Team (Late st Contact Info) Description 05/21/2022 Refill [facility] [address] [place] [phone] Rachid Lee MD [address] [place] [address] [phone] Seasonal allergies Social History Tobacco Use Types [...] Office Visit [facility] [address] [place] [address] [phone] Rachid Lee MD 230 [place] [address] 02/22/2025 11:00 AM EST Office Visit [facility] OPT[facility]RY [address] [place], [place] [phone] Carol Cantu, OD [address] [place] [address] documented as of this encounter Visit Diagnoses Diagnosis Seasonal allergies Allergic rhinitis, cause unspecified documented in this encounter Care Teams Drafter Landscape Relationship Specialty Start Date End Date Rachid Lee MD 230 [place] [address] PCP - General Internal Medicine 10/29/13 Jose Cherry MD [address] [place] [address] Urology 05/15/24 documented as of this encounter
--- OUTSIDE RECORDS SUMMARY | 2024-11-22 11:38 | XMS_ITS | Encounter Summary ---
Author Organization [employer] Address 75 [facility] 7t [place] [address] Care Team Providers Care Coremaker Name Role Phone Rachid Lee MD Primary Care Provide r Jose Cherry MD Unavailable Encounter Details Date Type Department Care Team (Late st Contact Info) Description 03/24/2022 Orders Only [facility] [address] [place] [phone] Kate Jacobo LPN Social History Tobacco Use [...] Description 12/06/2024 11:30 AM EDT Office Visit [facility] MEDICINE 230 [place] [address] Rachid Lee MD 230 [place] [address] 02/22/2025 11:00 AM EST Office Visit [facility] OPTOMETRY [address] [place] [address] Carol Cantu, OD 267 [place] [address] documented as of this encounter Visit Diagnoses Not on filedocumented in this encounter Care Teams Coremaker Relationship Specialty Start Date End Date Rachid Lee MD 230 [place] [address] PCP - General Internal Medicine 10/29/13 Jose Cherry MD [address] [place] [address] Urology 05/15/24 documented as of this encounter
--- OUTSIDE RECORDS SUMMARY | 2024-11-22 11:38 | XMS_ITS | Encounter Summary ---
Author Organization [employer] Address 75 [facility] 7t [place] [address] Care Team Providers Care Multisensor Intelligence Officer Name Role Phone Rachid Lee MD Primary Care Provide r Jose Cherry MD Unavailable [phone] Reason for Visit * Reason Comments Med Refill Encounter Details Date Type Department Care Team ([facility] st Contact Info) Description 11/22/2024 Refill [facility] 230 [place] [address] Rachid Lee MD 230 [place] [address] Moderate persistent asthma without complication Social History Tobacco Use Types Packs/Day Years [...] Description 12/06/2024 11:30 AM EDT Office Visit [facility] [address] [place] [address] Rachid Lee MD 230 [place] [address] 02/22/2025 11:00 AM EST Office Visit [facility] OPTOMETRY [address] [place] [address] Tarka, Carol, OD [address] [place] [address] documented as of this encounter Visit Diagnoses Diagnosis Moderate persistent asthma without complication documented in this encounter Additional Health Concerns Assessment Noted Time PHQ-9 Depression Total Score: 18 025 12:47 PM EDT documented as of this encounter Care Teams Multisensor Intelligence Officer Relationship Specialty Start Date End Date Rachid Lee MD 230 [place] [address] PCP - General Internal Medicine 10/29/13 Jose Cherry MD [address] [place] [address] Urology 05/15/24 documented as of this encounter
--- OUTSIDE RECORDS SUMMARY | 2024-11-22 11:38 | XMS_ITS | Encounter Summary ---
Author Organization [facility] Address [address] 7t [place] [address] Care Team Providers Care Carpentry Supervisor Name Role Phone Rachid Lee MD Primary Care Provide r Jose Cherry MD Unavailable [phone] Encounter Details Date Type Department Care Team (Late st Contact Info) Description 04/30/2023 Orders Only [facility] [address] [place] [address] Melchor Jim MD [address] [place] [address] Social History Tobacco Use Types Packs/Day Years [...] Description 12/06/2024 11:30 AM EDT Office Visit [facility] [address] [place] [address] Rachid Lee MD [address] [place] [address] 02/22/2025 11:00 AM EST Office Visit [facility] [address] [place] [address] TarkaCarol, OD [address] [place] [address] documented as of this encounter Visit Diagnoses Not on filedocumented in this encounter Additional Health Concerns Assessment Noted Time PHQ-9 Depression Total Score: 14 023 10:11 AM EDT documented as of this encounter Care Teams Carpentry Supervisor Relationship Specialty Start Date End Date Rachid Lee MD [address] [place] [address] PCP - General Internal Medicine 10/29/13 Jose Cherry MD [address] [place] [address] Urology 05/15/24 documented as of this encounter
== END ==
LOC: HO.CARD 09:48
PROVIDERS: PCP Internal Medicine
DX: R07.2 Precordial pain (principal); I48.91 Unspecified atrial fibrillation
CPT/HCPCS: 78452; 93017; A9500; J0280; J2785

== ENCOUNTER → 2024-11-22 09:50 | Outpatient (BNV) | payer MEDICAID, SELFPAY | PROVIDERS: PCP Internal Medicine | DX: R07.2 Precordial pain (principal) | CPT/HCPCS: 78452; 93016; 93018 ==

== ENCOUNTER → 2024-11-26 12:55 | Outpatient (REF) | payer MEDICAID, SELFPAY ==
--- NOTE | 2024-11-26 13:05 | HM_ITS ---
Conclusion: 1. Patient was monitored for total period of 2 days 2. Baseline was normal sinus rhythm with average heart rate of 66 beats per minute 3. Frequent PACs noted, total burden of 2.72% mostly isolated 4. Occasional PVCs noted 5. No significant pauses noted 6. Patient complained of symptoms 3 times with symptoms of chest pressure lasting 5-10 minutes correlating with isolated PACs or PVCs MTDD
--- OUTSIDE RECORDS SUMMARY | 2024-11-26 17:47 | XMS_ITS | Clinical Summary ---
Author Organization [employer] Address [address] [facility] 7[address] [place] [address] Care Team Providers Care Charge Preparation Technician Name Role Phone Rachid Lee MD Primary Care Provide r Jose Cherry MD Unavailable [phone] Allergies Active Allergy Reactions Criticality Noted [...] daily. 28 g 1 01/26/20 24 Active cetirizine (ZyrTEC) 10 MG tabletIndication s:Seasonal allergies TAKE 1 TABLET BY MOUTH EVERY EVENING 90 tablet 1 06/15/19 25 Active acetaminophen (Tylenol Extra Strength) 500 MG tabletIndication s:Acute left-sided low back pain without sciatica Take 1 tablet (500 mg) by mouth every 6 (six) hours if needed for mild pain. 60 tablet 09/05/19 25 Active tiZANidine (Zanaflex) 2 MG tabletIndication s:Acute left-sided low back pain without sciatica Take 1 tablet (2 mg) by mouth every 8 (eight) hours if needed for muscle spasms. 30 tablet 09/05/19 25 Active ibuprofen 800 MG tabletIndication s:Acute left-sided low back pain without sciatica TAKE 1 TABLET BY MOUTH EVERY TWELVE HOURS NEEDED FOR MILD PAIN 30 tablet 09/14/19 25 Active budesonide-formo terol (Symbicort) 160-4.5 MCG/ACT inhalerIndicatio ns:Moderate persistent asthma without complication INHALE 2 PUFFS BY MOUTH TWICE DAILY IN THE MORNING AND IN THE EVENING RINSE MOUTH AFTER USING. 10.2 g 6 11/23/19 25 Active budesonide-formo terol (Symbicort) 160-4.5 MCG/ACT inhalerIndicatio ns:Moderate persistent asthma without complication INHALE 2 PUFFS BY MOUTH TWICE DAILY IN THE MORNING AND IN THE EVENING RINSE MOUTH AFTER USING. 10.2 g 6 04/17/19 25 025 Discontinued Active Problems Problem Noted Date [...] me he was called by someone in [place] so he did not understand. Today we [...] he was last seen by Urology 07/07/2021 Preventative health care 10/05/2022 Assessment & Plan (09/04/2024 [...] pt continues to decline to see our chief nuclear medicine technologist or go to the comprehensive weight management program Patient has been counseled and educated about diet and exercise. Personal goal of weight loss discussed Assessment & Plan (09/22/2023 1:06 PM EDT): Managed to loose weight since our last visit pt continues to decline to see our chief nuclear medicine technologist or go to the comprehensive weight management program Patient has been counseled and educated about diet and exercise. Personal goal of weight loss discussed Assessment & Plan (10/05/2022 10:04 AM EDT): Discussed need to loose weight , information about the comprehensive weight management program given to patient in the past. pt declines to see our chief nuclear medicine technologist or go to the comprehensive weight management program Patient has been counseled and educated about diet and exercise. 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 02/26/2021 Assessment & Plan (09/04/2024 11:54 AM EDT): Under the care of Braden Scott at [facility] Seeing a psychiatrist Chronic anxiety 02/26/2021 Moderate [...] Being followed by our [facility] Asthma Pharmacy Team Currently on [...] Being followed by our [facility] Asthma Pharmacy Team Currently on [...] Being followed by our [facility] Ast[facility] Pharmacy Team Currently on [...] Being followed by our [facility] Asthma Pharmacy Team Currently on [...] results in patients with liver disease. Resulting [facility] Specimen Collected: 01/07/23 10: Last [...] results in patients with liver disease. Resulting [facility] Specimen Collected: 01/07/23 10: Last [...] stopped using his Cpap because a in [place] told him to stop using it because [...] with repeat PSA at that time. Contacted [facility] Urology reporting that pt is [...] Date Type Department Care Team Description 11/22/2024 Orders Only [facility] External Provider, [facility] 11/22/2024 Refill [facility] [address] [place] [address] Rachid Lee MD Moderate persistent asthma without complication 09/12/2024 Refill [facility] [address] [place] [address] Rachid Lee MD Acute left-sided low back pain without sciatica 09/04/2024 11:30 AM EDT Office Visit [facility] [address] [place] [address] Rachid Lee MD Adenocarcinoma of prostate (CMS/HCC) (Primary Dx); Recurrent moderate major depressive disorder with anxiety (CMS/HCC); Forgetfulness; Acute left-sided low back pain without sciatica; Preventative health care 09/04/2024 Travel 09/03/2024 Results Follow-Up [facility] [address] [place] [address] Rachid Lee MD Prostate biopsy -20 09/03/[address] [address] Rachid Lee MD chartprep from Last 3 [...] Description 12/06/2024 11:30 AM EDT Office Visit [facility] [address] [place] [address] Rachid Lee MD [address] [place] [address] 02/22/2025 11:00 AM EST Office Visit [facility] [address] [place] [address] Carol Cantu, OD [address] [place] [address] Health Maintenance Due Date Last Done Comments [...] 04/28/2022 04/28/2021 COVID-19 Vaccine (5 - season) 2024 12/18/2021, 03/19/2021, 08/18/2020, Additional [...] Procedure Name Priority Date/Time Associated Diagnosis Comments STRESS TEST WITH MYOCARDIAL PERFUSION Routine 11/22/2024 10:55 AM EDT LIPID PANEL, STANDARD Routine 09/26/2023 9:03 AM EDT Primary hypertriglyceridemia HM COLONOSCOPY Routine 06/11/2022 ZZZ HISTORICAL HEPATITIS C AB W/REFL TO HCV RNA, QN, PCR Routine 04/28/2021 11:13 AM EST from Last 3 Months or Most Recently Relevant to Health Maintenance Results * Stress test with myocardial perfusion (11/22/2024 10:55 AM EDT) 11/22/2024 10:5 5 AM EDT Narrative [facility] - 11/24/2024 12:00 PM EDT [address] [address] Nuclear Medicine Report Signed Patient: Juan Carlos Garcia MR#: [id number] : 1955 Acct:[id number] Age/Sex: 68 / M ADM Date: 11/22/24 Loc: [facility] Attending Dr: Harris Lomeli NP Ordering Physician: Harris Lomeli NP Date of Service: 11/22/24 Procedure(s): NM cardiolite stress test Accession Number(s): [id number] cc: Rachid Guardado MD; Harris Lomeli NP Reason for Exam: R07.2 - Precordial pain Lexiscan Myocardial perfusion study Indication: Precordial chest pain to evaluate for myocardial ischemia Technique: The patient was brought in for a Lexiscan perfusion study on 11/22/2024 and was injected 0.4 mg of Lexiscan intravenously. Within a minute of this injection 40 mCi of sestamibi was given intravenously. Images were obtained using the SPECT gamma camera interlaced with the gating device. Images were obtained in supine position. Resting perfusion study was performed on 11/23/2024. Patient was administered 40 mCi of sestamibi intravenously at rest. Images were then obtained in supine position. Images obtained without without CT attenuation. Total DLP 86 mGy-cm Images were processed with the software and compared side to side in short axis, horizontal long axis and vertical long axis views. Findings: The stress perfusion study showed nonattenuated images show mildly reduced uptake in the basal inferior as well as mid inferior wall of the LV myocardium. There is also minimally reduced uptake and thinning of the inferolateral wall of the LV myocardium. Remainder of the LV myocardium is normally perfused. Attenuation corrected images show mildly reduced uptake in the apex of the LV myocardium. The gated study shows normal LV systolic function with calculated LVEF of 64%. LV cavity is mildly dilated in size. The gated study shows normal wall thickening and contraction of segments. Resting study shows nontender images show improved uptake in the inferolateral wall of the LV myocardium. There was persistently mildly reduced uptake in the basal inferior wall of the LV myocardium. Attenuation corrected images show mildly reduced uptake in the apex of the LV myocardium. Gating at rest reveals normal systolic wall motion with ejection fraction at 66%. The findings are consistent with likely normal myocardial perfusion based. Attenuated corrected images.. NM/NM cardiolite stress test Impression: 1. Myocardial perfusion imaging study shows likely normal myocardial perfusion 2. Gated LVEF is 64% 3. Transient ischemic dilatation not present but LV cavity is dilated Nondiagnostic changes on EKG on EKG. Electronically signed by: Jhony Moyer MD 11/24/2024 11:56 AM EDT RP Dictated By: Jhony Moyer MD Signed By: <Electronically signed by Jhony Moyer MD in OV> 11/24/24 1156 DD/ 1055 TD/TT: 11/23/24 1235 Plant Chief: Procedure Note Donotuseinterpreter, Image - 11/24/[address] [address] Nuclear Medicine Report Signed Patient: Juan Carlos Garcia#: M [id number] : 8Acct:[id number] Age/Sex: 68 / MADM Date: 11/22/24 Loc: [facility] Attending Dr: Harris Lomeli NP Ordering Physician: Harris Lomeli NP Date of Service: 11/22/24 Procedure(s): NM cardiolite stress test Accession Number(s): [id number] cc: Rachid Guardado MD; Harris Lomeli NP Reason for Exam: R07.2 - Precordial pain Lexiscan Myocardial perfusion study Indication: Precordial chest pain to evaluate for myocardial ischemia Technique: The patient was brought in for a Lexiscan perfusion study on 11/22/2024 and was injected 0.4 mg of Lexiscan intravenously. Within a minute of this injection 40 mCi of sestamibi was given intravenously. Images were obtained using the SPECT gamma camera interlaced with the gating device. Images were obtained in supine position. Resting perfusion study was performed on 11/23/2024. Patient was administered 40 mCi of sestamibi intravenously at rest. Images were then obtained in supine position. Images obtained without without CT attenuation. Total DLP 86 mGy-cm Images were processed with the software and compared side to side in short axis, horizontal long axis and vertical long axis views. Findings: The stress perfusion study showed nonattenuated images show mildly reduced uptake in the basal inferior as well as mid inferior wall of the LV myocardium. There is also minimally reduced uptake and thinning of the inferolateral wall of the LV myocardium. Remainder of the LV myocardium is normally perfused. Attenuation corrected images show mildly reduced uptake in the apex of the LV myocardium. The gated study shows normal LV systolic function with calculated LVEF of 64%. LV cavity is mildly dilated in size. The gated study shows normal wall thickening and contraction of segments. Resting study shows nontender images show improved uptake in the inferolateral wall of the LV myocardium. There was persistently mildly reduced uptake in the basal inferior wall of the LV myocardium. Attenuation corrected images show mildly reduced uptake in the apex of the LV myocardium. Gating at rest reveals normal systolic wall motion with ejection fraction at 66%. The findings are consistent with likely normal myocardial perfusion based. Attenuated corrected images.. NM/NM cardiolite stress test Impression: 1. Myocardial perfusion imaging study shows likely normal myocardial perfusion 2. Gated LVEF is 64% 3. Transient ischemic dilatation not present but LV cavity is dilated Nondiagnostic changes on EKG on EKG. Electronically signed by: Jhony Moyer MD 11/24/2024 11:56 AM EDT Dictated By: Jhony Moyer MD Signed By: <Electronically signed by Jhony Moyer MD in OV> 11/24/24 1156 DD/ 1055 TD/TT: 11/23/24 1235 Plant Chief: [facility] External Provider CV STRE SS PROCEDURES Edited Result - Final [facility] [address] [place] [address] * (ABNORMAL) Lipid Panel, Standard (09/26/2023 9:03 AM EDT) Triglycerides 110 <150 mg/dL [facility] Comment:Desirable Triglyceri de: less than 150 mg/dLBorderline High Triglyceride 150-199 mg/dLHigh Triglyceride: 200-499 mg/dLVery High Triglyceride: greater than or equal to 5OO mg/dL Cholesterol 144 <200 mg/dL [facility] Comment:Desirable Cholestero l: less than 200 mg/dLBorderline High Cholesterol: 200-239 mg/dLHigh Cholesterol: greater than 239 mg/dL LDL Cholesterol Calculated 89 <100 mg/dL [facility] Comment:Desirable LDL: less than 100 mg/dLNear Optimal/Above Optimal LDL: 110- 129 mg/dLBorderline High LDL: 130-159 mg/dLHigh LDL: 160-189 mg/dLVery High LDL: greater than or equal to 190 mg/dL HDL Cholesterol 33(L) >40 mg/dL [facility] Comment:Desirable HDL: great er than 40 mg/dL Note: This HDL assay may give artificially low results in patients with liver disease. Blood Venous blood specimen / Unknown 09/26/2023 9:03 AM EDT 09/26/2023 11:04 AM EDT Rachid Eli MD LAB BLOOD ORDERABLES Final Result [facility] [address] [place] [address] [phone] * Hm Colonoscopy (06/11/2022) Colonoscopy Normal Normal 06/11/2022 Narrative Mandy Christina - 06/11/2022 11:20 AM EDT Recommended 3 year follow up ( see scanned notes) Historical Provider HEALTH MAINTENANCE Edited Result - Final * HEPATITIS C AB W/REFL TO HCV RNA, QN, PCR (04/28/2021 11:13 AM EST) HEPATITIS C ANTIBODY NON-REACT [facility] NON-REACT [facility] INDEX 0.10 <1.00 [facility] Comment: HCV antibody was non-reactive. There is no laboratory evidence of HCV infection. In most cases, no further action is required. However, if recent HCV exposure is suspected, a test for HCV RNA (test code 27564) is suggested. For additional information please refer to [email or web address] (This link is being provided for informational/ educational purposes only.) 04/28/2021 11:1 3 AM EST Rachid Eli MD HISTORICAL/NON ORDERA BLE LABS Final Result [facility] [address] from Last 3 Months or Most Recently Relevant to Health Maintenance Insurance [address] [place] [address] [facility] STANDARD Care Teams Charge Preparation Technician Relationship Specialty Start Date End Date Rachid Lee MD [address] [place] [address] PCP - General Internal Medicine 10/29/13 Jose Cherry MD [address] [place] [address] Urology 05/15/24
--- OUTSIDE RECORDS SUMMARY | 2024-11-26 17:47 | XMS_ITS | Encounter Summary ---
Author Organization [facility] Address [address] [facility] 7t [place] [address] Care Team Providers Care Food Crops Farm Hand Name Role Phone Rachid Lee MD Primary Care Provide r Jose Cherry MD Unavailable Reason for Visit * Reason Comments Med Refill Encounter Details Date Type Department Care Team ([facility] st Contact Info) Description 11/22/2024 Refill [facility] [address] [place] [address] Rachid Lee MD [address] [place] [address] Moderate persistent asthma without complication Social History [...] Description 12/06/2024 11:30 AM EDT Office Visit [facility] [address] [place] [address] Rachid Lee MD [address] [place] [address] 02/22/2025 11:00 AM EST Office Visit [facility] [address] [place] [address] Tarka, Carol, OD [address] [place] [address] documented as of this encounter Visit Diagnoses Diagnosis Moderate persistent asthma without complication documented in this encounter Additional Health Concerns Assessment Noted Time PHQ-9 Depression Total Score: 18 025 12:47 PM EDT documented as of this encounter Care Teams Food Crops Farm Hand Relationship Specialty Start Date End Date Rachid Lee MD [address] [place] [address] PCP - General Internal Medicine 10/29/13 Jose Cherry MD [address] [place] [address] Urology 05/15/24 documented as of this encounter
--- OUTSIDE RECORDS SUMMARY | 2024-11-26 17:47 | XMS_ITS | Encounter Summary ---
Author Organization [employer] Address [address] [place] [address] [address] [place] [address] Care Team Providers Care Supercharger Mechanic Name Role Phone Rachid Lee MD Primary Care Provide r Jose Cherry MD Unavailable [phone] Reason for Visit * Reason Comments Med Refill Encounter Details Date Type Department Care Team (Late st Contact Info) Description 05/21/2022 Refill [facility] [address] [place] [phone] Rachid Lee MD [address] [place] [address] [phone] Seasonal allergies Social History Tobacco Use Types [...] Description 12/06/2024 11:30 AM EDT Office Visit [facility] [address] [place] [phone] Rachid Lee MD [address] [place] [address] 02/22/2025 11:00 AM EST Office Visit [facility] [address] [place], [place] [phone] Carol Cantu, OD [address] [place] [address] documented as of this encounter Visit Diagnoses Diagnosis Seasonal allergies Allergic rhinitis, cause unspecified documented in this encounter Care Teams Supercharger Mechanic Relationship Specialty Start Date End Date Rachid Lee MD [address] [place] [address] PCP - General Internal Medicine 10/29/13 Jose Cherry MD [address] [place] [address] Urology 05/15/24 documented as of this encounter
--- OUTSIDE RECORDS SUMMARY | 2024-11-26 17:47 | XMS_ITS | Encounter Summary ---
Author Organization [employer] Address [address] [facility] 7t [place] [address] Care Team Providers Care Chlorination Operator Name Role Phone Rachid Lee MD Primary Care Provide r Jose Cherry MD Unavailable Encounter Details Date Type Department Care Team (Late Contact Info) Description 07/15/2022 Abstract [facility] [address] [place] [address] [phone] Rachid Lee MD [address] [place] [address] [phone] Social History Tobacco Use Types Packs/Day Years [...] Description 12/06/2024 11:30 AM EDT Office Visit [facility] [address] [place] [address] [phone] Rachid Lee MD [address] [place] [address] [phone] 02/22/2025 11:00 AM EST Office Visit [facility] [address] [place], [place] [phone] Carol Cantu, OD [address] [place], [place] [phone] documented as of this encounter Procedures Procedure Name Priority Date/Time Associated Diagnosis Comments COLONOSCOPY Routine 06/11/2022 documented in this encounter Results * Colonoscopy (06/11/2022) Colonoscopy Normal Normal 06/11/2022 Narrative Mandy Christina - 06/11/2022 11:20 AM EDT Recommended 3 year follow up ( see scanned notes) us Historical Provider Diarize [facility] Edited Result - Final documented in this encounter Visit Diagnoses Not on filedocumented in this encounter Care Teams Chlorination Operator Relationship Specialty Start Date End Date Rachid Lee MD [address] [place] [address] [place] [address] PCP - General Internal Medicine 10/29/13 Jose Cherry MD [address] [place] [address] Urology 05/15/24 documented as of this encounter
--- OUTSIDE RECORDS SUMMARY | 2024-11-26 17:47 | XMS_ITS | Encounter Summary ---
Author Organization [employer] Address [address] [facility] 7t [place] [address] Care Team Providers Care Senior Product Manager Name Role Phone Rachid Lee MD Primary Care Provide r Jose Cherry MD Unavailable [phone] Encounter Details Date Type Department Care Team (Late st Contact Info) Description 03/24/2022 Orders Only [facility] MEDICINE [address] [place] [id number] Kate Jacobo LPN Social History Tobacco Use [...] 11:30 AM EDT Office Visit [facility] MEDICINE [address] [place] [address] Rachid Lee MD 230 [place] [address] 02/22/2025 11:00 AM EST Office Visit [facility] OPTOMETRY [address] [place] [address] Carol Cantu, OD 267 [place] [address] documented as of this encounter Visit Diagnoses Not on filedocumented in this encounter Care Teams Senior Product Manager Relationship Specialty Start Date End Date Rachid Lee MD [address] [place] [address] PCP - General Internal Medicine 10/29/13 Jose Cherry MD [address] [place] [address] Urology 05/15/24 documented as of this encounter
--- OUTSIDE RECORDS SUMMARY | 2024-11-26 17:47 | XMS_ITS | Encounter Summary ---
Author Organization [employer] Address [address] [facility] [address] 7t [place] [address] Care Team Providers Care Avionics Technician Name Role Phone Rachid Lee MD Primary Care Provide r Jose Cherry MD Unavailable [phone] Encounter Details Date Type Department Care Team (Late st Contact Info) Description 04/30/2023 Orders Only [facility] 230 [place] [address] Melchor Jim MD 230 [place] [address] Social History Tobacco Use Types Packs/Day Years [...] Description 12/06/2024 11:30 AM EDT Office Visit [facility] MEDICINE 230 [place] [address] Rachid Lee MD [address] [place] [address] 02/22/2025 11:00 AM EST Office Visit [facility] OPTOMETRY [address] [place] [address] TarkaCarol, OD [address] [place] [address] documented as of this encounter Visit Diagnoses Not on filedocumented in this encounter Additional Health Concerns Assessment Noted Time PHQ-9 Depression Total Score: 14 023 10:11 AM EDT documented as of this encounter Care Teams Avionics Technician Relationship Specialty Start Date End Date Rachid Lee MD [address] [place] [address] PCP - General Internal Medicine 10/29/13 Jose Cherry MD [address] [place] [address] Urology 05/15/24 documented as of this encounter
--- OUTSIDE RECORDS SUMMARY | 2024-11-26 17:47 | XMS_ITS | Encounter Summary ---
Author Organization [employer] Address [address] [facility] 7t [place] [address] Care Team Providers Care Online Marketing Analyst Name Role Phone Rachid Lee MD Primary Care Provide r Jose Cherry MD Unavailable [phone] Encounter Details Date Type Department Care Team (Late st Contact Info) Description 11/22/2024 Orders Only [facility] External Provider, [facility] Social History Tobacco Use Types Packs/Day Years [...] Description 12/06/2024 11:30 AM EDT Office Visit [facility] MEDICINE 230 [place] [address] Rachid Lee MD 230 [place] [address] 02/22/2025 11:00 AM EST Office Visit [facility] OPTOMETRY 267 [place] [address] TarCarol geiger, OD 267 [place] [address] documented as of this encounter Procedures Procedure Name Priority Date/Time Associated Diagnosis Comments STRESS TEST WITH MYOCARDIAL PERFUSION Routine 11/22/2024 10:55 AM EDT documented in this encounter Results * Stress test with myocardial perfusion (11/22/2024 10:55 AM EDT) 11/22/2024 10:5 5 AM EDT Narrative [facility] IMAGING - 11/24/2024 12:00 PM EDT [facility] [address] [place] [address] Nuclear Medicine Report Signed Patient: Juan Carlos Garcia MR#: [id number] : 1955 Acct:[id number] Age/Sex: 68 / M ADM Date: 11/22/24 Loc: [facility] Attending Dr: Harris Lomeli [facility] Ordering Physician: Harris Lomeli NP Date of Service: 11/22/24 Procedure(s): PA cardiolite stress test Accession Number(s): [id number] cc: Rachid Guardado MD; Harris Lomeli NP [...] normal myocardial perfusion based. Attenuated corrected images.. PA/PA cardiolite stress test Impression: 1. Myocardial perfusion [...] 11/24/24 1156 DD/ 1055 TD/TT: 11/23/24 1235 [employer]razzo Finisher: Procedure Note Donotuseinterpreter, Image - 11/24/[address] [address] Nuclear Medicine Report Signed Patient: Juan Carlos Garcia#: M [id number] : 8Acct:[id number] Age/Sex: 68 / MADM Date: 11/22/24 Loc: [facility] Attending Dr: Harris Lomeli NP Ordering Physician: Harris Lomeli NP Date of Service: 11/22/24 Procedure(s): NM cardiolite stress test Accession Number(s): [id number] cc: Rachid Guardado MD; Harris Lomeli NP [...] 11/24/24 1156 DD/ 1055 TD/TT: 11/23/24 1235 [employer] Finisher: [facility] External Provider CV STRE SS PROCEDURES Edited Result - Final [facility] [address] [place] [address] documented in this encounter Visit Diagnoses Not on filedocumented in this encounter Additional Health Concerns Assessment Noted Time PHQ-9 Depression Total Score: 18 09/04/2 025 12:47 PM EDT documented as of this encounter Care Teams Online Marketing Analyst Relationship Specialty Start Date End Date Rachid Lee MD [address] [place] [address] PCP - General Internal Medicine 10/29/13 Jose Cherry MD [address] [place] [address] Urology 05/15/24 documented as of this encounter
--- OUTSIDE RECORDS SUMMARY | 2024-11-26 17:47 | XMS_ITS | Encounter Summary ---
Author Organization [employer] Address [address] [facility] 7t [place] [address] Care Team Providers Care Scaffold Setter Name Role Phone Rachid Lee MD Primary Care Provide r Jose Cherry MD Unavailable Encounter Details Date Type Department Care Team (Late st Contact Info) Description 06/10/2022 Orders Only [facility]S [address] [place] [address] Arlyn Vigil LPN Social History Tobacco Use [...] Description 12/06/2024 11:30 AM EDT Office Visit [facility] MEDICINE 230 [place] [address] Rachid Lee MD 230 [place] [address] 02/22/2025 11:00 AM EST Office Visit [facility] OPTOMETRY 267 [place] [address] Carol Cantu, OD 267 [place] [address] documented as of this encounter Visit Diagnoses Not on filedocumented in this encounter Care Teams Scaffold Setter Relationship Specialty Start Date End Date Rachid Lee MD 230 [place] [address] PCP - General Internal Medicine 10/29/13 Jose Cherry MD [address] [place] [address] Urology 05/15/24 documented as of this encounter
== END ==
LOC: HO.CARD 12:55
DX: I48.91 Unspecified atrial fibrillation (principal)
CPT/HCPCS: 93225

== ENCOUNTER → 2024-11-26 13:05 | Outpatient (BNV) | payer MEDICAID, SELFPAY | PROVIDERS: Visit Provider Internal Medicine Cardiovascular Disease | DX: I49.1 Atrial premature depolarization (principal); I49.3 Ventricular premature depolarization | CPT/HCPCS: 93227 ==

== ENCOUNTER 2024-11-27 14:20 | Outpatient (AMB) | payer MEDICAID, SELFPAY ==
--- NOTE | 2024-11-27 14:50 | MHC.OFFVIS ---
Vital Signs 11/27/24 14:51 Height 5 ft 8 in Weight 255 lb 11.779 oz BMI 38.9 BP 114/54 L Blood Pressure Location Lt brachial Position Sitting Pulse 66 Pulse Source Monitor Intake Visit Reasons: f/u Stress test/ Pre op Platform Architect Required: Yes Platform Architect Name: Rosemary Burns [id number] Terra Accompanied by: Self / Same As Patient Allergies latex (Latex) Allergy (Mild, Verified 11/27/24 14:57) RASH Medication List - Last Reconciled 11/27/24 by Harris Lomeli NP albuterol sulfate 2.5 mg inhalation TID PRN alfuzosin ER 10 mg PO DAILY 30 days apixaban (Eliquis) 5 mg PO BID aripiprazole 5 mg PO BEDTIME budesonide-formoterol 160-4.5 mcg/actuation (Symbicort) 2 puffs inhalation BID buspirone 10 mg PO DAILY finasteride 5 mg PO DAILY 90 days metoprolol succinate ER (Toprol XL) 25 mg PO DAILY paroxetine HCl 20 mg PO DAILY quetiapine 25 - 50 mg PO BEDTIME PRN HPI Comments Details: This is a 68-year-old male patient coming in for a preop cardiovascular exam for an upcoming space OAR procedure. A anesthesiologist assistant was used throughout the visit. Patient with a history of prostate cancer, COPD, AFib, obesity, sleep apnea, and former smoker. Patient was diagnosed with AFib back in October where patient was treated with diltiazem and converted to sinus rhythm. Patient is currently on metoprolol for rate control. At his last visit, patient was reporting left-sided chest discomfort for which patient underwent a myocardial perfusion study. Patient is currently wearing a Holter monitor that was ordered to evaluate for AFib recurrence and burden. Today, patient is reporting feeling well overall without any cardiac symptoms of exertional chest pain, shortness of breath, palpitations, dizziness, orthopnea, PND, leg edema, presyncope, or syncope. Patient is otherwise reporting compliance with all his medications. Patient reports that he has stopped smoking for which she was commended today. [facility] Medical History Hormone sensitive prostate cancer (~06/2024) Somnolence COPD (chronic obstructive pulmonary disease) Obesity Nicotine dependence, cigarettes, uncomplicated Tubulovillous adenoma of colon Family history of ovarian cancer Obstructive sleep apnea Depression Asthma Anxiety Chronic fatigue Primary osteoarthritis of both knees Surgical History History of prostate biopsy History of cystoscopy History of left inguinal hernia repair History of colonoscopy Social History Alcohol intake: former Patient Tobacco Use Status: Current someday Tobacco user Tobacco use type: Cigarette Cigarette Packs Per Day: 0.5 Cigarettes Per Day: 2 Years Smoked: (onset 14yo, 1/2-1ppd x 52yrs, 35PYH) Review of Systems Const Denies daytime sleepiness, Denies difficulty sleeping, Denies snoring, Denies stops breathing during sleep and Denies weakness Card Denies chest pain, Denies rapid heart rate, Denies irregular heart rhythm, Denies claudication, Denies leg edema, Denies lightheadedness, Reports palpitations, Reports dyspnea, Denies dyspnea on exertion, Denies orthopnea, Denies paroxysmal nocturnal dyspnea and Denies slow heart rate Resp Reports cough, Reports dyspnea, Denies dyspnea on exertion and Denies snoring GI Reports no additional complaints, Denies hematochezia, Denies change in stool character and Denies dyspepsia Musc Denies abnormal gait, Denies muscle weakness and Denies numbness Neuro Denies abnormal gait, Denies numbness and Denies weakness Endo Reports palpitations Physical Exam Vital Signs: Last Vital Signs Pulse 66 11/27/24 14:51 BP 114/54 L 11/27/24 14:51 BMI result Body Mass Index 38.9 Const General: cooperative, healthy appearing, comfortable and no acute distress Orientation/consciousness: patient oriented x3 HEENT Head: Yes normal to inspection Neck Neck: Yes normal visual inspection, Yes trachea midline and Yes supple Chest Chest palpation & inspection: normal inspection of the chest Resp Effort & Inspection: normal respiratory effort Auscultation: clear to auscultation bilaterally, no crackles, no rales, no rhonchi and no wheezes Cardio Jugular venous distension: no JVD Palpation: normal PMI Rate: regular rate Rhythm: regular rhythm Heart sounds: S1 normal heart sound present, S2 normal heart sound present, no click, no gallops, no murmurs and no rubs Peripheral pulses: Peripheral pulses 2+ throughout GI Inspection: Yes normal to inspection Palpation (GI): Soft to palpation Auscultation: normal bowel sounds Skin General skin exam: no rashes or lesions noted Neuro General: patient oriented x3 Extrem General: Yes normal to inspection, No no pedal edema and No calf tenderness Psych Appearance: grossly normal Mental Status: mental status grossly normal Speech and movement: Normal speech and movement present Office Procedures EKG Details: EKG today showed normal sinus rhythm with sinus arrhythmia, rate 66 beats per minute, nonspecific T-waves, normal HI, [place]. [id number]-[id number], Complete Assessment & Plan Assessment & Plan (1) Afib: Code(s): I48.91 - Unspecified atrial fibrillation Category: Medical Plan: Newly diagnosed with AFib during hospital visit back in October. Continue Eliquis for full anticoagulation and metoprolol for rate control approach. No reported signs of bleeding. EKG today showed normal sinus rhythm. Echo study on 10/15/2024 showed a normal LV systolic function with an ejection fraction at 67%. Given his reports of intermittent spasming chest discomfort, patient underwent myocardial perfusion study on 11/22/2024 that showed normal perfusion. Currently patient is wearing his Holter monitor. Further management based on findings. In case of any recurrence of AFib, patient could be a good candidate for catheter ablation. Discussed briefly with the patient. (2) Obstructive sleep apnea: Comment: (06/15/10 sleep study showed severe GLORIA, RDI 68.1 - did cpap for 4yrs then stopped - The current sleep study shows that he still has rather severe obstructive sleep apnea with total sleep time AHI 49. Also has associated nocturnal hypoxemia with O2 sat below 88% for 58 minutes. Has been started on CPAP and he is using it very regularly. Sleep is okay, and he does not have daytime sleepiness . In fact he can not sleep without the CPAP mask. Compliance is good. Code(s): G47.33 - Obstructive sleep apnea (adult) (pediatric) Category: Medical Plan: Continue CPAP therapy. Followed by pulmonology. (3) Obesity: Comment: He remains grossly obese BMI= 37.4 Needs to lose weight, but it is kind of difficult for. Code(s): E66.9 - Obesity, unspecified Category: Medical Plan: Advised heart healthy diet, regular exercise, and losing weight. (4) Preop cardiovascular exam: Code(s): Z01.810 - Encounter for preprocedural cardiovascular examination Plan: Patient can proceed with the upcoming space or procedure with the consideration that patient is at a low cardiac risk. If needed, patient can hold the Eliquis for 48 hours before the procedure and resume soon after per recommendations of the surgeon. We will follow up in the office in the next couple of months. In the interim, patient will call the office with any concerns or change in symptoms. This note was generated using voice recognition software. While every effort has been made to ensure accuracy and proper boat hoist operator, there may be occasional errors that could affect the content or meaning of the described symptoms. Orders: Orders AMB EKG-In Office Today I48.91 - Unspecified atrial fibrillation Coding Level of Care Code Est Pt Level 4 (88551) Complex EM visit Add On G2211 Diagnoses Afib I48.91 Obstructive sleep apnea G47.33 Obesity E66.9 Preop cardiovascular exam Z01.810 CPT Codes EKG - CPT: 23447-[id number], Complete ([id number]) Time Spent (min) 33 Comment Time spent in reviewing the chart, test results, assessment, counseling and documentation.
[2024-11-27 14:51] VITALS: BP 114/54; PULSE 66; BMI 38.9
--- OUTSIDE RECORDS SUMMARY | 2024-11-27 18:07 | XMS_ITS | Encounter Summary ---
Author Organization [employer] Address [address] [place] [address] 7t [place] [address] Care Team Providers Care Devops Developer Name Role Phone Rachid Lee MD Primary Care Provide r Jose Cherry MD Unavailable Reason for Visit * Reason Comments Med Refill Encounter Details Date Type Department Care Team (Late st Contact Info) Description 05/21/2022 Refill [facility] MEDICINE [address] [place] [phone] Rachid Lee MD [address] [place] [address] [phone] Seasonal allergies Social History Tobacco Use Types [...] Description 12/06/2024 11:30 AM EDT Office Visit [facility] MEDICINE [address] [place] [address] [phone] Rachid Lee MD 230 [place] [address] 02/22/2025 11:00 AM EST Office Visit [facility] OPTOMETRY [address] [place], [place] [phone] Carol Cantu, OD [address] [place] [address] documented as of this encounter Visit Diagnoses Diagnosis Seasonal allergies Allergic rhinitis, cause unspecified documented in this encounter Care Teams Devops Developer Relationship Specialty Start Date End Date Rachid Lee MD 230 [place] [address] PCP - General Internal Medicine 10/29/13 Jose Cherry MD [address] [place] [address] Urology 05/15/24 documented as of this encounter
--- OUTSIDE RECORDS SUMMARY | 2024-11-27 18:07 | XMS_ITS | Encounter Summary ---
Author Organization [employer] Address [address] [facility] 7t [place] [address] Care Team Providers Care Director Inbound Sales Name Role Phone Rachid Lee MD Primary Care Provide r Jose Cherry MD Unavailable Encounter Details Date Type Department Care Team (Late st Contact Info) Description 06/10/2022 Orders Only [facility] [address] [place] [address] Arlyn Vigil LPN Social History Tobacco Use [...] Description 12/06/2024 11:30 AM EDT Office Visit [facility] [address] [place] [address] Rachid Lee MD 230 [place] [address] 02/22/2025 11:00 AM EST Office Visit [facility] OPTOMETRY 267 [place] [address] Carol Cantu, OD 267 [place] [address] documented as of this encounter Visit Diagnoses Not on filedocumented in this encounter Care Teams Director Inbound Sales Relationship Specialty Start Date End Date Rachid Lee MD 230 [place] [address] PCP - General Internal Medicine 10/29/13 Jose Cherry MD [address] [place] [address] Urology 05/15/24 documented as of this encounter
--- OUTSIDE RECORDS SUMMARY | 2024-11-27 18:07 | XMS_ITS | Encounter Summary ---
Author Organization [employer] Address [address] [facility] 7t [place] [address] Care Team Providers Care Fertilizer Loader Name Role Phone Rachid Lee MD Primary Care Provide r Jose Cherry MD Unavailable [phone] Reason for Visit * Reason Comments Med Refill Encounter Details Date Type Department Care Team ([facility] st Contact Info) Description 11/22/2024 Refill [facility] MEDICINE [address] [place] [address] Rachid Lee MD [address] [place] [address] Moderate persistent asthma without complication Social History [...] Description 12/06/2024 11:30 AM EDT Office Visit [facility] MEDICINE [address] [place] [address] Rachid Lee MD [address] [place] [address] 02/22/2025 11:00 AM EST Office Visit [facility] OPTOMETRY [address] [place] [address] Tarka, Carol, OD 267 [place] [address] documented as of this encounter Visit Diagnoses Diagnosis Moderate persistent asthma without complication documented in this encounter Additional Health Concerns Assessment Noted Time PHQ-9 Depression Total Score: 18 025 12:47 PM EDT documented as of this encounter Care Teams Fertilizer Loader Relationship Specialty Start Date End Date Rachid Lee MD [address] [place] [address] PCP - General Internal Medicine 10/29/13 Jose Cherry MD [address] [place] [address] Urology 05/15/24 documented as of this encounter
--- OUTSIDE RECORDS SUMMARY | 2024-11-27 18:07 | XMS_ITS | Encounter Summary ---
Author Organization [employer] Address [address] [facility] 7[address] [place] [address] Care Team Providers Care Comic Book Writer Name Role Phone Rachid Lee MD Primary Care Provide r Jose Cherry MD Unavailable [phone] Encounter Details Date Type Department Care Team (Late Contact Info) Description 07/15/2022 Abstract [facility] MEDICINE [address] [place] [address] [phone] Rachid Lee MD [address] [place] [address] [phone] Social History Tobacco Use Types Packs/Day Years [...] Office Visit [facility] MEDICINE [address] [place] [address] [phone] Rachid Lee MD [address] [place] [address] [phone] 02/22/2025 11:00 AM EST Office Visit [facility] OPTOMETRY [address] [place], [place] [phone] Carol Cantu, OD [address] [place], [place] [phone] documented as of this encounter Procedures Procedure Name Priority Date/Time Associated Diagnosis Comments COLONOSCOPY Routine 06/11/2022 documented in this encounter Results * Colonoscopy (06/11/2022) Colonoscopy Normal Normal 06/11/2022 Narrative Mandy Christina - 06/11/2022 11:20 AM EDT Recommended 3 year follow up ( see scanned notes) us Historical Provider Envis [facility] Edited Result - Final documented in this encounter Visit Diagnoses Not on filedocumented in this encounter Care Teams Comic Book Writer Relationship Specialty Start Date End Date Rachid Lee MD [address] [place] [address] [place] [address] PCP - General Internal Medicine 10/29/13 Jose Cherry MD [address] [place] [address] Urology 05/15/24 documented as of this encounter
--- OUTSIDE RECORDS SUMMARY | 2024-11-27 18:07 | XMS_ITS | Encounter Summary ---
Author Organization [employer] Address 75 [facility] 7t [place] [address] Care Team Providers Care Ink Grinder Name Role Phone Rachid Lee MD Primary Care Provide r Jose Cherry MD Unavailable [phone] Encounter Details Date Type Department Care Team (Late st Contact Info) Description 03/24/[address] [facility] MEDICINE [address] [place] [phone] Kate Jacobo LPN Social History Tobacco Use [...] Description 12/06/2024 11:30 AM EDT Office Visit [facility] MEDICINE 230 [place] [address] Rachid Lee MD 230 [place] [address] 02/22/2025 11:00 AM EST Office Visit [facility] OPTOMETRY [address] [place] [address] Carol Cantu, OD [address] [place] [address] documented as of this encounter Visit Diagnoses Not on filedocumented in this encounter Care Teams Ink Grinder Relationship Specialty Start Date End Date Rachid Lee MD 230 [place] [address] PCP - General Internal Medicine 10/29/13 Jose Cherry MD [address] [facility] [place] [address] Urology 05/15/24 documented as of this encounter
--- OUTSIDE RECORDS SUMMARY | 2024-11-27 18:07 | XMS_ITS | Encounter Summary ---
Author Organization [employer] Address [address] [facility] 7t [place] [address] Care Team Providers Care Cloth Brushing And Sueding Supervisor Name Role Phone Rachid Lee MD Primary Care Provide r Jose Cherry MD Unavailable [phone] Encounter Details Date Type Department Care Team (Late st Contact Info) Description 11/22/2024 Orders Only [facility] External Provider, [facility] Social History Tobacco Use Types Packs/Day Years [...] Description 12/06/2024 11:30 AM EDT Office Visit [facility] MEDICINE [address] [place] [address] Rachid Lee MD [address] [place] [address] 02/22/2025 11:00 AM EST Office Visit [facility] OPTOMETRY [address] [place] [address] TarCarol geiger, OD [address] [place] [address] documented as of this encounter Procedures Procedure Name Priority Date/Time Associated Diagnosis Comments STRESS TEST WITH MYOCARDIAL PERFUSION Routine 11/22/2024 10:55 AM EDT documented in this encounter Results * Stress test with myocardial perfusion (11/22/2024 10:55 AM EDT) 11/22/2024 10:5 5 AM EDT Narrative [facility] IMAGING - 11/24/2024 12:00 PM EDT [facility] [address] [place] [address] Nuclear Medicine Report Signed Patient: Juan Carlos Garcia MR#: [id number] : 1955 Acct:[id number] Age/Sex: 68 / M ADM Date: 11/22/24 Loc: [facility] Attending Dr: Harris Lomeli TIP FIXER Ordering Physician: Harris Lomeli NP Date of Service: 11/22/24 Procedure(s): CO cardiolite stress test Accession Number(s): [id number] cc: Rachid Guardado MD; Harris Lomeli NP [...] normal myocardial perfusion based. Attenuated corrected images.. CO/CO cardiolite stress test Impression: 1. Myocardial perfusion [...] 11/24/24 1156 DD/ 1055 TD/TT: 11/23/24 1235 Route Service Manager: Procedure Note Donotuseinterpreter, Image - 11/24/[address] [address] Nuclear Medicine Report Signed Patient: Juan Carlos Garcia#: M [id number] : 8Acct:[id number] Age/Sex: 68 / MADM Date: 11/22/24 Loc: [facility] Attending Dr: Harris Lomeli NP Ordering Physician: Harris Lomeli NP Date of Service: 11/22/24 Procedure(s): NM cardiolite stress test Accession Number(s): [id number] cc: Rachid Guardado MD; Harris Lomeli NP [...] 11/24/24 1156 DD/ 1055 TD/TT: 11/23/24 1235 Route Service Manager: [facility] External Provider CV STRE SS PROCEDURES Edited Result - Final [facility] [address] [place] [address] documented in this encounter Visit Diagnoses Not on filedocumented in this encounter Additional Health Concerns Assessment Noted Time PHQ-9 Depression Total Score: 18 09/04/2 025 12:47 PM EDT documented as of this encounter Care Teams Cloth Brushing And Sueding Supervisor Relationship Specialty Start Date End Date Rachid Lee MD [address] [place] [address] PCP - General Internal Medicine 10/29/13 Jose Cherry MD [address] [place] [address] Urology 05/15/24 documented as of this encounter
--- OUTSIDE RECORDS SUMMARY | 2024-11-27 18:07 | XMS_ITS | Clinical Summary ---
Author Organization [employer] Address [address] [facility] 7t [place] [address] Care Team Providers Care Operational Assistant Name Role Phone Rachid Lee MD Primary Care Provide r Jose Cherry MD Unavailable [phone] Allergies Active Allergy Reactions Criticality Noted [...] me he was called by someone in [place] so he did not understand. Today we [...] pt continues to decline to see our greaser helper or go to the comprehensive weight management program Patient has been counseled and educated about diet and exercise. Personal goal of weight loss discussed Assessment & Plan (09/22/2023 1:06 PM EDT): Managed to loose weight since our last visit pt continues to decline to see our greaser helper or go to the comprehensive weight management program Patient has been counseled and educated about diet and exercise. Personal goal of weight loss discussed Assessment & Plan (10/05/2022 10:04 AM EDT): Discussed need to loose weight , information about the comprehensive weight management program given to patient in the past. pt declines to see our greaser helper or go to the comprehensive weight management program Patient has been counseled and educated about diet and exercise. 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 02/26/2021 Assessment & Plan (09/04/2024 11:54 AM EDT): Under the care of Braden Scott at [facility] Seeing a psychiatrist Chronic anxiety [...] No recent exacerbations Being followed by our [facility] Asthma Pharmacy Team Currently on Symbicort 160 [...] No recent exacerbations Being followed by our [facility] Asthma Pharmacy Team Currently on Symbicort 160 [...] No recent exacerbations Being followed by our [facility] Asthma Pharmacy Team Currently on Symbicort 160 [...] No recent exacerbations Being followed by our [facility] Asthma Pharmacy Team Currently on Symbicort 160 [...] results in patients with liver disease. Resulting [facility] LAB[facility] Specimen Collected: 01/07/23 10: [...] results in patients with liver disease. Resulting [facility] Specimen Collected: 01/07/23 10: [...] stopped using his Cpap because a in [place] told him to stop using it because [...] with repeat PSA at that time. Contacted [facility] Urology reporting that pt is aware [...] Department Care Team Description 11/22/2024 Orders Only [facility] External Provider, [facility] 11/22/2024 Refill [facility] MEDICINE [address] [place] [address] Rachid Lee MD Moderate persistent asthma without complication 09/12/2024 Refill [facility] MED[facility] [address] [place] [address] Rachid Lee MD Acute left-sided low back pain without sciatica 09/04/2024 11:30 AM EDT Office Visit [facility] MEDIC[facility] [address] [place] [address] Rachid Lee MD Adenocarcinoma of prostate (CMS/HCC) (Primary Dx); Recurrent moderate major depressive disorder with anxiety (CMS/HCC); Forgetfulness; Acute left-sided low back pain without sciatica; Preventative health care 09/04/2024 Travel 09/03/2024 Results Follow-Up [facility] [address] [place] [address] Rachid Lee MD Prostate biopsy -20 09/03/[address] [address] Rachid Lee MD chartprep from Last 3 [...] [facility] [address] [place] [address] Rachid Lee MD [address] [place] [address] 02/22/2025 11:00 AM EST Office Visit [facility] OPTOMETRY [address] [place] [address] Carol Cantu, OD [address] [place] [address] Health Maintenance Due Date Last Done Comments [...] EDT) 11/22/2024 10:5 5 AM EDT Narrative [facility] IMAGING - 11/24/2024 12:00 PM EDT [address] [address] Nuclear Medicine Report Signed Patient: Juan Carlos Garcia MR#: [id number] : 1955 Acct:[id number] Age/Sex: 68 / M ADM Date: 11/22/24 Loc: [facility] Attending Dr: Harris Lomeli NP Ordering Physician: Harris Lomeli NP Date of Service: 11/22/24 Procedure(s): NM cardiolite stress test Accession Number(s): [id number] cc: Rachid Guardado MD; Harris Lomeli NP [...] 11/24/24 1156 DD/ 1055 TD/TT: 11/23/24 1235 Hazardous Waste Technician: Procedure Note Donotuseinterpreter, Image - 11/24/[address] [address] Nuclear Medicine Report Signed Patient: Juan Carlos Garcia#: M [id number] : 8Acct:[id number] Age/Sex: 68 / MADM Date: 11/22/24 Loc: [facility] Attending Dr: Harris Lomeli NP Ordering Physician: Harris Lomeli NP Date of Service: 11/22/24 Procedure(s): NM cardiolite stress test Accession Number(s): [id number] cc: Rachid Guardado MD; Harris Lomeli NP [...] Moyer MD Signed By: <Electronically signed by Jhoyn Moyer MD in OV> 11/24/24 1156 DD/ 1055 TD/TT: 11/23/24 1235 Hazardous Waste Technician: [facility] External Provider CV STRE SS PROCEDURES Edited Result - Final [facility] [address] [place] [address] * (ABNORMAL) Lipid Panel, Standard (09/26/2023 9:03 AM EDT) Triglycerides 110 <150 mg/dL [facility] Comment:Desirable Triglyceri de: less than 150 mg/dLBorderline High Triglyceride 150-199 mg/dLHigh Triglyceride: 200-499 mg/dLVery High Triglyceride: greater than or equal to 5OO mg/dL Cholesterol 144 <200 mg/dL [facility] Comment:Desirable Cholestero l: less than 200 mg/dLBorderline High Cholesterol: 200-239 mg/dLHigh Cholesterol: greater than 239 mg/dL LDL Cholesterol Calculated 89 <100 mg/dL [facility] Comment:Desirable LDL: less than 100 mg/dLNear Optimal/Above Optimal LDL: 110- 129 mg/dLBorderline High LDL: 130-159 mg/dLHigh LDL: 160-189 mg/dLVery High LDL: greater than or equal to 190 mg/dL HDL Cholesterol 33(L) >40 mg/dL [facility] Comment:Desirable HDL: great er than 40 mg/dL Note: This HDL assay may give artificially low results in patients with liver disease. Blood Venous blood specimen / Unknown 09/26/2023 9:03 AM EDT 09/26/2023 11:04 AM EDT Rachid Eli MD LAB BLOOD ORDERABLES Final Result [facility] [address] [place] [address] [phone] * Hm Colonoscopy (06/11/2022) Colonoscopy Normal Normal 06/11/2022 Narrative Mandy Christina - 06/11/2022 11:20 AM EDT Recommended 3 year follow up ( see scanned notes) Historical Provider HEALTH MAINTENANCE Edited Result - Final * HEPATITIS C AB W/REFL TO HCV RNA, QN, PCR (04/28/2021 11:13 AM EST) HEPATITIS C ANTIBODY NON-REACT [facility] NON-REACT [facility] INDEX 0.10 <1.00 [facility] Comment: HCV antibody was non-reactive. There is no laboratory evidence of HCV infection. In most cases, no further action is required. However, if recent HCV exposure is suspected, a test for HCV RNA (test code 98224) is suggested. For additional information please refer to http://[employer].Double Doods/faq/HLR68y5 (This link is being provided for informational/ educational purposes only.) 04/28/2021 11:1 3 AM EST Rachid Eli MD HISTORICAL/NON ORDERA BLE LABS Final Result [facility] [address] from Last 3 Months or Most Recently Relevant to Health Maintenance Insurance [address] [place] [address] [facility] STAND[facility] Care Teams Operational Assistant Relationship Specialty Start Date End Date Rachid Lee MD [address] [place] [address] PCP - General Internal Medicine 10/29/13 Jose Cherry MD [address] [place] [address] Urology 05/15/24
--- OUTSIDE RECORDS SUMMARY | 2024-11-27 18:07 | XMS_ITS | Encounter Summary ---
Author Organization [employer] Address [address] 7[address] [place] [address] Care Team Providers Care Borematic Machine Operator Name Role Phone Rachid Lee MD Primary Care Provide r Jose Cherry MD Unavailable [phone] Encounter Details Date Type Department Care Team (Late st Contact Info) Description 04/30/2023 Orders Only [facility] [address] [place] [address] Melchor Jim MD [address] [place] [address] Social History Tobacco Use Types Packs/Day Years [...] Description 12/06/2024 11:30 AM EDT Office Visit [facility] MEDICINE [address] [place] [address] Rachid Lee MD [address] [place] [address] 02/22/2025 11:00 AM EST Office Visit [facility] OPTOMETRY [address] [place] [address] TarkaCarol, OD [address] [place] [address] documented as of this encounter Visit Diagnoses Not on filedocumented in this encounter Additional Health Concerns Assessment Noted Time PHQ-9 Depression Total Score: 14 023 10:11 AM EDT documented as of this encounter Care Teams Borematic Machine Operator Relationship Specialty Start Date End Date Rachid Lee MD [address] [place] [address] PCP - General Internal Medicine 10/29/13 Jose Cherry MD [address] [place] [address] Urology 05/15/24 documented as of this encounter
== END 2024-11-27 15:21 | disposition home or self-care (01) ==
LOC: HO.HCS 14:20
PROVIDERS: PCP Internal Medicine
DX: I48.91 Unspecified atrial fibrillation (principal); G47.33 Obstructive sleep apnea (adult) (pediatric); E66.9 Obesity, unspecified; Z01.810 Encounter for preprocedural cardiovascular examination
CPT/HCPCS: 93010; 99214

== ENCOUNTER → 2024-11-27 14:20 | Outpatient (BNVA) | payer MEDICAID, SELFPAY | PROVIDERS: PCP Internal Medicine | DX: Z01.810 Encounter for preprocedural cardiovascular examination (principal); Z71.2 Person consulting for explanation of examination or test findings; I48.91 Unspecified atrial fibrillation; G47.33 Obstructive sleep apnea (adult) (pediatric); Z99.89 Dependence on other enabling machines and devices; E66.9 Obesity, unspecified | CPT/HCPCS: 93005; 99212 ==

== ENCOUNTER 2024-12-17 05:44 | Day surgery (SDC) | payer MEDICAID, SELFPAY ==
--- OUTSIDE RECORDS SUMMARY | 2024-11-20 12:33 | XMS_ITS | Encounter Summary ---
Author Organization [employer] Address [address] [facility] 7t [place] [address] Care Team Providers Care Lacquer Sizer Name Role Phone Rachid Lee MD Primary Care Provide r Jose Cherry MD Unavailable Encounter Details Date Type Department Care Team (Late st Contact Info) Description 06/10/2022 Orders Only [facility] MED & PEDS [address] [place] [address] Arlyn Vigil LPN Social History Tobacco Use [...] Description 12/06/2024 11:30 AM EDT Office Visit [facility] MEDICINE [address] [place] [address] Rachid Lee MD [address] [place] [address] 02/22/2025 11:00 AM EST Office Visit [facility] OPTOMETRY [address] [place] [address] Carol Cantu, OD [address] [place] [address] documented as of this encounter Visit Diagnoses Not on filedocumented in this encounter Care Teams Lacquer Sizer Relationship Specialty Start Date End Date Rachid Lee MD [address] [place] [address] PCP - General Internal Medicine 10/29/13 Jose Cherry MD [address] [place] [address] Urology 05/15/24 documented as of this encounter
--- OUTSIDE RECORDS SUMMARY | 2024-11-20 12:33 | XMS_ITS | Encounter Summary ---
Author Organization [employer] Address [address] [facility] 7t [place] [address] Care Team Providers Care Resident Hall Director Name Role Phone Rachid Lee MD Primary Care Provide r Jose Cherry MD Unavailable [phone] Encounter Details Date Type Department Care Team (Late Contact Info) Description 07/15/2022 Abstract [facility] [address] [place] [address] [phone] Rachid Lee MD [address] [place] [address] [phone] Social History Tobacco Use Types Packs/Day Years [...] Department Care Team (Late Contact Info) Description 12/06/2024 11:30 AM EDT Office Visit [facility] [address] [place] [address] [phone] Rachid Lee MD [address] [place] [address] [phone] 02/22/2025 11:00 AM EST Office Visit [facility] OPTOMETRY [address] [place], [place] [phone] Carol Cantu, OD [address] [place], [place] [phone] documented as of this encounter Procedures Procedure Name Priority Date/Time Associated Diagnosis Comments COLONOSCOPY Routine 06/11/2022 documented in this encounter Results * Colonoscopy (06/11/2022) Colonoscopy Normal Normal 06/11/2022 Narrative Mandy Christina - 06/11/2022 11:20 AM EDT Recommended 3 year follow up ( see scanned notes) us Historical Provider MD Lingo [facility] Edited Result - Final documented in this encounter Visit Diagnoses Not on filedocumented in this encounter Care Teams Resident Hall Director Relationship Specialty Start Date End Date Rachid Lee MD [address] [place] [address] [place] [address] PCP - General Internal Medicine 10/29/13 Jose Cherry MD [address] [place] [address] Urology 05/15/24 documented as of this encounter
--- OUTSIDE RECORDS SUMMARY | 2024-11-20 12:33 | XMS_ITS | Encounter Summary ---
Author Organization [employer] Address [address] [facility] 7t [place] [address] Care Team Providers Care Tax Accounting Manager Name Role Phone Rachid Lee MD Primary Care Provide r Jose Cherry MD Unavailable [phone] Encounter Details Date Type Department Care Team (Late st Contact Info) Description 03/24/2022 Orders Only [facility] [address] [place] [phone] Kate Jacobo LPN Social History Tobacco Use [...] Description 12/06/2024 11:30 AM EDT Office Visit [facility] [address] [place] [address] Rachid Lee MD [address] [place] [address] 02/22/2025 11:00 AM EST Office Visit [facility] OPTOMETRY [address] [place] [address] Carol Cantu, OD [address] [place] [address] documented as of this encounter Visit Diagnoses Not on filedocumented in this encounter Care Teams Tax Accounting Manager Relationship Specialty Start Date End Date Rachid Lee MD [address] [place] [address] PCP - General Internal Medicine 10/29/13 Jose Cherry MD [address] [place] [address] Urology 05/15/24 documented as of this encounter
--- OUTSIDE RECORDS SUMMARY | 2024-11-20 12:33 | XMS_ITS | Encounter Summary ---
Author Organization [employer] Address [address] [facility] [address] 7t [place] [address] Care Team Providers Care Telephone Clerk Name Role Phone Rachid Lee MD Primary Care Provide r Jose Cherry MD Unavailable [phone] Encounter Details Date Type Department Care Team (Late st Contact Info) Description 04/30/2023 Orders Only [facility] [address] [place] [address] Melchor Jim MD 230 [place] [address] Social History Tobacco Use Types Packs/Day Years [...] Description 12/06/2024 11:30 AM EDT Office Visit [facility] [address] [place] [address] Rachid Lee MD 230 [place] [address] 02/22/2025 11:00 AM EST Office Visit [facility] [address] [place] [address] TarkaCarol, OD 267 [place] [address] documented as of this encounter Visit Diagnoses Not on filedocumented in this encounter Additional Health Concerns Assessment Noted Time PHQ-9 Depression Total Score: 14 023 10:11 AM EDT documented as of this encounter Care Teams Telephone Clerk Relationship Specialty Start Date End Date Rachid Lee MD 230 [place] [address] PCP - General Internal Medicine 10/29/13 Jose Cherry MD [address] [place] [address] Urology 05/15/24 documented as of this encounter
--- OUTSIDE RECORDS SUMMARY | 2024-11-20 12:33 | XMS_ITS | Clinical Summary ---
Author Organization [employer] Address 75 [facility] 7t [place] [address] Care Team Providers Care Coordinate Measuring Machine Programmer Name Role Phone Rachid Lee MD Primary Care Provide r Jose Cherry MD Unavailable [phone] Allergies Active Allergy Reactions Criticality Noted [...] me he was called by someone in gib[place] so he did not understand. Today we [...] he was last seen by Urology 07/07/2021 [facility] health care 10/05/2022 Assessment & Plan (09/04/2024 [...] pt continues to decline to see our securities consultant or go to the comprehensive weight management program Patient has been counseled and educated about diet and exercise. Personal goal of weight loss discussed Assessment & Plan (09/22/2023 1:06 PM EDT): Managed to loose weight since our last visit pt continues to decline to see our securities consultant or go to the comprehensive weight management program Patient has been counseled and educated about diet and exercise. Personal goal of weight loss discussed Assessment & Plan (10/05/2022 10:04 AM EDT): Discussed need to loose weight , information about the comprehensive weight management program given to patient in the past. pt declines to see our securities consultant or go to the comprehensive weight management program Patient has been counseled and educated about diet and exercise. 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 02/26/2021 Assessment & Plan (09/04/2024 11:54 AM EDT): Under the care of Braden Scott at [facility] Seeing a psychiatrist Chronic anxiety [...] No recent exacerbations Being followed by our [facility] Asthma Pharmacy Team Currently on Symbicort [...] No recent exacerbations Being followed by our [facility] Ast[facility] Pharmacy Team Currently on Symbicort [...] No recent exacerbations Being followed by our [facility] Asthma Pharmacy Team Currently on Symbicort [...] No recent exacerbations Being followed by our [facility] Asthma Pharmacy Team Currently on Symbicort [...] results in patients with liver disease. Resulting [facility] LABS Specimen Collected: 01/07/23 10:27 Last [...] results in patients with liver disease. Resulting [facility] Specimen Collected: 01/07/23 10: Last [...] using his Cpap because a DrMary in [place] told him to stop using it because [...] with repeat PSA at that time. Contacted [facility] Urology reporting that pt is aware [...] Type Department Care Team Description 09/12/2024 Refill [facility] [address] [place] [address] Rachid Lee MD Acute left-sided low back pain without sciatica 09/04/2024 11:30 AM EDT Office Visit [facility] [address] [place] [address] Rachid Lee MD Adenocarcinoma of prostate (CMS/HCC) (Primary Dx); Recurrent moderate major depressive disorder with anxiety (CMS/HCC); Forgetfulness; Acute left-sided low back pain without sciatica; Preventative health care 09/04/2024 Travel 09/03/2024 Results Follow-Up [address] [address] Rachid Lee MD Prostate biopsy 04-0209/03/[address] [address] Rachid Lee MD chartprep from Last 3 [...] Description 12/06/2024 11:30 AM EDT Office Visit [facility] 230 [place] [address] Rachid Lee MD 230 [place] [address] 02/22/2025 11:00 AM EST Office Visit [facility] 267 [place] [address] Carol Cantu, OD 267 [place] [address] Health Maintenance Due Date Last Done Comments [...] 04/28/2022 04/28/2021 COVID-19 Vaccine ( - season) 2024 12/18/2021, 03/19/2021, 08/18/2020, Additional history exists Influenza [...] 9:03 AM EDT) Triglycerides 110 <150 mg/dL [facility] Comment:Desirable Triglyceri de: less than 150 mg/dLBorderline High Triglyceride 150-199 mg/dLHigh Triglyceride: 200-499 mg/dLVery High Triglyceride: greater than or equal to 5OO mg/dL Cholesterol 144 <200 mg/dL [facility] Comment:Desirable Cholestero l: less than 200 mg/dLBorderline High Cholesterol: 200-239 mg/dLHigh Cholesterol: greater than 239 mg/dL LDL Cholesterol Calculated 89 <100 mg/dL [facility] Comment:Desirable LDL: less than 100 mg/dLNear Optimal/Above Optimal LDL: 110- 129 mg/dLBorderline High LDL: 130-159 mg/dLHigh LDL: 160-189 mg/dLVery High LDL: greater than or equal to 190 mg/dL HDL Cholesterol 33(L) >40 mg/dL [facility] Comment:Desirable HDL: great er than 40 mg/dL Note: This HDL assay may give artificially low results in patients with liver disease. Blood Venous blood specimen / Unknown 09/26/2023 9:03 AM EDT 09/26/2023 11:04 AM EDT Rachid Eli MD LAB BLOOD ORDERABLES Final Result [facility] [address] [place] [address] [phone] * Hm Colonoscopy (06/11/2022) Colonoscopy Normal [...] a test for HCV RNA (test code 05139) is suggested. For additional information please refer to http://[employer].Pixeon/faq/GKV90l7 (This link is being provided for informational/ educational purposes only.) 04/28/2021 11:1 3 AM EST us Rachid Eli MD HISTORICAL/NON ORDERA BLE LABS Final Result [facility] [address] from Last 3 Months or Most Recently Relevant to Health Maintenance Insurance [facility] STANDARD Care Teams Coordinate Measuring Machine Programmer Relationship Specialty Start Date End Date Rachid Lee MD [address] [place] [phone] PCP - General Internal Medicine 10/29/13 Jose Cherry MD [address] [place] [address] [address] [place] [address] Urology 05/15/24
--- OUTSIDE RECORDS SUMMARY | 2024-11-20 12:33 | XMS_ITS | Encounter Summary ---
Author Organization [employer] Address [address] [place] [address] 7[address] [place] [address] Care Team Providers Care Student Loan Counselor Name Role Phone Rachid Lee MD Primary Care Provide r Jose Cherry MD Unavailable [phone] Reason for Visit * Reason Comments Med Refill Encounter Details Date Type Department Care Team (Late st Contact Info) Description 05/21/2022 Refill [facility] [address] [place] [address] Rachid Lee MD [address] [place] [address] [phone] Seasonal allergies Social History Tobacco Use Types [...] Description 12/06/2024 11:30 AM EDT Office Visit [facility] [address] [place] [address] [phone] Rachid Lee MD 230 [place] [address] 02/22/2025 11:00 AM EST Office Visit [facility] [address] [place], [place] [phone] Carol Cantu, OD [address] [place] [address] documented as of this encounter Visit Diagnoses Diagnosis Seasonal allergies Allergic rhinitis, cause unspecified documented in this encounter Care Teams Student Loan Counselor Relationship Specialty Start Date End Date Rachid Lee MD 230 [place] [address] PCP - General Internal Medicine 10/29/13 Jose Cherry MD [address] [place] [address] Urology 05/15/24 documented as of this encounter
[2024-12-13 09:10] VITALS: BMI 38.9
--- NOTE | 2024-12-13 12:11 | HO.ANESPROP2 ---
Documented by User: Karina Urbano NP 12/13/24 12:16 HPI - Anesthesia Eval Consult details Narrative: 69yo M for Space OAR with Viscoil placement Cardiac optimized. [facility]s [facility]. Afib on eliquis - new diagnosis 10/2024 [facility] Active Problems Active Problems: All Active Problems Afib (Acute) Precordial chest pain (Acute) Hormone sensitive prostate cancer (Acute ~06/2024) Somnolence (Acute) COPD (chronic obstructive pulmonary disease) (Acute) Nicotine dependence, cigarettes, uncomplicated (Acute) Obstructive sleep apnea (Acute) Obesity (Acute) Tubulovillous adenoma of colon (Acute) BPH w urinary obs/LUTS (Acute) Gross hematuria (Acute) Elevated PSA (Acute) Family history of ovarian cancer (Acute) Past Medical History Medical History Hormone sensitive prostate cancer (~06/2024) Somnolence COPD (chronic obstructive pulmonary disease) Obesity Nicotine dependence, cigarettes, uncomplicated Tubulovillous adenoma of colon Family history of ovarian cancer Obstructive sleep apnea Depression Asthma Anxiety Chronic fatigue Primary osteoarthritis of both knees Family History Family history of problems with anesthesia: No Surgical History Surgical History History of prostate biopsy History of cystoscopy History of left inguinal hernia repair History of colonoscopy History of Problems with Anesthesia: No Social History Social History Are you a primary career guidance counselor to a significant other at home: No Do you presently have visiting nurse or other home services: No Alcohol intake: former Patient Tobacco Use Status: Former Tobacco user Tobacco use type: Cigarette Cigarette Packs Per Day: 0.5 Cigarettes Per Day: 2 Years Smoked: (onset 14yo, 1/2-1ppd x 52yrs, 35PYH) Have you been hit, kicked, punched, or otherwise hurt by someone within the past year? If so, by whom?: No Are you DNR?: No Advance Directives: No Advance Directives Information Provided: Yes Poor oral hygiene: No Meds Allergies Allergy/AdvReac Type Severity Reaction Status Date / Time latex (Latex) Allergy Mild RASH Verified 12/17/24 06:14 Home Medications ?Medication ?Instructions ?Recorded ?Confirmed ?Last Taken ?Type aripiprazole 5 mg tablet 5 mg PO BEDTIME 07/08/21 12/13/24 Unknown History budesonide-formoterol HFA 160 2 puff inhalation BID 07/08/21 12/13/24 Unknown History mcg-4.5 mcg/actuation aerosol inhaler (Symbicort) buspirone 10 mg tablet 10 mg PO DAILY 07/08/21 12/13/24 Unknown History paroxetine HCl 20 mg tablet 20 mg PO DAILY 07/08/21 12/13/24 Unknown History quetiapine 25 mg tablet 25 - 50 mg PO BEDTIME PRN insomnia 07/08/21 12/13/24 Unknown History albuterol sulfate 2.5 mg/3 mL 2.5 mg inhalation TID PRN Wheezing 11/30/22 12/13/24 Unknown History (0.083 %) solution for nebulization Exam Height,Weight and Vital Signs: Height 5 ft 8 in Weight 116.12 kg Pertinent Lab Results Pertinent Lab Results: Laboratory Tests 10/15/24 03:47 WBC 10.7 Hgb 14.2 Hct 41.4 L Plt Count 217 Sodium 139 Potassium 3.8 Chloride 110 H Carbon Dioxide 21 L BUN 19 H Creatinine 1.10 Narrative Narrative: EKG 11/2024 normal sinus rhythm with sinus arrhythmia, rate 66 beats per minute, nonspecific T-waves, normal OK, corrected QT NM cardiolite stress test 11/2024 Impression: 1. Myocardial perfusion imaging study shows likely normal myocardial perfusion 2. Gated LVEF is 64% 3. Transient ischemic dilatation not present but LV cavity is dilated Nondiagnostic changes on EKG on EKG. ECHO 10/2024 Conclusions: - The left ventricular systolic function is normal. The calculated ejection fraction is 67% by biplane method. - No obvious valvular pathology seen on this study. Holter 11/2024 1. Patient was monitored for total period of 2 days 2. Baseline was normal sinus rhythm with average heart rate of 66 beats per minute 3. Frequent PACs noted, total burden of 2.72% mostly isolated 4. Occasional PVCs noted 5. No significant pauses noted 6. Patient complained of symptoms 3 times with symptoms of chest pressure lasting 5-10 minutes correlating with isolated PACs or PVCs Assessment and Plan Assessment Anesthesia Assessment: Chart Reviewed Final Anesthetic Review Family History of Problems with Anesthesia: No History of Problems with Anesthesia: No Documented by User: Rupinder Null MD 12/17/24 08:28 PMFSH Past Medical History Medical History Hormone sensitive prostate cancer (~06/2024) Somnolence COPD (chronic obstructive pulmonary disease) Obesity Nicotine dependence, cigarettes, uncomplicated Tubulovillous adenoma of colon Family history of ovarian cancer Obstructive sleep apnea Depression Asthma Anxiety Chronic fatigue Primary osteoarthritis of both knees Surgical History Surgical History History of prostate biopsy History of cystoscopy History of left inguinal hernia repair History of colonoscopy Social History Social History Are you a primary career guidance counselor to a significant other at home: No Do you presently have visiting nurse or other home services: No Alcohol intake: former Patient Tobacco Use Status: Former Tobacco user Tobacco use type: Cigarette Cigarette Packs Per Day: 0.5 Cigarettes Per Day: 2 Years Smoked: (onset 14yo, 1/2-1ppd x 52yrs, 35PYH) Have you been hit, kicked, punched, or otherwise hurt by someone within the past year? If so, by whom?: No Are you DNR?: No Advance Directives: No Advance Directives Information Provided: Yes Poor oral hygiene: No Meds Allergies Allergy/AdvReac Type Severity Reaction Status Date / Time latex (Latex) Allergy Mild RASH Verified 12/17/24 06:14 Home Medications ?Medication ?Instructions ?Recorded ?Confirmed ?Last Taken ?Type aripiprazole 5 mg tablet 5 mg PO BEDTIME 07/08/21 12/13/24 Unknown History budesonide-formoterol HFA 160 2 puff inhalation BID 07/08/21 12/13/24 Unknown History mcg-4.5 mcg/actuation aerosol inhaler (Symbicort) buspirone 10 mg tablet 10 mg PO DAILY 07/08/21 12/13/24 Unknown History paroxetine HCl 20 mg tablet 20 mg PO DAILY 07/08/21 12/13/24 Unknown History quetiapine 25 mg tablet 25 - 50 mg PO BEDTIME PRN insomnia 07/08/21 12/13/24 Unknown History albuterol sulfate 2.5 mg/3 mL 2.5 mg inhalation TID PRN Wheezing 11/30/22 12/13/24 Unknown History (0.083 %) solution for nebulization Exam Airway Mallampati Class: III TM Dist: >3cm Neck ROM: Limited Heart: rrr Lungs: cta Assessment and Plan Assessment Anesthesia Assessment: Anesthesia Plan Discussed Final Anesthetic Review NPO: Yes ASA Class: III Final Preanesthetic Review: No Changes in Pt Med Stat, Meds/Allgs Chart Reviewed, Consent Obtained/Reviewed and Anes Risks/Benef Reviewed Patient Risk: Intermediate Procedure Risk: Low Anesthetic Plan Anesthetic Plan: GA and Agree w/ Assess. and Plan Disposition: Standard PACU
[2024-12-17 06:13] VITALS: BMI 38.6
[2024-12-17] MEDS: Lactated Ringers 1,000 ML 100 ML IVCONT (06:18)
[2024-12-17 06:32] VITALS: BP 135/62; PULSE 67; RESP 18; TEMP 36.7; O2SAT 96
--- NOTE | 2024-12-17 07:25 | PC.NURSE ---
Dr. Null updated that patient stopped his Eliquis 9 days ago, which was longer than clinique counter manager requested. Doctor stated okay to proceed. Doctor educated patient.
--- NOTE | 2024-12-17 07:51 | MHC.SHP ---
Pre-Procedural Eval Section A - 24 Hr Update-Section A only Date of Service: 12/17/24 The patient is an INPATIENT: No Changes since office visit: No Cold of Flu in the past 2 weeks, No New Medical Problems, No Changes in Medication and No Patient answered all questions The patient has been examined within 24 hours of the surgical procedure. The History & Physical has been completed within 30 days and I have reviewed it.: Yes Section B - Complete if H&P > 30 days Chief Complaint: Malignant neoplasm of prostate Details of Present Illness: space oar and visicoil Allergies: Allergies Allergy/AdvReac Type Severity Reaction Status Date / Time latex (Latex) Allergy Mild RASH Verified 12/17/24 06:14 Plan I have reviewed the history and physical and performed a pertinent physical examination on my patient. No changes have occurred unless specified. Time Spent With Patient Time: Total time managing care of this patient today ____ minutes.
--- NOTE | 2024-12-17 08:41 | W.PM.OPN ---
Operative Note Operative Note Date of Service: 12/17/24 Narrative: Preoperative diagnosis: Prostate cancer Postoperative diagnosis: Prostate cancer Procedure: 1. Transrectal ultrasound-guided perineal visicoil marker seed placement 2. Transrectal ultrasound-guided perineal SpaceOAR gel placement Surgeon: Dr. Jose Cherry Anesthetic: Sedation Indications for procedure: Prostate Cancer Procedure: After informed consent was verified, the patient was brought into the operating room and anesthesia was performed per protocol. The patient was placed in a modified dorsal lithotomy position. Anus was dilated with a finger. Gel was placed per rectum. Ultrasound probe was placed per rectum. The prostate was visualized in sagittal and transverse dimensions. Local anesthetic was infiltrated in the perineal area using 10 cc of lidocaine Visicoil seed markers were placed in a transperineal fashion using ultrasound guidance 1 on the right toward mid gland. 1 on the left at mid gland. Good deployment confirmed with ultrasound. The purpose is for target triangulation. The 2nd part of the procedure was placement of SpaceOAR gel to allow consolidation for radiation delivery. The kit was prepared on the backtable with assembly of the 2 part solution and syringe delivery system per kit instructions. The delivery needle was advanced bevel down in the midline under ultrasound guidance to the apex of the prostate. It was advanced in the plane the prostate from the rectum to the midpoint of the prostate. Location was reviewed using sagittal and transverse imaging. At the midpoint of the prostate 1 cc of saline was placed to confirm needle position. Further injection saline was placed to confirm spread toward the base of the prostate. Position was confirmed with sagittal and transverse imaging. The needle was confirmed to be free from tenting of the rectum. With the needle in the confirmed position 10 cc of gel mixture was injected. This was performed over a target time of 15-20 seconds to allow for adequate spread.. Good separation was seen of the rectum from the prostate space running in the midline from the base toward the apex of the prostate. Following completion of the procedure the probe was removed from the rectum. He tolerated the procedure well. He was extubated in the operating room and transferred in stable condition to the recovery area. Pathology none Drains none
[2024-12-17 08:44] VITALS: BP 134/76; PULSE 87; RESP 12; TEMP 36.2; O2SAT 99
[2024-12-17 08:49] VITALS: BP 119/84; PULSE 80; RESP 16; O2SAT 99
[2024-12-17 08:54] VITALS: BP 126/68; PULSE 77; RESP 16; O2SAT 95
[2024-12-17 09:00] VITALS: BP 123/59; PULSE 83; RESP 16; O2SAT 95
[2024-12-17 09:12] VITALS: BP 123/66; PULSE 68; RESP 16; TEMP 36.2; O2SAT 95
== END 2024-12-17 10:00 | disposition home or self-care (01) ==
PROVIDERS: PCP Internal Medicine; Visit Provider Urology
PROC: (CPT 55874; principal; 2024-12-17 07:30)
DX: C61 Malignant neoplasm of prostate (principal); Z19.1 Hormone sensitive malignancy status; R53.82 Chronic fatigue, unspecified; N40.1 Benign prostatic hyperplasia with lower urinary tract symptoms; N13.8 Other obstructive and reflux uropathy; J44.9 Chronic obstructive pulmonary disease, unspecified; E66.9 Obesity, unspecified; Z68.38 Body mass index [BMI] 38.0-38.9, adult; I48.91 Unspecified atrial fibrillation; Z79.01 Long term (current) use of anticoagulants; Z79.899 Other long term (current) drug therapy; Z91.040 Latex allergy status; Z98.890 Other specified postprocedural states; Z87.891 Personal history of nicotine dependence
CPT/HCPCS: 55874; 55876; A4648; C1889; J1100; J1956; J2003; J2250; J2704; J3010

== ENCOUNTER → 2024-12-17 05:44 | Outpatient (BNV) | payer MEDICAID, SELFPAY | PROVIDERS: PCP Internal Medicine; Visit Provider Urology | DX: C61 Malignant neoplasm of prostate (principal) | CPT/HCPCS: 55874; 55876; 76872 ==

== ENCOUNTER 2025-01-04 14:56 | Outpatient (REF) | payer MEDICAID, SELFPAY ==
--- NOTE | ~2025-01-04 | CT_ITS ---
EXAMINATION: CT LOW-DOSE SCREENING CHEST WITHOUT CONTRAST CLINICAL INFORMATION: 69-year-old male, current smoker, 54 pack years, lung cancer screening. COMPARISON: 01/03/2024. TECHNIQUE: Multidetector volumetric CT imaging of the chest is performed on a Siemens SOMATOM Definition scanner without contrast using low dose technique. Additional 2D coronal and sagittal reformatted images and axial 3D maximum intensity projection (MIP) images are generated on the CT workstation. This CT examination was performed using dose optimization techniques as appropriate, variously including the following: *Automated exposure control *Adjustment of mA and/or kV according to patient size (this includes techniques or standardized protocols for targeted exams where dose is matched to indication/reason for exam; i.e. extremities or head) *Use of iterative reconstruction technique FINDINGS: PULMONARY NODULES: Right lower lobe subpleural calcified granuloma is unchanged. 4 mm subpleural nodule medial left lower lobe (series 5, image 93), unchanged. 3 mm peripheral nodule left lower lobe (series 5, image 101), unchanged. There is no new or enlarging pulmonary nodule. LUNGS: Lungs are well expanded. There is very mild centrilobular emphysema. There are no focal consolidations or abnormal groundglass opacities. There is no interstitial abnormality. Small airways appear grossly normal. Central airways are patent. No pleural effusion or pneumothorax. MEDIASTINUM: Normal thyroid. No abnormal mass or lymphadenopathy. Aorta is normal in caliber and course with minimal atheromatous calcification. Main pulmonary artery is normal in caliber. Heart size is normal. There is no pericardial effusion. There is a prominent epicardial fat pad present. Minimally patulous esophagus noted. CORONARY ARTERY CALCIFICATION: Mild. CHEST WALL/AXILLA: There are no masses or abnormal lymph nodes. There is mild bilateral gynecomastia. UPPER ABDOMEN: Limited imaging of the upper abdominal structures demonstrates no abnormalities. OSSEOUS STRUCTURES: No suspicious lytic or blastic bone lesions. There are spinal degenerative changes, mild to moderate in severity. CT/CT lung screening IMPRESSION: 1. There are 2 stable left lower lobe pulmonary nodules measuring up to 4 mm. No new or enlarging nodule present. 2. There is very mild centrilobular emphysema. The lungs are clear. ASSESSMENT: 1. Lung-RADS Category 2: Benign appearance or behavior of nodules. 2. Lung-RADS Category S: None. RECOMMENDATION: Continued routine annual low-dose CT lung screening in 1 year is recommended. An order for CT CHEST LOW DOSE CANCER SCREENING ([id number]) can be placed. Electronically signed by: Maycol Umanzor MD 01/04/2025 03:44 PM EDT
--- OUTSIDE RECORDS SUMMARY | 2025-01-04 16:36 | XMS_ITS | Encounter Summary ---
Author Organization [employer] Address [address] [place] [address] [address] [place] [address] Care Team Providers Care Canal Superintendent Name Role Phone Rachid Lee MD Primary Care Provide r Jose Cherry MD Unavailable Reason for Visit * Reason Comments Med Refill Encounter Details Date Type Department Care Team (Late st Contact Info) Description 05/21/2022 Refill [facility] MEDICINE [address] [place] [address] Rachid Lee MD [address] [place] [address] Seasonal allergies Social History Tobacco Use Types [...] Care Team (Late st Contact Info) Description 02/22/2025 11:00 AM EST Office Visit [facility] OPTOMETRY [address] [place], [place] [id number] Carol Cantu OD [address] [place] [address] documented as of this encounter Visit Diagnoses Diagnosis Seasonal allergies Allergic rhinitis, cause unspecified documented in this encounter Care Teams Canal Superintendent Relationship Specialty Start Date End Date Rachid Lee MD [address] [place] [address] PCP - General Internal Medicine 10/29/13 Jose Cherry MD [address] [place] [address] Drive [address] [place] [address] Urology 05/15/24 documented as of this encounter
--- OUTSIDE RECORDS SUMMARY | 2025-01-04 16:36 | XMS_ITS | Encounter Summary ---
Author Organization [employer] Address [address] [place] [address] 7t [place] [address] Care Team Providers Care Investment Accountant Name Role Phone Rachid Lee MD Primary Care Provide r Jose Cherry MD Unavailable [phone] Encounter Details Date Type Department Care Team (Late st Contact Info) Description 03/24/2022 Orders Only [facility] [address] [place] [address] Kate Jacobo LPN Social History Tobacco Use [...] Description 02/22/2025 11:00 AM EST Office Visit [facility] [address] [place] [address] Carol Cantu, OD [address] [place] [address] documented as of this encounter Visit Diagnoses Not on filedocumented in this encounter Care Teams Investment Accountant Relationship Specialty Start Date End Date Rachid Lee MD [address] [place] [address] PCP - General Internal Medicine 10/29/13 Jose Cherry MD [address] [place] [address] Urology 05/15/24 documented as of this encounter
--- OUTSIDE RECORDS SUMMARY | 2025-01-04 16:36 | XMS_ITS | Encounter Summary ---
Author Organization [employer] Address [address] [facility] 7t [place] [address] Care Team Providers Care Hydrostatic Tester Name Role Phone Rachid Lee MD Primary Care Provide r Jose Cherry MD Unavailable [phone] Encounter Details Date Type Department Care Team (Late st Contact Info) Description 06/10/2022 Orders Only [facility] [address] [place] [address] Arlyn Vigil LPN Social History Tobacco Use [...] Description 02/22/2025 11:00 AM EST Office Visit [facility] [address] [place] [address] Carol Cantu, OD [address] [place] [address] documented as of this encounter Visit Diagnoses Not on filedocumented in this encounter Care Teams Hydrostatic Tester Relationship Specialty Start Date End Date Rachid Lee MD [address] [place] [address] PCP - General Internal Medicine 10/29/13 Jose Cherry MD [address] [place] [address] Urology 05/15/24 documented as of this encounter
--- OUTSIDE RECORDS SUMMARY | 2025-01-04 16:36 | XMS_ITS | Encounter Summary ---
Author Organization [employer] Address [address] [facility] 7t [place] [address] Care Team Providers Care Graphic Arts Instructor Name Role Phone Rachid Lee MD Primary Care Provide r Jose Cherry MD Unavailable Encounter Details Date Type Department Care Team (Late Contact Info) Description 07/15/2022 Abstract [facility] [address] [place] [address] Rachid Lee MD [address] [place] [address] Social History Tobacco Use Types Packs/Day Years [...] Department Care Team (Late Contact Info) Description 02/22/2025 11:00 AM EST Office Visit [facility] [address] [place] [address] Carol Cantu, OD [address] [place] [address] documented as of this encounter Procedures Procedure Name Priority Date/Time Associated Diagnosis Comments COLONOSCOPY Routine 06/11/2022 documented in this encounter Results * Hm Colonoscopy (06/11/2022) Colonoscopy Normal Normal 06/11/2022 Mandy Crowley - 06/11/2022 11:20 AM EDT Recommended 3 year follow up ( see scanned notes) us Historical Provider HEALTH MAINTENANCE Edited Result - Final documented in this encounter Visit Diagnoses Not on filedocumented in this encounter Care Teams Graphic Arts Instructor Relationship Specialty Start Date End Date Rachid Lee MD [address] [place] [address] PCP - General Internal Medicine 10/29/13 Jose Cherry MD [address] [place] [address] Urology 05/15/24 documented as of this encounter
--- OUTSIDE RECORDS SUMMARY | 2025-01-04 16:37 | XMS_ITS | Clinical Summary ---
Author Organization [employer] Address [address] [facility] 7t [place] [address] Care Team Providers Care Grain Elevator Worker Name Role Phone Rachid Lee MD Primary Care Provide r Jose Cherry MD Unavailable [phone] Allergies Active Allergy Reactions Criticality Noted [...] daily. 28 g 1 01/26/20 24 Active acetaminophen (Tylenol Extra Strength) 500 MG tabletIndicatio ns:Acute left-sided low back pain without sciatica Take 1 tablet (500 mg) by mouth every 6 (six) hours if needed for mild pain. 60 tablet 09/05/19 25 Active tiZANidine (Zanaflex) 2 MG tabletIndicatio ns:Acute left-sided low back pain without sciatica Take 1 tablet (2 mg) by mouth every 8 (eight) hours if needed for muscle spasms. 30 tablet 09/05/19 25 Active budesonide-form oterol (Symbicort) 160-4.5 MCG/ACT inhalerIndicati ons:Moderate persistent asthma without complication INHALE 2 PUFFS BY MOUTH TWICE DAILY IN THE MORNING AND IN THE EVENING RINSE MOUTH AFTER USING. 10.2 g 6 11/23/19 25 Active cetirizine (ZyrTEC) 10 MG tabletIndicatio ns:Seasonal allergies TAKE 1 TABLET BY MOUTH EVERY EVENING 90 tablet 1 12/05/19 25 Active ibuprofen 800 MG tabletIndicatio ns:Acute left-sided low back pain without sciatica TAKE 1 TABLET BY MOUTH EVERY TWELVE HOURS NEEDED FOR MILD PAIN 30 tablet 12/12/19 25 Active ibuprofen 800 MG tabletIndicatio ns:Acute left-sided low back pain without sciatica TAKE 1 TABLET BY MOUTH EVERY TWELVE HOURS NEEDED FOR MILD PAIN 30 tablet 09/14/19 25 025 Discontinued(Re order (will not trigger notification to Pharmacy)) Active Problems Problem Noted Date Diagnosed Date Forgetfulness 09/04/2024 Assessment & Plan (12/06/2024 4:02 PM EDT): Patient with previous c/o worsening forgetfulness Last visit I ordered a B12, Folate, RPR, TSH and referred patient to Neurology, pt has yet to have those test done Assessment & Plan (09/04/2024 11:55 AM EDT): Patient c/o worsening forgetfulness Plan: Obtain B12, Folate, RPR, TSH Neurology referral Adenocarcinoma of prostate (CMS/HCC) 06/29/2024 06/26/2024 Assessment & Plan (12/06/2024 11:51 AM EDT): Patient recently diagnosed with Prostate CA PSA 05/02/2024 higher at 11.33 from 7 Under the care of Dr. Cherry. Pt last saw Dr Cherry 10/19/24. MRI of prostate and PET scan at most recent appt. MRI and PSMA PET finding No evidence of extension of disease outside prostate No evidence of bony or boris disease Moderate volume, unfavorable intermediate, organ confined disease Based on comorbidities and significant volume of disease at base of prostate recommendation for external beam radiation with short term hormone therapy Would be candidate for SpaceO[facility] Pt to continue to follow with Urology Assessment & Plan (09/04/2024 11:49 AM EDT): [...] me he was called by someone in malian so he did not understand. Today we [...] Low dose cancer screen CT Severe obesity (CMS/HCC) 09/16/2022 Assessment & Plan (12/06/2024 11:50 AM EDT): pt continues to decline to see our greeting card maker or go to the comprehensive weight management program Patient has been counseled and educated about diet and exercise. Personal goal of weight loss discussed Assessment & Plan (05/29/2024 12:03 PM EDT): pt continues to decline to see our greeting card maker or go to the comprehensive weight management program Patient has been counseled and educated about diet and exercise. Personal goal of weight loss discussed Assessment & Plan (09/22/2023 1:06 PM EDT): Managed to loose weight since our last visit pt continues to decline to see our greeting card maker or go to the comprehensive weight management program Patient has been counseled and educated about diet and exercise. Personal goal of weight loss discussed Assessment & Plan (10/05/2022 10:04 AM EDT): Discussed need to loose weight , information about the comprehensive weight management program given to patient in the past. pt declines to see our greeting card maker or go to the comprehensive weight management program Patient has been counseled and educated about diet and exercise. Personal goal of weight loss discussed Recurrent moderate major dep ressive disorder with anxiety (CMS/HCC) 02/26/2021 Assessment & Plan (09/04/2024 11:54 AM EDT): Under the care of Braden Scott at [facility] Seeing a psychiatrist Chronic anxiety 02/26/2021 [...] No recent exacerbations Being followed by our [facility] Asthma Pharmacy Team Currently on Symbicort [...] No recent exacerbations Being followed by our [facility] Asthma Pharmacy Team Currently on Symbicort [...] No recent exacerbations Being followed by our [facility] Asthma Pharmacy Team Currently on Symbicort [...] No recent exacerbations Being followed by our [facility] Asthma Pharmacy Team Currently on Symbicort 160 mg/4.5 2 puffs BID and Pro-Air and Incruse Ellipta added once a day Used to be under the care of Dr Nayak last seen in February 2016 Pt up to date on his Covid-19 vaccines Primary hypertriglyceridemia 10/18/2011 Assessment & Plan (12/06/2024 11:49 AM EDT): Pt here for a f/u [...] exercise Repeat Lipid profile Assessment & Plan (01/26/2024 1:20 PM EST): [...] results in patients with liver disease. Resulting [facility] Specimen Collected: 01/07/23 10: Last Resulted: [...] results in patients with liver disease. Resulting [facility] Specimen Collected: 01/07/23 10: Last Resulted: [...] stopped using his Cpap because a in [place] told him to stop using it because it was damaging his lungs Last visit I tried to reassured him that this is not the case unsuccessfully. Resolved Problems Problem Noted Date Diagnosed Date Resolved Date Prostate cancer ([facility]) 10/05/2022 Assessment & Plan (05/29/2024 11:56 AM EDT): Hx of PSA elevated 4.3 Repeat PSA 05/02/2024 higher at 11.33 from 7 Pt evaluated by Urology , last seen 11/17/2023. He recommended Biopsy. Pt opted for 6 month follow up with repeat PSA at that time. Contacted [facility] Urology reporting that pt is aware [...] Encounters Date Type Department Care Team Description 01/04/2025 Orders Only [facility] External Provider, [facility] 12/11/2024 Refill [facility] [address] [place] [address] Rachid Lee MD Acute left-sided low back pain without sciatica 12/06/2024 11:30 AM EDT Office Visit [address] [address] Rachid Lee MD Primary hypertriglyceridemia (Primary Dx); Severe obesity (CMS/HCC); Adenocarcinoma of prostate (CMS/HCC); Forgetfulness 12/06/2024 Patient Outreach [facility] [address] [place] [phone] Rachid Lee MD Care Coordination ([facility] outreach for SDOH PT-1 and food needs-referral completed /) 12/06/2024 Telephone [facility] [address] [place] [phone] Anne Noonan, RN Care Coordination 12/06/2024 Travel 12/05/[address] [address] Rachid Lee MD chart prep 12/04/2024 Refill [facility] [address] [place] [address] Rachid Lee MD Seasonal allergies 11/22/2024 Orders Only [facility] External Provider, [facility] 11/22/2024 Refill [facility] [address] [place] [address] Rachid Lee MD Moderate persistent asthma without complication from Last 3 Months Immunizations Immunization Administration [...] Date Recorded Patient Health Questionnaire-9 Score 14 12/06/2024 Patient Health Questionnaire-9 Score 14 12/06/2024 Last PHQ-9: Questionnaire Data Not on file 0 12/06/2024 Housing Stability Answer Date Recorded What is [...] Date Recorded Patient Health Questionnaire-2 Score 4 12/06/2024 Internet Access Answer Date Recorded Internet Access [...] Sign Reading Time Taken Comments Blood Pressure 118/80 12/06/2024 11:31 AM EDT Pulse 60 12/06/2024 11:31 AM EDT Temperature 36.7 C (98.1 F) 12/06/2024 11:31 AM EDT Respiratory Rate 20 12/06/2024 11:31 AM EDT Oxygen Saturation 98% 09/04/2024 11:46 AM EDT Inhaled Oxygen Concentration - - Weight 117 kg (258 lb 3.2 oz) 12/06/2024 11:31 A M EDT Height 170.2 cm (5' 7 ) 12/06/2024 11:31 AM EDT Body Mass Index 40.44 12/06/2024 11:31 AM EDT Plan of Treatment Upcoming Encounters Date Type Department Care Team (Late st Contact Info) Description 02/22/2025 11:00 AM EST Office Visit [facility] [address] [place] [address] Carol Cantu, OD [address] [place] [address] Health Maintenance Due Date Last Done Comments [...] history exists Alcohol/Substance Use Screening 01/25/2025 01/26/2024 SDOH Screening 05/22/2025 05/22/2024 Depression Monitoring 06/05/2025 12/06/2024, 025 Colonoscopy 06/11/2025 06/11/2022 Colorectal Cancer Screening 06/11/2025 DTaP/Tdap/Td Vaccines (2 - Td or Tdap) 10/01/2025 10/02/2015 Tobacco Screening 12/06/2025 12/06/2024 Lipid Panel 09/25/2028 09/26/2023, 01/07/2023 Hepatitis C [...] Procedure Name Priority Date/Time Associated Diagnosis Comments LDCT LUNG SCREENING Routine 01/04/2025 3:19 PM EDT STRESS TEST WITH MYOCARDIAL PERFUSION Routine 11/22/2024 10:55 AM EDT LIPID PANEL, STANDARD Routine 09/26/2023 9:03 AM EDT Primary hypertriglyceridemia HM COLONOSCOPY Routine 06/11/2022 ZZZ HISTORICAL HEPATITIS C AB W/REFL TO HCV RNA, QN, PCR Routine 04/28/2021 11:13 AM EST from Last 3 Months or Most Recently Relevant to Health Maintenance Results * CT Lung Screening Low dose (01/04/2025 3:19 PM EDT) Anatomical Region Laterality Modality Lung Computed Tomogra phy 01/04/2025 3:19 PM EDT Narrative 01/04/2025 3:47 PM EDT [place] [address] [address] Scan Report Signed Patient: Juan Carlos Garcia MR#: [id number] : 1955 Acct:[id number] Age/Sex: 69 / M ADM Date: 01/04/25 Loc: HO.CT Attending Dr: Sue Harp PA-C Ordering Physician: Sue Harp PA-C Date of Service: 01/04/25 Procedure(s): CT lung screening Accession Number(s): [id number] cc: Rachid Guardado MD; Sue Harp PA-C Report Number: [id number]: Total DLP = 83.00 mGy-cm Reason for Exam: F17.210 - Nicotine dependence, cigarettes, uncomplicated EXAMINATION: CT LOW-DOSE SCREENING CHEST WITHOUT CONTRAST CLINICAL INFORMATION: 69-year-old male, current smoker, 54 pack years, lung cancer screening. COMPARISON: 01/03/2024. TECHNIQUE: Multidetector volumetric CT imaging of the chest is performed on a Siemens SOMATOM Definition scanner without contrast using low dose technique. Additional 2D coronal and sagittal reformatted images and axial 3D maximum intensity projection (MIP) images are generated on the CT workstation. This CT examination was performed using dose optimization techniques as appropriate, variously including the following: *Automated exposure control *Adjustment of mA and/or kV according to patient size (this includes techniques or standardized protocols for targeted exams where dose is matched to indication/reason for exam; i.e. extremities or head) *Use of iterative reconstruction technique FINDINGS: PULMONARY NODULES: Right lower lobe subpleural calcified granuloma is unchanged. 4 mm subpleural nodule medial left lower lobe (series 5, image 93), unchanged. 3 mm peripheral nodule left lower lobe (series 5, image 101), unchanged. There is no new or enlarging pulmonary nodule. LUNGS: Lungs are well expanded. There is very mild centrilobular emphysema. There are no focal consolidations or abnormal groundglass opacities. There is no interstitial abnormality. Small airways appear grossly normal. Central airways are patent. No pleural effusion or pneumothorax. MEDIASTINUM: Normal thyroid. No abnormal mass or lymphadenopathy. Aorta is normal in caliber and course with minimal atheromatous calcification. Main pulmonary artery is normal in caliber. Heart size is normal. There is no pericardial effusion. There is a prominent epicardial fat pad present. Minimally patulous esophagus noted. CORONARY ARTERY CALCIFICATION: Mild. CHEST WALL/AXILLA: There are no masses or abnormal lymph nodes. There is mild bilateral gynecomastia. UPPER ABDOMEN: Limited imaging of the upper abdominal structures demonstrates no abnormalities. OSSEOUS STRUCTURES: No suspicious lytic or blastic bone lesions. There are spinal degenerative changes, mild to moderate in severity. CT/CT lung screening IMPRESSION: 1. There are 2 stable left lower lobe pulmonary nodules measuring up to 4 mm. No new or enlarging nodule present. 2. There is very mild centrilobular emphysema. The lungs are clear. ASSESSMENT: 1. Lung-RADS Category 2: Benign appearance or behavior of nodules. 2. Lung-RADS Category S: None. RECOMMENDATION: Continued routine annual low-dose CT lung screening in 1 year is recommended. An order for CT CHEST LOW DOSE CANCER SCREENING ([id number]) can be placed. Electronically signed by: Maycol Umanzor MD 01/04/2025 03:44 PM EDT Dictated By: Maycol Umanzor MD Signed By: <Electronically signed by Maycol Umanzor MD in OV> 01/04/25 1544 DD/ 1519 TD/TT: 01/04/25 1528 Sales Special Agent: Procedure Note Donotuseinterpreter, Image - 01/04/[address] [address] [address] Scan Report Signed Patient: Juan Carlos Garcia#: M [id number] : 8Acct:[id number] Age/Sex: 69 / MADM Date: 01/04/25 Loc: HO.CT Attending Dr: Sue Harp PA-C Ordering Physician: Sue Harp PA-C Date of Service: 01/04/25 Procedure(s): CT lung screening Accession Number(s): [id number] cc: Rachid Gaurdado MD; Sue Harp PA-C Report Number: [id number]: Total DLP = 83.00 mGy-cm Reason for Exam: F17.210 - Nicotine dependence, cigarettes, uncomplicated EXAMINATION: CT LOW-DOSE SCREENING CHEST WITHOUT CONTRAST CLINICAL INFORMATION: 69-year-old male, current smoker, 54 pack years, lung cancer screening. COMPARISON: 01/03/2024. TECHNIQUE: Multidetector volumetric CT imaging of the chest is performed on a Siemens SOMATOM Definition scanner without contrast using low dose technique. Additional 2D coronal and sagittal reformatted images and axial 3D maximum intensity projection (MIP) images are generated on the CT workstation. This CT examination was performed using dose optimization techniques as appropriate, variously including the following: *Automated exposure control *Adjustment of mA and/or kV according to patient size (this includes techniques or standardized protocols for targeted exams where dose is matched to indication/reason for exam; i.e. extremities or head) *Use of iterative reconstruction technique FINDINGS: PULMONARY NODULES: Right lower lobe subpleural calcified granuloma is unchanged. 4 mm subpleural nodule medial left lower lobe (series 5, image 93), unchanged. 3 mm peripheral nodule left lower lobe (series 5, image 101), unchanged. There is no new or enlarging pulmonary nodule. LUNGS: Lungs are well expanded. There is very mild centrilobular emphysema. There are no focal consolidations or abnormal groundglass opacities. There is no interstitial abnormality. Small airways appear grossly normal. Central airways are patent. No pleural effusion or pneumothorax. MEDIASTINUM: Normal thyroid. No abnormal mass or lymphadenopathy. Aorta is normal in caliber and course with minimal atheromatous calcification. Main pulmonary artery is normal in caliber. Heart size is normal. There is no pericardial effusion. There is a prominent epicardial fat pad present. Minimally patulous esophagus noted. CORONARY ARTERY CALCIFICATION: Mild. CHEST WALL/AXILLA: There are no masses or abnormal lymph nodes. There is mild bilateral gynecomastia. UPPER ABDOMEN: Limited imaging of the upper abdominal structures demonstrates no abnormalities. OSSEOUS STRUCTURES: No suspicious lytic or blastic bone lesions. There are spinal degenerative changes, mild to moderate in severity. CT/CT lung screening IMPRESSION: 1. There are 2 stable left lower lobe pulmonary nodules measuring up to 4 mm. No new or enlarging nodule present. 2. There is very mild centrilobular emphysema. The lungs are clear. ASSESSMENT: 1. Lung-RADS Category 2: Benign appearance or behavior of nodules. 2. Lung-RADS Category S: None. RECOMMENDATION: Continued routine annual low-dose CT lung screening in 1 year is recommended. An order for CT CHEST LOW DOSE CANCER SCREENING ([id number]) can be placed. Electronically signed by: Maycol Umanzor MD 01/04/2025 03:44 PM EDT Dictated By: Maycol Umanzor MD Signed By: <Electronically signed by Maycol Umanzor MD in OV> 01/04/25 1544 DD/ 1519 TD/TT: 01/04/25 1528 Sales Special Agent: [facility] External Provider IMG CT PROCEDURES Final Result * Stress test with myocardial perfusion (11/22/2024 10:55 AM EDT) 11/22/2024 10:5 5 AM EDT Narrative [facility] IM[facility] - 11/24/2024 12:00 PM EDT [address] [address] Nuclear Medicine Report Signed Patient: Juan Carlos Garcia MR#: M [id number] : 1955 Acct:[id number] Age/Sex: 68 / M ADM Date: 11/22/24 Loc: BEATRICE Attending Dr: Harris Nyima SORTER/ASSAY TECH Ordering Physician: Harris Lomeli NP Date of Service: 11/22/24 Procedure(s): DE cardiolite stress test Accession Number(s): [id number] cc: Rachid Guardado MD; Harris Lomeli NP [...] normal myocardial perfusion based. Attenuated corrected images.. NM/DE cardiolite stress test Impression: 1. Myocardial perfusion [...] 11/24/24 1156 DD/ 1055 TD/TT: 11/23/24 1235 Sales Special Agent: Procedure Note Donotuseinterpreter, Image - 11/24/2024 [place] [address] Nuclear Medicine Report Signed Patient: Juan Carlos Garcia#: M [id number] : 8Acct:[id number] Age/Sex: 68 / MADM Date: 11/22/24 Loc: [facility] Attending Dr: Harris Lmoeli NP Ordering Physician: Harris Lomeli NP Date of Service: 11/22/24 Procedure(s): NM cardiolite stress test Accession Number(s): [id number] cc: Rachid Guardado MD; Harris Lomeli NP [...] on EKG on EKG. Electronically signed by: hJony Moyer MD 11/24/2024 11:56 AM EDT RP Dictated By: Jhony Moyer MD Signed By: <Electronically signed by Jhony Moyer MD in OV> 11/24/24 1156 DD/ 1055 TD/TT: 11/23/24 1235 Sales Special Agent: [facility] External Provider CV STRE SS PROCEDURES Edited Result - Final [facility] [address] [place] [phone] * (ABNORMAL) Lipid Panel, Standard (09/26/2023 9:03 AM EDT) Triglycerides 110 <150 mg/dL [facility] Comment:Desirable Triglyceri de: less than 150 mg/dLBorderline High Triglyceride 150-199 mg/dLHigh Triglyceride: 200-499 mg/dLVery High Triglyceride: greater than or equal to 5OO mg/dL Cholesterol 144 <200 mg/dL [facility] Comment:Desirable Cholestero l: less than 200 mg/dLBorderline High Cholesterol: 200-239 mg/dLHigh Cholesterol: greater than 239 mg/dL LDL Cholesterol Calculated 89 <100 mg/dL [facility] Comment:Desirable LDL: less than 100 mg/dLNear Optimal/Above Optimal LDL: 110- 129 mg/dLBorderline High LDL: 130-159 mg/dLHigh LDL: 160-189 mg/dLVery High LDL: greater than or equal to 190 mg/dL HDL Cholesterol 33(L) >40 mg/dL [facility] Comment:Desirable HDL: great er than 40 mg/dL Note: This HDL assay may give artificially low results in patients with liver disease. Blood Venous blood specimen / Unknown 09/26/2023 9:03 AM EDT 09/26/2023 11:04 AM EDT Rachid Eli MD LAB BLOOD ORDERABLES Final Result [facility] [address] [place] [phone] * Hm Colonoscopy (06/11/2022) Colonoscopy Normal [...] a test for HCV RNA (test code 50453) is suggested. For additional information please refer to http://education.Canara/faq/LUR71t5 (This link is being provided for informational/ educational purposes only.) 04/28/2021 11:1 3 AM EST us Rachid Eli MD HISTORICAL/NON ORDERA BLE LABS Final Result [facility] [address] from Last 3 Months or Most Recently Relevant to Health Maintenance Insurance [facility] STANDARD Care Teams Grain Elevator Worker Relationship Specialty Start Date End Date Rachid Lee MD [address] [place] [address] PCP - General Internal Medicine 10/29/13 Jose Cherry MD [address] [place] [address] Urology 05/15/24
--- OUTSIDE RECORDS SUMMARY | 2025-01-04 16:37 | XMS_ITS | Encounter Summary ---
Author Organization [employer] Address [address] [facility] [address] [place] [address] Care Team Providers Care Insulation Mechanic Name Role Phone Rachid Lee MD Primary Care Provide r Jose Cherry MD Unavailable [phone] Encounter Details Date Type Department Care Team (Late st Contact Info) Description 04/30/2023 Orders Only [facility] [address] [place] [address] Melchor Jim MD [address] [place] [address] Social History Tobacco Use Types Packs/Day Years [...] Description 02/22/2025 11:00 AM EST Office Visit [facility] [address] [place] [address] Carol Cantu, OD [address] [place] [address] documented as of this encounter Visit Diagnoses Not on filedocumented in this encounter Additional Health Concerns Assessment Noted Time PHQ-9 Depression Total Score: 14 023 10:11 AM EDT documented as of this encounter Care Teams Insulation Mechanic Relationship Specialty Start Date End Date Rachid Lee MD [address] [place] [address] PCP - General Internal Medicine 10/29/13 Jose Cherry MD [address] [place] [address] Urology 05/15/24 documented as of this encounter
--- OUTSIDE RECORDS SUMMARY | 2025-01-04 16:37 | XMS_ITS | Encounter Summary ---
Author Organization [email or web address] Address [address] [facility] 7[address] [place] [address] Care Team Providers Care Channel Lip Stiffener Insoles Name Role Phone Rachid Lee MD Primary Care Provide r Jose Cherry MD Unavailable [phone] Encounter Details Date Type Department Care Team (Late st Contact Info) Description 01/04/2025 Orders Only [facility] External Provider, [facility] Social History Tobacco Use Types Packs/Day [...] Description 02/22/2025 11:00 AM EST Office Visit [facility] [address] [place], [place] [id number] TarkaCarol, OD [address] [place] [address] documented as of this encounter Procedures Procedure Name Priority Date/Time Associated Diagnosis Comments LDCT LUNG SCREENING Routine 01/04/2025 3 :19 PM EDT documented in this encounter Results * CT Lung Screening Low dose (01/04/2025 3:19 PM EDT) Anatomical Region Laterality Modality Lung Computed Tomogra phy 01/04/2025 3:19 PM EDT Narrative 01/04/2025 3:47 PM EDT [address] [address] [address] Scan Report Signed Patient: Juan Carlos Garcia MR#: [id number] : 1955 Acct:[id number] Age/Sex: 69 / M ADM Date: 01/04/25 Loc: HO.CT Attending Dr: Sue Harp PA-C Ordering Physician: Sue Harp PA-C Date of Service: 01/04/25 Procedure(s): CT lung screening Accession Number(s): [id number] cc: Rachid Guardado MD; Sue Harp PA-C Report Number: [id number]: Total DLP = 83.00 mGy-cm Reason for [...] for CT CHEST LOW DOSE CANCER SCREENING ([id number]) can be placed. Electronically signed by: Maycol Umanzor MD 01/04/2025 03:44 PM EDT Dictated By: Maycol Umanzor MD Signed By: <Electronically signed by Maycol Umanzor MD in OV> 01/04/25 1544 DD/ 1519 TD/TT: 01/04/25 1528 Arboriculture Teacher: Procedure Note Donotuseinterpreter, Image - 01/04/[address] [place] [address] [address] Scan Report Signed Patient: Juan Carlos aGrcia#: M [id number] : 8Acct:[id number] Age/Sex: 69 / MADM Date: 01/04/25 Loc: HO.CT Attending Dr: Sue Harp PA-C Ordering Physician: Sue Harp PA-C Date of Service: 01/04/25 Procedure(s): CT lung screening Accession Number(s): [id number] cc: Rachid Guardado MD; Sue Harp PA-C Report Number: [id number]: Total DLP = 83.00 mGy-cm Reason for [...] for CT CHEST LOW DOSE CANCER SCREENING ([id number]) can be placed. Electronically signed by: Maycol Umanzor MD 01/04/2025 03:44 PM EDT Dictated By: Maycol Umanzor MD Signed By: <Electronically signed by Maycol Umanzor MD in OV> 01/04/25 1544 DD/ 151 TD/TT: 01/04/25 1528 Arboriculture Teacher: [facility] External Provider IMG CT PROCEDURES Final Result documented in this encounter Visit Diagnoses Not on filedocumented in this encounter Additional Health Concerns Assessment Noted Time PHQ-9 Depression Total Score: 14 12/06/ 025 1:11 PM EDT documented as of this encounter Care Teams Channel Lip Stiffener Insoles Relationship Specialty Start Date End Date Rachid Lee MD [address] [place] [address] PCP - General Internal Medicine 10/29/13 Jose Cherry MD [address] [place] [address] Urology 05/15/24 documented as of this encounter
== END 2025-01-04 14:57 | disposition home or self-care (01) ==
LOC: HO.CT 14:56
PROVIDERS: PCP Internal Medicine; Visit Provider Physician Assistant Medical
DX: Z12.2 Encounter for screening for malignant neoplasm of respiratory organs (principal); F17.210 Nicotine dependence, cigarettes, uncomplicated
CPT/HCPCS: 71271

== ENCOUNTER → 2025-01-04 14:58 | Outpatient (BNV) | payer MEDICAID, SELFPAY | PROVIDERS: PCP Internal Medicine; Visit Provider Radiology Diagnostic Radiology | DX: F17.210 Nicotine dependence, cigarettes, uncomplicated (principal) | CPT/HCPCS: 71271 ==

== ENCOUNTER 2025-01-31 13:01 | Outpatient (AMB) | payer MEDICAID, SELFPAY ==
--- NOTE | 2025-01-31 13:18 | MHC.OFFVIS ---
Vital Signs 01/31/25 13:19 Height 5 ft 8 in Weight 255 lb 4.725 oz BMI 38.8 BP 124/66 Blood Pressure Location Lt brachial Pulse 65 Pulse Source Pulse Oximeter Intake Visit Reasons: follow up after testings Document Control Clerk Required: Yes Document Control Clerk Services: Document Control Clerk Present Document Control Clerk Name: Da wood [id number] Accompanied by: Self / Same As Patient Allergies latex (Latex) Allergy (Mild, Verified 01/31/25 13:23) RASH Medication List - Last Reconciled 01/31/25 by Harris Lomeli NP albuterol sulfate 2.5 mg inhalation TID PRN alfuzosin ER 10 mg PO DAILY 30 days apixaban (Eliquis) 5 mg PO BID aripiprazole 5 mg PO BEDTIME budesonide-formoterol 160-4.5 mcg/actuation (Symbicort) 2 puffs inhalation BID buspirone 10 mg PO DAILY finasteride 5 mg PO DAILY 90 days metoprolol succinate ER (Toprol XL) 25 mg PO DAILY paroxetine HCl 20 mg PO DAILY quetiapine 25 - 50 mg PO BEDTIME PRN HPI Comments Details: This is a 69-year-old male patient coming in for a follow-up visit. A loss prevention detective was used throughout the visit. Patient with history of paroxysmal AFib, sleep apnea, obesity, and prostate cancer on radiation. Patient diagnosed with the AFib back in October where patient was treated with diltiazem and converted to sinus rhythm. Patient had undergone stress test and an echo study previously for preop risk stratification. Patient also wore a Holter monitor to check for recurrence of AFib. Patient is reporting feeling well overall without any cardiac symptoms of exertional chest pain, shortness breath, palpitations, dizziness, orthopnea, PND, leg edema, presyncope or syncope. Patient states that he is compliant with all his medications. [facility] Medical History Hormone sensitive prostate cancer (~06/2024) Somnolence COPD (chronic obstructive pulmonary disease) Obesity Nicotine dependence, cigarettes, uncomplicated Tubulovillous adenoma of colon Family history of ovarian cancer Obstructive sleep apnea Depression Asthma Anxiety Chronic fatigue Primary osteoarthritis of both knees Surgical History History of prostate biopsy History of cystoscopy History of left inguinal hernia repair History of colonoscopy Social History Are you a primary rn managed care to a significant other at home: No Do you presently have visiting nurse or other home services: No Alcohol intake: former Patient Tobacco Use Status: Former Tobacco user Tobacco use type: Cigarette Cigarette Packs Per Day: 0.5 Cigarettes Per Day: 2 Years Smoked: (onset 14yo, 1/2-1ppd x 52yrs, 35PYH) Review of Systems Const Denies daytime sleepiness, Denies difficulty sleeping, Denies snoring, Denies stops breathing during sleep and Denies weakness Card Denies chest pain, Denies rapid heart rate, Denies irregular heart rhythm, Denies claudication, Denies leg edema, Denies lightheadedness, Denies dyspnea on exertion, Denies orthopnea, Denies paroxysmal nocturnal dyspnea and Denies slow heart rate Resp Denies cough, Denies dyspnea on exertion and Denies snoring GI Reports no additional complaints, Denies hematochezia, Denies change in stool character and Denies dyspepsia Musc Denies abnormal gait, Denies muscle weakness and Denies numbness Neuro Denies abnormal gait, Denies numbness and Denies weakness Physical Exam Vital Signs: Last Vital Signs Pulse 65 01/31/25 13:19 BP 124/66 01/31/25 13:19 BMI result Body Mass Index 38.8 Const General: cooperative, healthy appearing, comfortable and no acute distress Orientation/consciousness: patient oriented x3 HEENT Head: Yes normal to inspection Neck Neck: Yes normal visual inspection, Yes trachea midline and Yes supple Chest Chest palpation & inspection: normal inspection of the chest Resp Effort & Inspection: normal respiratory effort Auscultation: clear to auscultation bilaterally, no crackles, no rales, no rhonchi and no wheezes Cardio Jugular venous distension: no JVD Palpation: normal PMI Rate: regular rate Rhythm: regular rhythm Heart sounds: S1 normal heart sound present, S2 normal heart sound present, no click, no gallops, no murmurs and no rubs Peripheral pulses: Peripheral pulses 2+ throughout GI Inspection: Yes normal to inspection Palpation (GI): Soft to palpation Auscultation: normal bowel sounds Skin General skin exam: no rashes or lesions noted Neuro General: patient oriented x3 Extrem General: Yes normal to inspection, No no pedal edema and No calf tenderness Psych Appearance: grossly normal Mental Status: mental status grossly normal Speech and movement: Normal speech and movement present Assessment & Plan Assessment & Plan (1) Afib: Code(s): I48.91 - Unspecified atrial fibrillation Category: Medical Plan: 10/15/2024-echo study showed a normal LV systolic function with the ejection fraction at 67%. 11/22/2024-patient underwent a myocardial perfusion study that showed normal perfusion. 11/26/2024-Holter study showed underlying sinus rhythm with occasional PVCs and frequent PACs with a burden of 2.72%. History of paroxysmal AFib. No recurrence of AFib. Clinically stable. Kendall Vasc risk score of at least 2. Continue Eliquis for full anticoagulation therapy. No reported signs of bleeding or falls. Continue metoprolol for rate control. Most recent kidney function is stable. We will monitor this periodically. (2) Obstructive sleep apnea: Code(s): G47.33 - Obstructive sleep apnea (adult) (pediatric) Category: Medical Plan: Continue CPAP therapy. Followed by pulmonology. (3) Obesity: Code(s): E66.9 - Obesity, unspecified Category: Medical Plan: Patient has quit smoking for which he is commended. Advised on heart healthy diet, regular exercise, losing weight, stress mitigation strategies, avoiding caffeinated beverages, and med compliance. Follow up in 1 year, sooner if needed. In the interim, patient will call the office with any concerns or change in symptoms. This note was generated using voice recognition software. While every effort has been made to ensure accuracy and proper transcription manager, there may be occasional errors that could affect the content or meaning of the described symptoms. Orders: Orders Basic Metabolic Panel 6 Months I48.91 - Unspecified atrial fibrillation Complete Blood Count no Diff 6 Months I48.91 - Unspecified atrial fibrillation Coding Level of Care Code Est Pt Level 4 (50310) Complex visit Add On G2211 Diagnoses Afib I48.91 Obstructive sleep apnea G47.33 Obesity E66.9 Time Spent (min) 32 Comment Time spent in reviewing the chart, test results, assessment, counseling and documentation.
[2025-01-31 13:19] VITALS: BP 124/66; PULSE 65; BMI 38.8
== END 2025-01-31 13:47 | disposition home or self-care (01) ==
LOC: HO.HCS 13:01
PROVIDERS: PCP Internal Medicine
DX: I48.91 Unspecified atrial fibrillation (principal); G47.33 Obstructive sleep apnea (adult) (pediatric); E66.9 Obesity, unspecified
CPT/HCPCS: 99214

== ENCOUNTER → 2025-01-31 13:01 | Outpatient (BNVA) | payer MEDICAID, SELFPAY | PROVIDERS: PCP Internal Medicine | DX: G47.33 Obstructive sleep apnea (adult) (pediatric) (principal); E66.9 Obesity, unspecified; I48.91 Unspecified atrial fibrillation; Z99.89 Dependence on other enabling machines and devices; Z87.891 Personal history of nicotine dependence | CPT/HCPCS: 99212 ==

== ENCOUNTER 2025-02-18 10:09 | Outpatient (AMB) | payer MEDICAID, SELFPAY ==
[2025-02-18 10:31] VITALS: BP 102/58; PULSE 54; O2SAT 95; BMI 38.5
--- NOTE | 2025-02-18 10:31 | A.OFFVIS_ITS ---
Vital Signs 02/18/25 10:31 Height 5 ft 8 in Weight 253 lb BMI 38.5 BP 102/58 L Blood Pressure Location Lt brachial Position Sitting Pulse 54 Pulse Source Pulse Oximeter Pulse Oximetry (%) 95 Oxygen Delivery Method Room Air Intake Visit Reasons: Obstructive sleep apnea Intake Note: pt is here for follow up and states he was dx with prostate cancer and is receiving radiation, with radiation some difficulty with breathing but he is making it though it. Custom Frame Assembler Required: Yes Custom Frame Assembler Services: Custom Frame Assembler Present Custom Frame Assembler Name: [id number] RAJANI Cota: Cota offered & declined Allergies latex (Latex) Allergy (Mild, Verified 02/18/25 10:43) RASH Medication List - Last Reconciled 02/18/25 by Lennox Nayak MD alfuzosin ER 10 mg PO DAILY 30 days apixaban (Eliquis) 5 mg PO BID aripiprazole 5 mg PO BEDTIME budesonide-formoterol 160-4.5 mcg/actuation (Symbicort) 2 puffs inhalation BID buspirone 10 mg PO DAILY finasteride 5 mg PO DAILY 90 days metoprolol succinate ER (Toprol XL) 25 mg PO DAILY paroxetine HCl 20 mg PO DAILY quetiapine 25 - 50 mg PO BEDTIME PRN Do you need a note to return to daycare/school/sports/work: No HPI HPI Obstructive sleep apnea: Details: 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 COMING OF TO 6 MONTHS FOR FOLLOW-UP. IN THE INTERIM. HE HAS DEVELOPED PROSTATE CANCER AND IS BEING TREATED WITH RADIATION THERAPY. HE IS DOING OKAY BUT SOMEWHAT EMOTIONALLY DISTURBED. BREATHING HAS BEEN STABLE WITH HIS USUAL INTERMITTENT COUGH AND SHORTNESS OF BREATH ON MODERATELY HEAVY EXERTION. FOR HIS SLEEP APNEA HE USES CPAP VERY REGULARLY EVERY NIGHT AND SLEEPS GOOD. PRESENTS WITH NO ISSUES RELATED TO HIS CPAP THERAPY. [facility] Medical History Hormone sensitive prostate cancer (~06/2024) Somnolence COPD (chronic obstructive pulmonary disease) Obesity Nicotine dependence, cigarettes, uncomplicated Tubulovillous adenoma of colon Family history of ovarian cancer Obstructive sleep apnea Depression Asthma Anxiety Chronic fatigue Primary osteoarthritis of both knees Surgical History History of prostate biopsy History of cystoscopy History of left inguinal hernia repair History of colonoscopy Social History Are you a primary manager critical care to a significant other at home: No Do you presently have visiting nurse or other home services: No Alcohol intake: former Patient Tobacco Use Status: Former Tobacco user Tobacco use type: Cigarette Cigarette Packs Per Day: 0.5 Cigarettes Per Day: 2 Years Smoked: (onset 14yo, 1/2-1ppd x 52yrs, 35PYH) Review of Systems Const All systems reviewed & are unremarkable except as noted in HPI and below Eyes Reports no additional complaints ENT Reports nasal congestion (Mild off and on) Card Denies chest pain, Denies syncope, Denies irregular heart rhythm and Denies leg edema Resp Reports as per HPI GI Reports no additional complaints Reports no additional complaints Musc Reports no additional complaints Skin/Breast Reports system reviewed and no additional complaints, except as documented Neuro Reports no additional complaints and Denies syncope Psych Reports anxiety, Reports depression and Reports mood swings Endo Reports no additional complaints Lanre/Lymph Reports no additional complaints Aller/Immun Reports seasonal rhinorrhea (Of and on) Physical Exam Vital Signs: Last Vital Signs Pulse 54 02/18/25 10:31 BP 102/58 L 02/18/25 10:31 Pulse Ox 95 02/18/25 10:31 Oxygen Delivery Method Room Air 02/18/25 10:31 BMI result Body Mass Index 38.5 Const General: healthy appearing (Except for being overweight), comfortable, no acute distress, alert and awake Orientation/consciousness: patient oriented x3 HEENT Head: Yes normal to inspection General nose exam: No nasal polyps present and No nasal discharge present Face and sinus: Yes sinuses nontender Mouth: oropharynx abnormals (Moderately crowded, Mallampati scale 3) Throat: Yes posterior oropharynx normal Eyes General: appearance normal, both eyes and all related structures Neck Neck: Yes normal visual inspection, Yes no lymphadenopathy, Yes trachea midline, Yes no JVD and Yes other (Neck circumference 19 in) Thyroid: Thyroid normal Chest Chest palpation & inspection: normal inspection of the chest, normal palpation of entire chest wall and no tenderness Resp Other: Percussion note is resonant, breath sounds are distant with prolonged expiratory phase. No pleural rub, wheezes or crepitations. Cardio Palpation: normal PMI Rate: regular rate Rhythm: regular rhythm Heart sounds: no gallops and no murmurs Peripheral pulses: Peripheral pulses 2+ throughout GI Palpation (GI): Soft to palpation, nontender, No hepatosplenomegaly present and no masses Auscultation: normal bowel sounds Back/Spine/Pelvis Thoracic/Lumbar Spine: thoracic and lumbar spine normal to inspection Skin General skin exam: no rashes or lesions noted Neuro General: patient oriented x3 and no focal motor deficits Cranial nerves: Yes CN's II-XII intact bilaterally Extrem General: Yes normal to inspection, Yes no clubbing, cyanosis or edema and Yes no calf tenderness Psych Speech and movement: Normal speech and movement present Results Reviewed Results Reviewed: COMPLIANCE REPORT FOR THE LAST 30 NIGHTS IS REVIEWED. USAGE IS 100% OF THE NIGHTS , AVERAGE USE IT PER NIGHT 8 HOURS 16 MINUTES . THERE IS MILD AIR LEAKAGE. RESIDUAL AHI 1.4 WHICH IS GOOD. Assessment & Plan Assessment & Plan (1) COPD (chronic obstructive pulmonary disease): Comment: COPD sec. to SMOKING .(longstanding hx of cough, wheezing, KRAMER,) Currently doing very well with his current meds, except for mild shortness of breath on exertion. Code(s): J44.9 - Chronic obstructive pulmonary disease, unspecified Category: Medical Plan: CONTINUE TO USE SYMBICORT 160-4.52 PUFFS B.I.D. AND USE ALBUTEROL HFA 2 PUFFS Q 6 HOURS ONLY P.R.N.. (2) Nicotine dependence, cigarettes, uncomplicated: Comment: (onset 14yo, 1/2-1ppd x 52yrs, 35PYH) , still smoking about 2-3 Cigarettes daily Code(s): F17.210 - Nicotine dependence, cigarettes, uncomplicated Category: Medical Plan: ADVISE THAT HE SHOULD TRY TO QUIT SMOKING COMPLETELY.. CONTINUE ANNUAL LUNG SCREENING WITH LDCT (3) Obstructive sleep apnea: Comment: DUE TO HIS GROSS OBESITY HE IS A CASE OF OBSTRUCTIVE SLEEP APNEA. HE USES CPAP VERY REGULARLY AND SLEEPS GOOD. COMPLIANCE IS EXCELLENT. Code(s): G47.33 - Obstructive sleep apnea (adult) (pediatric) Category: Medical Plan: COMMENDED FOR GOOD COMPLIANCE AND ADVISED TO KEEP ON USING THE CPAP REGULARLY EVERY NIGHT. Coding Level of Care Code Est Pt Level 3 (05914) Diagnoses COPD (chronic obstructive pulmonary disease) J44.9 Nicotine dependence, cigarettes, uncomplicated F17.210 Obstructive sleep apnea G47.33
== END 2025-02-18 10:52 | disposition home or self-care (01) ==
PROVIDERS: PCP Internal Medicine; Visit Provider Internal Medicine
DX: J44.9 Chronic obstructive pulmonary disease, unspecified (principal); F17.210 Nicotine dependence, cigarettes, uncomplicated; G47.33 Obstructive sleep apnea (adult) (pediatric)
CPT/HCPCS: 99213

== ENCOUNTER → 2025-02-18 10:09 | Outpatient (BNVA) | payer MEDICAID, SELFPAY | PROVIDERS: PCP Internal Medicine; Visit Provider Internal Medicine | DX: J44.9 Chronic obstructive pulmonary disease, unspecified (principal); F17.210 Nicotine dependence, cigarettes, uncomplicated; G47.33 Obstructive sleep apnea (adult) (pediatric); E66.89 Other obesity not elsewhere classified; Z68.38 Body mass index [BMI] 38.0-38.9, adult; Z99.89 Dependence on other enabling machines and devices; Z79.899 Other long term (current) drug therapy | CPT/HCPCS: 99212 ==